=== PATIENT | male | born 1945 | race African-American/Black ===

== ENCOUNTER 2020-03-29 12:45 | Emergency (ER) | payer OTHER ==
[2020-03-29] MEDS ORDERED: NA CHLORIDE 0.9% 500 ML ONE (14:13)
[2020-03-29 14:14] LABS: Absolute Lymphocytes (CBC) 1.1 K/uL (0.7-4.9); Basophils % 1.1 % (0-1.3); Hematocrit 33.2 % (39.6-49.0); Lymphocytes % 28.3 % (15.3-44.8); MPV 10.4 fL (7.6-11.3); RBC Red Blood Cell Count 3.55 M/uL (4.33-5.43)
[2020-03-29 14:20] LABS: Urine Blood NEGATIVE (NEG); Urine Glucose NEGATIVE (NEG); Urine Protein NEGATIVE (NEG); Urine Specific Gravity 1.015 (1.005-1.030)
[2020-03-29 14:25] LABS: Protime INR 0.98
--- NOTE | 2020-03-29 14:25 | RAD REPORT ---
EXAM DESCRIPTION: CT - Head Brain Wo Cont - 03/29/2020 2:16 pm CLINICAL HISTORY: DIZZINESS Headache, drowsiness, fall with head injury COMPARISON: No comparisons TECHNIQUE: All CT scans are performed using dose optimization technique as appropriate and may inclu de automated exposure control or mA/KV adjustment according to patient size. FINDINGS: No intracranial hemorrhage, hydrocephalus or extra-axial fluid collection.Mild frontal lob e atrophy.No areas of brain edema or evidence of midline shift. The paranasal sinuses and mastoids are clear. The calvarium is intact. IMPRESSION: No acute intracranial abnormality.
[2020-03-29 14:34] LABS: ALT/SGPT 22 U/L (12-78); AST/SGOT 19 U/L (15-37); Albumin 3.5 g/dL (3.4-5.0); Alkaline Phosphatase 51 U/L (45-117); BUN Blood Urea Nitrogen 29 mg/dL (7-18); Bicarbonate 28 mmol/L (21-32); Bilirubin Direct 0.1 mg/dL (0-0.2); Bilirubin Total 0.3 mg/dL (0.2-1.0); Glucose Level 115 mg/dL (74-106); Magnesium 2.1 mg/dL (1.8-2.4); NT PRO-BNP 292 pg/mL (<125); Potassium 4.1 mmol/L (3.5-5.1); Protein, Total 7.9 g/dL (6.4-8.2); Sodium Level 140 mmol/L (136-145); Troponin (Emerg Dept Use Only) < 0.02 ng/mL (0.0-0.045)
--- NOTE | 2020-03-29 14:38 | RAD REPORT ---
EXAM DESCRIPTION: RAD - Chest Single View - 03/29/2020 2:30 pm CLINICAL HISTORY: Dizziness Chest pain. COMPARISON: Chest Pa And Lat (2 Views) dated 12/06/2018; Chest Pa And Lat (2 Views) dated 06/15/2018; CHEST PA AND LAT 2 VIEW dated 05/17/2011; CHEST SINGLE VIEW dated 04/26/2010 FINDINGS: Portable technique limits examination quality. Small calcified granuloma is seen right lung base. The lungs are otherwise clear. The heart is mildly prominent size with a tortuous thoracic aorta. No displaced fractures. IMPRESSION: No acute intrathoracic process suspected.
--- NOTE | 2020-03-29 15:10 | RAD REPORT ---
EXAM DESCRIPTION: - CP - 03/29/2020 2:58 pm CLINICAL HISTORY: DIZZINESS Headache, drowsiness COMPARISON: No comparisons TECHNIQUE: Real-time sonographic evaluation of both carotid systems was performed. Doppler interroga tion was performed with waveform tracing bilaterally. FINDINGS: Normal high resistance waveforms are noted in both external carotid arteries. The common c arotid arteries and internal carotid arteries show normal low resistance waveforms. No significant plaque formation is seen. Peak systolic and end diastolic velocity values and the ICA/ CCA ratios are in the non-hemodynamically significant range. Antegrade flow seen in both vertebral arteries. IMPRESSION: No significant atherosclerotic changes noted. No evidence of a hemodynamically significant stenosis.
--- NOTE | 2020-03-29 16:36 | ER ---
Nurse's Notes [facility] Name: Cam Kaplan Age: 75 yrs Sex: Male : 1945 Arrival Date: 03/29/2020 Time: 12:47 Bed 4 Private MD: Jean Penny Diagnosis: Dizziness and giddiness Presentation: 03/29 12:57 Chief complaint: Spouse and/or significant other states: "he was standing in the [facility] kitchen, he all of a sudden, he felt dizzy then fell. he denies pain now.". Coronavirus screen: At this time, the client does not indicate any symptoms associated with coronavirus-19. Ebola Screen: Patient negative for fever greater than or equal to 101.5 degrees Fahrenheit, and additional compatible Ebola Virus Disease symptoms. Initial Sepsis Screen: Does the patient meet any 2 criteria? No. Patient's initial sepsis screen is negative. Does the patient have a suspected source of infection? No. Patient's initial sepsis screen is negative. Risk Assessment: Do you want to hurt yourself or someone else? Patient reports no desire to harm self or others. Onset of symptoms was March 29, 2020. 12:57 Method Of Arrival: Wheelchair jd3 12:57 Acuity: ISA 3 jd3 Historical: - Allergies: 13:00 No Known Allergies; j - Home Meds: 15:56 Benicar HCT 40-12.5 mg Oral tab 1 tab once daily [Active]; Toprol XL 50 mg Oral Tb24 1 jl7 tab once daily [Active]; allopurinol 300 mg Oral tab 1 tab once daily [Active]; Lasix 40 mg Oral tab [Active]; doxazosin 4 mg oral tab 1 tab once daily [Active]; omeprazole 40 mg Oral cpDR 1 cap once daily [Active]; flecainide 50 mg Oral tab 1 tab every 12 hours [Active]; aspirin 325 mg Oral tab 1 tab once daily [Active]; CoQ-10 100 mg Oral cap daily [Active]; Centrum Silver Oral daily [Active]; Vitamin B-12 1,000 mcg Oral tab daily [Active]; Vitamin C 1,000 mg Oral tab daily [Active]; - PMHx: 13:00 GERD; Gout; Atrial Fib; Hypertension; jd3 - PSHx: 13:00 Carpal Tunnel Repair; jd3 - Immunization history:: Adult Immunizations up to date. - Social history:: Smoking status: Patient denies any tobacco usage or history of. Screenin:15 Abuse screen: Denies threats or abuse. Nutritional screening: No deficits noted. rb1 Tuberculosis screening: No symptoms or risk factors identified. Fall Risk Fall in past 12 months (25 points). No secondary diagnosis (0 pts). IV access (20 points). Ambulatory Aid- None/Bed Rest/Nurse Assist (0 pts). Gait- Normal/Bed Rest/Wheelchair (0 pts) Mental Status- Oriented to own ability (0 pts). Total Robles Fall Scale indicates High Risk Score (45 or more points). Fall prevention measures have been instituted. Side Rails Up X 2 Placed Close to Nursing Station 1:1 Attendant Assigned Frequent Obs/Assessments Occuring Family Present and informed to notify staff if the need to leave the bedside As available patient and family educated on Fall Prevention Program and Strategies. Assessment: 13:15 General: Appears in no apparent distress. comfortable, Behavior is calm, cooperative. rb1 Pain: Denies pain. Neuro: Level of Consciousness is awake, alert, obeys commands, Oriented to person, place, time, situation, Denies dizziness, LOC. Cardiovascular: Capillary refill < 3 seconds. Respiratory: Airway is patent Respiratory effort is even, unlabored, Respiratory pattern is regular, symmetrical. GI: No signs and/or symptoms were reported involving the gastrointestinal system. : No signs and/or symptoms were reported regarding the genitourinary system. Derm: Skin is dry, Skin is normal, Skin temperature is warm. 15:45 Reassessment: Patient appears in no apparent distress at this time. No changes from jl7 previously documented assessment. Patient is alert, oriented x 3, equal unlabored respirations, skin warm/dry/pink. ERP notified of BP, will be to bedside momentarily. Patient denies pain at this time. 16:44 Reassessment: Patient appears in no apparent distress at this time. No changes from rb1 previously documented assessment. Vital Signs: 13:00 BP 129 / 98; Pulse 74; Resp 17 S; Temp 98.3(O); Pulse Ox 98% on R/A; Weight 112.49 kg jd3 (R); Height 6 ft. 1 in. (185.42 cm) (R); Pain 0/10; 15:45 BP 184 / 112; Pulse 59; Resp 17; Pulse Ox 100% ; rb1 15:51 BP 169 / 120; Pulse 57; Resp 15; Pulse Ox 99% ; Pain 0/10; jl7 13:00 Body Mass Index 32.72 (112.49 kg, 185.42 cm) jd3 ED Course: 12:47 Patient arrived in ED. ag5 12:47 Jean Pneny MD is Private Physician. ag5 12:59 Triage completed. jd3 13:00 Arm band placed on. jd3 13:15 Patient has correct armband on for positive identification. Bed in low position. Call rb1 light in reach. Side rails up X 1. armature rewinder on. Pulse ox on. NIBP on. Warm blanket given. 13:23 Paulie Li, CHRISTINE is PHCP. pm1 13:24 Ilia Pereyra MD is Attending Physician. pm1 13:35 Meagan Carlin, DAVID is Primary Nurse. rb1 14:04 Initial lab(s) drawn, by wi, sent to lab. Inserted saline lock: 20 gauge in right em1 antecubital area, using aseptic technique. Blood collected. 14:16 CT Head Brain wo Cont In Process Unspecified. EDMS 14:29 EKG done, by ED staff, reviewed by Ilia Pereyra MD. dh4 14:30 XRAY Chest (1 view) In Process Unspecified. EDMS 14:58 Carotid Artery Bilateral US In Process Unspecified. EDMS 14:59 Ultrasound completed. Patient tolerated well. Notified BIOFUELS MANAGER/LAURIE douglas. sg3 16:36 Jean Penny MD is Referral Physician. pm1 17:04 No provider procedures requiring assistance completed. IV discontinued, intact, rb1 bleeding controlled, No redness/swelling at site. Pressure dressing applied. Administered Medications: 14:03 Drug: NS 0.9% 500 ml Route: IV; Rate: bolus; Site: right antecubital; rb1 14:45 Follow up: Response: No adverse reaction; IV Status: Completed infusion; IV Intake: jl7 500ml Intake: 14:45 IV: 500ml; Total: 500ml. jl7 Outcome: 16:36 Discharge ordered by . pm1 17:04 Discharged to home ambulatory, with family. rb1 17:04 Condition: stable 17:04 Discharge instructions given to patient, Instructed on discharge instructions, follow up and referral plans. Demonstrated understanding of instructions, follow-up care, Prescriptions given X none 17:05 Patient left the ED. rb1 Signatures: Dispatcher [employer] Pascual Godoy em1 Meagan Carlin, RN RN rb1 Paulie Li, CHRISTINE BIOFUELS MANAGER pm1 Meka Tate RN RN jl7 David Zhang RN RN josed3 Jacqui Ash 3 Coby Whitaker [facility] Giorgio Galicia 4
--- NOTE | 2020-03-29 16:37 | EDPHYS ---
Physician Documentation [facility] Name: Cam Kaplan Age: 75 yrs Sex: Male : 1945 Arrival Date: 03/29/2020 Time: 12:47 Bed 4 Private MD: Jean Penny ED Physician Ilia Pereyra HPI: 03/29 13:39 This 75 yrs old Black Male presents to ER via Wheelchair with complaints of Dizziness, pm1 Fall Injury. 13:39 The patient presents with sense of spinning, vertigo. Onset: The symptoms/episode pm1 began/occurred 1 hour(s) ago. Context: occurred at home, occurred while the patient was standing, just prior to the episode the patient experienced no apparent symptoms. Modifying factors: The symptoms are alleviated by nothing, the symptoms are aggravated by nothing. Associated signs and symptoms: Pertinent negatives: abdominal pain, chest pain, focal weakness, head injury, headache, nausea, numbness, palpitations, shortness of breath, vomiting. Severity of symptoms: in the emergency department the symptoms have resolved Pain is currently a 0 / 10. Patient's baseline: Neuro: alert and fully oriented, Motor: no deficits, Ambulation: walks without assistance, Speech: normal. The patient has not experienced similar symptoms in the past. Patient was standing in the kitchen with his hands on the counter and then he started feeling the room spinning. He was able to control is fall down to the floor first landing on his knees. His head hit his 's knee on the way down. He had no difficulty getting up and he no longer experiencing any dizziness. No headache, focal weakness, neck pain, LOC. Historical: - Allergies: 13:00 No Known Allergies; jd3 - Home Meds: 15:56 Benicar HCT 40-12.5 mg Oral tab 1 tab once daily [Active]; Toprol XL 50 mg Oral Tb24 1 jl7 tab once daily [Active]; allopurinol 300 mg Oral tab 1 tab once daily [Active]; Lasix 40 mg Oral tab [Active]; doxazosin 4 mg oral tab 1 tab once daily [Active]; omeprazole 40 mg Oral cpDR 1 cap once daily [Active]; flecainide 50 mg Oral tab 1 tab every 12 hours [Active]; aspirin 325 mg Oral tab 1 tab once daily [Active]; CoQ-10 100 mg Oral cap daily [Active]; Centrum Silver Oral daily [Active]; Vitamin B-12 1,000 mcg Oral tab daily [Active]; Vitamin C 1,000 mg Oral tab daily [Active]; - PMHx: 13:00 GERD; Gout; Atrial Fib; Hypertension; jd3 - PSHx: 13:00 Carpal Tunnel Repair; jd3 - Immunization history:: Adult Immunizations up to date. - Social history:: Smoking status: Patient denies any tobacco usage or history of. ROS: 13:39 Constitutional: Negative for fever, chills, and weight loss, Eyes: Negative for injury, pm1 pain, redness, and discharge, ENT: Negative for injury, pain, and discharge, Neck: Negative for injury, pain, and swelling, Cardiovascular: Negative for chest pain, palpitations, and edema, Respiratory: Negative for shortness of breath, cough, wheezing, and pleuritic chest pain, Abdomen/GI: Negative for abdominal pain, nausea, vomiting, diarrhea, and constipation, Back: Negative for injury and pain, MS/Extremity: Negative for injury and deformity, Skin: Negative for injury, rash, and discoloration. 13:39 Neuro: Positive for dizziness, Negative for numbness, tingling, weakness. Exam: 13:39 Constitutional: This is a well developed, well nourished patient who is awake, alert, pm1 and in no acute distress. Head/Face: Normocephalic, atraumatic. Eyes: Pupils equal round and reactive to light, extra-ocular motions intact. Lids and lashes normal. Conjunctiva and sclera are non-icteric and not injected. Cornea within normal limits. Periorbital areas with no swelling, redness, or edema. ENT: Nares patent. No nasal discharge, no septal abnormalities noted. Tympanic membranes are normal and external auditory canals are clear. Oropharynx with no redness, swelling, or masses, exudates, or evidence of obstruction, uvula midline. Mucous membranes moist. Neck: Trachea midline, no thyromegaly or masses palpated, and no cervical lymphadenopathy. Supple, full range of motion without nuchal rigidity, or vertebral point tenderness. No Meningismus. 13:39 Back: No spinal tenderness. No costovertebral tenderness. Full range of motion. Skin: Warm, dry with normal turgor. Normal color with no rashes, no lesions, and no evidence of cellulitis. MS/ Extremity: Pulses equal, no cyanosis. Neurovascular intact. Full, normal range of motion. 13:39 Cardiovascular: Exam negative for acute changes, Rate: normal, Rhythm: regular, Pulses: no pulse deficits are appreciated. 13:39 Respiratory: Exam negative for acute changes, respiratory distress, shortness of breath. 13:39 Abdomen/GI: Exam negative for acute changes, Inspection: abdomen appears normal, Palpation: abdomen is soft and non-tender, in all quadrants, mass, is not appreciated, rebound tenderness, is not appreciated. 13:39 Neuro: Exam negative for acute changes, Orientation: is normal, Mentation: is normal, Cranial nerves: CN II- XII are normal as tested, Cerebellar function: normal finger to nose testing, Motor: is normal. Vital Signs: 13:00 BP 129 / 98; Pulse 74; Resp 17 S; Temp 98.3(O); Pulse Ox 98% on R/A; Weight 112.49 kg jd3 (R); Height 6 ft. 1 in. (185.42 cm) (R); Pain 0/10; 15:45 BP 184 / 112; Pulse 59; Resp 17; Pulse Ox 100% ; rb1 15:51 BP 169 / 120; Pulse 57; Resp 15; Pulse Ox 99% ; Pain 0/10; jl7 13:00 Body Mass Index 32.72 (112.49 kg, 185.42 cm) jd3 MDM: 13:26 Patient medically screened. pm1 16:35 Data reviewed: vital signs. Data interpreted: Pulse oximetry: on room air is 99 %. pm1 Interpretation: normal. Counseling: I had a detailed discussion with the patient and/or guardian regarding: the historical points, exam findings, and any diagnostic results supporting the discharge/admit diagnosis, lab results, radiology results, the need for outpatient follow up, Dr. Penny. Weight loss and blood pressure management, to return to the emergency department if symptoms worsen or persist or if there are any questions or concerns that arise at home. 03/29 13:38 Order name: Basic Metabolic Panel; Complete Time: 14:36 pm1 03/29 13:38 Order name: CBC with Diff; Complete Time: 14:36 pm1 03/29 13:38 Order name: LFT's; Complete Time: 14:36 pm1 03/29 13:38 Order name: Magnesium; Complete Time: 14:36 pm1 03/29 13:38 Order name: NT PRO-BNP; Complete Time: 14:36 pm1 03/29 13:38 Order name: PT-INR; Complete Time: 14:36 pm1 03/29 13:38 Order name: Troponin (emerg Dept Use Only); Complete Time: 14:36 pm1 03/29 13:38 Order name: XRAY Chest (1 view); Complete Time: 14:47 pm1 03/29 13:38 Order name: EKG; Complete Time: 13:39 pm1 03/29 13:38 Order name: Cardiac monitoring; Complete Time: 14:33 pm1 03/29 13:38 Order name: CT Head Brain wo Cont; Complete Time: 14:36 pm1 03/29 13:38 Order name: Carotid Artery Bilateral US; Complete Time: 15:16 pm1 03/29 14:16 Order name: Urine Dipstick--Ancillary (enter results); Complete Time: 14:36 eb 03/29 13:38 Order name: EKG - Nurse/Tech; Complete Time: 14:33 pm1 03/29 13:38 Order name: IV Saline Lock; Complete Time: 14:03 pm1 03/29 13:38 Order name: Labs collected and sent; Complete Time: 14:03 pm1 03/29 13:38 Order name: O2 Per Protocol; Complete Time: 14:06 pm1 03/29 13:38 Order name: O2 Sat Monitoring; Complete Time: 14:06 pm1 03/29 13:38 Order name: Urine Dipstick-Ancillary (obtain specimen); Complete Time: 15:08 pm1 Administered Medications: 14:03 Drug: NS 0.9% 500 ml Route: IV; Rate: bolus; Site: right antecubital; rb1 14:45 Follow up: Response: No adverse reaction; IV Status: Completed infusion; IV Intake: jl7 500ml Disposition: 03/30 07:14 Co-signature as Attending Physician, Ilia Pereyra MD I agree with the assessment and adal plan of care. Disposition: 03/29/20 16:36 Discharged to Home. Impression: Dizziness and giddiness. - Condition is Stable. - Discharge Instructions: Dizziness, Vertigo. - Medication Reconciliation Form, Thank You Letter, Antibiotic Education, Prescription Opioid Use form. - Follow up: Emergency Department; When: As needed; Reason: Worsening of condition. Follow up: Jean Penny MD; When: 2 - 3 days; Reason: Recheck today's complaints, Continuance of care, Re-evaluation by your physician. - Problem is new. - Symptoms are resolved. Signatures: Dispatcher [employer] EDWA Ilia Pereyra MD MD cha Barber, Rebecca, RN RN rb1 Paulie Li NP CASING INSPECTOR pm1 Meka Tate RN RN jl7 David Zhang RN RN jd3 Corrections: (The following items were deleted from the chart) 03/29 17:05 16:36 03/29/2020 16:36 Discharged to Home. Impression: Dizziness and giddiness. rb1 Condition is Stable. Forms are Medication Reconciliation Form, Thank You Letter, Antibiotic Education, Prescription Opioid Use. Follow up: Emergency Department; When: As needed; Reason: Worsening of condition. Follow up: Jean Penny; When: 2 - 3 days; Reason: Recheck today's complaints, Continuance of care, Re-evaluation by your physician. Problem is new. Symptoms are resolved. pm1
[2020-03-29 17:20] VITALS: TEMP 98.3
[2020-03-29 17:22] VITALS: BP 169/120; O2SAT 99
--- OUTSIDE RECORDS SUMMARY | 2020-04-02 00:50 | XMS REPORT | Clinical Summary ---
:1945 Author Organization [facility] Address [address] [place] [address] Care Team Providers Name Role Phone Bubba Moore MD Primary Care Provider Allergies No Known Active Allergies Medications Medication Sig Dispensed Refills Start End Date Status Date nitroglycerin Place 0.4 mg 0 Act sabrina (NITROSTAT) 0.4 MG under the tongue SL tablet every 5 (five) minutes as needed for chest pain. atorvastatin Take 20 mg by 0 Act sabrina (LIPITOR) 20 mg mouth nightly. tablet Default OP ins citalopram Take 20 mg by 0 Activ e (CeleXA) 20 MG mouth daily. tablet thiamine 1 tablet (100 mg 30 tablet 0 04/08/20 Act sabrina mononitrate, vit total) by 0 20 B1, (B-1) 100 mg Nasogastric tablet route daily for 30 days. spironolactone Take 0.5 tablets 15 tablet 0 04/08/20 Active (ALDACTONE) 25 MG (12.5 mg total) 0 20 tablet by mouth daily for 30 days. sodium chloride 3 Take 4 mL by 480 mL 0 04/08/20 Active % nebulizer nebulization 0 20 solutionIndication every 6 (six) s: Acute hours for 30 respiratory days. failure, unspecified whether with hypoxia or hypercapnia (HCC), Acute upper GI bleed, Chronic obstructive pulmonary disease, unspecified COPD type (HCC), Aspiration pneumonia, unspecified aspiration pneumonia type, unspecified laterality, unspecified part of lung (HCC) senna (SENOKOT) Take 1 tablet by 30 tablet 0 0 Active 8.6 mg tablet mouth daily for 0 20 30 days. pantoprazole 4 Infuse 10 mL (40 600 mL 0 04/08/20 Active mg/mL in sodium mg total) into a 0 20 chloride injection venous catheter 2 (two) times a day before meals for 30 days. naloxone (NARCAN) Infuse 0.5 mL 1 mL 0 04/08/20 Active 0.4 mg/mL (0.2 mg total) 0 20 injection into a venous catheter once as needed for opioid reversal or respiratory depression (as needed for respiratory rate 8 per minute or less OR patient sommnolent and difficult to arouse (POSS GREATER than 3).) for up to 30 days. multivitamin Take 1 tablet by 30 tablet 0 04/08/20 Active (THERAGRAN) tablet mouth daily for 0 20 30 days. losartan (COZAAR) Take 1 tablet 30 tablet 0 04/08/20 Active 25 MG tablet (25 mg total) by 0 20 mouth daily for 30 days. ipratropium-albute Take 3 mL by 0 04/08/20 Active roL (DUO-NEB) nebulization 0 20 0.5-2.5 mg/3 mL every 6 (six) nebulizer hours as needed for wheezing for up to 30 days. insulin lispro Inject 0-12 10 mL 12 04/08/20 Act sabrina (ADMELOG) 100 Units under the 0 20 unit/mL injection skin every 4 (four) hours for 30 days. glucagon 1 mg/mL Inject 1 mg into 0 Active recon soln the shoulder, 0 20 thigh, or buttocks every 15 (fifteen) minutes as needed (if patient NPO, unable to swallow safely with no IV access.) for up to 30 days. furosemide (LASIX) 1 tablet (40 mg 30 tablet 0 04/08 Active 40 mg tablet total) by 0 20 Nasogastric route daily for 30 days. folic acid Take 1 tablet (1 30 tablet 0 04/08/20 Ac tive (FOLVITE) 1 MG mg total) by 0 20 tablet mouth daily for 30 days. dextrose 50% Infuse 50 mL (25 0 04/08/20 Active syringe g total) into a 0 20 venous catheter every 20 (twenty) minutes as needed (If blood glucose is 40 mg/dL or LESS) for up to 30 days. dextrose 50% Infuse 25 mL 0 04/08/20 Acti ve syringe (12.5 g total) 0 20 into a venous catheter every 20 (twenty) minutes as needed (If blood glucose is between 41-69 mg/dL) for up to 30 days. dextrose 10 % Infuse 40 mL/hr 500 mL 0 04/08/20 Active infusion into a venous 0 20 catheter continuously as needed (for interruption in TPN or tube feeds) for up to 30 days. dextrose 10 % Infuse 40 mL/hr 500 mL 0 04/08/20 Active infusion into a venous 0 20 catheter continuously as needed (For bedside glucose LESS than 70 mg/dL) for up to 30 days. carvediloL (COREG) Take 1 tablet 60 tablet 0 0 Active 3.125 MG tablet (3.125 mg total) 0 20 by mouth 2 (two) times a day for 30 days. amIODarone Take 1 tablet 60 tablet 0 04/08/20 Activ e (PACERONE) 200 MG (200 mg total) 0 20 tablet by mouth 2 (two) times a day for 30 days. acetaminophen 20.3 mL (650 mg 0 04/08/20 Active (TYLENOL) 160 mg/5 total) by 0 20 mL (5 mL) solution Nasogastric route every 4 (four) hours as needed (Fever, mild pain or headache) for up to 30 days. citalopram Take 10 mg by 0 07/02/19 Disco ntinued (CeleXA) 10 MG mouth daily. 20 tablet fluticasone-vilant Inhale 1 0 08/01/19 D iscontinued robinson (BREO inhalations once 20 ( ed List ELLIPTA) 200-25 daily. Iman nup) mcg/dose blister with device powder for inhalation albuterol (PROAIR Inhale 2 puffs 3 0 08/01 Discontinued HFA,PROVENTIL (three) times a 20 (Med List HFA,VENTOLIN HFA) day. Cl eanup) 90 mcg/actuation inhaler amLODIPine Take 10 mg by 0 07/02/19 Disco ntinued (NORVASC) 10 mg mouth daily. 20 tablet aspirin (ECOTRIN) Take 81 mg by 0 03/09/20 Discontinued 81 MG enteric mouth daily. 20 (St op Taking at coated tablet Discha rge) atorvastatin Take 1 tablet 30 tablet 0 08/01/19 Dis continued (LIPITOR) 20 MG (20 mg total) by 0 20 (Med List tablet mouth nightly Cleanu p) for 30 days. metoprolol Take 1 tablet 60 tablet 0 08/01/19 Disco ntinued tartrate (25 mg total) by 0 20 (Me d List (LOPRESSOR) 25 mg mouth 2 (two) Cleanup) tablet times a day for [address]. [address] 1 tablet 25 tablet 12 08/01/19 D iscontinued (NITROSTAT) 0.4 MG (0.4 mg total) 0 20 (Med List SL tablet under the tongue Reginaldo benigno) every 5 (five) minutes as needed for chest pain for up to 30 days. pantoprazole Take 1 tablet 30 tablet 0 08/01/19 Dis continued (PROTONIX) 40 MG (40 mg total) by 0 20 (Med List EC tablet mouth daily for Iman nup) 30 days. atorvastatin Take 20 mg by 0 08/01/19 Dis continued (LIPITOR) 20 MG mouth nightly. 20 tablet Default OP ins pantoprazole Take 40 mg by 0 03/09/20 Dis continued (PROTONIX) 40 MG mouth daily. 20 (Stop Taking at EC tablet Discharge) albuterol (PROAIR Inhale 2 puffs 0 0 Discontinued HFA) 90 every 6 (six) 20 (Stop Taking at mcg/actuation hours as needed Discharge) inhaler for wheezing. metoprolol Take 25 mg by 0 03/09/20 Disco ntinued tartrate mouth 2 (two) 20 (Stop Taking at (LOPRESSOR) 25 mg times a day. Discharge) tablet fluticasone Inhale 1 30 each 0 09/03/19 furoate-vilanterol inhalations once 0 20 (BREO ELLIPTA) daily for 30 100-25 mcg/dose days. blister with device powder for inhalation montelukast Take 1 tablet 30 tablet 0 09/02/19 Expi red (SINGULAIR) 10 mg (10 mg total) by 0 20 tablet mouth nightly for 30 days. levoFLOXacin Take 1 tablet 8 tablet 0 01/04/20 Exp ired (Levaquin) 500 MG (500 mg total) 0 20 tablet by mouth daily for 8 days. metroNIDAZOLE Take 1 tablet 24 tablet 0 01/04/20 Ex pired (FlagyL) 500 MG (500 mg total) 0 20 tablet by mouth 3 (three) times a day for 8 days. codeine-guaifenesi Take 5 mL by 120 mL 0 12/31/19 n (GUAIFENESIN AC) mouth 4 (four) 0 20 10-100 mg/5 mL times a day as liquidIndications: needed for cough acute pain for up to 4 days .acute pain. traMADoL (ULTRAM) 0.5 tablets (25 0 50 mg mg total) by 0 20 tabletIndications: Nasogastric acute pain route every 6 (six) hours as needed for moderate pain for up to 7 days .acute pain. sodium chloride Irrigate with 500 mL 0 03/09/20 0.9% for 500 mL as 0 20 IRRIGATION (NS) directed once 0.9 % irrigation for 1 dose. Active Problems Problem Noted Date Acute upper GI bleed 02/22/2020 Coffee ground emesis 02/22/2020 Overview: Added automatically from request for roxy yared [id number] Lactic acidosis 12/26/2019 Syncope 08/01/2019 Chest pain 07/01/2019 COPD (chronic obstructive pulmonary disease) 8 Alcohol abuse 03/10/2018 Acute pancreatitis 03/08/2018 Encounters Date Type Specialty Care Team Description 02/22/2020 Surgery Gastroenterology Zenon Shankar EGD WITH ILA Patel MD 02/22/2020 Anesthesia Event Gastroenterology Rose Marie Escalante MD 02/22/2020 [facility] General Internal SvAlexandria barragan, Aspirati on pneumonia, unspecified aspiration pneumonia type, unspecified laterality, unspecified part of lung (HCC) (Primary Dx); - Encounter Medicine DO Coffee ground emesis; 03/09/2020 Olga Dillard-Gunjan Unresponsive ; MD Nati Alcohol abuse; Hasmukh, Acute respirato ry failure, unspecified whether with hypoxia or hypercapnia ([facility]); Balta Brown MD Lactic acid a cidosis; Acute upper GI bleed; Chronic obstruc tive pulmonary disease, unspecified COPD type ([facility]); Cardiac arrest ([facility]); Ventricular fib rillation ([facility]) 12/25/2019 [facility] Surgery Norinsky, Acute coliti s (Primary Dx); - Encounter Srinivas Muñoz, DO Lactic acidosis; 12/27/2019 Santana Dillardynh-Gunjan SVT (suprave ntricular tachycardia) ([facility]); MD Nati Vomiting and diarrhea; Hasmukh, Cough; Balta Brown MD Suspected Cov id-19 Virus Infection; Chronic obstruc tive pulmonary disease, unspecified COPD type ([facility]) 08/02/2019 Surgery Procedural Cardiology Mason Abarca Left heart cath sabino Rios MD lv gram cors [20069 (CPT)] 08/01/2019 Emergency General Internal Gemignani, Chest pain, unspecified type (Primary Dx); - Medicine Desirae Holland MD Syncope, unspecified syncope type 08/03/2019 Balta Noe MD 07/01/2019 Emergency General Internal Marshal, Moiz Boi, Chest p ain, unspecified type (Primary Dx); - Medicine Chronic obstructive pulmonary disease, u nspecified COPD type ([facility]) 07/03/2019 Fidel Chatman MD Berberian, Esteban N., MD after 04/01/2019 Immunizations Name Administration Dates Next Due FLUCELVAX QUAD PF 03/09/2020 (Deferred: - patient has bee n sick), 03/10/2018 Pneumococcal Conjugate 13-Valent 03/10/2018 Surgical History Surgery Date Site/Laterality Comments CORONARY STENT PLACEMENT APPENDECTOMY TONSILLECTOMY KNEE SURGERY AMPUTATION, DIGIT, HAND Left mid dle finger amputated BACK SURGERY 1979; 1996 CARDIAC CATHETERIZATION 08/02/2019 N/A Procedur e: Left heart cath w lv gram cors; Surg rene: Mason Abarca MD; Locatio n: [facility] [place] Catcher Filter Tip Invasive Locatio n; Service: Cardiology; Lat erality: N/A; Medical devices from this surgery are in the Impla nts section. EGD W BIOPSY P 02/22/2020 N/A Procedure: EGD W ITH BIOPSY; Surgeon: Maxx Shankar MD; Location: [facility] [place] E NDOSCOPY; Service: Gastroe nterology; Laterality: N/A; extensive esophagitis Medical History Medical History Date Comments COPD (chronic obstructive pulmonary disease) (HCC) Pancreatitis Ulcer of abdomen wall (HCC) Hypertension Coronary artery disease Hypercholesteremia Pulmonary embolism (HCC) Anemia Social History Tobacco Use Types Packs/Day Years Used Date Current Every Day Smoker Cigarettes 1 Smokeless Tobacco: Never Used Tobacco Cessation: Ready to Quit: No; Co unseling Given: No Alcohol Use Drinks/Week oz/Week Comments Not Currently 3 years ago Sex Assigned at Date Recorded Not on file Last Filed Vital Signs Vital Sign Reading Time Taken Comments Blood Pressure 112/55 03/09/2020 7:25 PM CDT Pulse 66 03/09/2020 9:20 PM CDT Temperature 36.4 C (97.6 F) 03/09/2020 7:25 PM CDT Respiratory Rate 18 03/09/2020 9:20 PM CDT Oxygen Saturation 98% 03/09/2020 8:57 PM CDT Inhaled Oxygen Concentration - - Weight 62 kg (136 lb 11 oz) 03/09/2020 5:34 AM CDT Height 175.3 cm (5' 9") 02/22/2020 1:43 AM CDT Body Mass Index 20.18 02/22/2020 1:43 AM CDT Plan of Treatment Health Maintenance Due Date Last Done Comments COLONOSCOPY SCREENING 1997 SHINGLES VACCINES (#1) 1997 65+ PNEUMOCOCCAL VACCINE (2 of 2 - PPSV23) 03/10/201903/10 INFLUENZA VACCINE 01/25/2020 03/10/2018 Implants Implanted Type Area Impression Printer Device Shelf Model / Identifier Expiration Serial / Date Lot Device Vasclr Clsr Baln Cath 10ml Lkng Syr 5fr [place] My nxgrip - [id number] Cardiovascular N/A: ACCESS CLOSURE 06/25/2021 [id number] / Implanted: 08/02/2019 at [facility] (Quantity not o n file) Implants N/A INC / [id number] Procedures Procedure Name Priority Date/Time Associated Diagnosis Comme nts POC GLUCOSE Routine 03/09/2020 4:02 Results for this PM CDT procedure are i n the results section. POC GLUCOSE Routine 03/09/2020 11:48 Results for this AM CDT procedure are i n the results section. POC GLUCOSE Routine 03/09/2020 9:15 Results for this AM CDT procedure are i n the results section. POC GLUCOSE Routine 03/09/2020 5:09 Results for this AM CDT procedure are i n the results section. POC GLUCOSE Routine 03/09/2020 1:18 Results for this AM CDT procedure are i n the results section. POC GLUCOSE Routine 03/08/2020 9:02 Results for this PM CDT procedure are i n the results section. POC GLUCOSE Routine 03/08/2020 4:03 Results for this PM CDT procedure are i n the results section. POC GLUCOSE Routine 03/08/2020 12:54 Results for this PM CDT procedure are i n the results section. POC GLUCOSE Routine 03/08/2020 8:27 Results for this AM CDT procedure are i n the results section. PARTIAL THROMBOPLASTIN Timed 03/08/2020 5:45 R esults for this TIME (PTT) AM CDT procedure are i n the results section. CBC HEMOGRAM Routine 03/08/2020 5:45 Results for this AM CDT procedure are i n the results section. POC GLUCOSE Routine 03/08/2020 4:39 Results for this AM CDT procedure are i n the results section. POC GLUCOSE Routine 03/08/2020 12:01 Results for this AM CDT procedure are i n the results section. PARTIAL THROMBOPLASTIN Timed 2020 10:15 R esults for this TIME (PTT) PM CDT procedure are i n the results section. POC GLUCOSE Routine 2020 8:19 Results for this PM CDT procedure are i n the results section. POC GLUCOSE Routine 2020 3:27 Results for this PM CDT procedure are i n the results section. PARTIAL THROMBOPLASTIN Timed 2020 2:30 R esults for this TIME (PTT) PM CDT procedure are i n the results section. POC GLUCOSE Routine 2020 12:04 Results for this PM CDT procedure are i n the results section. POC GLUCOSE Routine 2020 8:46 Results for this AM CDT procedure are i n the results section. CBC HEMOGRAM Routine 2020 7:35 Results for this AM CDT procedure are i n the results section. PARTIAL THROMBOPLASTIN Timed 2020 6:54 R esults for this TIME (PTT) AM CDT procedure are i n the results section. POC GLUCOSE Routine 2020 4:15 Results for this AM CDT procedure are i n the results section. POC GLUCOSE Routine 2020 12:26 Results for this AM CDT procedure are i n the results section. PARTIAL THROMBOPLASTIN Timed 03/06/2020 10:50 R esults for this TIME (PTT) PM CDT procedure are i n the results section. POC GLUCOSE Routine 03/06/2020 8:46 Results for this PM CDT procedure are i n the results section. POC GLUCOSE Routine 03/06/2020 3:50 Results for this PM CDT procedure are i n the results section. PARTIAL THROMBOPLASTIN Timed 03/06/2020 3:15 R esults for this TIME (PTT) PM CDT procedure are i n the results section. POC GLUCOSE Routine 03/06/2020 11:35 Results for this AM CDT procedure are i n the results section. PARTIAL THROMBOPLASTIN Timed 03/06/2020 7:45 R esults for this TIME (PTT) AM CDT procedure are i n the results section. POC GLUCOSE Routine 03/06/2020 7:43 Results for this AM CDT procedure are i n the results section. POC GLUCOSE Routine 03/06/2020 4:39 Results for this AM CDT procedure are i n the results section. MANUAL DIFFERENTIAL Timed 03/06/2020 4:30 Resu lts for this AM CDT procedure are i n the results section. ESTIMATED GFR Timed 03/06/2020 4:30 Results fo r this AM CDT procedure are i n the results section. IONIZED CALCIUM Timed 03/06/2020 4:30 Results for this AM CDT procedure are i n the results section. PHOSPHORUS LEVEL Timed 03/06/2020 4:30 Results for this AM CDT procedure are i n the results section. MAGNESIUM LEVEL Timed 03/06/2020 4:30 Results for this AM CDT procedure are i n the results section. CBC WITH PLATELET AND Timed 03/06/2020 4:30 Re sults for this DIFFERENTIAL AM CDT procedure are i n the results section. BASIC METABOLIC PANEL Timed 03/06/2020 4:30 Re sults for this AM CDT procedure are i n the results section. POC GLUCOSE Routine 03/06/2020 3:59 Results for this AM CDT procedure are i n the results section. POC GLUCOSE Routine 03/06/2020 12:25 Results for this AM CDT procedure are i n the results section. PARTIAL THROMBOPLASTIN Timed 03/05/2020 10:22 R esults for this TIME (PTT) PM CDT procedure are i n the results section. POTASSIUM LEVEL Routine 03/05/2020 10:22 Results for this PM CDT procedure are i n the results section. POC GLUCOSE Routine 03/05/2020 8:58 Results for this PM CDT procedure are i n the results section. IONIZED CALCIUM Routine 03/05/2020 5:30 Results for this PM CDT procedure are i n the results section. POC GLUCOSE Routine 03/05/2020 4:10 Results for this PM CDT procedure are i n the results section. PARTIAL THROMBOPLASTIN Timed 03/05/2020 1:00 R esults for this TIME (PTT) PM CDT procedure are i n the results section. POC GLUCOSE Routine 03/05/2020 11:27 Results for this AM CDT procedure are i n the results section. POC GLUCOSE Routine 03/05/2020 8:07 Results for this AM CDT procedure are i n the results section. XR CHEST 1 VW PORTABLE Routine 03/05/2020 6:26 R esults for this AM CDT procedure are i n the results section. MANUAL DIFFERENTIAL Routine 03/05/2020 5:00 Resu lts for this AM CDT procedure are i n the results section. PARTIAL THROMBOPLASTIN Timed 03/05/2020 5:00 R esults for this TIME (PTT) AM CDT procedure are i n the results section. MAGNESIUM LEVEL Routine 03/05/2020 5:00 Results for this AM CDT procedure are i n the results section. ESTIMATED GFR Routine 03/05/2020 5:00 Results fo r this AM CDT procedure are i n the results section. IONIZED CALCIUM Routine 03/05/2020 5:00 Results for this AM CDT procedure are i n the results section. PHOSPHORUS LEVEL Routine 03/05/2020 5:00 Results for this AM CDT procedure are i n the results section. COMPREHENSIVE Routine 03/05/2020 5:00 Results fo r this METABOLIC PANEL AM CDT procedure ar e in the results section. CBC WITH PLATELET AND Routine 03/05/2020 5:00 Re sults for this DIFFERENTIAL AM CDT procedure are i n the results section. ARTERIAL BLOOD GAS Routine 03/05/2020 4:17 Resul ts for this AM CDT procedure are i n the results section. POC GLUCOSE Routine 03/05/2020 12:50 Results for this AM CDT procedure are i n the results section. PARTIAL THROMBOPLASTIN Timed 03/04/2020 10:40 R esults for this TIME (PTT) PM CDT procedure are i n the results section. POC GLUCOSE Routine 03/04/2020 8:19 Results for this PM CDT procedure are i n the results section. IONIZED CALCIUM Timed 03/04/2020 4:40 Results for this PM CDT procedure are i n the results section. POC GLUCOSE Routine 03/04/2020 3:45 Results for this PM CDT procedure are i n the results section. XR CHEST 1 VW PORTABLE STAT 03/04/2020 2:45 R esults for this PM CDT procedure are i n the results section. HC CATH DUAL LUMEN Routine 03/04/2020 2:28 Resul ts for this PICC # [id number] PM CDT procedure are in the results section. HC CVL PICC INSERT 5 Routine 03/04/2020 2:28 Res ults for this YRS OR > W/RS&I AND PM CDT procedur e are in IMG GUID the results section. BRONCHOSCOPY Routine 03/04/2020 12:20 Acute respiratory Result s for this PM CDT failure, unspecified procedu re are in whether with hypoxia the res ults or hypercapnia (HCC) section . XR CHEST 1 VW PORTABLE STAT 03/04/2020 12:08 R esults for this PM CDT procedure are i n the results section. POC GLUCOSE Routine 03/04/2020 11:52 Results for this AM CDT procedure are i n the results section. GRAM STAIN Routine 03/04/2020 11:05 Results for this AM CDT procedure are i n the results section. RESPIRATORY CULTURE Routine 03/04/2020 11:05 Resu lts for this AM CDT procedure are i n the results section. POC GLUCOSE Routine 03/04/2020 9:10 Results for this AM CDT procedure are i n the results section. POC GLUCOSE Routine 03/04/2020 7:42 Results for this AM CDT procedure are i n the results section. PARTIAL THROMBOPLASTIN STAT 03/04/2020 7:42 R esults for this TIME (PTT) AM CDT procedure are i n the results section. PROTHROMBIN TIME WITH STAT 03/04/2020 7:42 Re sults for this INR AM CDT procedure are i n the results section. XR CHEST 1 VW PORTABLE Routine 03/04/2020 6:17 R esults for this AM CDT procedure are i n the results section. ARTERIAL BLOOD GAS Routine 03/04/2020 4:34 Resul ts for this AM CDT procedure are i n the results section. IONIZED CALCIUM Routine 03/04/2020 4:15 Results for this AM CDT procedure are i n the results section. ESTIMATED GFR Routine 03/04/2020 4:15 Results fo r this AM CDT procedure are i n the results section. PHOSPHORUS LEVEL Routine 03/04/2020 4:15 Results for this AM CDT procedure are i n the results section. MAGNESIUM LEVEL Routine 03/04/2020 4:15 Results for this AM CDT procedure are i n the results section. COMPREHENSIVE Routine 03/04/2020 4:15 Results fo r this METABOLIC PANEL AM CDT procedure ar e in the results section. PARTIAL THROMBOPLASTIN Routine 03/04/2020 4:15 R esults for this TIME (PTT) AM CDT procedure are i n the results section. CBC HEMOGRAM Routine 03/04/2020 4:15 Results for this AM CDT procedure are i n the results section. POC GLUCOSE Routine 03/04/2020 1:03 Results for this AM CDT procedure are i n the results section. POC GLUCOSE Routine 03/03/2020 5:05 Results for this PM CDT procedure are i n the results section. MANUAL DIFFERENTIAL Timed 03/03/2020 5:00 Resu lts for this PM CDT procedure are i n the results section. IONIZED CALCIUM Routine 03/03/2020 5:00 Results for this PM CDT procedure are i n the results section. CBC WITH PLATELET AND Timed 03/03/2020 5:00 Re sults for this DIFFERENTIAL PM CDT procedure are i n the results section. POC GLUCOSE Routine 03/03/2020 3:51 Results for this PM CDT procedure are i n the results section. POC GLUCOSE Routine 03/03/2020 12:14 Results for this PM CDT procedure are i n the results section. POC GLUCOSE Routine 03/03/2020 8:29 Results for this AM CDT procedure are i n the results section. PROTHROMBIN TIME WITH Routine 03/03/2020 4:55 Re sults for this INR AM CDT procedure are i n the results section. POC GLUCOSE Routine 03/03/2020 4:15 Results for this AM CDT procedure are i n the results section. MANUAL DIFFERENTIAL Routine 03/03/2020 4:10 Resu lts for this AM CDT procedure are i n the results section. IONIZED CALCIUM Routine 03/03/2020 4:10 Results for this AM CDT procedure are i n the results section. ESTIMATED GFR Routine 03/03/2020 4:10 Results fo r this AM CDT procedure are i n the results section. MAGNESIUM LEVEL Routine 03/03/2020 4:10 Results for this AM CDT procedure are i n the results section. BASIC METABOLIC PANEL Routine 03/03/2020 4:10 Re sults for this AM CDT procedure are i n the results section. CBC WITH PLATELET AND Routine 03/03/2020 4:10 Re sults for this DIFFERENTIAL AM CDT procedure are i n the results section. PARTIAL THROMBOPLASTIN Routine 03/03/2020 4:10 R esults for this TIME (PTT) AM CDT procedure are i n the results section. POC GLUCOSE Routine 03/02/2020 8:08 Results for this PM CDT procedure are i n the results section. POC GLUCOSE Routine 03/02/2020 4:08 Results for this PM CDT procedure are i n the results section. POC GLUCOSE Routine 03/02/2020 12:35 Results for this PM CDT procedure are i n the results section. POC GLUCOSE Routine 03/02/2020 9:57 Results for this AM CDT procedure are i n the results section. POC GLUCOSE Routine 03/02/2020 7:44 Results for this AM CDT procedure are i n the results section. POC GLUCOSE Routine 03/02/2020 5:43 Results for this AM CDT procedure are i n the results section. ARTERIAL BLOOD GAS Routine 03/02/2020 4:01 Resul ts for this AM CDT procedure are i n the results section. POTASSIUM LEVEL Routine 03/02/2020 3:45 Results for this AM CDT procedure are i n the results section. PARTIAL THROMBOPLASTIN Routine 03/02/2020 3:45 R esults for this TIME (PTT) AM CDT procedure are i n the results section. MAGNESIUM LEVEL Routine 03/02/2020 3:45 Results for this AM CDT procedure are i n the results section. PHOSPHORUS LEVEL Routine 03/02/2020 3:45 Results for this AM CDT procedure are i n the results section. CBC HEMOGRAM Routine 03/02/2020 3:45 Results for this AM CDT procedure are i n the results section. IONIZED CALCIUM Routine 03/02/2020 3:42 Results for this AM CDT procedure are i n the results section. POC GLUCOSE Routine 03/02/2020 12:01 Results for this AM CDT procedure are i n the results section. POC GLUCOSE Routine 03/01/2020 8:33 Results for this PM CDT procedure are i n the results section. PARTIAL THROMBOPLASTIN Timed 03/01/2020 6:24 R esults for this TIME (PTT) PM CDT procedure are i n the results section. POC GLUCOSE Routine 03/01/2020 4:32 Results for this PM CDT procedure are i n the results section. ESTIMATED GFR STAT 03/01/2020 3:20 Results fo r this PM CDT procedure are i n the results section. MAGNESIUM LEVEL STAT 03/01/2020 3:20 Results for this PM CDT procedure are i n the results section. BASIC METABOLIC PANEL STAT 03/01/2020 3:20 Re sults for this PM CDT procedure are i n the results section. IONIZED CALCIUM Routine 03/01/2020 3:20 Results for this PM CDT procedure are i n the results section. B NATRIURETIC PEPTIDE Routine 03/01/2020 2:23 Re sults for this PM CDT procedure are i n the results section. SMEAR REVIEW Timed 03/01/2020 2:23 Results for this PM CDT procedure are i n the results section. HC COMPLETE BLD COUNT Timed 03/01/2020 2:23 Re sults for this W/AUTO DIFF PM CDT procedure are i n the results section. POC GLUCOSE Routine 03/01/2020 1:21 Results for this PM CDT procedure are i n the results section. POC GLUCOSE Routine 03/01/2020 12:05 Results for this PM CDT procedure are i n the results section. PARTIAL THROMBOPLASTIN Timed 03/01/2020 10:05 R esults for this TIME (PTT) AM CDT procedure are i n the results section. POC GLUCOSE Routine 03/01/2020 9:06 Results for this AM CDT procedure are i n the results section. TRANSFUSE RED BLOOD Routine 03/01/2020 8:17 CELLS AM CDT SMEAR REVIEW Timed 03/01/2020 6:52 Results for this AM CDT procedure are i n the results section. HC COMPLETE BLD COUNT Timed 03/01/2020 6:52 Re sults for this W/AUTO DIFF AM CDT procedure are i n the results section. XR CHEST 1 VW PORTABLE Routine 03/01/2020 6:30 R esults for this AM CDT procedure are i n the results section. ARTERIAL BLOOD GAS Routine 03/01/2020 4:40 Resul ts for this AM CDT procedure are i n the results section. MANUAL DIFFERENTIAL Routine 03/01/2020 3:15 Resu lts for this AM CDT procedure are i n the results section. ESTIMATED GFR Routine 03/01/2020 3:15 Results fo r this AM CDT procedure are i n the results section. IONIZED CALCIUM Routine 03/01/2020 3:15 Results for this AM CDT procedure are i n the results section. PHOSPHORUS LEVEL Routine 03/01/2020 3:15 Results for this AM CDT procedure are i n the results section. MAGNESIUM LEVEL Routine 03/01/2020 3:15 Results for this AM CDT procedure are i n the results section. COMPREHENSIVE Routine 03/01/2020 3:15 Results fo r this METABOLIC PANEL AM CDT procedure ar e in the results section. ANTI XA, Timed 03/01/2020 3:15 Results for this UNFRACTIONATED AM CDT procedure are in the results section. PARTIAL THROMBOPLASTIN Timed 03/01/2020 3:15 R esults for this TIME (PTT) AM CDT procedure are i n the results section. CBC HEMOGRAM Routine 03/01/2020 3:15 Results for this AM CDT procedure are i n the results section. POC GLUCOSE Routine 03/01/2020 1:03 Results for this AM CDT procedure are i n the results section. SMEAR REVIEW Timed 02/29/2020 10:20 Results for this PM CDT procedure are i n the results section. HC COMPLETE BLD COUNT Timed 02/29/2020 10:20 Re sults for this W/AUTO DIFF PM CDT procedure are i n the results section. POC GLUCOSE Routine 02/29/2020 8:45 Results for this PM CDT procedure are i n the results section. ANTI XA, Timed 02/29/2020 6:25 Results for this UNFRACTIONATED PM CDT procedure are in the results section. IONIZED CALCIUM Routine 02/29/2020 5:32 Results for this PM CDT procedure are i n the results section. POTASSIUM LEVEL Routine 02/29/2020 5:32 Results for this PM CDT procedure are i n the results section. POC GLUCOSE Routine 02/29/2020 4:14 Results for this PM CDT procedure are i n the results section. MRSA SCREEN CULTURE Routine 02/29/2020 3:51 Resu lts for this PM CDT procedure are i n the results section. SMEAR REVIEW Timed 02/29/2020 2:10 Results for this PM CDT procedure are i n the results section. HC COMPLETE BLD COUNT Timed 02/29/2020 2:10 Re sults for this W/AUTO DIFF PM CDT procedure are i n the results section. POC GLUCOSE Routine 02/29/2020 11:09 Results for this AM CDT procedure are i n the results section. OCCULT BLOOD, STOOL Routine 02/29/2020 11:09 Resu lts for this AM CDT procedure are i n the results section. ANTI XA, Timed 02/29/2020 9:45 Results for this UNFRACTIONATED AM CDT procedure are in the results section. LACTIC ACID LEVEL Routine 02/29/2020 9:00 Result s for this AM CDT procedure are i n the results section. AMMONIA LEVEL STAT 02/29/2020 9:00 Results fo r this AM CDT procedure are i n the results section. POC GLUCOSE Routine 02/29/2020 8:56 Results for this AM CDT procedure are i n the results section. POC GLUCOSE Routine 02/29/2020 8:18 Results for this AM CDT procedure are i n the results section. TRANSFUSE RED BLOOD Routine 02/29/2020 8:01 CELLS AM CDT XR CHEST 1 VW PORTABLE Routine 02/29/2020 6:42 R esults for this AM CDT procedure are i n the results section. XR ABDOMEN 1 VW Routine 02/29/2020 6:40 Results for this AM CDT procedure are i n the results section. PREPARE RBC Routine 02/29/2020 4:33 Results for this AM CDT procedure are i n the results section. PREPARE RBC Routine 02/29/2020 4:33 Results for this AM CDT procedure are i n the results section. TYPE AND SCREEN Routine 02/29/2020 4:33 Results for this AM CDT procedure are i n the results section. ARTERIAL BLOOD GAS Routine 02/29/2020 3:56 Resul ts for this AM CDT procedure are i n the results section. MANUAL DIFFERENTIAL Routine 02/29/2020 3:07 Resu lts for this AM CDT procedure are i n the results section. ESTIMATED GFR Routine 02/29/2020 3:07 Results fo r this AM CDT procedure are i n the results section. BILIRUBIN DIRECT Routine 02/29/2020 3:07 Results for this AM CDT procedure are i n the results section. PHOSPHORUS LEVEL Routine 02/29/2020 3:07 Results for this AM CDT procedure are i n the results section. MAGNESIUM LEVEL Routine 02/29/2020 3:07 Results for this AM CDT procedure are i n the results section. IONIZED CALCIUM Routine 02/29/2020 3:07 Results for this AM CDT procedure are i n the results section. COMPREHENSIVE Routine 02/29/2020 3:07 Results fo r this METABOLIC PANEL AM CDT procedure ar e in the results section. CBC WITH PLATELET AND Routine 02/29/2020 3:07 Re sults for this DIFFERENTIAL AM CDT procedure are i n the results section. POC GLUCOSE Routine 02/29/2020 2:13 Results for this AM CDT procedure are i n the results section. ANTI XA, Timed 02/29/2020 2:04 Results for this UNFRACTIONATED AM CDT procedure are in the results section. POC GLUCOSE Routine 02/28/2020 10:44 Results for this PM CDT procedure are i n the results section. ARTERIAL BLOOD GAS STAT 02/28/2020 9:54 Resul ts for this PM CDT procedure are i n the results section. XR CHEST 1 VW PORTABLE STAT 02/28/2020 9:33 R esults for this PM CDT procedure are i n the results section. BRONCHOSCOPY Routine 02/28/2020 9:15 Acute respiratory Result s for this PM CDT failure, unspecified procedu re are in whether with hypoxia the res ults or hypercapnia (HCC) section . INTUBATION Routine 02/28/2020 9:13 Acute respiratory Result s for this PM CDT failure, unspecified procedu re are in whether with hypoxia the res ults or hypercapnia (HCC) section . ANTI XA, Timed 02/28/2020 6:30 Results for this UNFRACTIONATED PM CDT procedure are in the results section. IONIZED CALCIUM Timed 02/28/2020 4:48 Results for this PM CDT procedure are i n the results section. POTASSIUM LEVEL Timed 02/28/2020 4:48 Results for this PM CDT procedure are i n the results section. POC GLUCOSE Routine 02/28/2020 4:04 Results for this PM CDT procedure are i n the results section. POC GLUCOSE Routine 02/28/2020 11:51 Results for this AM CDT procedure are i n the results section. PARTIAL THROMBOPLASTIN STAT 02/28/2020 10:10 R esults for this TIME (PTT) AM CDT procedure are i n the results section. PROTHROMBIN TIME WITH STAT 02/28/2020 10:10 Re sults for this INR AM CDT procedure are i n the results section. ANTI XA, STAT 02/28/2020 10:10 Results for this UNFRACTIONATED AM CDT procedure are in the results section. POC GLUCOSE Routine 02/28/2020 7:48 Results for this AM CDT procedure are i n the results section. POC GLUCOSE Routine 02/28/2020 6:03 Results for this AM CDT procedure are i n the results section. XR CHEST 1 VW PORTABLE Routine 02/28/2020 5:37 R esults for this AM CDT procedure are i n the results section. POC GLUCOSE Routine 02/28/2020 3:52 Results for this AM CDT procedure are i n the results section. SMEAR REVIEW Routine 02/28/2020 3:49 Results for this AM CDT procedure are i n the results section. ESTIMATED GFR Routine 02/28/2020 3:49 Results fo r this AM CDT procedure are i n the results section. BILIRUBIN DIRECT Routine 02/28/2020 3:49 Results for this AM CDT procedure are i n the results section. PHOSPHORUS LEVEL Routine 02/28/2020 3:49 Results for this AM CDT procedure are i n the results section. MAGNESIUM LEVEL Routine 02/28/2020 3:49 Results for this AM CDT procedure are i n the results section. IONIZED CALCIUM Routine 02/28/2020 3:49 Results for this AM CDT procedure are i n the results section. COMPREHENSIVE Routine 02/28/2020 3:49 Results fo r this METABOLIC PANEL AM CDT procedure ar e in the results section. HC COMPLETE BLD COUNT Routine 02/28/2020 3:49 Re sults for this W/AUTO DIFF AM CDT procedure are i n the results section. POC GLUCOSE Routine 02/28/2020 2:22 Results for this AM CDT procedure are i n the results section. POC GLUCOSE Routine 02/27/2020 10:48 Results for this PM CDT procedure are i n the results section. POC GLUCOSE Routine 02/27/2020 8:21 Results for this PM CDT procedure are i n the results section. POC GLUCOSE Routine 02/27/2020 6:36 Results for this PM CDT procedure are i n the results section. IONIZED CALCIUM Routine 02/27/2020 6:35 Results for this PM CDT procedure are i n the results section. MANUAL DIFFERENTIAL STAT 02/27/2020 3:40 Resu lts for this PM CDT procedure are i n the results section. HEPARIN PF4 ANTIBODY Routine 02/27/2020 3:40 Res ults for this (IGG) PM CDT procedure are i n the results section. ESTIMATED GFR STAT 02/27/2020 3:40 Results fo r this PM CDT procedure are i n the results section. CBC WITH PLATELET AND STAT 02/27/2020 3:40 Re sults for this DIFFERENTIAL PM CDT procedure are i n the results section. BASIC METABOLIC PANEL STAT 02/27/2020 3:40 Re sults for this PM CDT procedure are i n the results section. ARTERIAL BLOOD GAS STAT 02/27/2020 3:30 Resul ts for this PM CDT procedure are i n the results section. POC GLUCOSE Routine 02/27/2020 3:19 Results for this PM CDT procedure are i n the results section. BRONCHOSCOPY Routine 02/27/2020 3:18 Acute respiratory Result s for this PM CDT failure, unspecified procedu re are in whether with hypoxia the res ults or hypercapnia (HCC) section . POC GLUCOSE Routine 02/27/2020 11:34 Results for this AM CDT procedure are i n the results section. POC GLUCOSE Routine 02/27/2020 9:30 Results for this AM CDT procedure are i n the results section. GRAM STAIN Routine 02/27/2020 9:11 Results for this AM CDT procedure are i n the results section. RESPIRATORY CULTURE Routine 02/27/2020 9:11 Resu lts for this AM CDT procedure are i n the results section. GRAM STAIN Routine 02/27/2020 9:10 Results for this AM CDT procedure are i n the results section. RESPIRATORY CULTURE Routine 02/27/2020 9:10 Resu lts for this AM CDT procedure are i n the results section. XR CHEST 1 VW PORTABLE Routine 02/27/2020 6:41 R esults for this AM CDT procedure are i n the results section. POC GLUCOSE Routine 02/27/2020 6:27 Results for this AM CDT procedure are i n the results section. POC GLUCOSE Routine 02/27/2020 3:43 Results for this AM CDT procedure are i n the results section. MANUAL DIFFERENTIAL Routine 02/27/2020 3:40 Resu lts for this AM CDT procedure are i n the results section. ARTERIAL BLOOD GAS Routine 02/27/2020 3:40 Resul ts for this AM CDT procedure are i n the results section. ESTIMATED GFR Routine 02/27/2020 3:40 Results fo r this AM CDT procedure are i n the results section. PHOSPHORUS LEVEL Routine 02/27/2020 3:40 Results for this AM CDT procedure are i n the results section. MAGNESIUM LEVEL Routine 02/27/2020 3:40 Results for this AM CDT procedure are i n the results section. IONIZED CALCIUM Routine 02/27/2020 3:40 Results for this AM CDT procedure are i n the results section. COMPREHENSIVE Routine 02/27/2020 3:40 Results fo r this METABOLIC PANEL AM CDT procedure ar e in the results section. CBC WITH PLATELET AND Routine 02/27/2020 3:40 Re sults for this DIFFERENTIAL AM CDT procedure are i n the results section. PROTHROMBIN TIME WITH Routine 02/27/2020 3:40 Re sults for this INR AM CDT procedure are i n the results section. HEPATIC FUNCTION PANEL Routine 02/27/2020 3:40 R esults for this AM CDT procedure are i n the results section. POC GLUCOSE Routine 02/27/2020 2:13 Results for this AM CDT procedure are i n the results section. POC GLUCOSE Routine 02/26/2020 10:22 Results for this PM CDT procedure are i n the results section. POC GLUCOSE Routine 02/26/2020 7:26 Results for this PM CDT procedure are i n the results section. POTASSIUM LEVEL Routine 02/26/2020 6:40 Results for this PM CDT procedure are i n the results section. POC GLUCOSE Routine 02/26/2020 5:07 Results for this PM CDT procedure are i n the results section. POC GLUCOSE Routine 02/26/2020 3:16 Results for this PM CDT procedure are i n the results section. MRI BRAIN WO CONTRAST STAT 02/26/2020 3:05 Re sults for this PM CDT procedure are i n the results section. POC GLUCOSE Routine 02/26/2020 1:17 Results for this PM CDT procedure are i n the results section. POC GLUCOSE Routine 02/26/2020 12:09 Results for this PM CDT procedure are i n the results section. PHOSPHORUS LEVEL STAT 02/26/2020 10:43 Results for this AM CDT procedure are i n the results section. HEPATIC FUNCTION PANEL STAT 02/26/2020 10:43 R esults for this AM CDT procedure are i n the results section. POC GLUCOSE Routine 02/26/2020 10:17 Results for this AM CDT procedure are i n the results section. POC GLUCOSE Routine 02/26/2020 9:26 Results for this AM CDT procedure are i n the results section. VENOUS BLOOD GAS STAT 02/26/2020 9:21 Results for this AM CDT procedure are i n the results section. XR CHEST 1 VW PORTABLE Routine 02/26/2020 8:16 R esults for this AM CDT procedure are i n the results section. POC GLUCOSE Routine 02/26/2020 8:08 Results for this AM CDT procedure are i n the results section. POC GLUCOSE Routine 02/26/2020 4:21 Results for this AM CDT procedure are i n the results section. MANUAL DIFFERENTIAL Routine 02/26/2020 4:20 Resu lts for this AM CDT procedure are i n the results section. ESTIMATED GFR Routine 02/26/2020 4:20 Results fo r this AM CDT procedure are i n the results section. IONIZED CALCIUM Routine 02/26/2020 4:20 Results for this AM CDT procedure are i n the results section. PHOSPHORUS LEVEL Routine 02/26/2020 4:20 Results for this AM CDT procedure are i n the results section. MAGNESIUM LEVEL Routine 02/26/2020 4:20 Results for this AM CDT procedure are i n the results section. CBC WITH PLATELET AND Routine 02/26/2020 4:20 Re sults for this DIFFERENTIAL AM CDT procedure are i n the results section. BASIC METABOLIC PANEL Routine 02/26/2020 4:20 Re sults for this AM CDT procedure are i n the results section. ARTERIAL BLOOD GAS Routine 02/26/2020 4:20 Resul ts for this AM CDT procedure are i n the results section. POC GLUCOSE Routine 02/26/2020 2:03 Results for this AM CDT procedure are i n the results section. POC GLUCOSE Routine 02/25/2020 10:04 Results for this PM CDT procedure are i n the results section. POC GLUCOSE Routine 02/25/2020 6:10 Results for this PM CDT procedure are i n the results section. POC GLUCOSE Routine 02/25/2020 2:59 Results for this PM CDT procedure are i n the results section. ESTIMATED GFR Timed 02/25/2020 2:46 Results fo r this PM CDT procedure are i n the results section. MAGNESIUM LEVEL Timed 02/25/2020 2:46 Results for this PM CDT procedure are i n the results section. BASIC METABOLIC PANEL Timed 02/25/2020 2:46 Re sults for this PM CDT procedure are i n the results section. ECG 12-LEAD Routine 02/25/2020 9:53 Results for this AM CDT procedure are i n the results section. POC GLUCOSE Routine 02/25/2020 9:23 Results for this AM CDT procedure are i n the results section. VENOUS BLOOD GAS STAT 02/25/2020 9:18 Results for this AM CDT procedure are i n the results section. XR CHEST 1 VW PORTABLE Routine 02/25/2020 6:32 R esults for this AM CDT procedure are i n the results section. MANUAL DIFFERENTIAL Routine 02/25/2020 4:34 Resu lts for this AM CDT procedure are i n the results section. ESTIMATED GFR Routine 02/25/2020 4:34 Results fo r this AM CDT procedure are i n the results section. PHOSPHORUS LEVEL Routine 02/25/2020 4:34 Results for this AM CDT procedure are i n the results section. MAGNESIUM LEVEL Routine 02/25/2020 4:34 Results for this AM CDT procedure are i n the results section. PROTHROMBIN TIME WITH Routine 02/25/2020 4:34 Re sults for this INR AM CDT procedure are i n the results section. COMPREHENSIVE Routine 02/25/2020 4:34 Results fo r this METABOLIC PANEL AM CDT procedure ar e in the results section. CBC WITH PLATELET AND Routine 02/25/2020 4:34 Re sults for this DIFFERENTIAL AM CDT procedure are i n the results section. IONIZED CALCIUM Routine 02/25/2020 4:28 Results for this AM CDT procedure are i n the results section. ARTERIAL BLOOD GAS Routine 02/25/2020 4:28 Resul ts for this AM CDT procedure are i n the results section. POC GLUCOSE Routine 02/25/2020 4:26 Results for this AM CDT procedure are i n the results section. POC GLUCOSE Routine 02/25/2020 12:08 Results for this AM CDT procedure are i n the results section. POTASSIUM LEVEL Timed 02/24/2020 10:04 Results for this PM CDT procedure are i n the results section. IONIZED CALCIUM Timed 02/24/2020 10:04 Results for this PM CDT procedure are i n the results section. POC GLUCOSE Routine 02/24/2020 9:09 Results for this PM CDT procedure are i n the results section. ECG 12-LEAD STAT 02/24/2020 5:39 Results for this PM CDT procedure are i n the results section. POC GLUCOSE Routine 02/24/2020 4:44 Results for this PM CDT procedure are i n the results section. ESTIMATED GFR Timed 02/24/2020 3:29 Results fo r this PM CDT procedure are i n the results section. PHOSPHORUS LEVEL Timed 02/24/2020 3:29 Results for this PM CDT procedure are i n the results section. MAGNESIUM LEVEL Timed 02/24/2020 3:29 Results for this PM CDT procedure are i n the results section. BASIC METABOLIC PANEL Timed 02/24/2020 3:29 Re sults for this PM CDT procedure are i n the results section. US ABDOMEN COMPLETE STAT 02/24/2020 9:56 Resu lts for this AM CDT procedure are i n the results section. IONIZED CALCIUM Timed 02/24/2020 8:54 Results for this AM CDT procedure are i n the results section. POTASSIUM LEVEL Timed 02/24/2020 8:54 Results for this AM CDT procedure are i n the results section. TTE COMPLETE, WO Today 02/24/2020 8:30 Results for this CONTRAST, W DOPPLER AM CDT procedur e are in ([id number]) the results section. POC GLUCOSE Routine 02/24/2020 8:18 Results for this AM CDT procedure are i n the results section. XR CHEST 1 VW PORTABLE Routine 02/24/2020 6:13 R esults for this AM CDT procedure are i n the results section. MANUAL DIFFERENTIAL Routine 02/24/2020 4:41 Resu lts for this AM CDT procedure are i n the results section. TROPONIN Timed 02/24/2020 4:41 Results for this AM CDT procedure are i n the results section. ESTIMATED GFR Routine 02/24/2020 4:41 Results fo r this AM CDT procedure are i n the results section. ARTERIAL BLOOD GAS Routine 02/24/2020 4:41 Resul ts for this AM CDT procedure are i n the results section. PHOSPHORUS LEVEL Routine 02/24/2020 4:41 Results for this AM CDT procedure are i n the results section. MAGNESIUM LEVEL Routine 02/24/2020 4:41 Results for this AM CDT procedure are i n the results section. PROTHROMBIN TIME WITH Routine 02/24/2020 4:41 Re sults for this INR AM CDT procedure are i n the results section. COMPREHENSIVE Routine 02/24/2020 4:41 Results fo r this METABOLIC PANEL AM CDT procedure ar e in the results section. CBC WITH PLATELET AND Routine 02/24/2020 4:41 Re sults for this DIFFERENTIAL AM CDT procedure are i n the results section. POC GLUCOSE Routine 02/24/2020 4:37 Results for this AM CDT procedure are i n the results section. POC GLUCOSE Routine 02/24/2020 12:40 Results for this AM CDT procedure are i n the results section. MANUAL DIFFERENTIAL Routine 02/24/2020 12:22 Resu lts for this AM CDT procedure are i n the results section. ESTIMATED GFR Routine 02/24/2020 12:22 Results fo r this AM CDT procedure are i n the results section. PHOSPHORUS LEVEL Routine 02/24/2020 12:22 Results for this AM CDT procedure are i n the results section. MAGNESIUM LEVEL Routine 02/24/2020 12:22 Results for this AM CDT procedure are i n the results section. COMPREHENSIVE Routine 02/24/2020 12:22 Results fo r this METABOLIC PANEL AM CDT procedure ar e in the results section. CBC WITH PLATELET AND Routine 02/24/2020 12:22 Re sults for this DIFFERENTIAL AM CDT procedure are i n the results section. TROPONIN Timed 02/24/2020 12:22 Results for this AM CDT procedure are i n the results section. POC GLUCOSE Routine 02/23/2020 10:07 Results for this PM CDT procedure are i n the results section. TROPONIN Timed 02/23/2020 9:07 Results for this PM CDT procedure are i n the results section. POC GLUCOSE Routine 02/23/2020 9:05 Results for this PM CDT procedure are i n the results section. POC GLUCOSE Routine 02/23/2020 4:41 Results for this PM CDT procedure are i n the results section. XR CHEST 1 VW PORTABLE STAT 02/23/2020 3:54 R esults for this PM CDT procedure are i n the results section. HEART/LUNG Routine 02/23/2020 3:52 Cardiac arrest (HCC) Results for this RESUSCITATION (CPR) PM CDT Ventricular procedur e are in fibrillation (HCC) the resul ts section. ECG 12-LEAD STAT 02/23/2020 3:48 Results for this PM CDT procedure are i n the results section. PHOSPHORUS LEVEL Routine 02/23/2020 3:38 Results for this PM CDT procedure are i n the results section. MAGNESIUM LEVEL STAT 02/23/2020 3:38 Results for this PM CDT procedure are i n the results section. BILIRUBIN DIRECT STAT 02/23/2020 3:38 Results for this PM CDT procedure are i n the results section. THYROID STIMULATING STAT 02/23/2020 3:38 Resu lts for this HORMONE PM CDT procedure are i n the results section. ESTIMATED GFR STAT 02/23/2020 3:38 Results fo r this PM CDT procedure are i n the results section. COMPREHENSIVE STAT 02/23/2020 3:38 Results fo r this METABOLIC PANEL PM CDT procedure ar e in the results section. ARTERIAL BLOOD GAS Routine 02/23/2020 3:37 Resul ts for this PM CDT procedure are i n the results section. MANUAL DIFFERENTIAL STAT 02/23/2020 3:35 Resu lts for this PM CDT procedure are i n the results section. CBC WITH PLATELET AND STAT 02/23/2020 3:35 Re sults for this DIFFERENTIAL PM CDT procedure are i n the results section. POC GLUCOSE Routine 02/23/2020 11:31 Results for this AM CDT procedure are i n the results section. ARTERIAL BLOOD GAS STAT 02/23/2020 10:39 Resul ts for this AM CDT procedure are i n the results section. POC GLUCOSE Routine 02/23/2020 8:17 Results for this AM CDT procedure are i n the results section. XR CHEST 1 VW PORTABLE Routine 02/23/2020 6:59 R esults for this AM CDT procedure are i n the results section. MANUAL DIFFERENTIAL Routine 02/23/2020 4:09 Resu lts for this AM CDT procedure are i n the results section. LACTIC ACID LEVEL Routine 02/23/2020 4:09 Result s for this AM CDT procedure are i n the results section. IONIZED CALCIUM Routine 02/23/2020 4:09 Results for this AM CDT procedure are i n the results section. ESTIMATED GFR Routine 02/23/2020 4:09 Results fo r this AM CDT procedure are i n the results section. LIPASE LEVEL Routine 02/23/2020 4:09 Results for this AM CDT procedure are i n the results section. PROTHROMBIN TIME WITH Routine 02/23/2020 4:09 Re sults for this INR AM CDT procedure are i n the results section. MAGNESIUM LEVEL Routine 02/23/2020 4:09 Results for this AM CDT procedure are i n the results section. COMPREHENSIVE Routine 02/23/2020 4:09 Results fo r this METABOLIC PANEL AM CDT procedure ar e in the results section. CBC WITH PLATELET AND Routine 02/23/2020 4:09 Re sults for this DIFFERENTIAL AM CDT procedure are i n the results section. PHOSPHORUS LEVEL Routine 02/23/2020 4:09 Results for this AM CDT procedure are i n the results section. POC GLUCOSE Routine 02/23/2020 4:08 Results for this AM CDT procedure are i n the results section. ARTERIAL BLOOD GAS Routine 02/23/2020 4:08 Resul ts for this AM CDT procedure are i n the results section. POC GLUCOSE Routine 02/23/2020 12:16 Results for this AM CDT procedure are i n the results section. LACTIC ACID LEVEL Timed 02/22/2020 10:05 Result s for this PM CDT procedure are i n the results section. POC GLUCOSE Routine 02/22/2020 8:53 Results for this PM CDT procedure are i n the results section. ESTIMATED GFR Timed 02/22/2020 6:56 Results fo r this PM CDT procedure are i n the results section. HEMOGLOBIN & Timed 02/22/2020 6:56 Results for this HEMATOCRIT PM CDT procedure are i n the results section. BASIC METABOLIC PANEL Timed 02/22/2020 6:56 Re sults for this PM CDT procedure are i n the results section. LACTIC ACID LEVEL Timed 02/22/2020 6:56 Result s for this PM CDT procedure are i n the results section. VENOUS BLOOD GAS Timed 02/22/2020 6:45 Results for this PM CDT procedure are i n the results section. POC GLUCOSE Routine 02/22/2020 6:41 Results for this PM CDT procedure are i n the results section. XR ABDOMEN 1 VW STAT 02/22/2020 3:14 Results for this PORTABLE PM CDT procedure are i n the results section. ESTIMATED GFR Timed 02/22/2020 12:38 Results fo r this PM CDT procedure are i n the results section. HEMOGLOBIN & Timed 02/22/2020 12:38 Results for this HEMATOCRIT PM CDT procedure are i n the results section. BASIC METABOLIC PANEL Timed 02/22/2020 12:38 Re sults for this PM CDT procedure are i n the results section. LACTIC ACID LEVEL Timed 02/22/2020 12:38 Result s for this PM CDT procedure are i n the results section. VENOUS BLOOD GAS STAT 02/22/2020 12:35 Results for this PM CDT procedure are i n the results section. ARTERIAL BLOOD GAS Timed 02/22/2020 12:35 Resul ts for this PM CDT procedure are i n the results section. SURGICAL PATHOLOGY Routine 02/22/2020 12:14 Resul ts for this REQUEST PM CDT procedure are i n the results section. EGD WITH BIOPSY 02/22/2020 11:35 Coffee ground emesis AM CDT VENOUS BLOOD GAS Timed 02/22/2020 10:00 Results for this AM CDT procedure are i n the results section. AMMONIA LEVEL STAT 02/22/2020 8:25 Results fo r this AM CDT procedure are i n the results section. LACTIC ACID LEVEL, Timed 02/22/2020 8:25 Resul ts for this SEPSIS - NOW AND AM CDT procedure a re in REPEAT 2X EVERY 3 the result s HOURS section. POC GLUCOSE Routine 02/22/2020 8:06 Results for this AM CDT procedure are i n the results section. WY INSERT Routine 02/22/2020 7:57 Chronic obstructive Resu lts for this CATH,ART,PERCUT,JESSE AM CDT pulmonary disease, procedure are in ERM unspecified COPD the results type (HCC) section. MANUAL DIFFERENTIAL STAT 02/22/2020 6:27 Resu lts for this AM CDT procedure are i n the results section. HEPATIC FUNCTION PANEL Routine 02/22/2020 6:27 R esults for this AM CDT procedure are i n the results section. ESTIMATED GFR STAT 02/22/2020 6:27 Results fo r this AM CDT procedure are i n the results section. IONIZED CALCIUM STAT 02/22/2020 6:27 Results for this AM CDT procedure are i n the results section. PHOSPHORUS LEVEL STAT 02/22/2020 6:27 Results for this AM CDT procedure are i n the results section. MAGNESIUM LEVEL STAT 02/22/2020 6:27 Results for this AM CDT procedure are i n the results section. CBC WITH PLATELET AND STAT 02/22/2020 6:27 Re sults for this DIFFERENTIAL AM CDT procedure are i n the results section. BASIC METABOLIC PANEL STAT 02/22/2020 6:27 Re sults for this AM CDT procedure are i n the results section. GRAM STAIN Routine 02/22/2020 5:34 Results for this AM CDT procedure are i n the results section. SPUTUM CULTURE Routine 02/22/2020 5:34 Results f or this AM CDT procedure are i n the results section. ARTERIAL BLOOD GAS Routine 02/22/2020 4:35 Resul ts for this AM CDT procedure are i n the results section. URINE CULTURE Routine 02/22/2020 3:24 Results fo r this AM CDT procedure are i n the results section. URINALYSIS SCREEN AND Routine 02/22/2020 3:05 Re sults for this MICROSCOPY, WITH AM CDT procedure a re in REFLEX TO CULTURE the result s section. COVID-19 QUALITATIVE STAT 02/22/2020 3:05 Res ults for this PCR AM CDT procedure are i n the results section. CONSULT TO SEPSIS Routine 02/22/2020 2:55 Lactic acid acidosi s Results for this RESPONSE TEAM AM CDT procedure are in the results section. LACTIC ACID LEVEL, Timed 02/22/2020 1:59 Resul ts for this SEPSIS - NOW AND AM CDT procedure a re in REPEAT 2X EVERY 3 the result s HOURS section. PREPARE RBC Routine 02/22/2020 1:54 Results for this AM CDT procedure are i n the results section. MANUAL DIFFERENTIAL STAT 02/22/2020 1:54 Resu lts for this AM CDT procedure are i n the results section. ALCOHOL LEVEL, BLOOD STAT 02/22/2020 1:54 Res ults for this AM CDT procedure are i n the results section. ESTIMATED GFR STAT 02/22/2020 1:54 Results fo r this AM CDT procedure are i n the results section. LIPASE LEVEL STAT 02/22/2020 1:54 Results for this AM CDT procedure are i n the results section. COMPREHENSIVE STAT 02/22/2020 1:54 Results fo r this METABOLIC PANEL AM CDT procedure ar e in the results section. LACTIC ACID LEVEL, STAT 02/22/2020 1:54 Resul ts for this SEPSIS - NOW AND AM CDT procedure a re in REPEAT 2X EVERY 3 the result s HOURS section. PARTIAL THROMBOPLASTIN STAT 02/22/2020 1:54 R esults for this TIME (PTT) AM CDT procedure are i n the results section. PROTHROMBIN TIME WITH STAT 02/22/2020 1:54 Re sults for this INR AM CDT procedure are i n the results section. CBC WITH PLATELET AND STAT 02/22/2020 1:54 Re sults for this DIFFERENTIAL AM CDT procedure are i n the results section. TYPE AND SCREEN Routine 02/22/2020 1:54 Results for this AM CDT procedure are i n the results section. BLOOD CULTURE, AEROBIC Routine 02/22/2020 1:54 R esults for this & ANAEROBIC AM CDT procedure are i n the results section. XR CHEST 1 VW STAT 02/22/2020 1:45 Results fo r this AM CDT procedure are i n the results section. ECG ED PRELIMINARY Routine 02/22/2020 1:37 Resul ts for this INTERPRETATION AM CDT procedure are in the results section. HC CVL NON-TUNNELED Routine 02/22/2020 1:37 Resu lts for this INSERT 5YRS OR > AM CDT procedure a re in the results section. WY INSERT NON-TUNNEL Routine 02/22/2020 1:37 Res ults for this CV CATH AM CDT procedure are i n the results section. INTUBATION Routine 02/22/2020 1:37 Results for this AM CDT procedure are i n the results section. WY CRITICAL CARE, E/M Routine 02/22/2020 1:37 Re sults for this 30-74 MINUTES AM CDT procedure are in the results section. ARTERIAL BLOOD GAS Routine 02/22/2020 1:15 Resul ts for this AM CDT procedure are i n the results section. BLOOD CULTURE, AEROBIC Routine 02/22/2020 1:10 R esults for this & ANAEROBIC AM CDT procedure are i n the results section. ECG 12-LEAD STAT 02/22/2020 12:54 Results for this AM CDT procedure are i n the results section. LACTIC ACID LEVEL Routine 12/27/2019 8:51 Result s for this AM CDT procedure are i n the results section. LACTIC ACID LEVEL Routine 12/26/2019 5:05 Result s for this PM CDT procedure are i n the results section. LACTIC ACID LEVEL Timed 12/26/2019 1:43 Result s for this PM CDT procedure are i n the results section. CT ANGIOGRAM ABDOMEN Routine 12/26/2019 12:56 Res ults for this PELVIS W AND OR WO PM CDT procedure are in CONTRAST the results section. ENTERIC VIRAL PANEL Routine 12/26/2019 11:43 Resu lts for this AM CDT procedure are i n the results section. ESTIMATED GFR Routine 12/26/2019 9:44 Results fo r this AM CDT procedure are i n the results section. COMPREHENSIVE Routine 12/26/2019 9:44 Results fo r this METABOLIC PANEL AM CDT procedure ar e in the results section. LACTIC ACID LEVEL Routine 12/26/2019 8:50 Result s for this AM CDT procedure are i n the results section. TTE COMPLETE, WO STAT 12/26/2019 7:20 Results for this CONTRAST, W DOPPLER AM CDT procedur e are in ([id number]) the results section. LACTIC ACID LEVEL, Timed 12/26/2019 1:29 Resul ts for this SEPSIS - NOW AND AM CDT procedure a re in REPEAT 2X EVERY 3 the result s HOURS section. XR CHEST 1 VW PORTABLE STAT 12/26/2019 12:59 R esults for this AM CDT procedure are i n the results section. ECG 12-LEAD STAT 12/26/2019 12:38 Results for this AM CDT procedure are i n the results section. ECG 12-LEAD STAT 12/26/2019 12:[address] ABDOMEN PELVIS W STAT 12/25/2019 9:56 Resu lts for this CONTRAST PM CDT procedure are i n the results section. ECG ED PRELIMINARY Routine 12/25/2019 9:30 Resul ts for this INTERPRETATION PM CDT procedure are in the results section. ECG ED PRELIMINARY Routine 12/25/2019 9:30 Resul ts for this INTERPRETATION PM CDT procedure are in the results section. ECG ED PRELIMINARY Routine 12/25/2019 9:30 Resul ts for this INTERPRETATION PM CDT procedure are in the results section. WY CRITICAL CARE, E/M Routine 12/25/2019 9:30 Re sults for this 30-74 MINUTES PM CDT procedure are in the results section. XR CHEST 1 VW PORTABLE STAT 12/25/2019 8:49 R esults for this PM CDT procedure are i n the results section. ECG 12-LEAD STAT 12/25/2019 8:45 Results for this PM CDT procedure are i n the results section. SMEAR REVIEW STAT 12/25/2019 8:12 Results for this PM CDT procedure are i n the results section. ESTIMATED GFR STAT 12/25/2019 8:12 Results fo r this PM CDT procedure are i n the results section. LIPASE LEVEL STAT 12/25/2019 8:12 Results for this PM CDT procedure are i n the results section. LACTIC ACID LEVEL, STAT 12/25/2019 8:12 Resul ts for this SEPSIS - NOW AND PM CDT procedure a re in REPEAT 2X EVERY 3 the result s HOURS section. COMPREHENSIVE STAT 12/25/2019 8:12 Results fo r this METABOLIC PANEL PM CDT procedure ar e in the results section. HC COMPLETE BLD COUNT STAT 12/25/2019 8:12 Re sults for this W/AUTO DIFF PM CDT procedure are i n the results section. COVID-19 QUALITATIVE STAT 12/25/2019 8:09 Res ults for this PCR PM CDT procedure are i n the results section. CV LEFT HEART CATH LV Routine 08/02/2019 3:25 GRAM WITH CORS PM [employer] MAGNESIUM LEVEL Routine 08/02/2019 8:50 Results for this AM [employer] procedure are i n the results section. TROPONIN Timed 08/01/2019 9:40 Results for this PM [employer] procedure are i n the results section. TROPONIN Timed 08/01/2019 6:41 Results for this PM [employer] procedure are i n the results section. XR RIBS W PA CHEST STAT 08/01/2019 4:45 Resul ts for this LEFT PM [employer] procedure are i n the results section. ESTIMATED GFR STAT 08/01/2019 3:43 Results fo r this PM [employer] procedure are i n the results section. B NATRIURETIC PEPTIDE STAT 08/01/2019 3:43 Re sults for this PM [employer] procedure are i n the results section. TROPONIN STAT 08/01/2019 3:43 Results for this PM [employer] procedure are i n the results section. COMPREHENSIVE STAT 08/01/2019 3:43 Results fo r this METABOLIC PANEL PM [employer] procedure ar e in the results section. HC COMPLETE BLD COUNT STAT 08/01/2019 3:43 Re sults for this W/AUTO DIFF PM [employer] procedure are i n the results section. ECG ED PRELIMINARY Routine 08/01/2019 3:33 Resul ts for this INTERPRETATION PM [employer] procedure are in the results section. ECG 12-LEAD STAT 08/01/2019 3:30 Results for this PM [employer] procedure are i n the results section. CT ANGIOGRAM PE CHEST STAT 07/03/2019 1:22 Re sults for this PM [employer] procedure are i n the results section. TROPONIN Timed 07/02/2019 11:27 Results for this AM [employer] procedure are i n the results section. TTE COMPLETE, WO Routine 07/02/2019 10:11 Results for this CONTRAST, W DOPPLER AM [employer] procedur e are in [id number]) the results section. LIPID PANEL Routine 07/02/2019 5:48 Results for this AM [employer] procedure are i n the results section. TROPONIN Timed 07/02/2019 5:48 Results for this AM [employer] procedure are i n the results section. ESTIMATED GFR STAT 07/02/2019 3:35 Results fo r this AM [employer] procedure are i n the results section. PHOSPHORUS LEVEL STAT 07/02/2019 3:35 Results for this AM [employer] procedure are i n the results section. MAGNESIUM LEVEL STAT 07/02/2019 3:35 Results for this AM [employer] procedure are i n the results section. IONIZED CALCIUM STAT 07/02/2019 3:35 Results for this AM [employer] procedure are i n the results section. BASIC METABOLIC PANEL STAT 07/02/2019 3:35 Re sults for this AM [employer] procedure are i n the results section. TROPONIN STAT 07/02/2019 3:35 Results for this AM [employer] procedure are i n the results section. ECG 12-LEAD STAT 07/02/2019 3:29 Results for this AM [employer] procedure are i n the results section. TROPONIN Timed 07/01/2019 10:19 Results for this PM [employer] procedure are i n the results section. TROPONIN Timed 07/01/2019 7:41 Results for this PM [employer] procedure are i n the results section. XR CHEST 2 VW STAT 07/01/2019 6:37 Results fo r this PM [employer] procedure are i n the results section. ECG ED PRELIMINARY Routine 07/01/2019 6:13 Resul ts for this INTERPRETATION PM [employer] procedure are in the results section. LIPASE LEVEL STAT 07/01/2019 6:08 Results for this PM [employer] procedure are i n the results section. ESTIMATED GFR STAT 07/01/2019 6:08 Results fo r this PM [employer] procedure are i n the results section. B NATRIURETIC PEPTIDE STAT 07/01/2019 6:08 Re sults for this PM [employer] procedure are i n the results section. TROPONIN STAT 07/01/2019 6:08 Results for this PM [employer] procedure are i n the results section. COMPREHENSIVE STAT 07/01/2019 6:08 Results fo r this METABOLIC PANEL PM [employer] procedure ar e in the results section. HC COMPLETE BLD COUNT STAT 07/01/2019 6:08 Re sults for this W/AUTO DIFF PM [employer] procedure are i n the results section. ECG 12-LEAD STAT 07/01/2019 5:05 Results for this PM [employer] procedure are i n the results section. after 04/01/2019 Results POC glucose (03/09/2020 4:02 PM CDT)Only the most recent of107 resultswithin the time period is included. Pathologist Sig nature POC glucose 112 (H) 65 - 100 mg/dL [facility] Comment: [facility] Flat Cutter Name: Nick Wilcox Device ID: [id number] Specimen Blood Performing Organization Address City/State/ZIP Code Phon e Number [facility] DEPARTMENT OF PATHOLOGY AND [address] [place], [place] [address] GENOMIC MEDICINE [facility] [address] [place], [place] [address] Partial thromboplastin time, activated (03/08/2020 5:45 AM CDT)Only the most recent of20 resultswithin the time period is included. PTT 53.3 (H) 23.0 - 36.0 [facility] Comment: sec [facility] PTT therapeutic range for unfractionated heparin is 61.0-112.0 seconds which corresponds to Anti-Xa 0.3-0.7 U/ml. Specimen Blood Performing Organization Address City/[facility] Phon e Number [facility] DEPARTMENT OF PATHOLOGY AND [address] [place] [phone] [facility] [address] [place], [place] [address] CBC hemogram (03/08/2020 5:45 AM CDT)Only the most recent of5 resultswithin the time period is included. Pathologist Sig nature WBC 14.2 (H) 4.2 - 11.0 k/uL [facility] RBC 2.43 (L) 4.04 - 5.86 m/uL [facility] HGB 7.3 (L) 13.0 - 17.3 g/dL [facility] HCT 23.2 (L) 34.0 - 45.0 % [facility] MCV 95.5 80.0 - 98.0 fL [facility] MCH 30.0 27.0 - 34.0 pg [facility] MCHC 31.5 31.5 - 36.5 g/dL [facility] RDW - SD 82.4 (H) 37.0 - 51.0 fL [facility] MPV 12.3 (H) 7.4 - 10.4 fL [facility] Platelet count 419 (H) 150 - 400 k/uL [facility] Nucleated RBC 0.00 /100 WBC [facility] Specimen Blood Performing Organization Address City/[facility] Phon e Number [facility] DEPARTMENT OF PATHOLOGY AND [address] [place] [phone] [facility] [address] [place], [place] [address] Estimated GFR (03/06/2020 4:30 AM CDT)Only the most recent of27 resultswithin the time period is included. Estimated GFR >=90 mL/min/1.73 [facility] Comment: m2 [facility] Catergory Units Interpretation G1 >=90 Normal or high G2 60-89 Mildly decreased G3a 45-59 Mildly to moderately decreas ed G3b 30-44 Moderately to severely decre ased G4 15-29 Severely decreased G5 <15 Kidney failure The eGFR was calculated using the Chronic Kidney Disea se Epidemiology Collaboration (CKD-EPI) equation. Interpretation is based on recommendations of the National Kidney Foundation-Kidney Disease Outcomes Chris lity Initiative (NKF-KDOQI) published in 2014. Specimen Performing Organization Address City/State/ZIP Code Phon e Number [facility] DEPARTMENT OF PATHOLOGY AND [address] [place], [place] [address] GENOMIC MEDICINE [facility] [address] [place], [place] [address] Manual differential (03/06/2020 4:30 AM CDT)Only the most recent of16 results within the time period is included. Manual differential PERFORMED [facility] Neutrophils 86.0 (H) 36.0 - 66.0 % [facility] Lymphocytes 6.0 (L) 24.0 - 44.0 % [facility] Monocytes 4.0 0.0 - 6.0 % [facility] Eosinophils 0.0 0.0 - 6.0 % [facility] Basophils 1.0 0.0 - 1.2 % [facility] Metamyelocytes 0 0 - 1 % [facility] Myelocytes 1 0 - 1 % [facility] Promyelocytes 0 0 - 1 % [facility] Reactive lymphocytes 2.0 [facility] Platelet slide review Satya adequate [facility] Toxic granulation Slight [facility] Neutrophils, vacuolated Slight [facility] Anisocytosis Moderate [facility] Polychromasia slight [facility] Tear drop cells Occasional [facility] Schistocytes Occasional [facility] Target cells few [facility] Spherocytes Occasional [facility] Ovalocytes few [facility] Cambridge cells Occasional [facility] Enlarged platelets Occasional [facility] Giant platelets Occasional [facility] Stomatocytes Occasional [facility] Specimen Performing Organization Address City/[facility]/ZIP [facility] Phon e Number [facility] DEPARTMENT OF PATHOLOGY AND [address] [place], [place] [address] GENOMIC MEDICINE [facility] [address] [place] [place] [address] CBC with platelet and differential (03/06/2020 4:30 AM CDT)Only the most recent of23 resultswithin the time period is included. Pathologist Sig nature WBC 13.4 (H) 4.2 - 11.0 k/uL [facility] RBC 2.45 (L) 4.04 - 5.86 m/uL [facility] HGB 7.2 (L) 13.0 - 17.3 g/dL [facility] HCT 23.5 (L) 34.0 - 45.0 % [facility] MCV 95.9 80.0 - 98.0 fL [facility] MCH 29.4 27.0 - 34.0 pg [facility] MCHC 30.6 (L) 31.5 - 36.5 g/dL [facility] RDW - SD 84.7 (H) 37.0 - 51.0 fL [facility] MPV 12.1 (H) 7.4 - 10.4 fL [facility] Platelet count 345 150 - 400 k/uL [facility] Nucleated RBC 0.00 /100 WBC [facility] Neutrophils 86.0 (H) 36.0 - 66.0 % [facility] Lymphocytes 6.0 (L) 24.0 - 44.0 % [facility] Monocytes 4.0 0.0 - 6.0 % [facility] Eosinophils 0.0 0.0 - 6.0 % [facility] Basophils 1.0 0.0 - 1.2 % [facility] Specimen Blood Performing Organization Address City/State/ZIP Code Phon e Number [facility] DEPARTMENT OF PATHOLOGY AND [address] [place] [phone] [facility] [address] [place], [place] [address] Phosphorus level (03/06/2020 4:30 AM CDT)Only the most recent of18 results within the time period is included. Pathologist Sig nature Phosphorus 2.6 2.4 - 4.5 mg/dL [facility] Specimen Blood Performing Organization Address [facility] Phon e Number [facility] DEPARTMENT OF PATHOLOGY AND [address] [place] [address] [facility] MEDICINE [facility] [address] [place], [place] [address] Magnesium level (03/06/2020 4:30 AM CDT)Only the most recent of21 resultswithin the time period is included. Pathologist Sig [facility] Magnesium 2.20 1.60 - 2.40 mg/dL [facility] Specimen Blood Performing Organization Address [facility] Phon e Number [facility] DEPARTMENT OF PATHOLOGY AND [address] [place] [address] 21 [facility] [address] [place], [place] [address] Ionized calcium (03/06/2020 4:30 AM CDT)Only the most recent of23 resultswithin the time period is included. Pathologist Sig nature pH 7.45 [facility] Ionized calcium 1.23 1.11 - 1.32 mmol/L [facility] Specimen Blood Performing Organization Address City/[facility] Phon e Number [facility] DEPARTMENT OF PATHOLOGY AND [address] [place] [address] 21 [facility] [address] [place] [phone] Basic metabolic panel (03/06/2020 4:30 AM CDT)Only the most recent of11 results within the time period is included. Pathologist Sig nature Sodium 137 135 - 150 mEq/L [facility] Potassium 3.9 3.5 - 5.0 mEq/L [facility] Chloride 100 98 - 112 mEq/L [facility] CO2 29 24 - 31 mmol/L [facility] Anion gap 8@ANIO 7 - 15 mEq/L [facility] BUN 17 7 - 18 mg/dL [facility] Creatinine 0.60 (L) 0.70 - 1.20 mg/dL [facility] Glucose 148 (H) 65 - 100 mg/dL [facility] Calcium 8.8 8.8 - 10.2 mg/dL [facility] Specimen Blood Performing Organization Address City/[facility] Phon e Number [facility] DEPARTMENT OF PATHOLOGY AND [address], [place] [address] GENOMIC MEDICINE [facility] [address], [place] [address] Potassium level (03/05/2020 10:22 PM CDT)Only the most recent of7 resultswithin the time period is included. Pathologist Sig nature Potassium 3.7 3.5 - 5.0 mEq/L [facility] Specimen Blood Performing Organization Address City/[facility] Phon e Number [facility] DEPARTMENT OF PATHOLOGY AND [address], [place] [address] GENOMIC MEDICINE [facility] [address], [place] [address] XR Chest 1 Vw Portable (03/05/2020 6:26 AM CDT)Only the most recent of16 resultswithin the time period is included. Specimen Narrative Performed At SINGLE VIEW CHEST, 03/05/2020 [facility] Clinical History: Stable ICU patient. Technique: Single, portable AP view ches t. Comparison: 03/04/2020 Impression: 1.Tracheostomy, Dobbhoff and right PICC are unchanged. 2.Decreasing left basilar predominant atelectasis. No new focal airspace disease. No cavitation. Lungs are otherw ise clear. 3.Normal heart size and mediastinal cont our for technique. 4.Normal pulmonary vasculature. 5.Slightly decreased trace left pleural effusion. No r ight effusion. No pneumothorax. 6.Intact skeleton. Procedure Note Hm Interface, Radiology Results Incoming - 03/05/2020 7:42 AM CDT SINGLE VIEW CHEST, 03/05/2020 Clinical History: Stable ICU patient. Technique: Single, portable AP view ches t. Comparison: 03/04/2020 Impression: 1.Tracheostomy, Dobbhoff and right PICC are unchanged. 2.Decreasing left basilar predominant at electasis. No new focal airspace disease. No cavitation. Lungs are otherwise clear. 3.Normal heart size and mediastinal cont our for technique. 4.Normal pulmonary vasculature. 5.Slightly decreased trace left pleural effusion. No right effusion. No pneumothorax. 6.Intact skeleton. Performing Organization Address City/[facility]on [facility] [address] [place] [address] Comprehensive metabolic panel (03/05/2020 5:00 AM CDT)Only the most recent of16 resultswithin the time period is included. Pathologist Sig nature Sodium 142 135 - 150 mEq/L [facility] Potassium 3.4 (L) 3.5 - 5.0 mEq/L [facility] Chloride 103 98 - 112 mEq/L [facility] CO2 31 24 - 31 mmol/L [facility] Anion gap 8@ANIO 7 - 15 mEq/L [facility] BUN 18 7 - 18 mg/dL [facility] Creatinine 0.70 0.70 - 1.20 [facility] mg/dL [facility] Glucose 128 (H) 65 - 100 mg/dL [facility] Calcium 8.2 (L) 8.8 - 10.2 mg/dL [facility] Protein 5.6 (L) 6.3 - 8.3 g/dL [facility] Albumin 1.8 (L) 3.5 - 5.0 g/dL [facility] A/G ratio 0.5 (L) 0.7 - 3.8 [facility] Alkaline phosphatase 89 0 - 129 U/L [facility] AST 28 10 - 50 U/L [facility] ALT 20 5 - 50 U/L [facility] Total bilirubin 0.5 0.2 - 1.2 mg/dL [facility] Specimen Blood Performing Organization Address City/[facility]/ZIP Code Phon e Number [facility] DEPARTMENT OF PATHOLOGY AND [address] [place], [place] [address] [facility] [address] [place], [place] [address] Arterial blood gas (03/05/2020 4:17 AM CDT)Only the most recent of17 results within the time period is included. pH, arterial 7.545 (H) 7.350 - [place] 7.450 [facility] pCO2, arterial 36.2 35.0 - [place] 45.0 mmHg [facility] pO2, arterial 162.0 (H) 80.0 - [place] 90.0 mmHg [facility] O2 saturation, arterial >100.0 95.0 - [place] 100.0 % [facility] Base excess, arterial 8.9 mEq/L [facility] Bicarbonate 31.3 (H) 21.0 - [place] 28.0 mEq/L [facility] O2 content 11.1 VOL% [facility] FiO2, inspired O2% 40.0 % [facility] Carboxyhemoglobin 1.4 0.0 - 1.4 [place] Comment: % CHEONDOISM Reference Ranges: Carboxyhemoglobin [facility] Non smoker: 0.0 - 2.0% HOSPITAL Smoker: 2.1 - 5.0% Heavy smoker: 5.1 - 9% Methemoglobin 0.4 0.[address] - [address] [facility] Hemoglobin, blood gas 7.8 (LL) 14.0 - [place] 18.0 g/dL [facility] pO2, A-a 84.2 mmHg [facility] Specimen Blood Performing Organization Address City/State/ZIP Code Phon e Number [facility] DEPARTMENT OF PATHOLOGY AND [address] [place], [place] [address] [facility] [address] [place], [place] [address] PICC insertion (03/04/2020 2:28 PM CDT) Narrative Performed At Asia Sutherland RN 03/04/2020 2:38 PM PICC insertion Date/Time: 03/04/2020 2:29 PM Performed by: Asia Sutherland RN Authorized by: Balta Noe MD Consent: Consent obtained: Verbal Consent given by: Healthcare agent Risks discussed: Arterial puncture, incorrect placement, bleeding, infection, superficial thrombus and deep vein thrombus Alternatives discussed: Delayed shi atment and alternative treatment [facility] protocol: Procedure explained and questions ans wered to patient or proxy's satisfaction: yes Relevant documents present and verifi ed: yes Test results available and properly l abeled: yes Imaging studies available: yes Required blood products, implants, de vices, and special equipment available: yes Site/side marked: yes Immediately prior to procedure, a juani e out was called: yes Patient identity confirmed: Verball y with patient, arm band and hospital-assigned identification number Pre-procedure details: Hand hygiene: Hand hygiene performed prior to insertion Sterile barrier technique: All elemen ts of maximal sterile technique followed Skin preparation: ChloraPrep Skin preparation agent: Completely dr iepaddy prior to procedure Anesthesia (see MAR for exact dosages): Anesthesia method: Local infiltrati on Local anesthetic: Lidocaine 1% w/o epi Route administered: Subcutaneous PICC Line Placement Details: Extremity Circumference Upper (cm): 29 Extremity Circumference Forearm (cm): 25 Extremity Circumference Site: 27 Patient position: Flat Vessel Size (mm): 5 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 Location: Right basilic Site selection rationale: Largest v ein in dominant arm Device Type: Valved Catheter Lumens: Triple lumen Catheter size: 5 Fr Catheter to vein ratio: 11% PICC Characteristics: Catheter Brand: BARD POWER PICC SOLO HF CATHETER WITH SHERLOCK 3 CG TIP POSITIONING SYSTEM External Catheter Length (cm): 0 Internal Catheter Length (cm): 42 Total Catheter Length (cm): 42 Catheter Lot Number: [id number] Catheter Expiration Date: 02/23/2021 Micro-Introducer Lot Number: [id number] Micro-Introducer Expiration Date: Procedure details: Landmarks identified: yes Ultrasound guidance: yes Sterile ultrasound techniques: Sterile gel and ster ile probe covers were used Number of attempts: 1 Number of PICC kits used during proce dure: 1 Extra guide wire required?: No Purpose of procedure: PICC Placemen t Successful PICC Placement: yes Patency/Placement: Flushes without difficulty, flushed with 10 mL normal saline, positive blood return, x- ray placement verified and ultrasound placement verified Dressing/Securement: Catheter secur ement device and antimicrobial dressing applied Blood Loss Amount: Less than 20 mL Post-procedure details: Post-procedure: Dressing applied Tip placement confirmed by: X-Ray Name of provider who confirmed tip placement:: DIOLOGIST. SEE CXR. Patient tolerance of procedure: Norberto erated well, no immediate complications Comments: Report to Brittany Pereyra RN, primary ICU nurse. Bronchoscopy (03/04/2020 12:20 PM CDT) Narrative Performed At Hieu Pelletier MD 03/04/2020 12 :23 PM Bronchoscopy Date/Time: 03/04/2020 12:21 PM Performed by: Hieu Pelletier MD Authorized by: Hieu Pelletier MD Consent: Consent obtained: Verbal Consent given by: Healthcare agent Alternatives discussed: Referral, observation, al ternative treatment, delayed treatment and no treatment [facility] [facility] protocol: Procedure explained and questions ans wered to patient or proxy's satisfaction: yes Relevant documents present and verifi ed: yes Test results available and properly l abeled: yes Imaging studies available: yes Required blood products, implants, de vices, and special equipment available: yes Site/side marked: yes Immediately prior to procedure, a juani e out was called: yes Patient identity confirmed: Winston thomason and hospital-assigned identification number Pre-procedure details: Indication: Percutaneous traacheot isabella , fever/ sepsis Scope type: Flexible bronchoscope Airway: Intubated Monitoring devices: ECG, NIPB, arturo rial line and pulse oximetry Sedation: Sedation Type: Anxiolysis and Narco tic Anxiolysis used:: Versed Narcotic(s) used:: Fentanyl Washings: Washings: Right and left Sample sent for: Gram stain Post-procedure details: Patient tolerance of procedure: Patie nt tolerated the procedure well with no immediate complications Comments: Patient was sedated with Versed, fentanyl, rocuron ium. Bronchoscopy was inserted and bilateral secretions cl eared, patient had significant secretions on the left lower lobe, sucti oned and sent for cultures, subsequently endotracheal tube was slowly withdrawn up to around 1718 cm, and assisted with percutaneous tracheost isabella, after trach inserted bronchoscopy was inserted into the trach ea through the tracheostomy and confirmed position Respiratory culture (03/04/2020 11:05 AM CDT)Only the most recent of3 results within the time period is included. Respiratory culture Normal oral claude and (A) JOSEPH isolate Comment: CHEONDOISM Specimen Information HOSPITAL Specimen Source: Bronchial Washing Specimen Site: Right and left lobes Respiratory culture Acinetobacter species JOSEPH isolate Many CHEONDOISM The performance characteristics of this assay on this [facility] HOSPITAL were validated by the Microbiology Laboratory at [facility]. This source has not been approve d by the U.S. Food and Drug Administration. The results are n ot intended to be used as the sole means for clinical suzan gnosis or patient management. The Microbiology Laboratory i s authorized under the clinical Laboratory Improvement Amendments of 1988 (CLIA-88) to perform high complexit y testing. (A) Specimen Bronchial washing - Right and left lobes Organism Antibiotic Method Susceptibility Acinetobacter species Amikacin LUCAS <=8 mcg/mL : Susceptible Acinetobacter species Aztreonam LUCAS >16 mcg/mL : Resistant Acinetobacter species Ceftazidime LUCAS 8 mcg/mL: Susceptible Acinetobacter species Ciprofloxacin LUCAS 1 mcg/mL: Susceptible Acinetobacter species Ceftriaxone LUCAS 32 mcg/mL: Resistant Acinetobacter species Cefepime LUCAS 8 mcg/mL: Susceptible Acinetobacter species Gentamicin LUCAS <=2 mcg/mL : Susceptible Acinetobacter species Levofloxacin LUCAS <=0.5 mcg/ mL: Susceptible Acinetobacter species Meropenem LUCAS 1 mcg/mL: Susceptible Acinetobacter species Minocycline LUCAS <=1 mcg/mL : Susceptible Acinetobacter species Tobramycin LUCAS <=2 mcg/mL : Susceptible Acinetobacter species Ampicillin/Sulbactam LUCAS 8/4 m cg/mL: Susceptible Acinetobacter species Trimethoprim/Sulfamethoxazole LUCAS 1/19 mcg/mL: Susceptible Acinetobacter species Ertapenem LUCAS mcg/mL: R esistant Acinetobacter species Piperacillin/Tazobactam LUCAS 16 /4 mcg/mL: Susceptible Performing Organization Address [facility] Phon e Number [facility] DEPARTMENT OF PATHOLOGY AND [address] [place], [place] [address] GENOMIC MEDICINE [facility] [address] [place] [phone] Gram stain (03/04/2020 11:05 AM CDT)Only the most recent of4 resultswithin the time period is included. Gram stain isolate Occasional WBC's [facility] No organisms seen HOSPITAL Comment: Specimen Information Specimen Source: Bronchial Washing Specimen Site: Right and left lobes Specimen Bronchial washing - Right and left lobes Performing Organization Address City/[facility] Phon e Number [facility] DEPARTMENT OF PATHOLOGY AND [address] [facility] [place], [place] [address] [facility] [address] [place] [address] Prothrombin time with INR (03/04/2020 7:42 AM CDT)Only the most recent of8 resultswithin the time period is included. Prothrombin time 14.7 (H) 11.5 - 14.5 [facility] INR 1.15 [place] Comment: CHEONDOISM For patients on anticoagulant therapy, reference ranges below: [facility] Indication: INR Value Treatment of Venous Thrombosis, 2.0-3.0 pulmonary emboli, or prophylaxis of a venous thrombosis, or systemic emboli. High dose, high risk patients 3.0-4. 5 with mechanical valves. NOTE: INR values over 3.0 are sometimes associated w ith gastrointestinal hemorrhage, especially values over 4. 0. Specimen Blood Performing Organization Address [facility] Phon e Number [facility] DEPARTMENT OF PATHOLOGY AND [address] [place] [address] 21 [facility] [address] [place] [phone] Smear review (03/01/2020 2:23 PM CDT)Only the most recent of6 resultswithin the time period is included. Pathologist Sig nature Platelet slide review Satya adequate [facility] Anisocytosis Moderate [facility] Polychromasia SLIGHT [facility] Tear drop cells OCCASIONAL [facility] Schistocytes OCCASIONAL [facility] Target cells FEW [facility] Spherocytes OCCASIONAL [facility] Ovalocytes FEW [facility] Enlarged platelets FEW [facility] Toxic granulation SLIGHT [facility] Specimen Performing Organization Address City/[facility] Phon e Number [facility] DEPARTMENT OF PATHOLOGY AND [address] [phone] 21 [facility] [address] [place] [phone] B natriuretic peptide (03/01/2020 2:23 PM CDT)Only the most recent of3 results within the time period is included. Pathologist Sig nature BNP 463 (H) 0 - 100 pg/mL [facility] Specimen Blood Performing Organization Address City/[facility] Phon e Number [facility] DEPARTMENT OF PATHOLOGY AND [address], [place] [address] [facility] [address], [place] [address] Transfuse RBC (03/01/2020 8:17 AM CDT)Only the most recent of2 resultswithin the time period is included.Anti Xa, unfractionated (03/01/2020 3:15 AM CDT) Only the most recent of6 resultswithin the time period is included. Anti Xa, 0.12 (L)Comment: 0.30 - 0.70 [place] unfractionated Therapeutic Range: U/mL CHEONDOISM 0.30 - 0.70 U/mL [facility] Specimen Blood Performing Organization Address City/[facility] Phon e Number [facility] DEPARTMENT OF PATHOLOGY AND [address] [address] 21 [facility] [address], [place] [address] MRSA screen culture (02/29/2020 3:51 PM CDT) Pathologist [facility] MRSA screen No Methicillin Resistant Staphylococcus aureus i solated. [facility] culture isolate Comment: HOSPITAL Specimen Information Specimen Source: Nares Specimen Site: Left Specimen Nares - Left Performing Organization Address City/[facility]/ZIP [facility] Phon e Number [facility] DEPARTMENT OF PATHOLOGY AND [address] [place] [address] [address] [address] Occult blood, stool (02/29/2020 11:09 AM CDT) Pathologist [facility] Occult blood, Positive for Occult blood (A) [facility] stool Comment: [facility] Specimen Information Specimen Source: Stool Specimen Site: Nonpreserved Specimen Stool - Nonpreserved Performing Organization Address City/State/ZIP [facility] Phon e Number [facility] DEPARTMENT OF PATHOLOGY AND [address], [place] [address] [facility] [address], [place] [address] Lactic acid level (02/29/2020 9:00 AM CDT)Only the most recent of9 results within the time period is included. Pathologist Sig nature Lactic acid 0.8 0.5 - 2.2 mmol/L [facility] Specimen Blood Performing Organization Address City/[facility] Phon e Number [facility] DEPARTMENT OF PATHOLOGY AND [address] [address] [facility] MEDICINE [facility] [address], [place] [address] Ammonia level (02/29/2020 9:00 AM CDT)Only the most recent of2 resultswithin the time period is included. Pathologist Sig nature Ammonia 25 16 - 60 umol/L [facility] Specimen Blood Performing Organization Address [facility] Phon e [facility] DEPARTMENT OF PATHOLOGY AND [address], [place] [address] [facility] [address] [place] [address] XR Abdomen 1 Vw (02/29/2020 6:40 AM CDT) Specimen Narrative Performed At EXAMINATION: XR ABDOMEN 1 VW [facility] CLINICAL HISTORY: Dobbhoff COMPARISON: 02/03/2020 IMPRESSION: Dobbhoff tube has its tip in the distal third of the s tomach. Bowel gas pattern is nonobstructive. There is no gross intra -abdominal free air. There is bilateral perihilar infiltrate or edema as well as left basilar opacities and volume loss and possible effusion. [facility] Procedure Note Hm Interface, Radiology Results Incoming - 02/29/2020 6:49 AM CDT EXAMINATION: XR ABDOMEN 1 VW CLINICAL HISTORY: Dobbhoff COMPARISON: 02/03/2020 IMPRESSION: Dobbhoff tube has its tip in the distal third of the stomach. Bowel gas pattern is nonobstructive. There is no gross intra-abdominal free air. There is bilateral perihilar infiltrate or edema as well as left basilar opacities and volume loss and possible effusion. [facility] Performing Organization Address City/[facility]/ZIP Code Phon e Number [facility] [address] [place] [address] Prepare RBC, 1 Units (02/29/2020 4:33 AM CDT)Only the most recent of3 results within the time period is included. Product name Red Blood Cells [place] -1, Leukored [facility] Unit number [id number] [facility] Product code [id number] [facility] Dispense status Transfused [facility] Blood expiration date [id number] [facility] Blood type code 5100 [facility] Blood type O POSITIVE [facility] Compatibility Compatible [facility] Specimen Blood Performing Organization Address [facility] Phon e Number [facility] DEPARTMENT OF PATHOLOGY AND [address] [place] [address] [address] [address] Type and screen (02/29/2020 4:33 AM CDT)Only the most recent of2 resultswithin the time period is included. Pathologist Sig nature ABO grouping O [facility] Rh type POS [facility] Antibody screen (gel) NEG [facility] Specimen Blood Performing Organization Address City/[facility] Phon e Number [facility] DEPARTMENT OF PATHOLOGY AND [address] [place] [address] [facility] [address] [place] [address] Bilirubin direct (02/29/2020 3:07 AM CDT)Only the most recent of3 resultswithin the time period is included. Pathologist Sig nature Bilirubin direct 0.6 (H) 0.0 - 0.4 mg/dL [facility] Specimen Performing Organization Address City/[facility] Phon e [facility] DEPARTMENT OF PATHOLOGY AND [address] [place] [address] [facility] [address] [place] [phone] Bronchoscopy (02/28/2020 9:15 PM CDT) Narrative Performed At Naldo Rene MD 02/28/2020 9:18 PM Bronchoscopy Date/Time: 02/28/2020 9:15 PM Performed by: Naldo Rene MD Authorized by: Naldo Rene MD Consent: Consent obtained: Written and verba l Consent given by: Guardian (Consent been obtained from the patient daughter on the phone as the patient has altered menta l status unable to give consent at this time) [place] protocol: Procedure explained and questions ans wered to patient or proxy's satisfaction: yes Relevant documents present and verifi ed: yes Test results available and properly l abeled: yes Imaging studies available: yes Required blood products, implants, de vices, and special equipment available: yes Site/side marked: yes Immediately prior to procedure, a juani e out was called: yes Patient identity confirmed: Verbally with patient , provided demographic data and arm band Pre-procedure details: Indication: Acute hypoxemic respiratory failure, copious secretion, possible mucous plugging Scope type: Flexible bronchoscope Airway: Intubated Monitoring devices: ECG, pulse oxim etry and CVP Sedation: Sedation Type: Systemic Systemic used:: Precidex Findings: Findings: Erythema (Extensive amount of copious s ecretions mainly in the left bronchus with mucous plugging of the left low er lobe and lingula) Secretion consistency: Thick Secretion amount: Large Post-procedure details: Patient tolerance of procedure: Patie nt tolerated the procedure well with no immediate complications Comments: Immediately after intubating the patient and conne cted to mechanical ventilator I went through the ET tube using flexible b ronchoscopy and once to trachea which has some erythematous changes and the n went to left main stem and left upper lobe had mucous secr etions with some subsegmental plugging which I did suction out and the n went to right mainstem went down to bronchus intermedius and left right middle lob e right lower lobe has thick secretions which I suctioned out no mucous p lugging. I went to the trachea again and then went to the left mainstem w hich has thick mucus secretions that I suctioned out also it looks purulent secretions and went down to left lower lobe which had mucous plugging that I suctioned out also went down to left upper lobe and li ngula also had thick secretions but no plugging. Intubation (02/28/2020 9:13 PM CDT) Narrative Performed At Naldo Rene MD 02/28/2020 9:15 PM Intubation Date/Time: 02/28/2020 9:13 PM Performed by: Naldo Rene MD Authorized by: Naldo Rene MD Consent: Consent obtained: Verbal Consent given by: Guardian (Sent was taken from t he patient daughter on the phone as the patient is confused and not able to g sabrina consent at this time.) Risks discussed: Aspiration, bleedi ng, , brain injury, dental trauma, hypoxia, laryngeal injury and pn eumothorax [place] protocol: Procedure explained and questions ans wered to patient or proxy's satisfaction: yes Relevant documents present and verifi ed: yes Test results available and properly l abeled: yes Imaging studies available: yes Required blood products, implants, de vices, and special equipment available: yes Site/side marked: yes Immediately prior to procedure, a juani e out was called: yes Patient identity confirmed: Verball y with patient, arm band and provided demographic data Pre-procedure details: Patient status: Altered mental stat us Mallampati score: 1 Induction: Etomidate Paralytics: Rocuronium Procedure details: Preoxygenation: BiPAP Intubation method: Oral Technique: Video laryngoscopy Laryngoscope blade: Mac 4 Grade view: 2 Difficult airway?: No Tube size (mm): 8.0 Tube type: Cuffed Number of attempts: 1 Tube visualized through cords: yes Placement assessment: ETT to lip: 23 ETT to teeth: 22 Tube secured with: Adhesive tape Breath sounds: Equal Placement verification: chest rise, direct visualiz ation, equal breath sounds, ETCO2 detector and fiberoptic sc ope CXR findings: ETT in proper place Post-procedure details: Patient tolerance of procedure: Norberto erated well, no immediate complications Comments: Indication of procedure acute hypoxemic respirator y failure, copious secretions, mucous plugging Heparin PF4 antibody (IgG) (02/27/2020 3:40 PM CDT) Pathologist Sig nature Heparin PF4 Ab OD 0.084 0.000 - 0.399 [facility] Heparin PF4 Ab, IgG Negative Negative [facility] Specimen Blood Performing Organization Address City/State/ZIP Code Phon e Number [facility] DEPARTMENT OF PATHOLOGY AND [address] [place] [phone] GENOMIC MEDICINE [facility] [address] [place] [address] Bronchoscopy (02/27/2020 3:18 PM CDT) Narrative Performed At Hieu Pelletier MD 02/27/2020 3:20 PM Bronchoscopy Date/Time: 02/27/2020 3:18 PM Performed by: Hieu Pelletier MD Authorized by: Hieu Pelletier MD Consent: Consent obtained: Verbal Consent given by: Healthcare agent Alternatives discussed: Referral, observation, al ternative treatment, delayed treatment and no treatment [place] protocol: Procedure explained and questions ans wered to patient or proxy's satisfaction: yes Relevant documents present and verifi ed: yes Test results available and properly l abeled: yes Imaging studies available: yes Required blood products, implants, de vices, and special equipment available: yes Site/side marked: yes Immediately prior to procedure, a juani e out was called: yes Patient identity confirmed: Winston thomason and hospital-assigned identification number Pre-procedure details: Indication: Acute Hypoxemic Respiratory Failure, Atelectasis, Sepsis Scope type: Flexible bronchoscope Airway: Intubated Monitoring devices: ECG, NIPB, arturo rial line and pulse oximetry Sedation: Sedation Type: Anxiolysis and Narco tic Anxiolysis used:: Versed Narcotic(s) used:: Fentanyl Findings: Location of endotracheal tube: Push ed et tube by 2 cm Secretion consistency: Thick Secretion amount: Moderate Washings: Washings: Right and left Sample sent for: Gram stain Lavage: Bronchoscopy Lavage: Laterality: rml. Sample sent for: Gram stain and rou frances culture Post-procedure details: Patient tolerance of procedure: Patie nt tolerated the procedure well with no immediate complications Comments: Thick copious mucous secretions , mucous plus bi laterally , mucosal edema and inflammation with friability right side- Bro nch, bal - rml done and cultures sent Hepatic function panel (02/27/2020 3:40 AM CDT)Only the most recent of3 results within the time period is included. Pathologist Sig nature Albumin 1.8 (L) 3.5 - 5.0 g/dL [facility] Total bilirubin 2.8 (H) 0.2 - 1.2 mg/dL [facility] Bilirubin direct 2.0 (H) 0.0 - 0.4 mg/dL [facility] Alkaline phosphatase 150 (H) 0 - 129 U/L [facility] Protein 4.6 (L) 6.3 - 8.3 g/dL [facility] ALT 96 (H) 5 - 50 U/L [facility] AST 127 (H) 10 - 50 U/L [facility] Specimen Blood Performing Organization Address City/State/ZIP Code Phon e Number [facility] DEPARTMENT OF PATHOLOGY AND [address] [place], [place] [address] GENOMIC MEDICINE [facility] [address] [place], [place] [address] MRI Brain Wo Contrast (02/26/2020 3:05 PM CDT) Specimen Narrative Performed At This result has an attachment that is no t available. EXAMINATION: MRI BRAIN WO CONTRAST [facility] CLINICAL HISTORY: Altered level of consciousness (LO C) unexplained COMPARISON: None. Findings: Mild diffusion restriction in the right posterior cerebellum measures 1.9 x 1 cm compatible with recent ischemia. No hemorrhage or mass effect. Questionable punctate focus of diffusion restriction in the left posterior temporal lobe. No intracranial hemorrhage, extra-axial fluid collections or parenchymal mass lesions. No hydrocephalus. No suspicious focal bone marrow lesions. Mild chronic ischemic small vessel white matter changes. Major flow voids are maintained. Mild chronic ischemic small vessel white matter changes. Small chronic insult in the right occipital lobe. 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 Questionable punctate focus of recent ischemia in the left posterior temporal lobe. Findings were discussed with and acknowledged by DAVID figueroa at 02/26/2020 3:10 PM. [facility]-[id number] Procedure Note Interface, Radiology Results Incoming - 02/26/2020 3:16 PM CDT EXAMINATION: MRI BRAIN WO CONTRAST CLINICAL HISTORY: Altered level of cons ciousness (LOC) unexplained COMPARISON: None. Findings: Mild diffusion restriction in the right posterior cerebellum measures 1.9 x 1 cm compatible with recent ischemia. No hemorrhage or mass effect. Questionable punctate focus of diffusion restriction in the left posterior temporal lobe. No intracranial hemorrhage, extra-axial fluid collections or parenchymal mass lesions. No hydrocephalus. No suspicious focal bone marrow lesions. Mild chronic ischemic small vessel white matter changes. Major flow voids are maintained. Mild chronic ischemic small vessel white matter changes. Small chronic insult in the right occipital lobe. 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 Questionable punctate focus of recent ischemia in the left posterior temporal lobe. Findings were discussed with and acknowl edged by DAVID Parker at 02/26/2020 3:10 PM. [facility]-[id number] Performing Organization Address City/[facility] Phon [facility] Number [facility] [address] [place] [address] Venous blood gas (02/26/2020 9:21 AM CDT)Only the most recent of5 resultswithin the time period is included. pH, venous 7.428 (H) 7.320 - [place] 7.420 [facility] pCO2, venous 39.4 (L) 45.0 - [place] 51.0 mmHg [facility] pO2, venous 42.4 (H) 25.0 - [place] 40.0 mmHg [facility] O2 saturation, venous 77.5 (H) 40.0 - [place] 70.0 % [facility] Base excess, venous 1.7 -2.0 - 2.0 [place] mEq/L [facility] Bicarbonate 26.0 21.0 - [place] 28.0 mEq/L [facility] O2 content 7.5 VOL% [facility] FiO2, inspired O2% 30.0 % [facility] Carboxyhemoglobin 1.7 (H) 0.0 - 1.4 [place] Comment: % CHEONDOISM Reference Ranges: Carboxyhemoglobin [facility] Non smoker: 0.0 - 2.0% HOSPITAL Smoker: 2.1 - 5.0% Heavy smoker: 5.1 - 9% Methemoglobin 1.3 (H) 0.0 - 1.0 [place] % [facility] Hemoglobin, blood gas 7.0 (LL)Comment: NOT 14.0 - [place] CRITICAL 18.0 g/dL [facility] Specimen Blood Performing Organization Address City/[facility] Phon e Number [facility] DEPARTMENT OF PATHOLOGY AND [address] [place], [place] [address] GENOMIC MEDICINE [facility] [address] [place], [place] [address] ECG 12 lead (02/25/2020 9:53 AM CDT)Only the most recent of9 resultswithin the time period is included. Pathologist Sig nature Ventricular rate 91 [facility]USE Atrial rate 91 [facility] WY interval 150 [facility] QRSD interval 68 [facility] QT interval 404 [facility] QTC interval 496 [facility] P axis 1 62 [facility] QRS axis 1 73 [facility] T wave axis 72 [facility] EKG impression Normal sinus rhythm-Normal E CG-In automated comparison with ECG of 24-FEB-2020 17:39,-Sinus rhythm has replaced Atrial fibrillation-Criteria for Septal infarct are no longer present-Nonspecific T wave abnormality, improved in Anterolateral [facility]USE leads- Specimen Narrative Performed At This result has an attachment that is no t available. Performing Organization Address City/State/ZIP Code Phon e Number [facility] MUSE [address] [place] [address] US Abdomen Complete (02/24/2020 9:56 AM CDT) Specimen Narrative Performed At EXAM: US ABDOMEN COMPLETE HM [facility] CLINICAL DATA: Assess for signs of cirrhosis liver nodularity splenomegaly signs of portal hyperte nsion COMPARISON: NONE. FINDINGS: PANCREAS: The head and body of the pancreas are unre markable. The tail of the is not well seen on the current study. LIVER: The liver demonstrates normal echogenicity wi thout focal mass or intrahepatic biliary ductal dilatatio n. MPV: Doppler evaluation of the portal vein demonstra juan miguel normal hepatopedal flow. CBD: 0.72 cm within normal limits. GALLBLADDER: The gallbladder is without evidence of calculi. The gallbladder wall is not thickened thickened. There is some minimal pericholecystic fluid. Mild sludge is pr esent within the gallbladder. RIGHT KIDNEY: The right kidney is normal in size and echogenicity. There is no evidence of mass, calculi, or hydronephros is. The right kidney measures 12.30 cm LEFT KIDNEY: The left kidney is normal in size and e chogenicity. There is no evidence of mass, calculi, or hydronephrosis. Th e left kidney measures 11.27 cm . SPLEEN: The spleen is homogeneous and not enlarged m easuring 8.54 cm AORTA: The visualized upper abdominal aorta demonstr ates no evidence of ectasia or aneurysm. IVC: The visualized portions of the inferior vena ca va are unremarkable. IMPRESSION: 1. The gallbladder demonstrates sludge to be present . There is some minimal pericholecystic fluid. There are no stones identified. 2. Common bile duct is not dilated. 3. Hepatopedal flow is seen within the portal vein. Th e spleen is not enlarged. 4.There are no signs of portal hypertens ion. [id number] Procedure Note Interface, Radiology Results Incoming - 02/24/2020 10:45 AM CDT EXAM: US ABDOMEN COMPLETE CLINICAL DATA: Assess for signs of cirr hosis liver nodularity splenomegaly signs of portal hypertension COMPARISON: NONE. FINDINGS: PANCREAS: The head and body of the panc reas are unremarkable. The tail of the is not well seen on the current study. LIVER: The liver demonstrates normal ec hogenicity without focal mass or intrahepatic biliary ductal dilatation. MPV: Doppler evaluation of the portal v ein demonstrates normal hepatopedal flow. CBD: 0.72 cm within normal limits. GALLBLADDER: The gallbladder is without evidence of calculi. The gallbladder wall is not thickened thickened. There is some minimal pericholecystic fluid. Mild sludge is present within the gallbladder. RIGHT KIDNEY: The right kidney is brad l in size and echogenicity. There is no evidence of mass, calculi, or hydronephrosis. The right kidney measures 12.30 cm LEFT KIDNEY: The left kidney is normal in size and echogenicity. There is no evidence of mass, calculi, or hydronephrosis. The left kidney measures 11.27 cm . SPLEEN: The spleen is homogeneous and n ot enlarged measuring 8.54 cm AORTA: The visualized upper abdominal a poppy demonstrates no evidence of ectasia or aneurysm. IVC: The visualized portions of the inf erior vena cava are unremarkable. IMPRESSION: 1. The gallbladder demonstrates sludge to be present. There is some minimal pericholecystic fluid. There are no stones identified. 2. Common bile duct is not dilated. 3. Hepatopedal flow is seen within the p ortal vein. The spleen is not enlarged. 4.There are no signs of portal hypertens ion. [id number] Performing Organization Address City/State/ZIP Code Phon e Number [facility] [address] [place] [address] Transthoracic Echocardiogram Complete, (w Contrast, Strain and 3D if needed) (02/24/2020 8:30 AM CDT) [facility] Ao Root Diameter 3.32 cm [facility] AoV Area, Vmax 3.14 cm2 [facility] AoV Area, VTI 3.97 cm2 [facility] AoV Mean PG 0.91 mmHg [facility] AoV Peak PG 1.44 mmHg [facility] AoV Vmax 0.60 m/s [facility] AoV VTI 0.10 m [facility] BSA Lucio 1.72 m2 [facility] BSA 1.75 m2 [facility] IVS,d 0.72 cm [facility] IVS/LVPW,2D 0.90 [facility] Left Atrium Dimension Anterior 2.75 cm [facility] LV,d 4.23 cm [facility] LV EF,2D 29.91 % [facility] LV EF,A4C 19.80 % [facility] [place]em [place],d A4C 6.98 cm [facility] [place]em [place],s A4C 6.72 cm [facility] LV,s 3.76 cm [facility] LV SV,A4C 15.49 % [facility] LV Vol,d A4C 78.26 ml [facility] LV Vol,s A4C 62.76 ml [facility] LVOT area 3.56 cm2 [facility] LVOT Diam,S 2.13 cm [facility] LVOT Vmax 0.53 m/s [facility] LVOT VTI 0.11 m [facility] LVPWD,d 0.80 cm [facility] PV Pk Grad 0.71 mmHg [facility] PV VMAX 0.42 m/s [facility] MV E A ratio 3.03 [facility] AoV area i VTI BSA Nay 2.27 cm2/m2 [facility] BMI 19.94 kg/m2 [facility] E wave decelartion time 166.88 msec [facility] MV Peak A Bakari 0.24 m/s [facility] MV valve area p 1/2 method 4.55 cm2 [facility] MV Peak E Bakari 0.74 m/s [facility] MV stenosis pressure 1/2 time 48.40 ms [facility] AV LVOT peak gradient 1.13 mmHg [facility] Ascending aorta 3.23 cm [facility] Ao Root Diameter 3.32 cm [facility] LV SYS VOL 60.31 ml [facility] LV ANGELES VOL 79.91 ml [facility] LA area s A4C 15.46 cm2 [facility] LV SI Teich 2D 11.22 ml/m2 [facility] LV SV Teich 2D 19.60 ml [facility] LV Vol s Teich PSAX 60.31 ml [facility] LVOT CI 1.65 l/min/m2 [facility] LVOT CO 2.88 l/min [facility] LVOT HR for LVOT CO 75.88 bpm [facility] LVOT SI 21.72 ml/m2 [facility] BSA Haycock 1.72 m2 [facility] AoV Vmn 0.46 [facility] IVS s 2D 0.92 [facility] LV FS Teich 2D 11.17 [facility] MV AE ratio 0.33 [facility] LV FS Cube 2D 11.17 [facility] LVOT Vmn 0.34 [facility] Pt Size 175.26 [facility] Pt Wt 61.23 [facility] Aov area Vmn 2.61 cm2 [facility] LA A_P score P 0.17 [facility] LVOT mean grad 0.53 mmHg [facility] MAX Pred HR 147.03 [facility] 85 of MPHR 124.98 [facility] AoV area I VMN bsa 1.49 cm2/m2 [facility] Calc MPHR 147.03 bpm [facility] IVS pct thck PLAX 27.59 % [facility] LV SI Cube 2D 12.95 ml/m2 [facility] LV SV Cube 2D 22.64 ml [facility] LV vol d cube 2D 75.69 ml [facility] LV vol s cube 2D 53.05 ml [facility] LVPW pct thck PLAX 32.78 % [facility] LVPW s PLAX 1.06 cm [facility] MV Decel slope 4.41 m/s2 [facility] Pred Exer Dur R1 6.72 [facility] Pred METS R1 7.05 [facility] LA Vol MOD A4C 35.48 ml [facility] Velocity Ratio (V1/V2) 0.88 m/s [facility] EF 24.53 % [facility] E/A ratio 3.08 [facility] Specimen Narrative Performed At This result has an attachment that is no t available. The left ventricular chamber size is mildly enlarged. Left ventricular [facility] systolic function is severely impaired. Left Ventricul ar ejection fraction is 25 - 30%. There is mild to moderate Severely Hypoki netic in the anterior septal segment of the wall. Right Ventricle: Performing Organization Address City/State/ZIP Code Phon e Number [facility] [address] [place] [address], Troponin (02/24/2020 4:41 AM CDT)Only the most recent of12 resultswithin the time period is included. Troponin 0.453 (H) 0.000 - 0.040 [facility] Comment: ng/mL [facility] In patients suspected of having a myocardial infarctio n, along with all other appropriate clinical measures and actions includ ing ECG and other diagnostics as appropriate, measure Ultra TnI at 0 hrs and at 3 hrs. Myocardial infarction VERY LIKELY The 0 hr TnI level is > 0.10 ng/mL Myocardial infarction LIKELY The 0 hr TnI level is > 0.04 ng/mL and 3 hr level is i ncreased or decreased by at least 0.020 ng/mL Myocardial infarction VERY UNLIKELY Both the 0 hr and 3 hr TnI levels <= 0.04 ng/mL(within normal limits) OR 0 hr is > 0.04 ng/mL and 3 hr is increased OR decreased by less than 0.020 ng/mL Specimen Blood Performing Organization Address City/State/ZIP Code Phon e Number [facility] DEPARTMENT OF PATHOLOGY AND [address] [place], [place] [address] GENOMIC MEDICINE [facility] [address] [place], [place] [address] HEART/LUNG RESUSCITATION (CPR) (02/23/2020 3:52 PM CDT) Narrative Performed At Naldo Rene MD 02/23/2020 3:58 PM Date of Service: 02/23/2020 Code Leader (Attending Provider): Naldo Peña MD Diagnosis: Cardiopulmonary arrest Procedure: Cardiopulmonary resuscitation - CPT code: 47440 Initial events: Cam Kaplan a 74 y.o . male was found pulseless at 15:29. Comments: Description of events: Compressions: Initiated (02/23/20 1529). 15:29 Upon my arrival at the bedside, patient' s rhythm was ventricular tachycardia. The initial rhythm reported to me by e code narrator nurse was ventricular fibrillation. CPR Stop Time: Compressions: Stopped for Pulse Check (02/23/20 1535). 15:34 CPR Outcome: Code Termination Due to: Re turn of spontaneous circulation (02/23/20 1535). ROSC Airway: Already intubated Defibrillation/Cardioversion during CPR: Yes Defibrilated @200Jx Disposition: remained in ICU following R OSC. Comments: The patient had went into vent ricular tachycardia at the ventricular fibrillation he was shocked twice given 1 amp of epinephrine CPR was started at 1529 we got a pulse b ack after giving him 1 amp of calcium chloride and 1 amp of bicarb and re-defibrillated the patient second time. I did order electrolytes and give the pa tient 2 g of magnesium and also did consult cardiology started on amiodarone we are go ing to do EKG which shows supraventricular tachycardia rate of 160s to 170 . Repeat EKG and will again order echocardiogram also we will get a trend troponin and start on amiodarone drip. We will get a try to replace electrolytes. Did update the patient sister on the phone Vikki dos santos and I did try to update the daughter Luz thomason on the phone but she was not available. Electronically Signed By: MD Naldo Sandoval MD 02/23/20 3:52 PM Thyroid stimulating hormone (02/23/2020 3:38 PM CDT) Pathologist Sig nature TSH 0.63 0.27 - 4.20 uIU/mL [facility] Specimen Performing Organization Address City/State/ZIP Code Phon e Number [facility] DEPARTMENT OF PATHOLOGY AND [facility] [place] [address] [facility] [address] [place], [place] [address] Lipase level (02/23/2020 4:09 AM CDT)Only the most recent of4 resultswithin the time period is included. Pathologist [facility] [place] [place] nature Lipase 8 (L) 13 - 60 U/L [facility] Specimen Blood Performing Organization Address [facility] Phon e Number [facility] DEPARTMENT OF PATHOLOGY AND [address] [place], [place] [phone] 21 [facility] [address] [place], [place] [address] Hemoglobin & hematocrit (02/22/2020 6:56 PM CDT)Only the most recent of2 resultswithin the time period is included. Pathologist [facility] HGB 8.4 (L) 13.0 - 17.3 g/dL [facility] HCT 25.0 (L) 34.0 - 45.0 % [facility] Specimen Blood Performing Organization Address [facility] Phon e Number [facility] DEPARTMENT OF PATHOLOGY AND [address] [place] [address] 21 [facility] [address] [place], [place] [address] XR Abdomen 1 Vw Portable (02/22/2020 3:14 PM CDT) Specimen Narrative Performed At EXAMINATION: XR ABDOMEN 1 VW PORTABLE [facility] CLINICAL HISTORY: feeding tube inserti on COMPARISON: None available. FINDINGS: A Dobbhoff tube terminates within the ga stric body. Nonobstructive bowel gas pattern No acute osseous abnormality. IMPRESSION: Consider advancement of Dobbhoff tube in to the proximal small bowel. [id number] Procedure Note Hm Interface, Radiology Results Incoming - 02/22/2020 3:44 PM CDT EXAMINATION: XR ABDOMEN 1 VW PORTABLE CLINICAL HISTORY: feeding tube insertio n COMPARISON: None available. FINDINGS: A Dobbhoff tube terminates within the ga stric body. Nonobstructive bowel gas pattern No acute osseous abnormality. IMPRESSION: Consider advancement of Dobbhoff tube in to the proximal small bowel. [id number] Performing Organization Address City/[facility] Phon e Number [place] [address] [place] [address] Surgical pathology request (02/22/2020 12:14 PM CDT) [facility] DEPARTMENT OF PATHOLOGY AND GENOMIC MEDICINE Surgical pathology See link below [facility] DEPARTMENT OF report for PDF Lab PATHOLOGY AND Report GENOMIC MEDICINE Result status This is Final [facility] DEPARTMENT OF Report for PATHOLOGY AND [id number] GENOMIC MEDICINE Specimen Performing Organization Address City/State/ZIP Code Phon e Number [facility] DEPARTMENT OF PATHOLOGY AND [address] [place], [place] [address] GENOMIC MEDICINE Lactic acid level, SEPSIS - Now and repeat 2x every 3 hours (02/22/2020 8:25 AM CDT)Only the most recent of5 resultswithin the time period is included. Lactic acid 4.7 (HH) 0.5 - 2.2 [facility] Comment: mmol/L [facility] Results called to and read back by _BJ ROTHMAN NP AND ROSALVA ARRIETA (name/location) at _ICU (date/time) by __LSL. 02/22/2020 08:48 Specimen Blood Performing Organization Address City/State/ZIP Code Phon e Number [facility] DEPARTMENT OF PATHOLOGY AND [address] [place], [place] [address] GENOMIC MEDICINE [facility] [address] [place], [place] [address] Arterial Line Insertion (02/22/2020 7:57 AM CDT) Narrative Performed At Brain Ramirez NP 02/22/2020 7:57 AM Arterial Line Insertion Date/Time: 02/22/2020 7:57 AM Performed by: Brain Ramirez NP Authorized by: Brain Ramirez NP Consent: Consent obtained: Emergent situatio n Indications: Indications: hemodynamic monitoring a nd multiple ABGs Pre-procedure details: Skin preparation: 2% Chlorhexidine Preparation: Patient was prepped and draped in sterile fashion Anesthesia (see MAR for exact dosages): Anesthesia method: None Procedure details: Location: R radial Needle gauge: 20 G Ultrasound guidance: yes Number of attempts: 1 Transducer: waveform confirmed Post-procedure details: Post-procedure: Secured with tape, sterile dressi ng applied, sutured and wrist guard applied CMS: Normal Patient tolerance of procedure: Norberto erated well, no immediate complications Sputum culture (02/22/2020 5:34 AM CDT) Sputum culture Normal oral claude and (A) [facility] isolate Comment: HOSPITAL Specimen Information Specimen Source: Sputum Specimen Site: Induced Sputum culture Acinetobacter calcoaceticus-Acinetobacter ronal mercedes complex [facility] The performance characteristics of this assay on this isolate were validated by the Microbiology Laboratory at [facility]. This source has not been approve d by the U.S. Food and Drug Administration. The results are n ot intended to be used as the sole means for clinical suzan gnosis or patient management. The Microbiology Laboratory i s authorized under the clinical Laboratory Improvement Amendments of 1988 (CLIA-88) to perform high complexit y testing. The performance characteristics of this assay on this isolate were validated by the Microbiology Laboratory at [facility]. This source has not been approve d by the U.S. Food and Drug Administration. The results are n ot intended to be used as the sole means for clinical suzan gnosis or patient management. The Microbiology Laboratory i s authorized under the clinical Laboratory Improvement Amendments of 1988 (CLIA-88) to perform high complexit y testing. (A) Specimen Sputum - Induced Organism Antibiotic Method Susceptibility Acinetobacter Amikacin LUCAS <=8 mcg/mL: Susc eptible calcoaceticus-Acinetobacte r baumannii complex Acinetobacter Aztreonam LUCAS >16 mcg/mL: Resi stant calcoaceticus-Acinetobacte r baumannii complex Acinetobacter Ceftazidime LUCAS 4 mcg/mL: Suscep tible calcoaceticus-Acinetobacte r baumannii complex Acinetobacter Ciprofloxacin LUCAS <=0.25 mcg/mL: S usceptible calcoaceticus-Acinetobacte r baumannii complex Acinetobacter Ceftriaxone LUCAS 8 mcg/mL: Suscep tible calcoaceticus-Acinetobacte r baumannii complex Acinetobacter Cefepime LUCAS 2 mcg/mL: Suscep tible calcoaceticus-Acinetobacte r baumannii complex Acinetobacter Gentamicin LUCAS <=2 mcg/mL: Susc eptible calcoaceticus-Acinetobacte r baumannii complex Acinetobacter Levofloxacin LUCAS <=0.5 mcg/mL: Tyler sceptible calcoaceticus-Acinetobacte r baumannii complex Acinetobacter Meropenem LUCAS <=0.5 mcg/mL: Tyler sceptible calcoaceticus-Acinetobacte r baumannii complex Acinetobacter Minocycline LUCAS <=1 mcg/mL: Susc eptible calcoaceticus-Acinetobacte r baumannii complex Acinetobacter Tobramycin LUCAS <=2 mcg/mL: Susc eptible calcoaceticus-Acinetobacte r baumannii complex Acinetobacter Ampicillin/Sulbactam LUCAS 4/2 mcg/mL: Susceptible calcoaceticus-Acinetobacte r baumannii complex Acinetobacter Trimethoprim/Sulfamethoxaz LUCAS <=0.5 /9.5 mcg/mL: calcoaceticus-Acinetobacte ole Susce ptible r baumannii complex Acinetobacter Ertapenem LUCAS mcg/mL: Resista nt calcoaceticus-Acinetobacte r baumannii complex Acinetobacter Cefazolin LUCAS mcg/mL: Resista nt calcoaceticus-Acinetobacte r baumannii complex Acinetobacter Cefoxitin LUCAS mcg/mL: Resista nt calcoaceticus-Acinetobacte r baumannii complex Acinetobacter Piperacillin/Tazobactam LUCAS <=2/4 mc g/mL: Susceptible calcoaceticus-Acinetobacte r baumannii complex Performing Organization Address City/[facility] Phon e Number [facility] DEPARTMENT OF PATHOLOGY AND [address] [place] [address] [address] Urine culture (02/22/2020 3:24 AM CDT) Urine culture No growth after 24 hours [facility] Comment: HOSPITAL Specimen Information Specimen Source: Urine Specimen Site: Clean catch Specimen Urine Performing Organization Address City/[facility] Phon e Number [facility] DEPARTMENT OF PATHOLOGY AND [address] [place] [phone] Urinalysis screen and microscopy, with reflex to culture (02/22/2020 3:05 AM CDT) Specimen site Clean catch [facility] Color, UA Yellow [facility] Appearance, UA Slightly-Cloudy [facility] Specific gravity, 1.015 1.001 - [address].035 [facility] pH, UA 6.0 5.0 - 8.5 [facility] Protein, UA 2+ (A) Negative [facility] Glucose, UA 1+ (A) Negative [facility] Ketones, UA 1+ (A) Negative [facility] Bilirubin, UA Negative Negative [facility] Blood, UA Large (A) Negative [facility] Nitrite, UA Negative Negative [facility] Urobilinogen, UA Negative <2.0 [facility] Leukocyte esterase, Negative Negative [facility] Epithelial cells, Many /HPF [facility] WBC, UA 19 (H) 0 - 1 /HPF [facility] RBC, UA 10 (A) 0 - 5 /HPF [facility] Bacteria, UA Few None seen [facility] Yeast, UA None seen [facility] Yeast with None seen [facility] pseudohyphae, UA [facility] Hyaline casts, UA 81 /LPF [facility] Specimen Urine Performing Organization Address City/[facility] Phon e Number [facility] DEPARTMENT OF PATHOLOGY AND [address], [place] [address] [facility] MEDICINE [address] [address] COVID-19 qualitative PCR (02/22/2020 3:05 AM CDT)Only the most recent of2 resultswithin the time period is included. Interpretation Negative results do not prec lude 2019-nCoV infection and should not be used as the sole basis for treatment or other patient management decisions. Negative results must be combined with clinical observations, patient history, and epidemiological [place] information. [facility] COVID-19 qualitative Not-Detected Not-Detecte [place] PCR result d [facility] COVID-19 qualitative See link below for [place] PCR PDF Lab [facility] ReportComment: Case HOSPITAL Number: [id number] Specimen Nasopharyngeal swab Performing Organization Address City/[facility] Phon e Number [facility] DEPARTMENT OF PATHOLOGY AND [address] [place], [place] [address] [facility] MEDICINE [place] [id number] [place] [address] [facility] Sepsis Clinical Assessment (02/22/2020 2:55 AM CDT) Narrative Performed At Cheryl Piper NP 02/21 3:27 AM 74 y.o. male with PMH of COPD, CAD, HTN, PE, pancreati tis, ETOH abuse who presented to the ED following consuming an entire lucien le of whiskey. Per records, pt became minimally responsive so family called EMS. Pt became unresponsive in route and subsequently i ntubated in ED. Lab called to report lactic acid 13.2. S epsis score 4, SIRS criteria 2. CXR negative. Blood cx pending. Received Rocephin in ED. Discussed with ED physician - - reported that pt received 1L fluid bolus per EMS and an a dditional 1L fluid bolus in ED (adequate for 30mL/kg fluid resuscitation). MD states she will broaden abx coverage with Zosyn. Elevated lactic acid likely due i n part to ETOH abuse and GI bleed. Transfused 2 units PRBCs i n ED. MD reports concern for active bleed/possible esophageal varices . UA/cx added. Trend lactic acid. Pt being admitted to ICU. Further manage ment per ICU team. Sepsis Clinical Assessment Performed by: Cheryl Piper NP Authorized by: Cheryl Piper NP Sepsis Clinical Assessment General Assessment Information Current sepsis score: 4 On comfort care?: No If score does not worsen, snooze alerts until: 02/22/2020 14:56 CDT SIRS Criteria Heart rate > 90 bpm due to acute conditi on WBC > 12 K/mcL due to acute condition Organ Dysfunction Lactate > 2.0 mmol/L due to acute condit ion Sepsis Assessment Clinical suspicion of infection? Yes Time of suspicion of infection: 020 2:56 AM Clinical suspicion of sepsis?: Yes Sepsis staging: Severe sepsis Severe Sepsis T0: 02/22/2020 2:56 AM Sepsis protocol started? Yes Where did the protocol start?: ED [facility] Suspected Type/Source of Infection Suspected Type of Infection: Bacterial Suspected Source of Infection: Source un known Sepsis Related Vitals Heart rate: 130 Temperature: Respiratory rate: 20 Blood pressure: 130/75 Altered mental status: WBC (k/uL) Date Va lue 02/22/2020 27.6 (HH) 12/25/2019 9.2 Weight-Based Fluid Bolus Calculation The recommended weight-based bolus volum e: 1,842 mL (dosing weight) Please refer to the MAR for actual med/fluid administr ations. Blood culture, aerobic & anaerobic (02/22/2020 1:54 AM CDT)Only the most recent of2 resultswithin the time period is included. Blood culture No growth after 5 days of incubation. [facility] isolate Comment: HOSPITAL Specimen Information Specimen Source: Blood Specimen Site: [facility] Specimen Blood Performing Organization Address City/[facility] Phon e Number [facility] DEPARTMENT OF PATHOLOGY AND [address] [place], [place] [address] [facility] [address] [place] [address] Alcohol level, blood (02/22/2020 1:54 AM CDT) Alcohol 60.3 mg/dL [facility] Comment: [facility] Normal None Detecte d Legal Intoxication in [place] 80 mg/dL (0.08%) Toxic Concentration 200 mg/dL (0.2%) Potentially Fatal 350-500 mg/dL (0.3 5%-0.5%) Alcohol percent 0.060 % [facility] Specimen Blood Performing Organization Address City/[facility] Phon e Number [facility] DEPARTMENT OF PATHOLOGY AND [address] [place], [place] [address] [facility] [address] [facility] [place], [place] [address] XR Chest 1 Vw (02/22/2020 1:45 AM CDT) Specimen Narrative Performed At Examination: XR CHEST 1 VW RADIANT Clinical History: ETT Comparison: 12/26/2019 Technique: Single frontal view of the est is obtained. Findings: The lungs are free of infiltrate. The heart size is normal. No pleural effusion is seen. Tip of the left IJ line is at the mid to distal SVC. T ip of the ET tube is 4.8 cm above the wilman. Mild bibasilar atelectasis is seen. No pneumothorax is seen. Impression: Mild bibasilar atelectasis but otherwise no acute infiltrate. [id number] Procedure Note Hm Interface, Radiology Results Incoming - 02/22/2020 2:05 AM CDT Examination: XR CHEST 1 VW Clinical History: ETT Comparison: 12/26/2019 Technique: Single frontal view of the ch est is obtained. Findings: The lungs are free of infiltrate. The heart size is normal. No pleural effusion is seen. Tip of the left IJ line is at the mid to distal SVC. Tip of the ET tube is 4.8 cm above the wilman. Mild bibasilar atelectasis is seen. No pneumothorax is seen. Impression: Mild bibasilar atelectasis but otherwise no acute infiltrate. [id number] Performing Organization Address City/State/ZIP Code Phon e Number [facility] [address] [place] [address] ECG ED Preliminary Interpretation - Not an Order (02/22/2020 1:37 AM CDT)Only the most recent of6 resultswithin the time period is included. Narrative Performed At Alexandria Del Real DO 02/22/2020 11:31 AM ECG ED Preliminary Interpretation - Not an Order Performed by: Alexandria Del Real DO Authorized by: Alexandria Del Real DO ECG reviewed by ED Physician in the abse nce of a intern architect: yes Interpretation: Interpretation: abnormal Rate: ECG rate: 131 ECG rate assessment: tachycardic Rhythm: Rhythm: sinus tachycardia Ectopy: Ectopy: none QRS: QRS axis: Normal QRS intervals: Normal Conduction: Conduction: normal ST segments: ST segments: Non-specific (changes in lateral leads) T waves: T waves: normal CRITICAL CARE (02/22/2020 1:37 AM CDT) Narrative Performed At Alexandria Del Real DO 02/22/2020 11:31 AM Critical Care Performed by: Alexandria Del Real DO Authorized by: Alexandria Del Real DO Critical care provider statement: Critical care time (minutes): 60 Critical care time was exclusive of: Separately b illable procedures and treating other patients Critical care was necessary to treat or prevent imminent or life-threatening deterioration of the following condit ions: Respiratory failure, shock and hepatic failure Critical care was time spent personal ly by me on the following activities: Re-evaluation of patient's condition, re view of old charts, discussions with consultants, evaluation of patient's response to treatment, examination of patient, gastr ic intubation, ordering and performing treatments and interventions, ordering and review of laboratory studies, ordering and review of radiogra phic studies, ventilator management and vascular access procedure s Lanre 'yes' if you are taking over critical care for this patient from another provider.: no Intubation (02/22/2020 1:37 AM CDT) Narrative Performed At Alexandria Del Real DO 02/22/2020 11:31 AM Intubation Performed by: Alexandria Del Real DO Authorized by: Alexandria Del Real DO Consent: Consent obtained: Emergent situatio n Alternatives discussed: No treatmen t [facility] protocol: Patient identity confirmed: Anonymo us protocol, patient vented/unresponsive Pre-procedure details: Patient status: Unresponsive Induction: Etomidate Paralytics: Rocuronium Procedure details: Preoxygenation: Bag valve mask CPR in progress: no Intubation method: Oral Technique: Video laryngoscopy Laryngoscope blade: Mac 3 Grade view: 1 Difficult airway?: No Tube size (mm): 7.5 Tube type: Cuffed Number of attempts: 1 Cricoid pressure: yes Tube visualized through cords: yes Placement assessment: ETT to teeth: 21 Tube secured with: ETT can Breath sounds: Equal and absent ove r the epigastrium Placement verification: chest rise, condensation, C XR verification and ETCO2 detector CXR findings: ETT in proper place Post-procedure details: Patient tolerance of procedure: Norberto erated well, no immediate complications Central Line (02/22/2020 1:37 AM CDT) Narrative Performed At Alexandria Del Real DO 02/22/2020 11:31 AM Central Line Performed by: Alexandria Del Real DO Authorized by: Alexandria Del Real DO Consent: Consent obtained: Emergent situatio n Alternatives discussed: No treatmen t [facility] protocol: Patient identity confirmed: Hospital-assigned coby ntification number and arm band Pre-procedure details: Hand hygiene: Hand hygiene performed prior to insertion Sterile barrier technique: All elemen ts of maximal sterile technique followed Skin preparation: 2% chlorhexidine Skin preparation agent: Skin preparation agent comp letely dried prior to procedure Sedation: Sedation Type: Systemic Systemic used:: Propofol Procedure details: Catheter type: Triple lumen Catheter size: 7 Fr Catheter length (cm): 20 Catheter site: internal jugular vein Catheter Site Laterality: Left Patient position: Flat Landmarks identified: yes Ultrasound guidance: yes Sterile ultrasound techniques: Sterile gel and ster ile probe covers were used Number of attempts: 1 Successful placement: yes Post-procedure details: Post-procedure: Dressing applied an d line sutured Assessment: Blood return through all ports, no pn eumothorax on x-ray, free fluid flow and placement verified b y x-ray Patient tolerance of procedure: Norberto erated well, no immediate complications CTA Abdomen Pelvis W And Or Wo Contrast (12/26/2019 12:56 PM CDT) Specimen Narrative Performed At EXAMINATION: CT ANGIOGRAM ABDOMEN PELV IS W AND OR WO CONTRAST HM [facility]IANT CLINICAL HISTORY: lactic acidosis tyler spect ischemic TECHNIQUE: Multiple CT angiographic images of the abdo men and pelvis were obtained during intravenous administration of con trast. Multiple computerized reformatted images as well as 3-D volume rendered images were also obtained. CT imaging was performed with iterative reconstruction techniques and/or automated exposure control to reduce rad iation dose. Precontrast images of the abdomen wer e also obtained. COMPARISON: None. FINDINGS: FINDINGS: Vasculature: Abdominal aorta demonstrates a normal course and calib er. There are moderate atherosclerotic changes of the abdominal aort a. No evidence of aortic aneurysm, dissection or other acute aortic synd yobany. Moderate approximately 50% stenosis in the proxim al celiac at the ostium. SMA is patent with minimal disea se which is nonobstructive. Mild stenosis at the ostium of the rig ht renal artery with mixed calcified and noncalcified plaque, approxim ately 25% stenosis. The left renal artery is paten t. Patent BHAVNA. Aortic Measurements are as follows: Abdominal aorta at the diaphragmatic cru s: 25 mm Abdominal aorta at the renal arteries: 1 6 mm Infrarenal abdominal aorta: 20 mm Abdominal aorta just proximal to the bif urcation: 12.7 mm Right pelvic and runoff vessels: Mild disease throughout the right common iliac, x ray developing machine operator al iliac and CDL PROGRAM COORDINATOR, without significant stenosis. Left pelvic and runoff vessels: Mild disease throughout the left common iliac, externa l iliac and CDL PROGRAM COORDINATOR, without significant stenosis. Chest: Lung bases are unremarkable. Abdomen: Liver parenchyma is diffusely and markedly low densit y, compatible with severe steatosis. The spleen, pancreas, gallbladder, a nd adrenal glands are unremarkable. Small hiatal hernia stable from prio r. The kidneys are unremarkable. Colonic diverticuli noted. Unchanged pancolonic wall thickening compared w ith prior study and mild surrounding inflammatory change s in the mesentery. Pelvis: Bladder is unremarkable. The orthopedic hardware in t he sacrum is in place. IMPRESSION: 1.Patent mesenteric vasculature. 2.Unchanged pancolonic mild wall thickening, favored i nfectious or inflammatory. 3.Severe hepatic steatosis. [facility]-[id number] Dictated and approved by president ergonomic consulting/fellow: Hung Carr M.D. I, Micha Whatley MD, personally reviewed the images and resident's/fellow's findings and agree with the final report. Procedure Note Hm Interface, Radiology Results Incoming - 12/26/2019 4:32 PM CDT EXAMINATION: CT ANGIOGRAM ABDOMEN PELVIS W AND OR WO CONTRAST CLINICAL HISTORY: lactic acidosis susp ect ischemic TECHNIQUE: Multiple CT angiographic imag es of the abdomen and pelvis were obtained during intravenous administration of contrast. Multiple computerized reformatted images as well as 3-D volume rendered images were also obtained. CT imaging was performed with iterative reconstruction techniques and/or automated exposure control to reduce radiation dose. Precontrast images of the abdomen were also obtained. COMPARISON: None. FINDINGS: FINDINGS: Vasculature: Abdominal aorta demonstrates a normal co urse and caliber. There are moderate atherosclerotic changes of the abdominal aorta. No evidence of aortic aneurysm, dissection or other acute aortic syndrome. Moderate approximately 50% stenosis in the proxim al celiac at the ostium. SMA is patent with minimal disease which is nonobstructive. Mild stenosis at the ostium of the right renal artery with mixed calcified and noncalcified plaque, approximately 25% stenosis. The left renal artery is patent. Patent BHAVNA. Aortic Measurements are as follows: Abdominal aorta at the diaphragmatic cru s: 25 mm Abdominal aorta at the renal arteries: 1 6 mm Infrarenal abdominal aorta: 20 mm Abdominal aorta just proximal to the bif urcation: 12.7 mm Right pelvic and runoff vessels: Mild disease throughout the right common iliac, external iliac and CDL PROGRAM COORDINATOR, without significant stenosis. Left pelvic and runoff vessels: Mild disease throughout the left common iliac, external iliac and CDL PROGRAM COORDINATOR, without significant stenosis. Chest: Lung bases are unremarkable. Abdomen: Liver parenchyma is diffusely and marke dly low density, compatible with severe steatosis. The spleen, pancreas, gallbladder, and adrenal glands are unremarkable. Small hiatal hernia stable from prior. The kidneys are unremarkable. Colonic diverticuli noted. Unchanged pancolonic wall thicken ing compared with prior study and mild surrounding inflammatory changes in the mesentery. Pelvis: Bladder is unremarkable. The orthopedic hardware in the sacrum is in place. IMPRESSION: 1.Patent mesenteric vasculature. 2.Unchanged pancolonic mild wall thicken ing, favored infectious or inflammatory. 3.Severe hepatic steatosis. [facility]-[id number] Dictated and approved by radiology resid ent/fellow: Paulie Carr M.D. I, Micha Whatley MD, personally reviewed the images and resident's/fellow's findings and agree with the final report. Performing Organization Address City/State/ZIP Code Phon e Number [facility] [address] [place] [phone] Enteric viral panel (12/26/2019 11:43 AM CDT) Enteric viral Negative for all pathogens tested: [place] panel Negative for Adenovirus F 40/41 [facility] Negative for [facility] Negative for Norovirus GI/GII Negative for Rotavirus A Negative for Sapovirus This real-time PCR assay detects the presence of nucle ic acids (RNA or DNA) for the gastrointestinal pathogens listed. A result of "Not-detected" does not exclude the possib ility of the presence of one or more pathogens at concentrat ions less than the detectable limits of the assay. Comment: Specimen Information Specimen Source: Stool Specimen Site: Nonpreserved Specimen Stool - Nonpreserved Performing Organization Address City/State/ZIP Code Phon e Number [facility] DEPARTMENT OF PATHOLOGY AND [address] [place] [phone] GENOMIC MEDICINE [address] [address] Transthoracic Echocardiogram Complete, (w Contrast, Strain and 3D if needed) (12/26/2019 7:20 AM CDT) Pathologist Sig nature Ao Root Diameter 3.54 cm SYNGO AoV Area, Vmax 4.53 cm2 HM [facility] AoV Area, VTI 5.02 cm2 [facility] AoV Mean PG 2.03 mmHg [facility] AoV Peak PG 3.13 mmHg [facility] AoV Vmax 0.89 m/s HM [facility] AoV VTI 0.13 m [facility] BSA Lucio 1.69 m2 [facility] BSA 1.74 m2 [facility] IVS,d 1.09 cm [facility] IVS/LVPW,2D 0.90 HM [facility] Left Atrium Dimension Anterior 3.78 cm HM [facility] LV,d 3.63 cm HM [facility] LV EF,2D 62.15 % [facility] LV,s 2.63 cm HM [facility] LVOT area 4.79 cm2 HM [facility] LVOT Diam,S 2.47 cm HM [facility]GO LVOT Vmax 0.87 m/s HM [facility]GO LVOT VTI 0.15 m HM [facility]GO LVPWD,d 1.22 cm HM [facility] PV Pk Grad 1.91 mmHg HM [facility] PV VMAX 0.69 m/s HM [facility] MV E A ratio 0.69 HM [facility] AoV area i VTI BSA Ballinger 2.89 cm2/m2 HM [facility] BMI 18.65 kg/m2 HM [facility] E wave decelartion time 219.04 msec HM [facility] MV Peak A Bakari 0.83 m/s HM [facility] MV valve area p 1/2 method 3.46 cm2 HM [facility] MV Peak E Bakari 0.57 m/s HM [facility] MV stenosis pressure 1/2 time 63.52 ms HM [facility] AV LVOT peak gradient 2.78 mmHg HM [facility]GO Ascending aorta 3.32 cm HM [facility] Ao Root Diameter 3.54 cm HM [facility] LV SYS VOL 25.20 ml HM [facility] LV ANGELES VOL 55.49 ml HM [facility]NGO LA area s A4C 14.07 cm2 HM [facility] LV SI Teich 2D 17.43 ml/m2 HM [facility] LV SV Teich 2D 30.29 ml HM [facility] LV Vol s Teich PSAX 25.20 ml HM [facility]GO LVOT CI 4.37 l/min/m2 HM [facility] LVOT CO 7.60 l/min HM [facility]NGO LVOT HR for LVOT CO 115.49 bpm HM [facility]GO LVOT SI 37.88 ml/m2 HM [facility] BSA Haycock 1.69 m2 HM [facility] AoV Vmn 0.68 HM SYNGO IVS s 2D 1.24 HM SYNGO LV FS Teich 2D 27.66 HM SYNGO MV AE ratio 1.46 HM [facility] LV FS Cube 2D 27.66 HM SYNGO LVOT Vmn 0.62 HM [facility]GO Pt Size 177.80 HM [facility]NGO Pt Wt 58.97 HM [facility] Aov area Vmn 4.14 cm2 HM [facility] LA A_P score P 2.47 HM [facility]GO LVOT mean grad 1.67 mmHg HM [facility]NGO MAX Pred HR 147.20 HM [facility]GO 85 of MPHR 125.12 HM [facility]NGO AoV area I VMN bsa 2.38 cm2/m2 HM [facility]GO Calc MPHR 147.20 bpm HM [facility]GO IVS pct thck PLAX 13.18 % HM [facility]NGO LV SI Cube 2D 17.09 ml/m2 HM [facility] LV SV Cube 2D 29.71 ml HM SYNGO LV vol d cube 2D 47.80 ml HM SYNGO LV vol s cube 2D 18.09 ml HM SYNGO LVPW pct thck PLAX -8.83 % HM SYNGO LVPW s PLAX 1.11 cm HM SYNGO MV Decel slope 2.61 m/s2 HM [facility]NGO Pred Exer Dur R1 6.74 HM SYNGO Pred METS R1 7.08 HM [facility]NGO LA Vol MOD A4C 34.15 ml HM [facility] Velocity Ratio (V1/V2) 0.98 m/s HM [facility]GO EF 54.59 % HM [facility] E/A ratio 0.69 HM [facility] Specimen Narrative Performed At This result has an attachment that is no t available. There is borderline left ventricular concentric hypertrophy. [facility] Left Ventricular ejection fraction is 50 - 55%. Spectral Doppler shows impaired relaxation pattern of left ventricular diastolic filling. Left atrium size is mildly dilated. Performing Organization Address City/State/ZIP Code Phon e Number [facility] [address] [place] [address], CT Abdomen Pelvis W Contrast (12/25/2019 9:56 PM CDT) Specimen Narrative Performed At Examination: CT ABDOMEN PELVIS W CONTR AST [facility] Clinical History: Abd pain gastroenter itis or colitis suspected Comparison: None. Findings: CT scans are performed using radiation dose reduction techniques. Technical factors are evaluated and adjusted to ensu re appropriate moderation of exposure. Automated dose management te chnology is applied to adjust radiation exposure whi le achieving a diagnostic quality image. CT imaging was performed wit h iterative reconstruction techniques and/or automated exposure co ntrol to reduce radiation dose. CT scan of the abdomen and pelvis was performed after intravenous contrast. The liver is diffusely low in density. The spleen, duffy creas, gallbladder, and adrenal glands are unre markable. The kidneys are within normal limits without hydroneph rosis or urinary calculus. The appendix is nonvisualized. There is mild bowel wal l prominence or thickening noted of the sigmoid colon but is not well- distended. No fat stranding is seen. Scattered colonic diverticuli are n oted. No bowel dilatation is seen. No free air or fluid is seen. Urinary bl adder is unremarkable. The visualized lung bases show small hia suze hernia. IMPRESSION: 1. Fatty liver. 2 small hiatal hernia. 3. No bowel wall prominence with thickening noted of t he sigmoid colon may represent incomplete distention vers us mild inflammation. [facility]-[id number] Procedure Note Hm Interface, Radiology Results Incoming - 12/25/2019 10:30 PM CDT Examination: CT ABDOMEN PELVIS W CONTRAST Clinical History: Abd pain gastroenteri tis or colitis suspected Comparison: None. Findings: CT scans are performed using radiation d ose reduction techniques. Technical factors are evaluated and adjusted to ensure appropriate moderation of exposure. Automated dose management technology is applied to adjust radiation exposure while achie ving a diagnostic quality image. CT imaging was performed with iterative reconstruction techniques and/or automated exposure control to reduce radiation dose. CT scan of the abdomen and pelvis was pe rformed after intravenous contrast. The liver is diffusely low in density. T he spleen, pancreas, gallbladder, and adrenal glands are unremarkable. The kidneys are within normal limits wit hout hydronephrosis or urinary calculus. The appendix is nonvisualized. There is mild bowel wall prominence or thickening noted of the sigmoid colon but is not well-distended. No fat stranding is seen. Scattered colonic diverticuli are noted. No bowel dilatation is seen. No free air or fluid is seen. Urinary bl adder is unremarkable. The visualized lung bases show small hia suze hernia. IMPRESSION: 1. Fatty liver. 2 small hiatal hernia. 3. No bowel wall prominence with thicken ing noted of the sigmoid colon may represent incomplete distention versus mild inflammation. [facility]-[id number] Performing Organization Address City/State/ZIP Code Phon e Number [facility] [address] [place] [address] CRITICAL CARE (12/25/2019 9:30 PM CDT) Narrative Performed At Srinivas Gay DO 0 1:35 AM Critical Care Performed by: Srinivas Gay DO Authorized by: Srinivas Gay D O Critical care provider statement: Critical care time (minutes): 65 Critical care time was exclusive of: Separately b illable procedures and treating other patients and teaching juani e Critical care was necessary to treat or prevent imminent or life-threatening deterioration of the fo llowing conditions: Cardiac failure and circulatory failure Critical care was time spent personal ly by me on the following activities: Blood draw for specimens, development of treatment plan with patient or surrogate, discussions with c onsultants, discussions with primary provider, evaluation of patient' s response to treatment, examination of patient, interpretation o f cardiac output measurements, obtaining history from patient or surrogate, vascular access procedures, re-evaluation of patient's condition, pulse oximetry, ordering and review of radiographic studies, ordering and re view of laboratory studies, ordering and performing treatments and i nterventions and review of old charts Lanre 'yes' if you are taking over critical care for this patient from another provider.: no ear mold laboratory technician procedure (08/02/2019 3:25 PM KINDERGARTEN INSTRUCTIONAL ASSISTANT) Specimen Narrative Performed At This result has an attachment that is no t available. XR Ribs W Pa Chest Left (08/01/2019 4:45 PM KINDERGARTEN INSTRUCTIONAL ASSISTANT) Specimen Narrative Performed At Procedure: XR RIBS W PA CHEST LEFT [facility] REFERRING PHYSICIAN: DESIRAE EWING HISTORY: fall COMPARISON: None FINDINGS: No radiographic evidence of acute left rib fracture. O ld union fracture deformity is seen along the posterior aspect of the le ft 8th and 10th ribs. There is old nonsolid union fracture deformity o f along the posterior aspect of the left ninth rib T he lungs are clear. Right upper lobe calcified granuloma is noted. The heart is normal in size. Pulmonary vascu lature is within normal limits. XR RIBS W PA CHEST LEFT acquired IMPRESSION: No radiographic evidence of acute left r ib fracture. [id number] Procedure Note Interface, Radiology Results Incoming - 08/01/2019 5:02 PM KINDERGARTEN INSTRUCTIONAL ASSISTANT Procedure: XR RIBS W PA CHEST LEFT REFERRING PHYSICIAN: DESIRAE EWING HISTORY: fall COMPARISON: None FINDINGS: No radiographic evidence of acute left r ib fracture. Old union fracture deformity is seen along the posterior aspect of the left 8th and 10th ribs. There is old nonsolid union fracture deformity of along the posterior aspect of the left ninth rib T he lungs are clear. Right upper lobe calcif ied granuloma is noted. The heart is normal in size. Pulmonary vasculature is within normal limits. XR RIBS W PA CHEST LEFT acquired IMPRESSION: No radiographic evidence of acute left r ib fracture. [facility] [place]-[id number] Performing Organization Address City/State/ZIP Code Phon e Number [facility] [address] [place] [address] CT Angiogram Pe Chest (07/03/2019 1:22 PM KINDERGARTEN INSTRUCTIONAL ASSISTANT) Specimen Narrative Performed At EXAMINATION: GEORGE NULL CT ANGIOGRAM PE CHEST CLINICAL HISTORY: sinus tach sob TECHNIQUE: CT angiographic images of the chest were obtained duri ng intravenous administration of iodinated contrast. Computerized ref ormatted images and 3-D MIP images were also obtained and archived (CT pulmonary embolus protocol). DOSE REDUCTION: CT imaging was performed with iterativ e reconstruction technique and/or automated exposure cont rol to reduce radiation dose. COMPARISON: 2 view chest from 07/01/[address] abdomen and pelvis w ith contrast from 03/08/2018 FINDINGS: 1.Pulmonary artery opacification is good. There is no evidence of pulmonary embolism. The pulmonary arteries are normal in caliber. No radiographic evidence of right heart str ain. 2.The thoracic aorta is normal in course and caliber w ith a minimal amount of calcified atherosclerotic disease. The cardi ac size is normal. No pericardial effusion. 3.Centrilobular emphysematous change is noted bilatera lly the biapical pleural-parenchymal scarring. A calcified granuloma se en within the right upper lobe. 4.No noncalcified pulmonary nodules. Bibasilar atelect asis. No focal consolidation or pleural effusion. No pl eural thickening. 5.The trachea main bronchi are clear. No bronchiectasi s. Mild central peribronchial thickening is noted. 6.No mediastinal, hilar, or axillary lymphadenopathy. Calcified lymph nodes are seen within the mediastinum. 7.The thyroid is unremarkable. 8.The bones of the chest are within norm al limits. 9.Questionable filling defect seen within the right in ternal jugular vein which may represent a thrombus versus a filling d efect. Recommend further evaluation with ultrasound. 10.Limited evaluation of the upper abdomen is unremark able. Nonspecific bilateral perinephric stranding is noted . Small hiatal hernia. IMPRESSION: 1.There is no evidence of pulmonary embo lism. 2.Mild reactive airway disease without evidence of pne umonia or bronchiolitis. However, the patient has a small hiatal hernia, correlate for history of gastroesophageal reflux. 3.Questionable filling defect within the right interna l jugular vein. Findings may represent an internal thrombus versus mix ing artifact. This can be better evaluated with ultrasound as clinically indicated. [facility]-[id number] Procedure Note Interface, Radiology Results Incoming - 07/03/2019 1:51 PM KINDERGARTEN INSTRUCTIONAL ASSISTANT EXAMINATION: CT ANGIOGRAM PE CHEST CLINICAL HISTORY: sinus tach sob TECHNIQUE: CT angiographic images of the chest were obtained during intravenous administration of iodinated contrast. Computerized reformatted images and 3-D MIP images were also obtained and archived (CT pulmonary embolus protocol). DOSE REDUCTION: CT imaging was performed with iterative reconstruction technique and/or automated exposure control to reduce radiation dose. COMPARISON: 2 view chest from 07/01/[address] abdome n and pelvis with contrast from 03/08/2018 FINDINGS: 1.Pulmonary artery opacification is good . There is no evidence of pulmonary embolism. The pulmonary arteries are normal in caliber. No radiographic evidence of right heart strain. 2.The thoracic aorta is normal in course and caliber with a minimal amount of calcified atherosclerotic disease. The cardiac size is normal. No pericardial effusion. 3.Centrilobular emphysematous change is noted bilaterally the biapical pleural- parenchymal scarring. A calcified granuloma seen within the right upper lobe. 4.No noncalcified pulmonary nodules. Bib asilar atelectasis. No focal consolidation or pleural effusion. No pleural thickening. 5.The trachea main bronchi are clear. No bronchiectasis. Mild central peribronchial thickening is noted. 6.No mediastinal, hilar, or axillary lym phadenopathy. Calcified lymph nodes are seen within the mediastinum. 7.The thyroid is unremarkable. 8.The bones of the chest are within norm al limits. 9.Questionable filling defect seen withi n the right internal jugular vein which may represent a thrombus versus a filling defect. Recommend further evaluation with ultrasound. 10.Limited evaluation of the upper abdom en is unremarkable. Nonspecific bilateral perinephric stranding is noted. Small hiatal hernia. IMPRESSION: 1.There is no evidence of pulmonary embo lism. 2.Mild reactive airway disease without e vidence of pneumonia or bronchiolitis. However, the patient has a small hiatal hernia, correlate for history of gastroesophageal reflux. 3.Questionable filling defect within the right internal jugular vein. Findings may represent an internal thrombus versus mixing artifact. This can be better evaluated with ultrasound as clinically indicated. [facility]-[id number] Performing Organization Address City/State/ZIP Code Phon e Number [facility] [address] [place] [address] Echocardiogram complete w contrast and 3D if needed (07/02/2019 10:11 AM KINDERGARTEN INSTRUCTIONAL ASSISTANT) [facility] Ao Root Diameter 3.41 cm HM [facility] AoV Area, Vmax 2.32 cm2 HM [facility] AoV Area, VTI 2.20 cm2 HM [facility] AoV Mean PG 3.23 mmHg HM [facility] AoV Peak PG 4.58 mmHg HM [facility] AoV Vmax 1.12 m/s HM [facility] AoV VTI 0.25 m HM [facility] BSA Lucio 1.74 m2 HM [facility] BSA 1.74 m2 [facility] IVS,d 0.94 cm HM [facility] IVS/LVPW,2D 0.89 HM [facility] Left Atrium Dimension Anterior 3.25 cm HM [facility] LV,d 4.52 cm HM [facility] LV EF,2D 59.95 % HM [facility] LV,s 3.34 cm HM [facility] LVOT area 2.89 cm2 HM [facility] LVOT Diam,S 1.92 cm HM [facility] LVOT Vmax 0.89 m/s HM [facility]GO LVOT VTI 0.18 m HM [facility]GO LVPWD,d 1.06 cm HM [facility] PV Pk Grad 3.41 mmHg HM [facility] PV VMAX 0.92 m/s HM [facility] MV E A ratio 0.82 [facility] AoV area i VTI BSA Nay 1.27 cm2/m2 [facility] BMI 21.93 kg/m2 HM [facility] E wave decelartion time 127.59 msec HM [facility] MV Peak A Bakari 0.96 m/s HM [facility] MV valve area p 1/2 method 5.95 cm2 HM [facility] MV Peak E Bakari 0.78 m/s HM [facility] MV stenosis pressure 1/2 time 37.00 ms HM [facility] AV LVOT peak gradient 2.92 mmHg HM [facility] Ascending aorta 3.11 cm HM [facility] Ao Root Diameter 3.41 cm HM [facility] LV SYS VOL 45.29 ml HM [facility] LV ANGELES VOL 93.65 ml HM [facility] LA area s A4C 14.82 cm2 HM [facility] LV SI Teich 2D 27.83 ml/m2 HM [facility] LV SV Teich 2D 48.36 ml HM [facility] LV Vol s Teich PSAX 45.29 ml HM [facility] LVOT CI 2.26 l/min/m2 [facility] LVOT CO 3.92 l/min [facility] LVOT HR for LVOT CO 77.28 bpm HM [facility] LVOT SI 29.22 ml/m2 [facility] BSA Haycock 1.73 m2 [facility] AoV Vmn 0.87 HM [facility] IVS s 2D 1.00 HM [facility] LV FS Teich 2D 26.29 HM [facility] MV AE ratio 1.22 HM [facility] LV FS Cube 2D 26.29 HM [facility] LVOT Vmn 0.56 [facility] Pt Size 170.18 [facility] Pt Wt 63.50 [facility] Aov area Vmn 2.05 cm2 [facility] LA A_P score P 1.39 [facility] LVOT mean grad 1.45 mmHg HM [facility] MAX Pred HR 147.68 [facility] 85 of MPHR 125.53 [facility] AoV area I VMN bsa 1.18 cm2/m2 [facility] Calc MPHR 147.68 bpm [facility] IVS pct thck PLAX 5.97 % [facility] LV SI Cube 2D 31.96 ml/m2 [facility] LV SV Cube 2D 55.54 ml [facility] LV vol d cube 2D 92.65 ml [facility] LV vol s cube 2D 37.11 ml [facility] LVPW pct thck PLAX -5.00 % [facility] LVPW s PLAX 1.01 cm [facility] MV Decel slope 6.13 m/s2 [facility] Pred Exer Dur R1 6.82 [facility] Pred METS R1 7.15 [facility] LA Vol MOD A4C 36.15 ml [facility] Velocity Ratio (V1/V2) 0.79 m/s [facility] EF 51.64 % [facility] E/A ratio 0.81 [facility] Specimen Narrative Performed At This result has an attachment that is no t available. There is mild left ventricular concentric hypertrophy. [facility] Left Ventricular ejection fraction is 50 - 55%. Left atrium size is moderately dilated. There is mild sclerosis of the aortic valve leaflet s. Spectral Doppler shows impaired relaxation pattern of left ventricular diastolic filling. Performing Organization Address City/State/ZIP Code Phon e Number [facility] [address] [place] [address], Lipid panel (07/02/2019 5:48 AM KINDERGARTEN INSTRUCTIONAL ASSISTANT) Cholesterol 153 0 - 199 [place] mg/dL [facility] Triglycerides 65 0 - 149 [place] mg/dL [facility] HDL cholesterol 57 40 - 9,999 [place] mg/dL [facility] LDL cholesterol 103 (H)Comment: 0 - 99 mg/dL [place] Result obtained by [facility] direct LDL [facility] Lipid panel See below [place] interpretation Comment: [facility] Total Cholesterol (mg/dL) LDL Choles terol (mg/dL) [facility] <200 Desirable <100 [facility] 200-239 Borderline- high 100-129 Near or above optimal >=240 High 130-159 Borderline-high 160-189 High >=190 Very high HDL Cholesterol (mg/dL) Triglycer ides (mg/dL) <40 Low <150 Normal >=60 High 150-199 Borderline-high 200-499 High >=500 Very high Risk Catergories that modify LDL goals. Risk Catergories LDL g oal (mg/dL) CHD and CHD risk equivalent <100 (10-year risk >20%) Multiple (2+) risk factors <130 (10-year risk =<20%) 0-1 risk factors <160 (<10-year risk) Defining levels of lipids in metabolic syndrome Triglycerides >= 150 mg/dL HDL Cholesterol Men <40 mg/dL Women <50 mg/dL Non-HDL cholesterol is a second target for therapy in persons with high triglycerides (>=200 mg/dL) Specimen Plasma specimen Performing Organization Address City/State/ZIP Code Phon e Number [facility] DEPARTMENT OF PATHOLOGY AND [address] [place], [place] [address] GENOMIC MEDICINE [facility] [place] [address] [place], [place] [address] XR Chest 2 Vw (07/01/2019 6:37 PM KINDERGARTEN INSTRUCTIONAL ASSISTANT) Specimen Narrative Performed At EXAMINATION: XR CHEST 2 VW [facility] CLINICAL HISTORY: Chest pain normal ek g COMPARISON: February 26, 2018. FINDINGS: 1. The lungs are clear without a focal consolidation. There is no pleural effusion or pneumothorax. 2. The cardiomediastinal silhouette is within normal l imits. Aorta is mildly tortuous and partially calcified. 3. There is no acute or suspicious osseous abnormality . Severe right chronic clavicular joint osteoarthritis. Multiple heal ed left rib fractures IMPRESSION: No acute cardiopulmonary abnormality. [facility]-[id number] Procedure Note Hm Interface, Radiology Results Incoming - 07/01/2019 6:44 PM KINDERGARTEN INSTRUCTIONAL ASSISTANT EXAMINATION: XR CHEST 2 VW CLINICAL HISTORY: Chest pain normal ekg COMPARISON: February 26, 2018. FINDINGS: 1. The lungs are clear without a focal c onsolidation. There is no pleural effusion or pneumothorax. 2. The cardiomediastinal silhouette is w ithin normal limits. Aorta is mildly tortuous and partially calcified. 3. There is no acute or suspicious osseo us abnormality. Severe right chronic clavicular joint osteoarthritis. Multiple healed left rib fractures IMPRESSION: No acute cardiopulmonary abnormality. 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 Technical Operator Explanati on Advance Directives, Living 07/01/2019 7:08 PM Will and Medical Power of High Pressure Kettle Operator Advance Directives, Living 08/01/2019 4:38 PM Will and Medical Power of High Pressure Kettle Operator Advance Directives, Living 12/25/2019 8:00 PM Will and Medical Power of High Pressure Kettle Operator Advance Directives, Living 02/22/2020 8:10 AM Will and Medical Power of High Pressure Kettle Operator Advance Directives, Living 03/11/2020 9:03 AM PO A-07/12/2016 Will and Medical Power of High Pressure Kettle Operator Advance Directives, Living 03/11/2020 9:03 AM AD V-07/12/2016 Will and Medical Power of High Pressure Kettle Operator Code Status Date Activated Date Inactivated Comments Full Code 03/08/2018 9:33 PM 03/11/2018 5:26 PM Code Status decision reached by: Patient
--- OUTSIDE RECORDS SUMMARY | 2020-04-02 00:50 | XMS REPORT | Continuity of Care Document ---
:1945 Author Organization [facility] Care Team Providers Name Role Phone [facility] Unavailable Un available Problems Problem Status Onset Classification Date Comments Sourc e Date Reported Disturbance of Active Diagnosis 10/29/2019 2.16 .840. skin sensation 1.113 883. 4.391.11. 7464 Gait disorder Active Diagnosis 10/29/2019 2.16. 840. 1.296923. 4.391.11. 7464 Essential Active Problem 10/29/2019 2.16.840. hypertension 1.07519 3. 4.391.11. 7464 Lumbosacral Active Problem 10/29/2019 2.16.84 0. radiculopathy 1.1138 83. 4.391.11. 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 1.988721. 4.391.11. 7464 Essential tremor Active Problem 10/29/2019 2. 16.840. 1.430420. 4.391.11. 7464 Medications Medication Details Route Status Patient Ordering Order Source Instructions Provider Date Flecainide 1 tablet Orally Active 50 MG Orally Vanderlick 2.16 .840 Acetate every 12 hrs .1.46466 3.4.391. 11.7464 Zantac 1 tablet Orally Active 150 MG Orally Vanderlick 2.16.8 40 at bedtime Once a day .1.69508 3.4.391. 11.7464 José Antonio Aspirin 1 tablet Orally Active 325 MG Orally Vanderlick 2.16.840 Once a day .1.80209 3.4.391. 11.7464 Metoprolol 1 capsule Orally Active 25 MG Orally Vanderlick 2.1 6.840 Succinate Once a day .1.35990 3.4.391. 11.7464 Allergies, Adverse Reactions, Alerts Substance Category Reaction Severity Reaction Status Date Comments S ource type Reported N.K.D.A. Adverse Info Not Adverse 2.16 .84 Reaction Available Reaction 9 0.1. 113 883.4.3 91.11.7 464 Immunizations No Data Provided for This Section Results No Data Provided for This Section Pathology Reports No Data Provided for This Section Diagnostic Reports No Data Provided for This Section Consultation Notes No Data Provided for This Section Discharge Summaries No Data Provided for This Section History and Physicals No Data Provided for This Section Vital Signs Vital Sign Value Date Comments Source Weight 246 12/07/2018 2.16.840.1.1138 83 .4.391.11.7464 Height 71 12/07/2018 2.16.840.1.1138 83 .4.391.11.7464 Encounters No Data Provided for This Section Procedures No Data Provided for This Section Assessment and Plan No Data Provided for This Section Plan of Care No Data Provided for This Section Social History No Data Provided for This Section Family History No Data Provided for This Section Advance Directives No Data Provided for This Section Functional Status No Data Provided for This Section
--- OUTSIDE RECORDS SUMMARY | 2020-04-02 00:50 | XMS REPORT | Clinical Summary ---
:1945 Author Organization [facility] Address [address] [place] [address] Care Team Providers Name Role Phone MD Zohaib Primary Care Provider Allergies No Known Allergies Medications Medication Sig Dispensed Refills Start Date End Date Status olmesartan-hydrochlo Take 1 tablet 0 Active rothiazide (BENICAR by mouth HCT) 40-12.5 mg per daily. tablet flecainide Take 50 mg by 0 Activ e (TAMBOCOR) 50 MG mouth 2 (two) tablet times daily. cyanocobalamin Take 1,000 0 Acti ve (VITAMIN B-12) 1000 mcg by mouth MCG tablet daily. FOLIC Take by 0 Active ACID/MULTIVIT-MIN/PATRICK mouth. TEIN (CENTRUM SILVER ORAL) allopurinol Take 300 mg 0 Active (ZYLOPRIM) 300 MG by mouth. tablet aspirin (CHRISSY Take 325 mg 0 Act sabrina ASPIRIN) 325 MG by mouth. tablet red yeast rice 600 Take 2 0 A ctive mg Cap tablets by mouth. IRON, FERROUS Take 65 mg by 0 Ac tive SULFATE, ORAL mouth daily . OMEGA-3 FATTY Take by 0 Active ACIDS-FISH OIL ORAL mouth. calcitriol Take 0.25 mcg 0 Activ e (ROCALTROL) 0.25 MCG by mouth capsule daily. doxazosin (CARDURA) Take 4 mg by 3 04/01/2019 Active 4 MG tablet mouth daily. metoprolol Take 50 mg by 3 03/30/2019 Acti ve (TOPROL-XL) 50 MG 24 mouth daily. hr tablet omeprazole Take 40 mg by 1 04/09/2019 Acti ve (PRILOSEC) 40 MG mouth daily. capsule furosemide (LASIX) Take 40 mg by 0 04/01/2019 Active 40 MG tablet mouth daily as needed. olmesartan (BENICAR) Take 40 mg by 3 04/20/2019 Active 40 MG tablet mouth daily. ARNUITY ELLIPTA 200 Inhale 1 puff 1 04/27/2019 Active mcg/actuation DsDv by mouth via inhaler daily. ranitidine (ZANTAC) Take 150 mg 0 05/31/20 19 Discontinued 150 MG tablet by mouth nightly. Active Problems Problem Noted Date Liver lesion 05/31/2018 Last Assessment & Plan: Recent non-contrast MRI liver showed 7x7 cm lesion on right lobe. We will review the imaging. He may need resection or US marcus ded biopsy to confirm the diagnosis. Serum AFP 1.25. Chronic viral hepatitis B without delta agent and with out coma 05/31/2018 Last Assessment & Plan: Diagnosed >30 yr ago, HBsAg positive, HBeAg negative with low level viremia. Unclear mode of transmission. He was never treated. No previous imaging for HCC surveillance. No evidence of advance fibrosis/decompensation. We will re-check HBV DNA, and will hold off anti-HBV therapy. Discussed the risk of re-activation on immunosuppression, screening of family members for HBV, and if negative, needs vaccination. Screening for endocrine, metabolic and immunity disord er 05/31/2018 Obesity 05/31/2018 Last Assessment & Plan: Discussed the need for weight loss with a target of 10% weight loss in next 6 months through life-style modification. Stage 3 chronic kidney disease 05/31/2018 Screening for endocrine, metabolic and immunity disord er 05/31/2018 Encounters Date Type Specialty Care Team Description 12/19/2019 Abstract Hepatology Melisa Ward MA 12/16/2019 Documentation Hepatology Juan Martinez FNP 12/12/2019 Orders Only Transplant Boo Newman Chronic viral Hepatology MD Mauricio hepatitis B wit hout delta agent and without coma (H CC) 12/12/2019 Hospital Encounter Radiology Boo Newman Chronic viral MD Mauricio hepatitis B wit hout delta agent and without coma (H CC) 12/02/2019 Audio - Telemedicine Hepatology Boo Newman Chroni c viral MD Mauricio hepatitis B without Juan, delta agent and Tanmayi A., 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 without 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 (HCC) (Primary Dx) 11/29/2019 Telephone Hepatology He Yeni, Princess MA 08/19/2019 Abstract Hepatology Fabian Corrine, TOSHIA 08/12/2019 Documentation Hepatology Shelton Neves, CHRISTINE 07/19/2019 Abstract Hepatology Corrine Peralta, TOSHIA 07/10/2019 Documentation Hepatology Shelton Neves, CHRISTINE 07/03/2019 Hospital Encounter Radiology Trent Boo Chronic viral hepatitis B without delta agent and without coma (HCC); MD Mauricio Liver lesion; Screening for c ancer 07/03/2019 Outside Orders Jean Penny MD 06/03/2019 Telephone Hepatology Shelton Neves NP 05/31/2019 Office Visit Hepatology Jeremiahnicholegresyon Boo Chronic viral hepatitis B without delta agent and without coma (HCC) (Primary Dx); MD Mauricio Liver lesion; Shelton Neves Screening for c ancer; CHRISTINE Bob Stage 3 chronic kidney disease (HCC); Screening for e ndocrine, metabolic and immunity disorder; Class 2 obesity without serious comorbidity with body mass index (BMI) of 36.0 to 36.9 in adult, unspecified obesity type 05/14/2019 Telephone Hepatology Crystal Aparicio Follow-up PIPPA Hernandez after 04/01/2019 Family History Medical History Relation Name Comments Hypertension Mother Kidney disease Mother Relation Name Status Comments Mother Social History Tobacco Use Types Packs/Day Years Used Date Never Smoker Smokeless Tobacco: Never Used Alcohol Use Drinks/Week oz/Week Comments No Sex Assigned at Date Recorded Not on file Job Start Date Occupation Industry Not on file Not on file Not on file Travel History Travel Start Travel End No recent travel history available. Last Filed Vital Signs Vital Sign Reading Time Taken Blood Pressure 149/102 05/31/2019 9:11 AM SLOT OPERATIONS DIRECTOR Pulse 62 05/31/2019 9:10 AM SLOT OPERATIONS DIRECTOR Temperature 36.6 C (97.8 F) 05/31/2019 9:10 AM SLOT OPERATIONS DIRECTOR Respiratory Rate 16 05/31/2019 9:10 AM SLOT OPERATIONS DIRECTOR Oxygen Saturation 97% 05/31/2019 9:10 AM SLOT OPERATIONS DIRECTOR Inhaled Oxygen Concentration - - Weight 112.6 kg (248 lb 4.8 oz) 05/31/2019 9:1 0 AM SLOT OPERATIONS DIRECTOR Height 176.5 cm (5' 9.5") 05/31/2019 9:10 AM SLOT OPERATIONS DIRECTOR Body Mass Index 36.14 05/31/2019 9:10 AM SLOT OPERATIONS DIRECTOR Plan of Treatment Health Maintenance Due Date Last Done Comments COLON CANCER SCREENING COLONOSCOPY 1945 PNEUMOCOCCAL 65+ LOW/MEDIUM RISK (1 of 2 - PCV13) 2012 MEDICARE ANNUAL WELLNESS (YEAR 2 or FIRST YEAR if no 06/27/2017 IPPE) INFLUENZA VACCINE (#1) 2020 Implants Implanted Type Area Video Presentation Operator Device Shelf Model / Identifier Expiration Serial / Lot Date Iol Tecnis [id number] 21.0 Yoselin [id number] - [id number] Ophthalmolog y Right: [employer] 12/11/2019 [id number] / Implanted: Qty: 1 on 08/18/2016 by Grant Pate MD Eye [id number] / Iol Tecnis Zcb00 20.5 Yoselin [id number] - [id number] Ophthalmolog y Left: [employer] 10/10/2021 [id number] / Implanted: Qty: 1 on 04/12/2018 by Grant Pate MD Eye [id number] / Procedures Procedure Name Priority Date/Time Associated Comments Diagnosis CBC W/PLT COUNT & Routine 12/12/2019 9:51 Chronic viral Resul ts for this AUTO DIFFERENTIAL AM CDT hepatitis B without pro cedure are in delta agent and the results without coma (HCC) section. HEPATITIS B PCR, Routine 12/12/2019 9:51 Chronic viral Result s for this QUANTITATIVE AM CDT hepatitis B without procedur e are in delta agent and the results without coma (HCC) section. ALPHA FETOPROTEIN Routine 12/12/2019 9:51 Chronic viral Resul ts for this (AFP), TUMOR MARKER AM CDT hepatitis B without p rocedure are in delta agent and the results without coma (HCC) section. CBC W/PLT COUNT & Routine 12/12/2019 9:51 Chronic viral Resul ts for this AUTO DIFFERENTIAL AM CDT hepatitis B without pro cedure are in delta agent and the results without coma (HCC) section. HEPATIC FUNCTION Routine 12/12/2019 9:51 Chronic viral Result s for this PANEL AM CDT hepatitis B without procedur e are in delta agent and the results without coma (HCC) section. BASIC METABOLIC PANEL Routine 12/12/2019 9:51 Chronic viral R esults for this (7) AM CDT hepatitis B without procedur e are in delta agent and the results without coma (HCC) section. MR ABDOMEN WITH & Routine 12/12/2019 9:12 Chronic viral Resul ts for this WITHOUT IV CONTRAST AM CDT hepatitis B without p rocedure are in delta agent and the results without coma (HCC) section. POCT-CREATININE Routine 12/12/2019 8:29 Results for this AM CDT procedure are i n the results section. US ABDOMEN COMPLETE Routine 07/03/2019 9:30 Chronic viral Res ults for this AM SLOT OPERATIONS DIRECTOR hepatitis B without procedur e are in delta agent and the results without coma (HC C) section. Liver lesion Screening for cancer CBC W/PLT COUNT & Routine 05/31/2019 10:06 Chronic viral Resul ts for this AUTO DIFFERENTIAL AM SLOT OPERATIONS DIRECTOR hepatitis B without pro cedure are in delta agent and the results without coma (HCC) section. HBSAG CONFIRMATION Routine 05/31/2019 10:06 Chronic viral Resu lts for this AM SLOT OPERATIONS DIRECTOR hepatitis B without procedur e are in delta agent and the results without coma (HCC) section. HEPATITIS B PCR, Routine 05/31/2019 10:06 Chronic viral Result s for this QUANTITATIVE AM SLOT OPERATIONS DIRECTOR hepatitis B without procedur e are in delta agent and the results without coma (HCC) section. HEPATITIS B E Routine 05/31/2019 10:06 Chronic viral Results f or this ANTIBODY AM SLOT OPERATIONS DIRECTOR hepatitis B without procedur e are in delta agent and the results without coma (HCC) section. HEPATITIS B E ANTIGEN Routine 05/31/2019 10:06 Chronic viral R esults for this AM SLOT OPERATIONS DIRECTOR hepatitis B without procedur e are in delta agent and the results without coma (HCC) section. HEPATITIS B SURFACE Routine 05/31/2019 10:06 Chronic viral Res ults for this ANTIGEN AM SLOT OPERATIONS DIRECTOR hepatitis B without procedur e are in delta agent and the results without coma (HCC) section. ALPHA FETOPROTEIN Routine 05/31/2019 10:06 Chronic viral Resul ts for this (AFP), TUMOR MARKER AM SLOT OPERATIONS DIRECTOR hepatitis B without p rocedure are in delta agent and the results without coma (HCC) section. PROTHROMBIN TIME/INR Routine 05/31/2019 10:06 Chronic viral Re sults for this AM SLOT OPERATIONS DIRECTOR hepatitis B without procedur e are in delta agent and the results without coma (HCC) section. CBC W/PLT COUNT & Routine 05/31/2019 10:06 Chronic viral Resul ts for this AUTO DIFFERENTIAL AM SLOT OPERATIONS DIRECTOR hepatitis B without pro cedure are in delta agent and the results without coma (HCC) section. HEPATIC FUNCTION Routine 05/31/2019 10:06 Chronic viral Result s for this PANEL AM SLOT OPERATIONS DIRECTOR hepatitis B without procedur e are in delta agent and the results without coma (HCC) section. BASIC METABOLIC PANEL Routine 05/31/2019 10:06 Chronic viral R esults for this (7) AM SLOT OPERATIONS DIRECTOR hepatitis B without procedur e are in delta agent and the results without coma (HCC) section. after 04/01/2019 Results Hepatitis B Viral DNA, quant PCR (12/12/2019 9:51 AM CDT)Only the most recent of2 resultswithin the time period is included. HBV PCR, Quantitative 22 (H) <20 IU/mL [facility] Specimen Blood Narrative Performed At This test uses a Real-Time Polymerase Chain [facility] Reaction (RT-PCR) methodology and was performed using [employer] AmpliPrep/PARTH TaqMan HBV Test, v2.0 ([employer] Reportable range for this assay is 20 - 170,000,000 IU per mL (1.30 - 8.23 Log IU/mL). Performing Organization Address City/State/Zipcode Phone Number [place] [phone] [place] [address] CENTER CBC with platelet count + automated diff (12/12/2019 9:51 AM CDT)Only the most recent of2 resultswithin the time period is included. WBC 4.7 3.5 - 10.5 K/L [facility] RBC 3.60 (L) 4.63 - 6.08 M/L [facility] Hemoglobin 11.0 (L) 13.7 - 17.5 GM/DL [facility] Hematocrit 34.3 (L) 40.1 - 51.0 % [facility] MCV 95.3 (H) 79.0 - 92.[address] [facility] MCH 30.6 25.7 - 32.[address] [facility] MCHC 32.1 (L) 32.3 - 36.5 GM/DL [facility] RDW 14.9 (H) 11.6 - 14.4 % [facility] Platelets 150 150 - 450 K/CU MM [facility] MPV 11.0 9.4 - 12.[address] [facility] nRBC 0 0 - 0 /[address] [facility] % Neutros 52 % [facility] % Lymphs 32 % [facility] % Monos 10 % [facility] % Eos 5 % [facility] % Baso 1 % [facility] # Neutros 2.44 1.78 - 5.38 K/L [facility] # Lymphs 1.52 1.32 - 3.57 K/L [facility] # Monos 0.47 0.30 - 0.82 K/L [facility] # Eos 0.21 0.04 - 0.54 K/L [facility] # Baso 0.05 0.01 - 0.08 K/L [facility] Immature Granulocytes-Relative 0 0 - 1 % C HI [facility] Specimen Blood Performing Organization Address City/State/Zipcode Phone Number [facility] [address] [place] [address] CENTER Alpha fetoprotein (AFP), tumor marker (12/12/2019 9:51 AM CDT)Only the most recent of2 resultswithin the time period is included. [facility] <2.0 <10.0 ng/mL [facility] Specimen Blood Narrative Performed At Cath Lab Tech ID - [id number] Bello [facility] Performing Organization Address City/[facility]/Zipcode Phone Number [facility] [address] [place] [address] CENTER Hepatic function panel (12/12/2019 9:51 AM CDT)Only the most recent of2 results within the time period is included. Protein, Total 7.4 6.0 - 8.3 gm/dL [facility] Albumin 3.8 3.5 - 5.0 g/dL [facility] Total Bilirubin 0.4 0.2 - 1.2 mg/dL [facility] Bilirubin, Direct 0.1 0.1 - 0.5 mg/dL [facility] Alkaline Phosphatase 48 40 - 150 U/L [facility] AST 16 5 - 34 U/L [facility] ALT 14 6 - 55 U/L [facility] Specimen Blood Narrative Performed At Cath Lab Tech ID - CESAR Sosa [facility] Performing Organization Address [facility]/Zipcode Phone Number [facility] [address] [place] [address] CENTER Basic Metabolic Panel (12/12/2019 9:51 AM CDT)Only the most recent of2 results within the time period is included. Sodium 139 136 - 145 meq/L [facility] Potassium 4.9 3.5 - 5.1 meq/L [facility] Chloride 105 98 - 107 meq/L [facility] CO2 28 22 - 29 meq/L [facility] BUN 30 (H) 7 - 21 mg/dL [facility] Creatinine 2.36 (H) 0.57 - 1.25 mg/dL [facility] Glucose 90 70 - 105 mg/dL [facility] Calcium 9.6 8.4 - 10.2 mg/dL [facility] EGFR 33Comment: ESTIMATED GFR IS mL/min/1.73 sq m [facility] NOT ACCURATE CREATININE SC [facility] CLEARANCE IN PREDICTING GLOMERULAR FILTRATION RATE. ESTIMATED GFR IS NOT APPLICABLE FOR DIALYSIS PATIENTS. Specimen Blood Narrative Performed At Cath Lab Tech ID - CESAR Sosa [facility] Performing Organization Address City/State/Zipcode Phone Number [facility] [address] [place] [address] CENTER MR abdomen with/without IV contrast (12/12/2019 9:12 AM CDT) Specimen Narrative Performed At FINAL REPORT [place] TECHNIQUE: MRI of the abdomen WITHOUT an d WITH intravenous contrast. INDICATION: Hepatitis B screening for HC C. COMPARISON: 11/21/2018. FINDINGS: LOWER THORAX: The heart is enlarged.. LIVER: No hepatic signal abnormality. Mi xed T2 signal intensity lesion in the dome of the right hepatic lobe measuring 7.6 x 7 cm, not significant change since May. The lesion demonstrates intrinsic T1 hyperintense s ignal enhance on the postcontrast images. There are multiple additional T2 hyperintense foci in the bilateral hepatic lobes whic h do not postcontrast images consistent with multiple simple cysts.. BILIARY: Gallbladder is unremarkable. No biliary ductal dilatation or filling defect. SPLEEN: No splenomegaly. PANCREAS: No focal masses or ductal dila tation. ADRENALS: No adrenal nodules. KIDNEYS/URETERS: No hydronephrosis or so lid mass lesions. Multiple bilateral renal cysts. The largest measu res 4.3 cm in the lower pole of the right kidney. PERITONEUM/RETROPERITONEUM: No free flui d. LYMPH NODES: No lymphadenopathy. VESSELS: Unremarkable. GI TRACT: No distention or wall thickeni ng. There is colonic diverticulosis. BONES AND SOFT TISSUES: Multilevel degen erative changes in the spine.. IMPRESSION: Stable hemorrhagic cyst in the dome of t he right hepatic lobe. No suspicious hepatic lesions. Signed: Ct Nieto MD Report Verified Date/Time:12/12/2019 13:54:01 Reading Location: [address] Rad[address] Reading Room Procedure Note Interface, External Ris In - 12/12/2019 1:56 PM CDT FINAL REPORT TECHNIQUE: MRI of the abdomen WITHOUT an d WITH intravenous contrast. INDICATION: Hepatitis B screening for HC C. COMPARISON: 11/21/2018. FINDINGS: LOWER THORAX: The heart is enlarged.. LIVER: No hepatic signal abnormality. Mi xed T2 signal intensity lesion in the dome of the right hepatic lobe measuring 7.6 x 7 cm, not significant change since May. The lesion demonstrates intrinsic T1 hyperintense s ignal enhance on the postcontrast images. There are multiple additional T2 hyperintense foci in the bilateral hepatic lobes whic h do not postcontrast images consistent with multiple simple cysts.. BILIARY: Gallbladder is unremarkable. No biliary ductal dilatation or filling defect. SPLEEN: No splenomegaly. PANCREAS: No focal masses or ductal dila tation. ADRENALS: No adrenal nodules. KIDNEYS/URETERS: No hydronephrosis or so lid mass lesions. Multiple bilateral renal cysts. The largest measu res 4.3 cm in the lower pole of the right kidney. PERITONEUM/RETROPERITONEUM: No free flui d. LYMPH NODES: No lymphadenopathy. VESSELS: Unremarkable. GI TRACT: No distention or wall thickeni ng. There is colonic diverticulosis. BONES AND SOFT TISSUES: Multilevel degen erative changes in the spine.. IMPRESSION: Stable hemorrhagic cyst in the dome of t he right hepatic lobe. No suspicious hepatic lesions. Signed: Ct Nieto MD Report Verified Date/Time: 12/12/2019 1 3:54:01 Reading Location: [address] Rad[address] Reading Room Performing Organization Address City/State/Zipcode Phone Number [facility] POC-Creatinine (12/12/2019 8:29 AM CDT) POC-Creatinine 2.4 (H)Comment: : TESTED 0.6 - 1.3 mg/dL [facility] [address] [facility] [address] [id number]: Cath Lab Tech/Application Defense Manager ID = [id number] for Ele Gil POC-EGFR 32 mL/min/1.73M2 [facility] Specimen Blood Performing Organization Address City/State/Zipcode Phone Number [facility] [address] [place], [place] [id number] CENTER US abdomen complete (07/03/2019 9:30 AM SLOT OPERATIONS DIRECTOR) Specimen Narrative Performed At FINAL REPORT [place] Abdominal ultrasound dated 07/03/2019 Clinical information:hepatitis B, liver lesion, screening for HCC Comment:Real-time transabdominal ult rasound was performed. Liver is normal in size and measures 16. 2 cm in length. The echogenicity of the liver is increased. A 0.29 x 1.0 cm cyst is seen in the liver. A 4.6 x 5.1 x 5.1 cm echog enic mass is seen in the liver. Spleen is normal in size without focal abnormality. Gallbladder is contracted. No gallstone is present. No biliary dilatation is seen. Common bile duct sheri sures 5 mm in diameter.Main portal vein measures 8 mm in diameter. Pancreas is visualized and unremarkable. Right kidney measures 12 x 4.7 x 5.2 cm. Left kidney measures 10.3 x 4.4 x 4.5 cm.Echogenicity of both ki dney is increased.No hydronephrosis or solid mass seen in eit her kidney.A 3.3 x 3.4 x 2.4 cm and 1.1 x 1.0 x 0.9 cm cysts are seen in the right kidney. A 1.1 x 0.9 x 1.2 cm cystis seen in th e left kidney. No ascites is present in the abdomen. Abdominal aorta is normal in caliber. IV C and Hepatic veins are patent. Impression: 1. 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 2. Hyperechoic mass in the liver. Please correlate with prior MR examination. Signed: Carolyn Donohue MD Report Verified Date/Time:07/03/2019 10:11:17 Reading Location: [address] Radiolog y Reading Room Procedure Note Interface, External Ris In - 07/03/2019 10:13 AM SLOT OPERATIONS DIRECTOR FINAL REPORT Abdominal ultrasound dated 07/03/2019 Clinical information:hepatitis B, liver lesion, screening for HCC Comment: Real-time transabdominal ultra sound was performed. Liver is normal in size and measures 16. 2 cm in length. The echogenicity of the liver is increased. A 0.29 x 1.0 cm cyst is seen in the liver. A 4.6 x 5.1 x 5.1 cm echog enic mass is seen in the liver. Spleen is normal in size without focal abnormality. Gallbladder is contracted. No gallstone is present. No biliary dilatation is seen. Common bile duct sheri sures 5 mm in diameter. Main portal vein measures 8 mm in diameter. Pancreas is visualized and unremarkable. Right kidney measures 12 x 4.7 x 5.2 cm. Left kidney measures 10.3 x 4.4 x 4.5 cm. Echogenicity of both kidn ey is increased. No hydronephrosis or solid mass seen in eit her kidney. A 3.3 x 3.4 x 2.4 cm and 1.1 x 1.0 x 0.9 cm cysts are seen in the right kidney. A 1.1 x 0.9 x 1.2 cm cyst is seen in the left kidney. No ascites is present in the abdomen. Abdominal aorta is normal in caliber. IV C and Hepatic veins are patent. Impression: 1. 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 2. Hyperechoic mass in the liver. Please correlate with prior MR examination. Signed: Carolyn Donohue MD Report Verified Date/Time: 07/03/2019 1 0:11:17 Reading Location: [address] Radiolog [address] Reading Room Performing Organization Address City/State/Zipcode Phone Number [facility] HBSAG Confirmation (05/31/2019 10:06 AM SLOT OPERATIONS DIRECTOR) HBsAg Confirm Confirmed Positive (A) Unconfirmed, HBSAG [facility] Specimen Blood Performing Organization Address City/State/Zipcode Phone Number [facility] [address] [place] [address] CENTER Hepatitis B e antibody (05/31/2019 10:06 AM SLOT OPERATIONS DIRECTOR) Hep Be Ab(Anti-Hbe) REACTIVE (A) [facility] Comment: INCORPORATED REFERENCE RANGE:NONREACTIVE For additional information, please refer to [email or web address] (This link is being provided for informational/ educational purposes only.) Specimen Blood Narrative Performed At Performing [facility] *[employer] [address] [place] [address] Monroe Cat MD Performing Organization Address City/[facility] Centercode Phone [place] [address] [facility] [address] [facility] Hepatitis B e antigen (05/31/2019 10:06 AM SLOT OPERATIONS DIRECTOR) Hep Be Ag (Antigen) NONREACTIVE [facility] Comment: INCORPORATED REFERENCE RANGES:NONREACTIVE For additional information, please refer to [email or web address] (This link is being provided for informational/ educational purposes only.) Specimen Blood Narrative Performed At Performing [facility] [employer] *[employer] [address] [place] [address] Monroe Cat MD Performing Organization Address City/[facility]/Zipcode Phone [place], [place] [address] [employer]PORATED [address] [facility] Hepatitis B surface antigen (05/31/2019 10:06 AM SLOT OPERATIONS DIRECTOR) HBsAg Screen Reactive (A) Nonreactive [facility] Specimen Blood Performing Organization Address City/State/Zipcode Phone Number [facility] [address] [place], [place] [phone] CENTER Pro-time/INR (05/31/2019 10:06 AM SLOT OPERATIONS DIRECTOR) Protime 12.9 11.9 - 14.2 seconds [facility] INR 1.0 <=5.9 [facility] Specimen Blood Narrative Performed At Effective 11/21/2018: PT Reference Range [facility] Change New: 11.9-14.2Previous: 11.7-14.7 RECOMMENDED COUMADIN/WARFARIN INR THERAPY RANGES STANDARD DOSE: 2.0-3.0Includes: PROPHYLAXIS for venous thrombosis, systemic embolization; TREATMENT for venous thrombosis and/or pulmonary embolus. HIGH RISK: Target INR is 2.5-3.5 for patients wiht mechanical heart valves. Performing Organization Address City/State/Zipcode Phone Number [facility] [address] [place] [address] CENTER after 04/01/2019 Insurance Payer Benefit Plan / Subscriber ID Type Phone Address Group [employer] - MEDICARE A[employer] MEDICARE HMO xxxxxxxx [id number] [id number] [employer] [place] [address]
--- OUTSIDE RECORDS SUMMARY | 2020-04-02 01:07 | XMS REPORT | Continuity of Care Document ---
:1945 Author Organization [facility] t Address [address] [place] [address] Dr. Chavarria [address] [place] [id number] Care Team Providers Name Role Phone Zohaib TODD Primary Care Physician Maxx Del Real DO Attending Clinician Gilma TODD, Nati Attending Clinician Hasmukh TODD, N. Attending Clinician Vonnie TODD, Amanda Attending Clinician Boris TODD, Zenon Attending Clinician Quan TODD, Toni Attending Clinician Toni Gay DO Attending Clinician Sylvia POPE Attending Clinician Unavailable Jeanine Guerrero Attending Clinician Onesimo Newman MD Attending Clinician ONESIMO NEWMAN Attending Clinician Unavailable Neri POPE Attending Clinician Unavailable Fabian POPE Attending Clinician Unavailable Edinson KING, Lisbeth Attending Clinician Josue TODD, Skyler Attending Clinician Tevin TODD, SAfshan Attending Clinician Marshal TODD, Tiarra Attending Clinician Lurdes TODD, Deja Guzman Attending Clinician [phone] Zohaib TODD Attending Clinician Mary Aparicio PA-C Attending Clinician GILMA Admitting Clinician Unavailable HASMUKH Admitting Clinician Unavailable Payers Payer Name Policy Type Policy Effective Expiration Source Number Date Date CIGNA [id number] 2019 [facility] 00:00:00 Methodi [facility] [id number] 2019-Pr esentHMO AETNA - MEDICARE MGD [id number] [facility] CAREAETNA MEDICARE HMO - Medical [facility] Center [phone] [id number] [address] Problems Condition Condition Condition Status Onset Resolution Last Treating Co mments Source Name Details Category Date Date Treatment Clinician Date Acute Acute Disease Active [facility] upper GI upper GI 02-21 Method i bleed bleed 00:00: st 00 Coffee Coffee Disease Active Overview: [place] ground ground 02-21 Added Methodi emesis emesis 00:00: automatic st 00 ally from request for surgery [id number] Lactic Lactic Disease Active [facility] acidosis acidosis 7-02 Method i 00:00: st 00 Syncope Syncope Disease Active [facility] 2- Methodi 00:00: st 00 Chest pain Chest pain Disease Active [place] 1-06 Methodi 00:00: st 00 Liver Liver Disease Active 2017-[address] lesion lesion 2-06 [facility] - 00:[facility]: t & Plan: Medical 00 [facility] non-contr ast MRI liver showed 7x7 cm lesion on right lobe. We will review the imaging. He may need resection or US guided biopsy to confirm the diagnosis . Serum AFP 1.25. 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 Unclear mode of transmiss ion. He was never treated. No previous imaging for HCC surveilla nce. No evidence of advance fibrosis/ decompens ation.We will re-check HBV DNA, and will hold off anti-HBV therapy. Discussed the risk of re-activa tion on immunosup pression, screening of family members for HBV, and if negative, needs vaccinati on. Obesity Obesity Disease Active 2017-06 [facility] - 00:00: t & Plan: Medical 00 Discussed Center the need for weight loss with a target of 10% weight loss in next 6 months through life-styl e modificat ion. Stage 3 Stage 3 Disease Active 2017-06 [facility] chronic chronic - [facility] - kidney kidney 00:00: Medical disease disease 00 Center Screening Screening Disease Active 2017-06 [facility] for for 08-01 [facility] - endocrine, endocrine, 00:00: Me dical metabolic metabolic 00 Cent er and and immunity immunity disorder disorder COPD COPD Disease Active [facility] (chronic (chronic 03-10 Method i obstructiv obstructiv 00:00: st e e 00 pulmonary pulmonary disease) disease) Alcohol Alcohol Disease Active [facility] abuse abuse 15 Methodi 00:00: st 00 Acute Acute Disease Active [facility] pancreatit pancreatit -13 Me thodi is is 00:00: st 00 Disturbanc Diagnosis Active 2019-10-29 Memoria e of skin 02:45:10 l sensation [place] Disturbanc e of skin sensation Active Diagnosis 10/29/2019 2.16.840.1 [id number]. [id number] 4 Gait Diagnosis Active 2019-10-29 Mem oria disorder 02:45:10 l Gait [place] disorder Active Diagnosis 10/29/2019 2.16.840.1 .[id number]. [id number] 4 Essential Problem Active 2019-10-29 Me moria hypertensi 02:45:10 l on [place]ouss[place] Essential hypertensi on Active Problem 0 2.16.840.1 .[id number]. [id number] 4 Lumbosacra Problem Active 2019-10-29 M emoria l 02:45:10 l radiculopa Fercho n thy Lumbosacra l radiculopa thy Active Problem 10/29/2019 2.16.840.1 .[id number]. 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 [id number] 4 Weakness Problem Active 2019-10-29 Mem oria 02:45:10 l Weakness Fercho n Active Problem 10/29/2019 2.16.840.1 .151056.4. [id number] 4 Essential Problem Active 2019-10-29 Me moria tremor 02:45:10 l Josafat Essential tremor Active Problem 10/29/2019 2.16.840.1 .[id number]. [id number] 4 Allergies, Adverse Reactions, Alerts Allergy Allergy Status Severity Reaction(s) Onset Inactive Treating Comm ents Source Name Type Date Date Clinician N.K.D.A. N.K.D.A. Active Info Not 2019- Henry amanda Available 6-14 l 00:00: Josafat 00 No Known DA Active U [facility] 2-26 [place] Allergie 00:00: e s [facility] No Known DA Active U [facility] 2-13 [place] Allergie 00:00: d s [facility] No Known DA Active U 2017-06 [facility] Allergie 1-04 Clear s 00:00: Salazar 00 [facility] Family History Family Member Diagnosis Comments Start Date Stop Date Source Natural mother Hypertension [facility] Natural mother Kidney disease [facility] Social History Social Habit Start Date Stop Date Quantity Comments Source History of tobacco Cigarette Smoker [facility] use [facility] Sex Assigned At [facility] Cigarettes smoked 2020-02-23 2020-02-23 [facility] current (pack per 00:00:00 00:00:[address] day) - Reported Tobacco use and 2020-02-23 2020-02-23 Never used [facility] exposure 00:00:00 00:00:00 [facility] Alcohol intake 2020-02-23 2020-02-23 Ex-drinker [facility] 00:00:00 00:00:00 (finding) [facility] Alcohol Comment 2019-12-26 2019-12-26 3 years ago [facility] 00:00:00 00:00:00 [facility] Smoking Status Start Date Stop Date Source Current every day smoker 2020-02-23 00:00:00 Radhakadeem olsonn [facility] Never smoker [facility] Medications Ordered Filled Start Stop Current Ordering Indication Dosage Frequency Signature Comments Components Source Medication Medication Date Date Medication? Clinician (SIG) Name Name aspirin 2019- 2020- No 81mg QD Take 81 mg Radha rickie (ECOTRIN) 03-09 by mouth Metho di 81 MG 22:44: 00:[address] enteric 54 :00 coated tablet pantoprazol 2019- No 40mg QD Take 40 mg Eden e 03-09 by mouth Methodi (PROTONIX) 22:44: 00:[address] 40 MG EC 54 :00 tablet albuterol 2019- 2020- No 2{puff} Q6H Inhale 2 [facility] (PROAIR 03-09 puffs Methodi HFA) 90 22:44: 00:[address] mcg/actuati 54 :00 (six) on inhaler hours as needed for wheezing. metoprolol 2019- 2020- No 25mg Q.5D Take 25 mg Eden tartrate 03-09 by mouth 2 Meth vik (LOPRESSOR) 22:44: 00:00 (two) st 25 mg 54 :00 times a tablet day. nitroglycer 2019-[address] 0.4 [place] in 03-09 mg under Methodi (NITROSTAT) 22:44: the tongue st 0.4 MG SL 52 every 5 tablet (five) minutes as needed for chest pain. atorvastati 2019-0 Yes 20mg QD Take 20 mg Eden n (LIPITOR) 03-09 by mouth Meth vik 20 mg 22:44: nightly. st tablet 52 Default OP ins citalopram 2019-0 Yes 20mg QD Take 20 mg [place] (CeleXA) 20 -14 by mouth Meth vik MG tablet 22:44: daily. st 52 thiamine 2020- Yes 100mg QD 1 tablet Radha ston mononitrate -08 04-14 (100 mg Meth vik , vit B1, 00:00: 23:59 total) by st (B-1) 100 00 :00 Nasogastri mg tablet c route daily for 30 days. spironolact 2020- Yes 12.5mg QD Take 0.5 [facility] one -14 10-14 tablets Methodi (ALDACTONE) 00:00: 23:59 (12.5 mg s t 25 MG 00 :00 total) by tablet mouth daily for 30 days. sodium 2020- Yes Aspiration 4mL Q.25D Take 4 mL Eden chloride 3 - 10-14 pneumonia, by Me thodi % nebulizer 00:00: 23:[address] solution 00 :00 aspiration on every 6 pneumonia (six) type, hours for unspecified 30 days. laterality, unspecified part of lung (HCC) senna 2020- Yes 1{tbl} QD Take 1 [facility] (SENOKOT) - 10-14 tablet by Meth vik 8.6 mg 00:00: 23:[address] tablet 00 :00 daily for 30 days. pantoprazol 2020- Yes 40mg Q.5D Infuse 10 Eden e 4 mg/mL - 10-14 mL (40 mg Meth vik in sodium 00:00: 23:59 total) st chloride 00 :00 into a injection venous catheter 2 (two) times a day before meals for 30 days. naloxone 2020- Yes .2mg Infuse 0.5 [place] (NARCAN) -14 10-14 mL (0.2 mg Meth vik 0.4 mg/mL 00:00: 23:59 total) st injection 00 :00 into a venous catheter once as needed for opioid reversal or respirator y depression (as needed for respirator y rate 8 per minute or less OR patient sommnolent and difficult to arouse (POSS GREATER than 3).) for up to 30 days. multivitami 2019-0 2020- Yes 1{tbl} QD Take 1 [place] n -14 10-14 tablet by Methodi (THERAGRAN) 00:00: 23:[address] tablet 00 :00 daily for 30 days. losartan 2019- 2020- Yes 25mg QD Take 1 [place] (COZAAR) 25 03-09- tablet (25 M ethodi MG tablet 00:00: 23:59 mg total) st 00 :00 by mouth daily for 30 days. ipratropium 2019- Yes 3mL Q6H Take 3 mL [facility] -albuteroL 03-09 by Methodi (DUO-NEB) 00:00: 23:59 nebulizati s t 0.5-2.5 00 :00 on every 6 mg/3 mL (six) nebulizer hours as needed for wheezing for up to 30 days. insulin 2019- Yes 0U Q4H Inject [facility] lispro 03-09 0-12 Units Method i (ADMELOG) 00:00: 23:[address] 100 unit/mL 00 :00 skin every injection 4 (four) hours for 30 days. glucagon 1 2019- Yes 1mg Inject 1 [place] mg/mL recon 03-09 10 mg into Meth vik soln 00:00: 23:[address] 00 :00 shoulder, thigh, or buttocks every 15 (fifteen) minutes as needed (if patient NPO, unable to swallow safely with no IV access.) for up to 30 days. furosemide 2019- Yes 40mg QD 1 tablet [place] (LASIX) 40 03-09 (40 mg Method i mg tablet 00:00: 23:59 total) by st 00 :00 Nasogastri c route daily for 30 days. folic acid 2019- 2020- Yes 1mg QD Take 1 [place] (FOLVITE) 1 03-09-14 tablet (1 Me thodi MG tablet 00:00: 23:59 mg total) st 00 :00 by mouth daily for 30 days. dextrose 2019- 2020- Yes 25g Infuse 50 Radha ston 50% syringe 03-09 mL (25 g Met hodi 00:00: 23:59 total) st 00 :00 into a venous catheter every 20 (twenty) minutes as needed (If blood glucose is 40 mg/dL or LESS) for up to 30 days. dextrose 2020-0 2020- Yes 12.5g Infuse 25 [place] 50% syringe 03-09 mL (12.5 g M ethodi 00:00: 23:59 total) st 00 :00 into a venous catheter every 20 (twenty) minutes as needed (If blood glucose is between 41-69 mg/dL) for up to 30 days. dextrose 10 2019- Yes 40mL/h Infuse 40 Eden % infusion 03-09-14 mL/hr into Me thodi 00:00: 23:[address] 00 :00 catheter continuous ly as needed (for interrupti on in TPN or tube feeds) for up to 30 days. dextrose 10 2019- Yes 40mL/h Infuse 40 Eden % infusion 03-09 mL/hr into Me thodi 00:00: 23:[address] 00 :00 catheter continuous ly as needed (For bedside glucose LESS than 70 mg/dL) for up to 30 days. carvediloL 2019- Yes 3.125mg Q.5D Take 1 [place] (COREG) 03-09 tablet Methodi 3.125 MG 00:00: 23:59 (3.[address] tablet 00 :00 total) by mouth 2 (two) times a day for 30 days. amIODarone 2019- Yes 200mg Q.5D Take 1 Radha ston (PACERONE) 03-09 tablet Method i 200 MG 00:00: 23:59 ([address] tablet 00 :00 total) by mouth 2 (two) times a day for 30 days. acetaminoph 2019- Yes 650mg Q4H 20.3 mL [place] en 03-09 (650 mg Methodi (TYLENOL) 00:00: 23:59 total) by st 160 mg/5 mL 00 :00 Nasogastri (5 mL) c route solution every 4 (four) hours as needed (Fever, mild pain or headache) for up to 30 days. traMADoL 2019- No acute pain 25mg Q6H 0.5 [place] (ULTRAM) 50 03-09 09-21 tablets Meth vik mg tablet 00:00: 23:59 ([address] 00 :00 total) by Nasogastri c route every 6 (six) hours as needed for moderate pain for up to 7 days .acute pain. sodium 2020-0 2020- No 500mL Irrigate [place] on chloride 03-09 with 500 Method i 0.9% for 00:00: 23:[address] IRRIGATION 00 :00 directed (NS) 0.9 % once for 1 irrigation dose. levoFLOXaci 2020-0 2020- No 500mg QD Take 1 Seb jair n 12-26 tablet Methodi (Levaquin) 00:00: 23:59 ([address] 500 MG 00 :00 total) by tablet mouth daily for 8 days. metroNIDAZO 2020-0 2020- No 500mg Q.[id number] Take 1 Eden LE (FlagyL) 12-26 [id number] tablet Methodi 500 MG 00:00: 23:59 3D ([address] tablet 00 :00 total) by mouth 3 (three) times a day for 8 days. codeine-gua 2020-0 2020- No acute pain 5mL Q.25D Take 5 mL [facility] ifenesin 12-26 by mouth 4 Meth vik (GUAIFENESI 00:00: 23:59 (four) st N AC) 00 :00 times a 10-100 mg/5 day as mL liquid needed for cough for up to 4 days .acute pain. Flecainide 2020-0 Yes Carola 1 tablet Mem oria Acetate 5-05 Vanderlick l 02:45: Josafat 10 Zantac 2020-0 Yes Carola 1 tablet Memoria 5-05 Vanderlick at bedtime l 02:45: [place]ouss[place] 10 Chrissy 2020-0 Yes Carola 1 tablet Memoria Aspirin 5-05 Vanderlick l 02:45: Josafat 10 Metoprolol 2020-0 Yes Carola 1 capsule Me moria Succinate 5-05 Vanderlick l 02:45: Josafat 10 fluticasone 2020-0 2020- No QD Inhale 1 [place] furoate-rina 08-04-10 inhalation M ethodi anterol 00:00: 23:[address] (BREO 00 :00 daily for ELLIPTA) 30 days. 100-25 mcg/dose blister with device powder for inhalation montelukast 2020-0 2020- No 10mg QD Take 1 Radha ston (SINGULAIR) 08-03 tablet (10 M ethodi 10 mg 00:00: 23:59 mg total) st tablet 00 :00 by mouth nightly for 30 days. atorvastati 2019-0 2020- No 20mg QD Take 20 mg Eden n (LIPITOR) 08-02 by mouth Met hodi 20 MG 16:39: 00:[address] tablet 32 :00 Default OP ins fluticasone 2019- 2020- No QD Inhale 1 [place] -vilanterol 08-01 inhalation M ethodi (BREO 18:45: 00:[address] ELLIPTA) 58 :00 daily. 200-25 mcg/dose blister with device powder for inhalation albuterol 2019- 2020- No 2{puff} Q.[id number] Inhale 2 [facility] (PROAIR 08-01 [id number] puffs 3 Me thodi HFA,PROVENT 18:45: 00:00 3D (three) st [place] 49 :00 times a HFA,VENT. N HFA) 90 mcg/actuati on inhaler pantoprazol 2019- No 40mg QD Take 1 Radha ston e 07-04 tablet (40 Methodi (PROTONIX) 00:00: 00:00 mg total) s t 40 MG EC 00 :00 by mouth tablet daily for 30 days. atorvastati 2019-0 2020- No 20mg QD Take 1 Radha ston n (LIPITOR) 07-03 tablet (20 M ethodi 20 MG 00:00: 00:00 mg total) st tablet 00 :00 by mouth nightly for 30 days. metoprolol 0 2019- No 25mg Q.5D Take 1 [place] tartrate 07-03 tablet (25 Meth vik (LOPRESSOR) 00:00: 00:00 mg total) st 25 mg 00 :00 by mouth 2 tablet (two) times a day for 30 days. nitroglycer 2019- 2020- No .4mg Place 1 [place] in 07-03 tablet Methodi (NITROSTAT) 00:00: 00:00 (0.[address] 0.4 MG SL 00 :00 total) tablet under the tongue every 5 (five) minutes as needed for chest pain for up to 30 days. citalopram No 10mg QD Take 10 mg [place] (CeleXA) 10 07-0207 by mouth Met hodi MG tablet 01:47: 00:[address] 06 :00 amLODIPine 2019- No 10mg QD Take 10 mg [place] (NORVASC) 07-02 by mouth Metho di 10 mg 01:47: 00:[address] tablet 04 :00 ranitidine 2018-06- No 150mg QD Take [address] (ZANTAC) 2-06 12-06 mg by [facility] - 150 MG 09:25: 00:00 mouth Medical tablet 40 :00 nightly. [facility] ARNUITY 2018-06 Yes 1{puff} QD Inhale [address] [facility] ELLIPTA 200 1-02 puff by [facility] - mcg/actuati 00:00: mouth via Bárbara harmon on DsDv 00 inhaler Center daily. olmesartan 2018-06 Yes 40mg QD Take [address] (BENICAR) 0-26 by mouth [facility] - 40 MG 00:00: daily. Medical tablet 00 [facility] omeprazole 2018-06 Yes 40mg QD Take [address] (PRILOSEC) 0-15 by mouth [facility] - 40 MG 00:00: daily. Medical capsule 00 [facility] doxazosin 2018-06 Yes 4mg QD Take [address] (CARDURA) 4 0-07 by mouth Luke s - MG tablet 00:00: daily. Medica l 00 [facility] furosemide 2018-06 Yes 40mg Take [address] (LASIX) 40 0-07 by mouth [facility] - MG tablet 00:00: daily as Medi paul 00 needed. [facility] metoprolol 2018-06 Yes 50mg QD Take [address] (TOPROL-XL) 0-05 by mouth Luke s - 50 MG 24 hr 00:00: daily. Medi paul tablet 00 [facility] calcitriol 2017-06 Yes .25ug QD Take 0.[address] (ROCALTROL) 2-06 mcg by [facility] - 0.25 MCG 09:11: mouth Medical capsule 14 daily. [facility] IRON, 2017-06 Yes 65mg QD Take [address] FERROUS 2-06 by mouth [facility] - SULFATE, 09:10: daily . Medica l ORAL 10 [facility] aspirin 2017-06 Yes 325mg Take 325 [facility] (CHRISSY 2-06 mg by Kirk - ASPIRIN) 09:09: mouth. Medical 325 MG 23 Center tablet red yeast 2017-06 Yes 2{tbl} Take [address] rice 600 mg 2-06 tablets by Jaquelin kes - Cap 09:09: mouth. Medical 23 [facility] OMEGA-3 2017-06 Yes Take by [facility] FATTY 2-06 mouth. [facility] - ACIDS-FISH 09:09: Medical OIL ORAL 23 [facility] allopurinol 2017-06 Yes 300mg Take [address] (ZYLOPRIM) 2-06 mg by [facility] - 300 MG 09:03: mouth. Medical tablet 02 [facility] olmesartan- Yes 1{tbl} QD Take [address] hydrochloro 2-22 tablet by Kevin es - thiazide 12:04: mouth Medical (BENICAR 50 daily. [facility] HCT) 40-12.5 mg per tablet flecainide Yes 50mg Q.5D Take [address] (TAMBOCOR) 2-22 by mouth 2 Kevin es - 50 MG 12:04: (two) Medical tablet 50 times Center daily. cyanocobala Yes 1000ug QD Take 1,[address] min 2-22 mcg by Lumelanie - (VITAMIN 12:04: mouth Medical B-12) 1000 50 daily. Center MCG tablet FOLIC Yes Take by [facility] ACID/MULTIV 2-22 mouth. [facility] - IT-MIN/LUTE 12:04: Medica l [place] (CENTRUM 50 Center SILVER ORAL) Immunizations Ordered Immunization Filled Immunization Date Status Commen ts Source Name Name FLUCELVAX QUAD PF 2018-03-10 Completed [facility] 00:00:00 [facility] Pneumococcal 2018-03-10 Completed [facility] Conjugate 13-Valent 00:00:00 Metho dist Vital Signs Vital Name Observation Time Observation Value Comments Source Heart rate 2020-03-09 21:20:00 66 /min Meek Tracey Respiratory rate 2020-03-09 21:20:00 18 /min Ada Tracey Oxygen saturation in 2020-03-09 20:57:00 98 /min Meek Tracey Arterial blood by Pulse oximetry Systolic blood 2020-03-09 19:25:14 112 mm[Hg] Danielle n [facility] pressure Diastolic blood 2020-03-09 19:25:14 55 mm[Hg] Eddie on [facility] pressure Body temperature 2020-03-09 19:25:14 36.44 Marina Ada adam [facility] Body weight 2020-03-09 05:34:00 62 kg Meek [facility] BMI 2020-03-09 05:34:00 20.18 kg/m2 Meek [facility] Body height 2020-02-22 01:43:00 175.3 cm [facility] Systolic blood 2019-05-31 09:11:00 149 mm[Hg] [facility] Diastolic blood 2019-05-31 09:11:00 102 mm[Hg] [facility] Heart rate 2019-05-31 09:10:00 62 /min [facility] Body temperature 2019-05-31 09:10:00 36.56 Marina [facility] Respiratory rate 2019-05-31 09:10:00 16 /min [facility] Body height 2019-05-31 09:10:00 176.5 cm [facility] Body weight Measured 2019-05-31 09:10:00 112.628 kg [facility] BMI 2019-05-31 09:10:00 36.14 kg/m2 [facility] Oxygen saturation in 2019-05-31 09:10:00 97 /min [facility] Arterial blood by Medical Ce nter Pulse oximetry Weight 2018-12-07 14:30:00 [facility] Height 2018-12-07 14:30:00 [facility] Procedures Procedure Date / Time Performing Clinician Source Performed POC GLUCOSE 2020-03-09 16:02:00 Valeriano Noe POC GLUCOSE 2020-03-09 11:48:00 Valeriano Noe [facility] POC GLUCOSE 2020-03-09 09:15:00 Valeriano Noe [facility] POC GLUCOSE 2020-03-09 05:09:00 Valeriano Noe [facility] POC GLUCOSE 2020-03-09 01:18:00 Valeriano Noe [facility] POC GLUCOSE 2020-03-08 21:02:00 Valeriano Noe [facility] POC GLUCOSE 2020-03-08 16:03:00 Valeriano Noe [facility] POC GLUCOSE 2020-03-08 12:54:00 Valeriano Noe [facility] POC GLUCOSE 2020-03-08 08:27:00 Valeriano Noe [facility] CBC HEMOGRAM 2020-03-08 05:45:00 Mason Abarca Met hodist PARTIAL THROMBOPLASTIN 2020-03-08 05:45:00 Ernie Bedoya [place] [facility] TIME (PTT) POC GLUCOSE 2020-03-08 04:39:00 Valeriano Noe [facility] POC GLUCOSE 2020-03-08 00:01:00 Valeriano Noe [facility] PARTIAL THROMBOPLASTIN 2020 22:15:00 Uppalapati, Hieu [place] [facility] TIME (PTT) POC GLUCOSE 2020 20:19:00 Valeriano Noe [facility] POC GLUCOSE 2020 15:27:00 Valeriano Noe [facility] PARTIAL THROMBOPLASTIN 2020 14:30:00 Valeriano Noe [facility] TIME (PTT) POC GLUCOSE 2020 12:04:00 Valeriano oNe [facility] POC GLUCOSE 2020 08:46:00 Valeriano Noe [facility] CBC HEMOGRAM 2020 07:35:00 Mason Abarca Met hodist PARTIAL THROMBOPLASTIN 2020 06:54:00 Ernie Bedoya [place] [facility] TIME (PTT) POC GLUCOSE 2020 04:15:00 Valeriano Noe [facility] POC GLUCOSE 2020 00:26:00 BenjaminianValeriano [facility] PARTIAL THROMBOPLASTIN 2020-03-06 22:50:00 Uppalapati, Hieu [place] [facility] TIME (PTT) POC GLUCOSE 2020-03-06 20:46:00 Valeriano Noe [facility] POC GLUCOSE 2020-03-06 15:50:00 Valeriano Noe [facility] PARTIAL THROMBOPLASTIN 2020-03-06 15:15:00 Hieu Pelletier [facility] TIME (PTT) POC GLUCOSE 2020-03-06 11:35:00 Valeriano Noe [facility] PARTIAL THROMBOPLASTIN 2020-03-06 07:45:00 Mason Abarca [facility] TIME (PTT) POC GLUCOSE 2020-03-06 07:43:00 Valeriano Noe [facility] POC GLUCOSE 2020-03-06 04:39:00 Valeriano Noe [facility] BASIC METABOLIC PANEL 2020-03-06 04:30:00 Brain Ramirez [facility] CBC WITH PLATELET AND 2020-03-06 04:30:00 Brain Ramirez [facility] DIFFERENTIAL MAGNESIUM LEVEL 2020-03-06 04:30:00 Brain Ramirez Me thodist PHOSPHORUS LEVEL 2020-03-06 04:30:00 Brain Ramirez M ethodist IONIZED CALCIUM 2020-03-06 04:30:00 Brain Ramirez Me thodist ESTIMATED GFR 2020-03-06 04:30:00 Mason Abarca Met hodist MANUAL DIFFERENTIAL 2020-03-06 04:30:00 Mason Abarca [facility] POC GLUCOSE 2020-03-06 03:59:00 Valeriano Noe [facility] POC GLUCOSE 2020-03-06 00:25:00 Valeriano Noe [facility] POTASSIUM LEVEL 2020-03-05 22:22:00 Scottie Kaur Meth odist PARTIAL THROMBOPLASTIN 2020-03-05 22:22:00 Mason Abarca [facility] TIME (PTT) POC GLUCOSE 2020-03-05 20:58:00 Valeriano Noe [facility] IONIZED CALCIUM 2020-03-05 17:30:00 Scottie Kaur Meth odist POC GLUCOSE 2020-03-05 16:10:00 Valeriano Noe [facility] PARTIAL THROMBOPLASTIN 2020-03-05 13:00:00 Valeriano Noe [facility] TIME (PTT) POC GLUCOSE 2020-03-05 11:27:00 Valeriano Noe [facility] POC GLUCOSE 2020-03-05 08:07:00 Valeriano Noe [facility] XR CHEST 1 VW PORTABLE 2020-03-05 06:26:06 Mary Larios Radha damian [facility] CBC WITH PLATELET AND 2020-03-05 05:00:00 Mary Larios Ada ton [facility] DIFFERENTIAL COMPREHENSIVE METABOLIC 2020-03-05 05:00:00 Mary Larios [place] [facility] PANEL PHOSPHORUS LEVEL 2020-03-05 05:00:00 Mary Larios M ethodist IONIZED CALCIUM 2020-03-05 05:00:00 Mary Larios Me thodist ESTIMATED GFR 2020-03-05 05:00:00 Farhan Lariosa Amanda Eden Me thodist MAGNESIUM LEVEL 2020-03-05 05:00:00 Farhan Lariosa Amanda Eden Me thodist PARTIAL THROMBOPLASTIN 2020-03-05 05:00:00 Ernie Bedoyaton [facility] TIME (PTT) MANUAL DIFFERENTIAL 2020-03-05 05:00:00 Mary Larios Amanda figueroa [facility] ARTERIAL BLOOD GAS 2020-03-05 04:17:00 Mary Larios [facility] POC GLUCOSE 2020-03-05 00:50:00 Valeriano Noe [facility] PARTIAL THROMBOPLASTIN 2020-03-04 22:40:00 Valeriano Noe [facility] TIME (PTT) POC GLUCOSE 2020-03-04 20:19:00 Valeriano Noe [facility] IONIZED CALCIUM 2020-03-04 16:40:00 Chano Bolandaustin Lackeycarolina Eden [facility] POC GLUCOSE 2020-03-04 15:45:00 Valeriano Noe [facility] XR CHEST 1 VW PORTABLE 2020-03-04 14:45:15 Hieu Pelletierton [facility] HC CVL PICC INSERT 5 YRS 2020-03-04 14:28:50 Asia Sutherland [facility] OR > W/RS&I AND IMG GUID HC CATH DUAL LUMEN PICC # 2020-03-04 14:28:50 Asia Sutherland [place] [facility] [id number] BRONCHOSCOPY 2020-03-04 12:20:56 Jorgeeugenia Hieu Eden Bárbara ethodist XR CHEST 1 VW PORTABLE 2020-03-04 12:08:27 Raynne Orr on [facility]ist POC GLUCOSE 2020-03-04 11:52:00 Valeriano Noe [facility] RESPIRATORY CULTURE 2020-03-04 11:05:00 Hieu Pelletier on [facility] GRAM STAIN 2020-03-04 11:05:00 Prabhu Hieu Eden Bárbara ethodist POC GLUCOSE 2020-03-04 09:10:00 Valeriano Noe PROTHROMBIN TIME WITH INR 2020-03-04 07:42:00 Hieu Pelletier PARTIAL THROMBOPLASTIN 2020-03-04 07:42:00 Hieu Pelletierton [facility] TIME (PTT) POC GLUCOSE 2020-03-04 07:42:00 Valeriano Noe [facility] XR CHEST 1 VW PORTABLE 2020-03-04 06:17:07 Magy Boland ARTERIAL BLOOD GAS 2020-03-04 04:34:00 Magy Boland on [facility] CBC HEMOGRAM 2020-03-04 04:15:00 Jorgetomangelvibha Hieu Granger ethodist PARTIAL THROMBOPLASTIN 2020-03-04 04:15:00 Valeriano Noe TIME (PTT) COMPREHENSIVE METABOLIC 2020-03-04 04:15:00 Magy Boland PANEL MAGNESIUM LEVEL 2020-03-04 04:15:00 Magy Boland PHOSPHORUS LEVEL 2020-03-04 04:15:00 Magy Boland ESTIMATED GFR 2020-03-04 04:15:00 Magy Boland IONIZED CALCIUM 2020-03-04 04:15:00 Magy Boland POC GLUCOSE 2020-03-04 01:03:00 Valeriano Noe [facility] POC GLUCOSE 2020-03-03 17:05:00 Valeriano Noe [facility] CBC WITH PLATELET AND 2020-03-03 17:00:00 Hieu Pelletier ston [facility] DIFFERENTIAL IONIZED CALCIUM 2020-03-03 17:00:00 Ada Kaursam Eden Meth odist MANUAL DIFFERENTIAL 2020-03-03 17:00:00 Hieu Pelletiert on [facility]ist POC GLUCOSE 2020-03-03 15:51:00 Valeriano Noe [facility] POC GLUCOSE 2020-03-03 12:14:00 Valeriano Noe [facility] POC GLUCOSE 2020-03-03 08:29:00 Valeriano Noe [facility] PROTHROMBIN TIME WITH INR 2020-03-03 04:55:00 Desirae Sterling [facility] POC GLUCOSE 2020-03-03 04:15:00 Valeriano Noe [facility] PARTIAL THROMBOPLASTIN 2020-03-03 04:10:00 Valeriano Noe [facility] TIME (PTT) CBC WITH PLATELET AND 2020-03-03 04:10:00 Quiana Whitfield on [facility] DIFFERENTIAL Ld BASIC METABOLIC PANEL 2020-03-03 04:10:00 Quiana Whitfield on [facility] Ld MAGNESIUM LEVEL 2020-03-03 04:10:00 Quiana Whitfield Met hodjustina Ld ESTIMATED GFR 2020-03-03 04:10:00 Quiana Whitfield Met hodist Ld IONIZED CALCIUM 2020-03-03 04:10:00 Scottie Kaur Meth odist MANUAL DIFFERENTIAL 2020-03-03 04:10:00 Quiana Whitfield [facility] Ld POC GLUCOSE 2020-03-02 20:08:00 Valeriano Noeto carolina [facility]ist POC GLUCOSE 2020-03-02 16:08:00 Valeriano Noe [facility] POC GLUCOSE 2020-03-02 12:35:00 Valeriano Noe [facility] POC GLUCOSE 2020-03-02 09:57:00 Valeriano Noe [facility] POC GLUCOSE 2020-03-02 07:44:00 Valeriano Noe [facility] POC GLUCOSE 2020-03-02 05:43:00 Valeriano Noe [facility] ARTERIAL BLOOD GAS 2020-03-02 04:01:00 Mary Larios Amanda Eden [facility] CBC HEMOGRAM 2020-03-02 03:45:00 Hieu Pelletier M ethodist PHOSPHORUS LEVEL 2020-03-02 03:45:00 Ryanne Orr Met hodist MAGNESIUM LEVEL 2020-03-02 03:45:00 FelizCheryl moraes [facility]ist Lenet PARTIAL THROMBOPLASTIN 2020-03-02 03:45:00 Gilberto Stratton [facility] TIME (PTT) Bassam Ferguson POTASSIUM LEVEL 2020-03-02 03:45:00 FelizCheryl devlinist Lenet IONIZED CALCIUM 2020-03-02 03:42:00 FelizCheryl devlin [facility]ist Lenet POC GLUCOSE 2020-03-02 00:01:00 Valeriano Noe [facility] POC GLUCOSE 2020-03-01 20:33:00 Valeriano Noe [facility] PARTIAL THROMBOPLASTIN 2020-03-01 18:24:00 Hieu Pelletier [facility] TIME (PTT) POC GLUCOSE 2020-03-01 16:32:00 Valeriano Noe [facility] IONIZED CALCIUM 2020-03-01 15:20:00 Ryanne Orr Meth odist BASIC METABOLIC PANEL 2020-03-01 15:20:00 Cheryl Piper [facility] Lenet MAGNESIUM LEVEL 2020-03-01 15:20:00 FelizCheryl devlin Lenet ESTIMATED GFR 2020-03-01 15:20:00 Cheryl Piper Lenet HC COMPLETE BLD COUNT 2020-03-01 14:23:00 Cheryl Piper [facility] W/AUTO DIFF Lenet SMEAR REVIEW 2020-03-01 14:23:00 Cheryl Piper [facility] Lenet B NATRIURETIC PEPTIDE 2020-03-01 14:23:00 Jacinto Bedoya on [facility]ist POC GLUCOSE 2020-03-01 13:21:00 Valeriano Noe [facility] POC GLUCOSE 2020-03-01 12:05:00 Valeriano Noe [facility] PARTIAL THROMBOPLASTIN 2020-03-01 10:05:00 Hieu Pelletier [facility] TIME (PTT) POC GLUCOSE 2020-03-01 09:06:00 Valeriano Noe [facility] TRANSFUSE RED BLOOD CELLS 2020-03-01 08:17:50 Harriet Mary Amanda Eden [facility] HC COMPLETE BLD COUNT 2020-03-01 06:52:00 Cheryl Piper [facility] W/AUTO DIFF Lenet SMEAR REVIEW 2020-03-01 06:52:00 Cheryl Piper Lenet XR CHEST 1 VW PORTABLE 2020-03-01 06:30:38 CecyemmettMary little Radha ston [facility] ARTERIAL BLOOD GAS 2020-03-01 04:40:00 Harriet Mary Patel Eden [facility] CBC HEMOGRAM 2020-03-01 03:15:00 Hieu Pelletier ethodist PARTIAL THROMBOPLASTIN 2020-03-01 03:15:00 Hieu Pelletier [facility] TIME (PTT) ANTI XA, UNFRACTIONATED 2020-03-01 03:15:00 Hieu Pelletier [facility] COMPREHENSIVE METABOLIC 2020-03-01 03:15:00 Harriet Mary Amanda mcgarry [facility] PANEL MAGNESIUM LEVEL 2020-03-01 03:15:00 Harriet Mary Eden Me thodist PHOSPHORUS LEVEL 2020-03-01 03:15:00 Harriet Mary Eden M ethodist IONIZED CALCIUM 2020-03-01 03:15:00 CecyamandaMary Eden Me thodist ESTIMATED GFR 2020-03-01 03:15:00 Mary Larios Me thodist MANUAL DIFFERENTIAL 2020-03-01 03:15:00 Hieu Pelletier on [facility] POC GLUCOSE 2020-03-01 01:03:00 Valeriano Noe [facility] HC COMPLETE BLD COUNT 2020-02-29 22:20:00 FelizCheryl devlin jair [facility] W/AUTO DIFF Lenet SMEAR REVIEW 2020-02-29 22:20:00 Cheryl Piper [facility]orationist Lenet POC GLUCOSE 2020-02-29 20:45:00 Valeriano Noe [facility] ANTI XA, UNFRACTIONATED 2020-02-29 18:25:00 Hieu Pelletier [facility] POTASSIUM LEVEL 2020-02-29 17:32:00 Kevin Burger Meth odist IONIZED CALCIUM 2020-02-29 17:32:00 Kevin Burger Meth odist POC GLUCOSE 2020-02-29 16:14:00 Valeriano Noe [facility] MRSA SCREEN CULTURE 2020-02-29 15:51:00 OdinElizabeth Meek [facility]orationist Thompson HC COMPLETE BLD COUNT 2020-02-29 14:10:00 FelizCheryl Seb mcgarry [facility] W/AUTO DIFF Lenet SMEAR REVIEW 2020-02-29 14:10:00 FelizCheryl Restorationist Lenet OCCULT BLOOD, STOOL 2020-02-29 11:09:00 Hieu Pelletier [facility] POC GLUCOSE 2020-02-29 11:09:00 Valeriano Noe [facility] ANTI XA, UNFRACTIONATED 2020-02-29 09:45:00 Hieu Pelletier [facility] AMMONIA LEVEL 2020-02-29 09:00:00 Hieu Pelletier M ethodist LACTIC ACID LEVEL 2020-02-29 09:00:00 Hieu Pelletier [facility] POC GLUCOSE 2020-02-29 08:56:00 Valeriano Noe [facility] POC GLUCOSE 2020-02-29 08:18:00 Valeriano Noe [facility] TRANSFUSE RED BLOOD CELLS 2020-02-29 08:01:35 Harriet Mary Eden [facility] XR CHEST 1 VW PORTABLE 2020-02-29 06:42:15 TwialMary little Amanda Garcia stocarolina [facility]orationist XR ABDOMEN 1 VW 2020-02-29 06:40:33 Gilberto Stratton [facility]orationist Bassam Alexanderu TYPE AND SCREEN 2020-02-29 04:33:00 Mary Larios Me thodist PREPARE RBC 2020-02-29 04:33:00 Mary Larios Me thodist ARTERIAL BLOOD GAS 2020-02-29 03:56:00 Mary Larios [facility] CBC WITH PLATELET AND 2020-02-29 03:07:00 Mary Larios ton [facility] DIFFERENTIAL COMPREHENSIVE METABOLIC 2020-02-29 03:07:00 Mary Larios [place] [facility] PANEL IONIZED CALCIUM 2020-02-29 03:07:00 Mary Larios Me thodist MAGNESIUM LEVEL 2020-02-29 03:07:00 Mary Larios Me thodist PHOSPHORUS LEVEL 2020-02-29 03:07:00 Mary Larios M ethodist BILIRUBIN DIRECT 2020-02-29 03:07:00 Zenon Shankar [facility] ESTIMATED GFR 2020-02-29 03:07:00 Zenon Shankar M ethodist MANUAL DIFFERENTIAL 2020-02-29 03:07:00 Zenon Shankar on [facility]ist POC GLUCOSE 2020-02-29 02:13:00 Valeriano Noe [facility] ANTI XA, UNFRACTIONATED 2020-02-29 02:04:00 Hieu Pelletier [facility] POC GLUCOSE 2020-02-28 22:44:00 Valeriano Noe [facility] ARTERIAL BLOOD GAS 2020-02-28 21:54:00 Mary Larios [facility] XR CHEST 1 VW PORTABLE 2020-02-28 21:33:04 Mary Larios Radha ston [facility]ist BRONCHOSCOPY 2020-02-28 21:15:18 Naldo Rene [facility] INTUBATION 2020-02-28 21:13:47 Naldo Rene [facility] ANTI XA, UNFRACTIONATED 2020-02-28 18:30:00 Hieu Pelletier [facility] POTASSIUM LEVEL 2020-02-28 16:48:00 Ryanne Orr Nogal Meth odist IONIZED CALCIUM 2020-02-28 16:48:00 [facility] Meth odist POC GLUCOSE 2020-02-28 16:04:00 Valeriano Noe [facility] POC GLUCOSE 2020-02-28 11:51:00 Valeriano Noe [facility] ANTI XA, UNFRACTIONATED 2020-02-28 10:10:00 Hieu Pelletier PROTHROMBIN TIME WITH INR 2020-02-28 10:10:00 Hieu Pelletier PARTIAL THROMBOPLASTIN 2020-02-28 10:10:00 Hieu Pelletier [facility] TIME (PTT) POC GLUCOSE 2020-02-28 07:48:00 Valeriano Noe [facility] POC GLUCOSE 2020-02-28 06:03:00 Valeriano Noe XR CHEST 1 VW PORTABLE 2020-02-28 05:37:21 Lagemmettsidney, Ayesa Amanda Radha ston [facility] POC GLUCOSE 2020-02-28 03:52:00 Valeriano Noe [facility]ist HC COMPLETE BLD COUNT 2020-02-28 03:49:00 Cecyemmetta, Ayesa Amanda Ada adam [facility] W/AUTO DIFF COMPREHENSIVE METABOLIC 2020-02-28 03:49:00 Lagria, Ayesa Amanda [place] [facility] PANEL IONIZED CALCIUM 2020-02-28 03:49:00 Cecyria, Ayesa [facility] Me thodist MAGNESIUM LEVEL 2020-02-28 03:49:00 Lagria, Ayesa Amanda Nogal Me thodist PHOSPHORUS LEVEL 2020-02-28 03:49:00 Cecyria, Farhana Amanda [facility] ethodist BILIRUBIN DIRECT 2020-02-28 03:49:00 Zenon Shankar ESTIMATED GFR 2020-02-28 03:49:00 Zenon Shankar M ethodist SMEAR REVIEW 2020-02-28 03:49:00 Zenon Shankar M ethodist POC GLUCOSE 2020-02-28 02:22:00 Valeriano Noe [facility] POC GLUCOSE 2020-02-27 22:48:00 Valeriano Noe [facility] POC GLUCOSE 2020-02-27 20:21:00 Valeriano Noe [facility] POC GLUCOSE 2020-02-27 18:36:00 Valeriano Noe [facility] IONIZED CALCIUM 2020-02-27 18:35:00 Gilberto Stratton Restorationist Bassam Ferguson BASIC METABOLIC PANEL 2020-02-27 15:40:00 Venus Pelletiera Radha ston [facility]orationist CBC WITH PLATELET AND 2020-02-27 15:40:00 Venus Pelletiera Radha ston [facility] DIFFERENTIAL ESTIMATED GFR 2020-02-27 15:40:00 Hieu Pelletier ethodist HEPARIN PF4 ANTIBODY 2020-02-27 15:40:00 Hieu Pelletier [facility]orationist (IGG) MANUAL DIFFERENTIAL 2020-02-27 15:40:00 Hieu Pelletier on Restorationist ARTERIAL BLOOD GAS 2020-02-27 15:30:00 Hieu Pelletier [facility]orationist POC GLUCOSE 2020-02-27 15:19:00 Valeriano Noe [facility] BRONCHOSCOPY 2020-02-27 15:18:37 Hieu Pelletier ethodist POC GLUCOSE 2020-02-27 11:34:00 Valeriano Noe [facility]orationist POC GLUCOSE 2020-02-27 09:30:00 Valeriano Noe [facility] RESPIRATORY CULTURE 2020-02-27 09:11:00 Hieu Pelletier on Restorationist GRAM STAIN 2020-02-27 09:11:00 Hieu Pelletier ethodist RESPIRATORY CULTURE 2020-02-27 09:10:00 Hieu Pelletier on Restorationist GRAM STAIN 2020-02-27 09:10:00 Hieu Pelletier ethodist XR CHEST 1 VW PORTABLE 2020-02-27 06:41:33 Mary Lariosu ston [facility]orationist POC GLUCOSE 2020-02-27 06:27:00 Valeriano Noe [facility]orationist POC GLUCOSE 2020-02-27 03:43:00 Valeriano Noe [facility]ist HEPATIC FUNCTION PANEL 2020-02-27 03:40:00 Zenon Shankar [place] [facility]ist PROTHROMBIN TIME WITH INR 2020-02-27 03:40:00 Zenon Shankar Eden [facility]ist CBC WITH PLATELET AND 2020-02-27 03:40:00 Lagria, Ayesa Amanda [place] [facility]orationist DIFFERENTIAL COMPREHENSIVE METABOLIC 2020-02-27 03:40:00 Lagria, Ayesa Amanda [place] [facility]ist PANEL IONIZED CALCIUM 2020-02-27 03:40:00 Lagria, Ayesa Amanda Eden Me thodist MAGNESIUM LEVEL 2020-02-27 03:40:00 Lagria, Ayesa Amanda Eden Me thodist PHOSPHORUS LEVEL 2020-02-27 03:40:00 Lagria, Ayesa Amanda Nogal M ethodist ESTIMATED GFR 2020-02-27 03:40:00 Lagria, Ayesa Amanda Eden Me thodist ARTERIAL BLOOD GAS 2020-02-27 03:40:00 Lagria, Ayesa Amanda Eden [facility]ist MANUAL DIFFERENTIAL 2020-02-27 03:40:00 Lagria, Ayesa Amanda Adato n Restorationist POC GLUCOSE 2020-02-27 02:13:00 Valeriano Noe [facility]orationist POC GLUCOSE 2020-02-26 22:22:00 Valeriano Noe Restorationist POC GLUCOSE 2020-02-26 19:26:00 Valeriano Noe Restorationist POTASSIUM LEVEL 2020-02-26 18:40:00 DominicsabinoDenilson Restorationist POC GLUCOSE 2020-02-26 17:07:00 Valeriano Noe Restorationist POC GLUCOSE 2020-02-26 15:16:00 Valeriano Noe Restorationist MRI BRAIN WO CONTRAST 2020-02-26 15:05:28 Hieu Pelletier Restorationist POC GLUCOSE 2020-02-26 13:17:00 Valeriano Noe Restorationist POC GLUCOSE 2020-02-26 12:09:00 Valeriano Noe [facility]ist HEPATIC FUNCTION PANEL 2020-02-26 10:43:00 Zenon Shankar PHOSPHORUS LEVEL 2020-02-26 10:43:00 Zenon Shankar [facility]orationist POC GLUCOSE 2020-02-26 10:17:00 Valeriano Noe Restorationist POC GLUCOSE 2020-02-26 09:26:00 Valeriano Noe Restorationist VENOUS BLOOD GAS 2020-02-26 09:21:00 Hieu Pelletier Restorationist XR CHEST 1 VW PORTABLE 2020-02-26 08:16:25 Blew, Denilson jin [facility]ist POC GLUCOSE 2020-02-26 08:08:00 Valeriano Noe [facility]orationist POC GLUCOSE 2020-02-26 04:21:00 Valeriano Noe [facility] ARTERIAL BLOOD GAS 2020-02-26 04:20:00 Naldo Rene [facility]orationist BASIC METABOLIC PANEL 2020-02-26 04:20:00 Blew, Denilson Tracey CBC WITH PLATELET AND 2020-02-26 04:20:00 BlewDenilson DIFFERENTIAL MAGNESIUM LEVEL 2020-02-26 04:20:00 BlewDenilson PHOSPHORUS LEVEL 2020-02-26 04:20:00 BlewDenilson IONIZED CALCIUM 2020-02-26 04:20:00 DominicwDenilson ESTIMATED GFR 2020-02-26 04:20:00 BlewDenilson MANUAL DIFFERENTIAL 2020-02-26 04:20:00 DominicwDenilson POC GLUCOSE 2020-02-26 02:03:00 Valeriano Noeto carolina Restorationist POC GLUCOSE 2020-02-25 22:04:00 Valeriano Noe Restorationist POC GLUCOSE 2020-02-25 18:10:00 Valeriano Noeto carolina Restorationist POC GLUCOSE 2020-02-25 14:59:00 Valeriano Noe [facility]orationist BASIC METABOLIC PANEL 2020-02-25 14:46:00 Hieu Pelletier [facility] MAGNESIUM LEVEL 2020-02-25 14:46:00 Hieu Pelletier ethodist ESTIMATED GFR 2020-02-25 14:46:00 Hieu Pelletier ethodist ECG 12-LEAD 2020-02-25 09:53:49 Hieu Pelletier ethodist POC GLUCOSE 2020-02-25 09:23:00 Valeriano Noe Restorationist VENOUS BLOOD GAS 2020-02-25 09:18:00 Hieu Pelletier Restorationist XR CHEST 1 VW PORTABLE 2020-02-25 06:32:31 Amanda Barber Restorationist Fadhil CBC WITH PLATELET AND 2020-02-25 04:34:00 Amanda Barber on [facility]orationist DIFFERENTIAL Fadhil COMPREHENSIVE METABOLIC 2020-02-25 04:34:00 Amanda Barber [facility]ist PANEL Fadhil PROTHROMBIN TIME WITH INR 2020-02-25 04:34:00 Amanda Barber Restorationist Fadhil MAGNESIUM LEVEL 2020-02-25 04:34:00 Naldo Rene Restorationist PHOSPHORUS LEVEL 2020-02-25 04:34:00 Naldo Rene Restorationist ESTIMATED GFR 2020-02-25 04:34:00 Naldo Rene [facility]orationist MANUAL DIFFERENTIAL 2020-02-25 04:34:00 Naldo Rene [facility]orationist ARTERIAL BLOOD GAS 2020-02-25 04:28:00 Naldo Rene [facility]orationist IONIZED CALCIUM 2020-02-25 04:28:00 Quiana Whitfield Met [place] Jaffe POC GLUCOSE 2020-02-25 04:26:00 Valeriano Noe [facility]orationist POC GLUCOSE 2020-02-25 00:08:00 Valeriano Noe [facility]orationist IONIZED CALCIUM 2020-02-24 22:04:00 Gilberto Stratton Restorationist Bassam Babu POTASSIUM LEVEL 2020-02-24 22:04:00 Gilberto Stratton Restorationist Bassam Babu POC GLUCOSE 2020-02-24 21:09:00 Valeriano Noe Restorationist ECG 12-LEAD 2020-02-24 17:39:41 Mason Abarca TheoAfshan Eden Met hodist POC GLUCOSE 2020-02-24 16:44:00 Valeriano Noe Restorationist BASIC METABOLIC PANEL 2020-02-24 15:29:00 Amanda Barber on Restorationist Fadhil MAGNESIUM LEVEL 2020-02-24 15:29:00 Amanda Barber Met hodist Fadhil PHOSPHORUS LEVEL 2020-02-24 15:29:00 Amanda Barber Me thodist Fadhil ESTIMATED GFR 2020-02-24 15:29:00 Amanda Barber Met hodist Fadhil US ABDOMEN COMPLETE 2020-02-24 09:56:21 Zenon Shankar on Restorationist POTASSIUM LEVEL 2020-02-24 08:54:00 Gilberto Stratton Restorationist Bassam Babu IONIZED CALCIUM 2020-02-24 08:54:00 Gilberto Stratton Restorationist Bassam Babu TTE COMPLETE, WO 2020-02-24 08:30:00 Naldo Rene Restorationist CONTRAST, W DOPPLER ([id number]) POC GLUCOSE 2020-02-24 08:18:00 Valeriano Noe Restorationist XR CHEST 1 VW PORTABLE 2020-02-24 06:13:49 Amanda Barber Restorationist Fadhil CBC WITH PLATELET AND 2020-02-24 04:41:00 Amanda Barber on Restorationist DIFFERENTIAL Fadhil COMPREHENSIVE METABOLIC 2020-02-24 04:41:00 Amanda Barber [facility]ist PANEL Fadhil PROTHROMBIN TIME WITH INR 2020-02-24 04:41:00 Amanda Barber Restorationist Fadhil MAGNESIUM LEVEL 2020-02-24 04:41:00 Naldo Rene Restorationist PHOSPHORUS LEVEL 2020-02-24 04:41:00 Naldo Renejaron figueroa Restorationist ARTERIAL BLOOD GAS 2020-02-24 04:41:00 Naldo Rene Ada adam Restorationist ESTIMATED GFR 2020-02-24 04:41:00 Amanda Barber Met hodist Fadhil TROPONIN 2020-02-24 04:41:00 Naldo Rene [facility]orationist MANUAL DIFFERENTIAL 2020-02-24 04:41:00 Amanda Barber Restorationist Fadhil POC GLUCOSE 2020-02-24 04:37:00 Valeriano Noe Restorationist POC GLUCOSE 2020-02-24 00:40:00 Valeriano Noe Restorationist TROPONIN 2020-02-24 00:22:00 Naldo Rene Eden [facility]orationist CBC WITH PLATELET AND 2020-02-24 00:22:00 Naldo Rene [place] Restorationist DIFFERENTIAL COMPREHENSIVE METABOLIC 2020-02-24 00:22:00 Naldo Rene Eden [facility]orationist PANEL MAGNESIUM LEVEL 2020-02-24 00:22:00 Naldo Rene Eden Restorationist PHOSPHORUS LEVEL 2020-02-24 00:22:00 Naldo Renejaron figueroa Restorationist ESTIMATED GFR 2020-02-24 00:22:00 Naldo Rene Meek Restorationist MANUAL DIFFERENTIAL 2020-02-24 00:22:00 Naldo Rene Radha ston Restorationist POC GLUCOSE 2020-02-23 22:07:00 Valeriano Noe Restorationist TROPONIN 2020-02-23 21:07:00 Naldo Rene Meek Restorationist POC GLUCOSE 2020-02-23 21:05:00 Valeriano Noe Restorationist POC GLUCOSE 2020-02-23 16:41:00 Valeriano Noe Restorationist XR CHEST 1 VW PORTABLE 2020-02-23 15:54:03 Anju Naldo Bulljaron Eden [facility]orationist HEART/LUNG RESUSCITATION 2020-02-23 15:52:26 Maj Anjubritni Skip Tracey (CPR) ECG 12-LEAD 2020-02-23 15:48:10 Naldo Renejaron Eden [facility]orationist COMPREHENSIVE METABOLIC 2020-02-23 15:38:00 Naldo Rene Meek [facility]orationist PANEL ESTIMATED GFR 2020-02-23 15:38:00 Naldo Rene Meek [facility]orationist THYROID STIMULATING 2020-02-23 15:38:00 Naldo Renejaron damian Restorationist HORMONE BILIRUBIN DIRECT 2020-02-23 15:38:00 Naldo Rene Valeria figueroa Restorationist MAGNESIUM LEVEL 2020-02-23 15:38:00 Naldo Renejaron Eden Restorationist PHOSPHORUS LEVEL 2020-02-23 15:38:00 Naldo Rene Valeria figueroa Restorationist ARTERIAL BLOOD GAS 2020-02-23 15:37:00 Naldo Rene Valeria adam Restorationist CBC WITH PLATELET AND 2020-02-23 15:35:00 Naldo Rene Valeria jin [facility]orationist DIFFERENTIAL MANUAL DIFFERENTIAL 2020-02-23 15:35:00 Naldo Renejaron damian Restorationist POC GLUCOSE 2020-02-23 11:31:00 Valeriano Noe Restorationist ARTERIAL BLOOD GAS 2020-02-23 10:39:00 Naldo Renejaron adam Restorationist POC GLUCOSE 2020-02-23 08:17:00 Valeriano Noeto carolina Restorationist XR CHEST 1 VW PORTABLE 2020-02-23 06:59:26 Amanda Barber Restorationist Fadhil PHOSPHORUS LEVEL 2020-02-23 04:09:00 Brain Ramirez M ethodist CBC WITH PLATELET AND 2020-02-23 04:09:00 Amanda Barber on Restorationist DIFFERENTIAL Fadhil COMPREHENSIVE METABOLIC 2020-02-23 04:09:00 Amanda Barber [facility] PANEL Fadhil MAGNESIUM LEVEL 2020-02-23 04:09:00 Amanda Barber Met hodist Fadhil PROTHROMBIN TIME WITH INR 2020-02-23 04:09:00 Amanda Barber [facility]orationist Fadhil LIPASE LEVEL 2020-02-23 04:09:00 Amanda Barber Met hodist Fadhil ESTIMATED GFR 2020-02-23 04:09:00 Brain Ramirez Me thodist IONIZED CALCIUM 2020-02-23 04:09:00 Barin Ramirez Me thodist LACTIC ACID LEVEL 2020-02-23 04:09:00 Brain Ramirez [facility] MANUAL DIFFERENTIAL 2020-02-23 04:09:00 Brain Ramirez [facility] ARTERIAL BLOOD GAS 2020-02-23 04:08:00 Brain Ramirez [facility]ist POC GLUCOSE 2020-02-23 04:08:00 Valeriano Noe [facility]orationist POC GLUCOSE 2020-02-23 00:16:00 Valeriano Noe Restorationist LACTIC ACID LEVEL 2020-02-22 22:05:00 Brain Ramirez [facility]ist POC GLUCOSE 2020-02-22 20:53:00 Valeriano Noe [facility]orationist LACTIC ACID LEVEL 2020-02-22 18:56:00 Amanda Barber ethodist Fadhil BASIC METABOLIC PANEL 2020-02-22 18:56:00 Amanda Barber on Restorationist Fadhil HEMOGLOBIN & HEMATOCRIT 2020-02-22 18:56:00 Amanda Barber [facility]orationist Fadhil ESTIMATED GFR 2020-02-22 18:56:00 Amanda Barber Met hodist Fadhil VENOUS BLOOD GAS 2020-02-22 18:45:00 Amanda Barber Me thodist Fadhil POC GLUCOSE 2020-02-22 18:41:00 Valeriano Noe Restorationist XR ABDOMEN 1 VW PORTABLE 2020-02-22 15:14:46 Zenon Shankar [facility] LACTIC ACID LEVEL 2020-02-22 12:38:00 Amanda Barber M ethodist Fadhil BASIC METABOLIC PANEL 2020-02-22 12:38:00 Amanda Barber on Restorationist Fadhil HEMOGLOBIN & HEMATOCRIT 2020-02-22 12:38:00 Amanda Barber Radha damian Restorationist Fadhil ESTIMATED GFR 2020-02-22 12:38:00 Amanda Barber Met hodist Fadwil VENOUS BLOOD GAS 2020-02-22 12:35:00 Amanda Barber Me thodist Fadhil SURGICAL PATHOLOGY 2020-02-22 12:14:00 Valeriano Noe [facility]ist REQUEST EGD WITH BIOPSY 2020-02-22 11:35:00 ShankarZenon multani M ethodist VENOUS BLOOD GAS 2020-02-22 10:00:00 Amanda Barber Me thodist Fadhil LACTIC ACID LEVEL, SEPSIS 2020-02-22 08:25:00 Alexandria Del Real [facility] - NOW AND REPEAT 2X EVERY 3 HOURS AMMONIA LEVEL 2020-02-22 08:25:00 Destinblancaana Amanda [facility] P[facility]SE 2020-02-22 08:06:00 Valeriano Noe Restorationist OK INSERT 2020-02-22 07:57:17 Brain Ramirez Me thodist CATH,ART,PERCUT,SHORTTERM BASIC METABOLIC PANEL 2020-02-22 06:27:00 Brain Ramirez [facility]orationist CBC WITH PLATELET AND 2020-02-22 06:27:00 Brain Ramirez [facility] DIFFERENTIAL MAGNESIUM LEVEL 2020-02-22 06:27:00 Brain Ramirez T[facility] PHOSPHORUS LEVEL 2020-02-22 06:27:00 Brain Ramirez [facility]ist IONIZED CALCIUM 2020-02-22 06:27:00 Brain Ramirez [facility] ESTIMATED GFR 2020-02-22 06:27:00 Brain Ramirez [facility] HEPATIC FUNCTION PANEL 2020-02-22 06:27:00 Brain Ramirez [facility] MANUAL DIFFERENTIAL 2020-02-22 06:27:00 Brain Ramirez [facility] SPUTUM CULTURE 2020-02-22 05:34:00 Brain Ramirez [facility] GRAM STAIN 2020-02-22 05:34:00 Brain Ramirez [facility] ARTERIAL BLOOD GAS 2020-02-22 04:35:00 Brain Ramirez URINE CULTURE 2020-02-22 03:24:00 Cheryl Piper [facility] COVID-19 QUALITATIVE PCR 2020-02-22 03:05:00 Alexandria Del Real URINALYSIS SCREEN AND 2020-02-22 03:05:00 Cheryl Piper MICROSCOPY, WITH REFLEX [facility] TO CULTURE CONSULT TO SEPSIS 2020-02-22 02:55:55 Cheryl Piper RESPONSE TEAM [facility] LACTIC ACID LEVEL, SEPSIS 2020-02-22 01:59:00 Alexandria Del Real - NOW AND REPEAT 2X EVERY 3 HOURS BLOOD CULTURE, AEROBIC & 2020-02-22 01:54:00 Alexandria Del Real ANAEROBIC TYPE AND SCREEN 2020-02-22 01:54:00 Alexandria Del Real CBC WITH PLATELET AND 2020-02-22 01:54:00 Alexandria Del Real DIFFERENTIAL PROTHROMBIN TIME WITH INR 2020-02-22 01:54:00 Alexandria Del Real PARTIAL THROMBOPLASTIN 2020-02-22 01:54:00 Alexandria Del Real on [facility] TIME (PTT) LACTIC ACID LEVEL, SEPSIS 2020-02-22 01:54:00 Alexandria Del Real - NOW AND REPEAT 2X EVERY 3 HOURS COMPREHENSIVE METABOLIC 2020-02-22 01:54:00 Alexandria Del Real [facility] PANEL LIPASE LEVEL 2020-02-22 01:54:00 Alexandria Del Real Meth odist ESTIMATED GFR 2020-02-22 01:54:00 Alexandria Del Real odjustina ALCOHOL LEVEL, BLOOD 2020-02-22 01:54:00 Alexandria Del Real MANUAL DIFFERENTIAL 2020-02-22 01:54:00 Alexandria Del Real PREPARE RBC 2020-02-22 01:54:00 Alexandria Del Real Meth odjustina XR CHEST 1 VW 2020-02-22 01:45:17 Alexandria Del Real Meth odist OK CRITICAL CARE, E/M 2020-02-22 01:37:13 Alexandria Del Real n [facility] 30-74 MINUTES INTUBATION 2020-02-22 01:37:13 Alexandria Del Real Meth odist HC CVL NON-TUNNELED 2020-02-22 01:37:13 Alexandria Del Real INSERT 5YRS OR > ECG ED PRELIMINARY 2020-02-22 01:37:13 Alexandria Del Real ethodist INTERPRETATION ARTERIAL BLOOD GAS 2020-02-22 01:15:00 Alexandria Del Real ethodist BLOOD CULTURE, AEROBIC & 2020-02-22 01:10:00 Alexandria Del Real stocarolina Tracey ANAEROBIC ECG 12-LEAD 2020-02-22 00:54:56 Alexandria Del Real Meth [facility]ist LACTIC ACID LEVEL 2019-12-27 08:51:00 Valeriano Noe [facility] LACTIC ACID LEVEL 2019-12-26 17:05:00 Mofor, Gloriaycroyce Morgan on [facility] LACTIC ACID LEVEL 2019-12-26 13:43:00 Mofor, Gloriayce Aristidesla Adat on [facility] CT ANGIOGRAM ABDOMEN 2019-12-26 12:56:45 Mofor, Alea mcgarry [facility] PELVIS W AND OR WO CONTRAST ENTERIC VIRAL PANEL 2019-12-26 11:43:00 Valeriano Noe [facility] COMPREHENSIVE METABOLIC 2019-12-26 09:44:00 Mofor, Alea [place] [facility] PANEL ESTIMATED GFR 2019-12-26 09:44:00 Mofor, Loyce Devyn [place] [facility] LACTIC ACID LEVEL 2019-12-26 08:50:00 Valeriano Noe [facility] TTE COMPLETE, WO 2019-12-26 07:20:00 Valeriano Noe on [facility] CONTRAST, W DOPPLER ([id number]) LACTIC ACID LEVEL, SEPSIS 2019-12-26 01:29:00 Yousuf Gay - NOW AND REPEAT 2X EVERY B. 3 HOURS XR CHEST 1 VW PORTABLE 2019-12-26 00:59:54 Srinivas Gay ECG 12-LEAD 2019-12-26 00:38:[address] ABDOMEN PELVIS W 2019-12-25 21:56:42 Srinivas Gay CONTRAST B. OK CRITICAL CARE, E/M 2019-12-25 21:30:02 Srinivas Gay 30-74 MINUTES B. ECG ED PRELIMINARY 2019-12-25 21:30:02 Srinivas Gay on [facility] INTERPRETATION B. XR CHEST 1 VW PORTABLE 2019-12-25 20:49:04 Srinivas Gay ECG 12-LEAD 2019-12-25 20:45:37 Srinivas Gay HC COMPLETE BLD COUNT 2019-12-25 20:12:00 Srinivas Gay W/AUTO DIFF B. COMPREHENSIVE METABOLIC 2019-12-25 20:12:00 Srinivas Gay PANEL B. LACTIC ACID LEVEL, SEPSIS 2019-12-25 20:12:00 Yousuf Gay - NOW AND REPEAT 2X EVERY B. 3 HOURS LIPASE LEVEL 2019-12-25 20:12:00 Srinivas Gay ESTIMATED GFR 2019-12-25 20:12:00 Srinivas Gay SMEAR REVIEW 2019-12-25 20:12:00 Srinivas Gay COVID-19 QUALITATIVE PCR 2019-12-25 20:09:00 Srinivas Gay BASIC METABOLIC PANEL (7) 2019-12-12 09:51:00 Boo Newman [facility] HEPATIC FUNCTION PANEL 2019-12-12 09:51:00 Boo Newman [facility] [place] ALPHA FETOPROTEIN (AFP), 2019-12-12 09:51:[address] [facility] TUMOR MARKER [facility] HEPATITIS B PCR, 2019-12-12 09:51:00 Boo Newman [facility] CBC W/PLT COUNT & AUTO 2019-12-12 09:51:00 Boo Newman [facility] MR ABDOMEN WITH & WITHOUT 2019-12-12 09:12:00 Boo Newman [facility] POCT-CREATININE 2019-12-12 08:29:00 Boo Newman [facility] CV LEFT HEART CATH LV 2019-08-02 15:25:25 Mason Abarca on [facility] GRAM WITH CORS MAGNESIUM LEVEL 2019-08-02 08:50:00 Tone Simpson Meth odist Darian TROPONIN 2019-08-01 21:40:00 Josue Desirae Meek Kenny thodist [place] TROPONIN 2019-08-01 18:41:00 Josue Desirae [facility] [place] XR RIBS W PA CHEST LEFT 2019-08-01 16:45:01 Desirae Salas HC COMPLETE BLD COUNT 2019-08-01 15:43:00 Desirae Salas [facility] W/AUTO DIFF Skyler COMPREHENSIVE METABOLIC 2019-08-01 15:43:00 Desirae Salas [facility] PANEL Skyler TROPONIN 2019-08-01 15:43:00 Josue Desirae [facility] T[facility] [place] B NATRIURETIC PEPTIDE 2019-08-01 15:43:00 Desirae Salas ESTIMATED GFR 2019-08-01 15:43:00 Josue Desirae Edne Tn lyric [place] ECG ED PRELIMINARY 2019-08-01 15:33:00 Desirae Salas [facility] INTERPRETATION Skyler ECG 12-LEAD 2019-08-01 15:30:28 Desirae Salas Tn lyric [place] CT ANGIOGRAM PE CHEST 2019-07-03 13:22:49 Tone Simpson n Kyung Farmer US ABDOMEN COMPLETE 2019-07-03 09:30:00 Boo Newman [facility] TROPONIN 2019-07-02 11:27:00 Mary Larios Tn thodist TTE COMPLETE, WO 2019-07-02 10:11:38 Ashley Prieto [facility] CONTRAST, W STANLEY Hooper ([id number]) TROPONIN 2019-07-02 05:48:00 Mary Larios Me thodist LIPID PANEL 2019-07-02 05:48:00 Ashley Prieto Meek [facility] Sandie TROPONIN 2019-07-02 03:35:00 Mary Larios Me thodist BASIC METABOLIC PANEL 2019-07-02 03:35:00 Mary Larios ton [facility] IONIZED CALCIUM 2019-07-02 03:35:00 Mary Larios [place] Me thodist MAGNESIUM LEVEL 2019-07-02 03:35:00 Mary Larios [place] Me thodist PHOSPHORUS LEVEL 2019-07-02 03:35:00 Mary Larios [place] M ethodist ESTIMATED GFR 2019-07-02 03:35:00 Mary Larios [place] Me thodist ECG 12-LEAD 2019-07-02 03:29:25 Mary Larios [place] Me thodist TROPONIN 2019-07-01 22:19:00 Nestor Lundy [facility] Ankush TROPONIN 2019-07-01 19:41:00 Nestor Lundy [facility] Ankush XR CHEST 2 VW 2019-07-01 18:37:26 Marshal Moizmonroe [place] Meth odist ECG ED PRELIMINARY 2019-07-01 18:13:39 MarshalMoiz goodrich M ethodist INTERPRETATION HC COMPLETE BLD COUNT 2019-07-01 18:08:00 Nestor Lundy W/AUTO DIFF Ankush COMPREHENSIVE METABOLIC 2019-07-01 18:08:00 Balta Lundy PANEL Ankush TROPONIN 2019-07-01 18:08:00 Nestor Lundy Ankush B NATRIURETIC PEPTIDE 2019-07-01 18:08:00 Nestor Lundy Ankush ESTIMATED GFR 2019-07-01 18:08:00 Nestor Lundy Ankush LIPASE LEVEL 2019-07-01 18:08:00 Moiz Araya Meth odist ECG 12-LEAD 2019-07-01 17:05:18 Nestor Lundy BASIC METABOLIC PANEL (7) 2019-05-31 10:06:00 Boo Newman [facility] HEPATIC FUNCTION PANEL 2019-05-31 10:06:00 Boo Newman [facility] PROTHROMBIN TIME/INR 2019-05-31 10:06:00 Boo Newman [facility] ALPHA FETOPROTEIN (AFP), 2019-05-31 10:06:00 Boo Newman [facility] TUMOR MARKER [facility] HEPATITIS B SURFACE 2019-05-31 10:06:00 Boo Newman [facility] ANTIGEN [facility] HEPATITIS B E ANTIGEN 2019-05-31 10:06:00 Boo Newman [facility] HEPATITIS B E ANTIBODY 2019-05-31 10:06:00 Boo Newman [facility] HEPATITIS B PCR, 2019-05-31 10:06:00 Boo Newman [facility] HBSAG CONFIRMATION 2019-05-31 10:06:00 Boo Newman [facility] CBC W/PLT COUNT & AUTO 2019-05-31 10:06:00 Boo Newman [facility] Plan of Care Planned Activity Planned Date Details Comments Source Future Scheduled 2020-02-25 INFLUENZA VACCINE (#1) [facility] - Test 00:00:00 [code = INFLUENZA Medical Ce nter VACCINE (#1)] Future Scheduled 2020-01-25 INFLUENZA VACCINE [place] [facility] Test 00:00:00 [code = INFLUENZA VACCINE] Future Scheduled 2019-03-10 65+ PNEUMOCOCCAL [place] [facility] Test 00:00:00 VACCINE (2 of 2 - PPSV23) [code = 65+ PNEUMOCOCCAL VACCINE (2 of 2 - PPSV23)] Future Scheduled 2017-06-[address] [facility] - Test 00:00:00 WELLNESS (YEAR 2 or Medical Center FIRST YEAR if no IPPE) [code = MEDICARE ANNUAL WELLNESS (YEAR 2 or FIRST YEAR if no IPPE)] Future Scheduled 2012 P[address]OCCAL [address] - Test 00:00:00 LOW/MEDIUM RISK (1 of Medica Center 2 - PCV13) [code = PNEUMOCOCCAL 65+ LOW/MEDIUM RISK (1 of 2 - PCV13)] Future Scheduled 1997 COLONOSCOPY SCREENING Ho zeferino [facility] Test 00:00:00 [code = COLONOSCOPY SCREENING] Future Scheduled 1997 SHINGLES VACCINES (#1) H annabel [facility] Test 00:00:00 [code = SHINGLES VACCINES (#1)] Future Scheduled [address] Test 00:00:00 malignant neoplasm of Medica l Center colon (procedure) [code = 706647841] Encounters Start End Encounter Admission Attending Care Care Encounter Source Date/Time Date/Time Type Type Clinicians Facility Department ID 2020-02-22 2020-03-09 Inpatient [facility] [id number] [place] 00:00:00 00:00:00 VALERIANO 424 Method i 2020-01-02 2020-01-02 Office RAISSA Glass [id number] 08:08:44 08:18:44 Visit Ion AMBULATOR 350.1.13.21 Tae-Jin Y 0.2.7.2.[id number] [facility] 2019-12-25 2019-12-27 Inpatient [facility]MU[facility], [facility] [id number] [place] 00:00:00 00:00:00 VALERIANO 753 Method i 2019-12-06 2019-12-07 Office RAISSA Glass [id number] 08:50:00 09:54:02 Visit Ion AMBULATOR 350.1.13.21 Tae-Jin Y 0.2.7.2.[id number] [facility] 2019-08-01 2019-08-03 [facility] [id number] [place] 00:00:00 00:00:00 VALERIANO 139 Method i 2019-07-01 2019-07-03 Outpatient [facility] [id number] [place] 00:00:00 00:00:00 VALERIANO 938 Method i 2018-12-07 2018-12-07 Outpatient Neurology Neurology [id number] eClinic 09:30:00 09:30:00 [facility] Sandrine morgan [facility] Results Test Description Test Time Test Comments Results Result Comments Source POC glucose 2020-03-09 16:03:13 Test Item Value Reference Range Interpretation Comme nts POC glucose (test code = 78662-1) 112 mg/dL 65-100 H Shrimp Peeler Name: Nick Kramer ID : [id number] Lab Interpretation (test code = Abnormal 41862-3) [facility] [id number] 06:42:25 Test Item Value Reference Range Interpretation Comments PTT (test code = 53.3 23.0- 36.0 sec H PTT thera peutic range 3173-2) for unfractiona jerica heparin is61.0- 112.0 seconds which corresponds to Anti-Xa0.3-0.7 U/ml. Lab Interpretation Abnormal (test code = 39767-8) [facility] [id number] 06:25:26 Test Item Value Reference Range Interpretation Comments WBC (test code = 61589-8) 14.2 4.2- 11.0 k/uL H RBC (test code = 76521-5) 2.43 m/uL 4.04-5.86 L HGB (test code = 718-7) 7.3 g/dL 13-17.3 L HCT (test code = 4544-3) 23.2 % 34-45 L MCV (test code = 787-2) 95.5 fL 80-98 MCH (test code = 785-6) 30.0 pg 27-34 MCHC (test code = 786-4) 31.5 g/dL 31.5-36.5 RDW - SD (test code = 52434-6) 82.4 fL 37-51 H MPV (test code = 10895-5) 12.3 fL 7.4-10.4 H Platelet count (test code = 419 150- 400 k/uL H 04558-2) Nucleated RBC (test code = 05189-5) 0.00 /100 WBC Lab Interpretation (test code = Abnormal 69617-0) [facility] [id number] 23:43:22Gram stain isolateOccasional WBC's No organisms seen Comment: Specimen InformationSpecimen Source: Bronchial WashingSpecimen Site: Right and left lobes [facility] with platelet and [id number] 06:45:10 Test Item Value Reference Range Interpretation Comments WBC (test code = 87463-3) 13.4 4.2- 11.0 k/uL H RBC (test code = 86708-2) 2.45 m/uL 4.04-5.86 L HGB (test code = 718-7) 7.2 g/dL 13-17.3 L HCT (test code = 4544-3) 23.5 % 34-45 L MCV (test code = 787-2) 95.9 fL 80-98 MCH (test code = 785-6) 29.4 pg 27-34 MCHC (test code = 786-4) 30.6 g/dL 31.5-36.5 L RDW - SD (test code = 43073-5) 84.7 fL 37-51 H MPV (test code = 71859-0) 12.1 fL 7.4-10.4 H Platelet count (test code = 345 150- 400 k/uL 73506-0) Nucleated RBC (test code = 37042-7) 0.00 /100 WBC Neutrophils (test code = 73677-0) 86.0 % 36-66 H Lymphocytes (test code = 19488-7) 6.0 % 24-44 L Monocytes (test code = 13072-3) 4.0 % 0-6 Eosinophils (test code = 75359-9) 0.0 % 0-6 Basophils (test code = 80000-9) 1.0 % 0-1.2 Lab Interpretation (test code = Abnormal 84954-4) [place] MethodistManual [id number] 06:45:10 Test Item Value Reference Range Interpretation Comments Manual differential (test code = PERFORMED 46791-4) Neutrophils (test code = 86.0 % 36-66 H 38240-7) Lymphocytes (test code = 6.0 % 24-44 L 41372-5) Monocytes (test code = 50942-4) 4.0 % 0-6 Eosinophils (test code = 0.0 % 0-6 71123-1) Basophils (test code = 71576-2) 1.0 % 0-1.2 Metamyelocytes (test code = 0 % 0-1 740-1) Myelocytes (test code = 749-2) 1 % 0-1 Promyelocytes (test code = 0 % 0-1 783-1) Reactive lymphocytes (test code 2.0 = 733-6) Platelet slide review (test code Satya adequate = 06134-9) Toxic granulation (test code = Slight 803-7) Neutrophils, vacuolated (test Slight code = 66571-9) Anisocytosis (test code = 702-1) Moderate Polychromasia (test code = slight 85108-9) Tear drop cells (test code = Occasional 7791-7) Schistocytes (test code = 800-3) Occasional Target cells (test code = few 11619-2) Spherocytes (test code = 802-9) Occasional Ovalocytes (test code = 774-0) few Elier cells (test code = 7790-9) Occasional Enlarged platelets (test code = Occasional 10465-5) Giant platelets (test code = Occasional 5908-9) Stomatocytes (test code = Occasional 29504-1) Lab Interpretation (test code = Abnormal 71679-7) [place] MethodistBasic metabolic [id number] 05:22:30 Test Item Value Reference Range Interpretation Comments Sodium (test code = 2951-2) 137 135- 150 mEq/L Potassium (test code = 2823-3) 3.9 3.5- 5.0 mEq/L Chloride (test code = 2075-0) 100 98- 112 mEq/L CO2 (test code = 2027-) 29 mmol/L 24-31 Anion gap (test code = 04838-0) 8@ANIO 7- 15 mEq/L BUN (test code = 3094-0) 17 mg/dL 7-18 Creatinine (test code = 2160-0) 0.60 mg/dL 0.7-1.2 L Glucose (test code = 2345-7) 148 mg/dL 65-100 H Calcium (test code = 25053-6) 8.8 mg/dL 8.8-10.2 Lab Interpretation (test code = Abnormal 10757-8) [place] MethodistMagnesium [id number] 05:22:30 Test Item Value Reference Range Interpretation Comments Magnesium (test code = 02363-7) 2.20 mg/dL 1.6-2.4 [place] MethodistPhosphorus [id number] 05:22:30 Test Item Value Reference Range Interpretation Comments Phosphorus (test code = 2777-1) 2.6 mg/dL 2.4-4.5 [place] MethodistEstimated [id number] 05:22:30 Test Item Value Reference Range Interpretation Comments Estimated GFR (test >=90 mL/min/1.73 m2 April hoover Units code = 5488) InterpretationG 1 >=90 Normal or highG2 60-89 Mildly cttygwuprW1j 45-59 Mildly to mode rately enpmipsoiQ7s 30-44 Moderately to severely decreasedG4 15-29 Severely decre asedG5 <15 Kidn ey failureThe eGFR was calculated daryl dyer the Chronic Kidney Disease Epidemiology Co llaboration (CKD-EPI) equat ion. Interpretation is based on recommendations of the National Kidney Foundation-Kidn ey Disease Outcomes Qualit y Initiative (NKF-KDOQI) pub lished in 2014. [facility] MethodistIonized [id number] 05:08:15 Test Item Value Reference Range Interpretation Comments pH (test code = 2753-2) 7.45 Ionized calcium (test code = 1.23 mmol/L 1.11-1.32 ) [place] MethodistPotassium [id number] 23:02:36 Test Item Value Reference Range Interpretation Comments Potassium (test code = 2823-3) 3.7 3.5- 5.0 mEq/L [place] MethodistECG 12 [id number] 14:19:11 Test Item Value Reference Range Interpretation Comments Ventricular rate (test 91 code = 253) Atrial rate (test code 91 = 255) OK interval (test code 150 = 266) QRSD interval (test 68 code = 260) QT interval (test code 404 = 264) QTC interval (test 496 code = 265) P axis 1 (test code = 62 267) QRS axis 1 (test code 73 = 268) T wave axis (test code 72 = 270) EKG impression (test Normal sinus code = 273) rhythm-Normal ECG-In automated comparison with ECG of 24-FEB-2020 17:39,-Sinus rhythm has replaced Atrial fibrillation-Criteria for Septal infarct are no longer present-Nonspecific T wave abnormality, improved in Anterolateral leads- Meek TraceyXR Chest 1 Vw [id number] 07:39:21 Interface, Radiology Results - 03/05/2020 7:42 AM CDTSINGLE VIEW CHEST, 03/05/2020Clinical History: Stable ICU patient.Technique: Single, portable AP view chest.Comparison: 03/04/2020Impression:1.Tracheostomy, Dobbhoff and right PICC are unchanged.2.Decreasing left basilar predominant atelectasis. No new focal airspace disease. No cavitation. Lungs are otherwise clear.3.Normal heart size and mediastinal contour for technique.4.Normal pulmonary vasculature.5.Slightly decreased trace left pleural effusion. No right effusion. No pneumothorax.6.Intact skeleton.[place] MethodistComprehensive metabolic panel 2020-03-05 05:37:22 Test Item Value Reference Range Interpretation Comments Sodium (test code = 2951-2) 142 135- 150 mEq/L Potassium (test code = 2823-3) 3.4 3.5- 5.0 mEq/L L Chloride (test code = 2075-0) 103 98- 112 mEq/L CO2 (test code = 2027-) 31 mmol/L 24-31 Anion gap (test code = 15706-0) 8@ANIO 7- 15 mEq/L BUN (test code = 3094-0) 18 mg/dL 7-18 Creatinine (test code = 2160-0) 0.70 mg/dL 0.7-1.2 Glucose (test code = 2345-7) 128 mg/dL 65-100 H Calcium (test code = 07860-4) 8.2 mg/dL 8.8-10.2 L Protein (test code = 2885-2) 5.6 g/dL 6.3-8.3 L Albumin (test code = 1751-7) 1.8 g/dL 3.5-5 L A/G ratio (test code = 1759-0) 0.5 0.7-3.8 L Alkaline phosphatase (test code = 89 U/L 0-129 6768-6) AST (test code = 1920-8) 28 U/L 10-50 ALT (test code = 1742-6) 20 U/L 5-50 Total bilirubin (test code = 0.5 mg/dL 0.2-1.2 1974-) Lab Interpretation (test code = Abnormal 63111-6) [place] MethodistArterial blood [id number] 04:39:35 Test Item Value Reference Interpretation Comments Range pH, arterial (test 7.545 7.350- 7.450 H code = 2744-1) units pCO2, arterial (test 36.2 35.0- 45.0 code = 2019-8) mmHg pO2, arterial (test 162.0 80.0- 90.0 H code = 2703-7) mmHg O2 saturation, >100.0 95-100 arterial (test code = 62268-9) Base excess, arterial 8.9 mEq/L (test code = 1925-7) Bicarbonate (test code 31.3 21.0- 28.0 H = 349) mEq/L O2 content (test code 11.1 VOL% = 1828) FiO2, inspired O2% 40.0 % (test code = 1389) Carboxyhemoglobin 1.4 % 0-1.4 Reference Ranges: (test code = 80311-0) Carbox yhemoglobinNon smoker: 0.0 - 2.0%Smoker: 2.1 - 5.0%Heavy smoke r: 5.1 - 9% Methemoglobin (test 0.4 % 0-1 code = 2613-8) Hemoglobin, blood gas 7.8 g/dL 14-18 LL (test code = 64309-7) pO2, A-a (test code = 84.2 mmHg 1989) Lab Interpretation Abnormal (test code = 77751-3) [facility] [id number] 14:28:50Asia Sutherland RN 03/04/2020 2:38 PMPICC insertionDate/Time: 03/04/2020 2:29 PMPerformed by: Asia Sutherland, RNAuthorized by: Valeriano Noe MD Consent: Consent obtained: Verbal Consent given by: Healthcare agent Risks discussed: Arterial puncture, incorrect placement, bleeding, infection, superficial thrombus and deep vein thrombus Alternatives discussed: Delayed treatment and alternative treatmentUniversal protocol: Procedure explained and questions answered to patient or proxy's satisfaction: yes Relevant documents present and verified: yes Test results available and properly labeled: yes Imaging studies available: yes Required blood products, implants, devices, and special equipment available: yes Site/side marked: yes Immediately prior to procedure, a time out was called: yes Patient identity confirmed: Verbally with patient, arm band and hospital-assigned identification numberPre-procedure details: Hand hygiene: Hand hygiene performed prior to insertion Sterile barrier technique: All elements of maximal sterile technique followed Skin preparation: ChloraPrep Skin preparation agent: Completely dried prior to procedure Anesthesia (see MAR for exact dosages): Anesthesia method: Local infiltration Local anesthetic: Lidocaine 1% w/o epi Route administered: SubcutaneousPICC Line Placement Details: Extremity Circumference Upper (cm): 29 Extremity Circumference Forearm (cm): 25 Extremity Circumference Site: 27 Patient position: Flat Vessel Size (mm): 5 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 Location: Right basilic Site selection rationale: Largest vein in dominant arm Device Type: Valved Catheter Lumens: Triple lumen Catheter size: 5 Fr Catheter to vein ratio: 11%PICC Characteristics: Catheter Brand: [employer] Navigation POWER PICC SOLO HF CATHETER WITH SHERLOCK 3 CG TIP POSITIONING SYSTEM External Catheter Length (cm): 0 Internal Catheter Length (cm): 42 Total Catheter Length (cm): 42 Catheter Lot Number: [id number] Catheter Expiration Date: 02/23/2021 Micro-Introducer Lot Number: [id number] M icro-Introducer Expiration Date: 1Procedure details: Landmarks identified: yes Ultrasound guidance: yes Sterile ultrasound techniques: Sterile gel and sterile probe covers were usedNumber of attempts: 1 Number of PICC kits used during procedure: 1 Extra guide wire required?: No Purpose of procedure: PICC Placement Successful PICC Placement: yes Patency/Placement: Flushes without difficulty, flushed with 10 mL normal saline, positive blood return, x-ray placement verified and ultrasound placement verified Dressing/Securement: Catheter securement device and antimicrobial dressing applied Blood Loss Amount: Less than 20 mLPost-procedure details: Post-procedure: Dressing applied Tip placement confirmed by: X-Ray Name of provider who confirmed tip placement:: RADIOLOGIST. SEE CXR. Patient tolerance of procedure: Tolerated well, no immediate complicationsComments: Report to Brittany Pereyra RN, primary ICU nurse.[place] MethodistBronchoscopy 2020-03-04 12:20:56Hieu Pelletier MD 03/04/2020 12:23 PMBronchoscopyDate/Time: 03/04/2020 12:21 PMPerformed by: Hieu Pelletier MDAuthorized by: Hieu Pelletier MD Consent: Consent obtained: Verbal Consent given by: Healthcare agent Alternatives discussed: Referral, observation, alternative treatment, delayed treatment and no treatmentUniversal protocol: Procedure explained and questions answeredto patient or proxy's satisfaction: yes Relevant documents present and verified: yes Test resul ts available and properly labeled: yes Imaging studies available: yes Required blood products,implants, devices, and special equipment available: yes Site/side marked: yes Immediately prior to procedure, a time out was called: yes Patient identity confirmed: Arm band and hospital-assigned identification numberPre-procedure details: Indication: Percutaneous traacheotomy , fever/ sepsis Scope type: Flexible bronchoscope Airway: Intubated Monitoring devices: ECG, NIPB, arterial line and pulse oximetrySedation: Sedation Type: Anxiolysis and Narcotic Anxiolysis used:: Versed Narcotic(s) used:: FentanylWashings: Washings: Right and left Sample sent for: Gram stainPost-procedure details: Patient tolerance of procedure: Patient tolerated the procedure well with noimmediate complications Comments: Patient was sedated with Versed, fentanyl, rocuronium. Broncho scopy was inserted and bilateral secretions cleared, patient had significant secretions on the left lower lobe, suctioned and sent for cultures, subsequently endotracheal tube was slowly withdrawn up to around 1718 cm, and assisted with percutaneous tracheostomy, after trach inserted bronchoscopy wasinserted into the trachea through the tracheostomy and confirmed positionNogal Restorationist Prothrombin time with [id number] 07:57:13 Test Item Value Reference Range Interpretation Comments Prothrombin time 14.7 11.5- 14.5 sec H (test code = 5902-2) INR (test code = 1.15 [place] [address]-2) anticoagulant t herapy, reference range s below:Indicatio n: INR ValueTreatment of Venous Thrombosis, 2.0-3.0pulmonar y emboli, or prophylaxiso f a venous thrombosis, or systemic emboli.High dos e, high risk patients 3.0-4.5with mec hanical valves.NOTE: I NR values over 3.0 are so metimes associated withgastrointes tinal hemorrhage, francisca ecially values over 4.0 . Lab Interpretation Abnormal (test code = 21632-0) [place] RestorationistMRSA screen [id number] 18:17:55 Test Item Value Reference Interpretation Comments Range MRSA screen No Methicillin Specimen culture Resistant InformationSpec imen isolate (test Staphylococcus Source: Teetee sSpecimen code = 1754) aureus isolated. [facility] [id number] 17:50:46 Test Item Value Reference Range Interpretation Comments BNP (test code = 20433-1) 463 pg/mL 0-100 H Lab Interpretation (test code = Abnormal 76332-1) [place] Sumanmear [id number] 15:09:51 Test Item Value Reference Range Interpretation Comments Platelet slide review (test code Satya adequate = 36074-4) Anisocytosis (test code = 702-1) Moderate Polychromasia (test code = SLIGHT 00318-2) Tear drop cells (test code = OCCASIONAL 7791-7) Schistocytes (test code = 800-3) OCCASIONAL Target cells (test code = FEW 12653-4) Spherocytes (test code = 802-9) OCCASIONAL Ovalocytes (test code = 774-0) FEW Enlarged platelets (test code = FEW 20457-4) Toxic granulation (test code = SLIGHT 803-7) [place] RestorationistPrepare RBC, 1 [id number] 04:41:00 Test Item Value Reference Range Interpretation Comments Product name (test code Red Blood Cells -1, = 25) Leukored Unit number (test code [id number] = [id number]) Product code (test code [id number] = 3092) Dispense status (test Transfused code = 24) Blood expiration date (test code = 302) Blood type code (test 5100 code = 308) Blood type (test code = O POSITIVE 1314) Compatibility (test Compatible code = 6400) [place] MethodistAnti Xa, [id number] 03:46:08 Test Item Value Reference Range Interpretation Comments Anti Xa, unfractionated 0.12 U/mL 0.3-0.7 L Ther apeutic Range: (test code = 3274-8) 0.30 - 0.70 U/mL Lab Interpretation (test Abnormal code = 53067-2) [place] RestorationistOccult blood, [id number] 13:17:48 Test Item Value Reference Interpretation Comments Range Occult blood, stool Positive for A Specimen (test code = Occult blood InformationSpec imen 2334-1) Source: StoolSp ecimen Site: Nonpreser laura Lab Interpretation Abnormal (test code = 33469-5) [facility] MethodistAmmonia sxbbz4591-73-74 09:28:28 Test Item Value Reference Range Interpretation Comments Ammonia (test code = 1841-6) 25 umol/L 16-60 N[facility] MethodistLactic acid dayqh4327-25-42 09:09:50 Test Item Value Reference Range Interpretation Comments Lactic acid (test code = 39016-8) 0.8 mmol/L 0.5-2.2 [facility] MethodistXR Abdomen 1 [id number] 06:45:56Hm Interface, Radiology Results 02/29/2020 6:49 AM CDTEXAMINATION: XR ABDOMEN 1 VWCLINICAL HISTORY: DobbhoffCOMPARISON: 02/03/2020 IMPRESSION:Dobbhoff tube has its tip in the distal thirdof the stomach. Bowel gas pattern is nonobstructive. There is no gross intra-abdominal free air. There is bilateral perihilar infiltrate or edema as well as left basilar opacities and volume loss and possible effusion. [facility] MethodistType and piyesw7720-45-82 05:30:00 Test Item Value Reference Range Interpretation Comments ABO grouping (test code = 883-9) O Rh type (test code = 73708-2) POS Antibody screen (gel) (test code = NEG 890-4) N[facility] MethodistBilirubin pismoc9306-42-73 03:39:31 Test Item Value Reference Range Interpretation Comments Bilirubin direct (test code = 0.6 mg/dL 0-0.4 H 1967-12) Lab Interpretation (test code = Abnormal 95367-5) Meek VlbplvgmbHnqnkyjxzigl1875-33-02 21:15:18SafNaldo wiggins MD 02/28/2020 9:18 PMBronchoscopyDate/Time: 02/28/2020 9:15 PMPerformed by: Naldo Rene MDAuthorized by: Naldo Rene MD Consent: Consent obtained: Writtenand verbal Consent given by: Guardian (Consent been obtained from the patient daughter on the phone as the patient has altered mental status unable to give consent at this time)Crossnore protocol: Procedure explained and questions answered to patient or proxy's satisfaction: yes Relevant documents present and verified: yes Test results available and properly labeled: yes Imaging studies available: yes Required blood products, implants, devices, and special equipment available: yesSite/side marked: yes Immediately prior to procedure, a time out was called: yes Patient identity confirmed: Verbally with patient, provided demographic data and arm bandPre- procedure details:Indication: Acute hypoxemic respiratory failure, copious secretion, possible mucous plugging Scopetype: Flexible bronchoscope Airway: Intubated Monitoring devices: ECG, pulse oximetry and CVPSedation: Sedation Type: Systemic Systemic used:: PrecidexFindings: Findings: Erythema (Extensive amount of copious secretions mainly in the left bronchus with mucous plugging of the left lower lobe and lingula) Secretion consistency: Thick Secretion amount: LargePost-procedure details: Patient tolerance of procedure: Patient tolerated the procedure well with no immediate complications Comments: Immediately after intubating the patient and connected to mechanical ventilator I went through the ET tube using flexible bronchoscopy and once to trachea which has some erythematous changes and then went to left main stem and left upper lobe had mucous secretions with some subsegmental plugging which I did suction out and then went to right mainstem went down to bronchus intermedius and left right middle lobe right lower lobe has thick secretions which I suctioned out no mucous plugging. I went to the trachea again and then went to the left mainstem which has thick mucus secretions that I suctioned out also it looks purulent secretions and went down to left lower lobe which had mucousplugging that I suctioned out also went down to left upper lobe and lingula also had thick secretions but no plugging.[facility] MethodistIntubation 2020-02-28 21:13:47SaNaldo montoya MD 02/28/2020 9:15 PMIntubationDate/Time: 02/28/2020 9:13 PMPerformed by: Naldo Rene MDAuthorized by: Naldo Rene MD Consent: Consent obtained: Verbal Consent given by: Guardian (Sent was taken from the patient daughter on the phone as the patient is confused and not able to give consent at this time.) Risks discussed: Aspiration, bleeding, , brain injury, dental trauma, hypoxia, laryngeal injury and pneumothoraxUniversal protocol: Procedure explained and questions answered to patient or proxy's satisfaction: yes Relevant documents present and verified: yes Test results available and properly labeled: yes Imaging studies available: yes Required blood products, implants, devices, and special equipment available: yes Site/side marked: yes Immediately prior to procedure, a time out was called: yes Patient identity confirmed: Verbally with patient, arm band and provided demographic dataPre-procedure details: Patient status: Altered mental status Mallampati score: 1 Induction: Etomidate Paralytics: RocuroniumProcedure details: Preoxygenation: BiPAP Intubation method: Oral Technique: Video laryngoscopyLaryngoscope blade: Mac 4 Grade view: 2 Difficult airway?: No Tube size (mm): 8.0 Tube type: Cuffed Number of attempts: 1 Tube visualized through cords: yes Placement assessment: ETT tolip: 23 ETT to teeth: 22 Tube secured with: Adhesive tape Breath sounds: Equal Placement verification: chest rise, direct visualization, equal breath sounds, ETCO2 detector and fiberoptic scope CXR findings: ETT in proper placePost-procedure details: Patient tolerance of procedure: Tolerated well, no immediate complicationsComments: Indication of procedure acute hypoxemic respiratory failure, copious secretions, mucous pluggingNogal MethodistHeparin PF4 antibody (IgG)2020-02-27 23:23:37 Test Item Value Reference Range Interpretation Comments Heparin PF4 Ab OD reading (test code 0.084 0.000-0.399 = 1500) Heparin PF4 Ab, IgG (test code = Negative Negative 76684-0) N[facility]al YvvylgzogDkyerjeujofk1621-41-02 15:18:37Hieu Pelletier MD 02/27/2020 3:20 PMBronchoscopyDate/Time: 02/27/2020 3:18 PMPerformed by: Hieu Stephens MDAuthorized by: Hieu Pelletier MD Consent: Consent obtained: Verbal Consent given by: Healthcare agent Alternatives discussed: Referral, observation, alternative treatment, delayed treatment and no treatmentUniversal protocol: Procedure explained and questions answered to patient or proxy's satisfaction: yes Relevant documents present and verified: yes Test results available and properly labeled: yes Imaging studies available: yes Required blood products, implants, devices, and special equipment available: yes Site/side marked: yes Immediately priorto procedure, a time out was called: yes Patient identity confirmed: Arm band and hospital-assigned identification numberPre-procedure details: Indication: Acute Hypoxemic Respiratory Failure, Atelectasis, Sepsis Scope type: Flexible bronchoscope Airway: Intubated Monitoring devices: ECG,NIPB, arterial line and pulse oximetrySedation: Sedation Type: Anxiolysis and Narcotic Anxiolysis used:: Versed Narcotic(s) used:: FentanylFindings: Location of endotracheal tube: Pushed et tube by 2 cm Secretion consistency: Thick Secretion amount: ModerateWashings: Washings: Right and left Sample sent for: Gram stainLavage: Bronchoscopy Lavage: Laterality: rml. Sample sent for : Gram stain and routine culturePost-procedure details: Patient tolerance of procedure: Patient tolerated the procedure well with no immediate complications Comments: Thick copious mucous secretions , mucous plus bilaterally , mucosal edema and inflammation with friability right side- Bronch, bal - rml done and cultures sentNogal [facility]istSt. [facility] culture, aerobic & anaerobic 2020-02-27 09:33:04 Test Item Value Reference Range Interpretation Comments Blood culture No growth Specimen isolate (test after 5 days InformationSpe cimen code = 600-7) of Source: BloodS pecimen incubation. [facility] hospitalHep[facility] function [id number] 04:03:20 Test Item Value Reference Range Interpretation Comments Albumin (test code = 1751-7) 1.8 g/dL 3.5-5 L Total bilirubin (test code = 2.8 mg/dL 0.2-1.2 H 1974-2) Bilirubin direct (test code = 2.0 mg/dL 0-0.4 H 1967-7) Alkaline phosphatase (test code = 150 U/L 0-129 H 6768-6) Protein (test code = 2885-2) 4.6 g/dL 6.3-8.3 L ALT (test code = 1742-6) 96 U/L 5-50 H AST (test code = 1920-8) 127 U/L 10-50 H Lab Interpretation (test code = Abnormal 91096-8) [facility] Wo Zxfhnuol4379-86-36 15:13:12 Interface, Radiology Results Incoming - 02/26/2020 3:16 PM CDTEXAMINATION: MRI BRAIN WO CONTRAST CLINICAL HISTORY: Altered level of consciousness (LOC) unexplainedCOMPARISON: None.Findings:Mild diffusion restriction in the right posterior cerebellum measures 1.9 x 1 cm compatible with recent ischemia. No hemorrhage or mass effect. Questionable punctate focus of diffusion restriction in the left posterior temporal lobe.No intracranial hemorrhage, extra-axial fluid collections or parenchymal mass lesions. No hydrocephalus. No suspicious focal bone marrow lesions.Mild chronic ischemic small vessel white matter changes. Major flow voids are maintained. Mild chronic ischemic small vessel white matter changes. 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 Questionable punctate focus of recent ischemia in the left posterior temporal lobe.Findings were discussed with and acknowledged by DAVID Parker at 02/26/2020 3:10 PM. [facility]-[id number] Restorationist Venous blood jub1732-68-30 09:29:11 Test Item Value Reference Interpretation Comments Range pH, venous (test code 7.428 7.320- 7.420 H = 2746-6) units pCO2, venous (test 39.4 45.0- 51.0 L code = 1-4) mmHg pO2, venous (test code 42.4 25.0- 40.0 H = 2705-2) mmHg O2 saturation, venous 77.5 % 40-70 H (test code = 59354-6) Base excess, venous 1.7 -2.0 - 2.0 (test code = 1927-3) mEq-L Bicarbonate (test code 26.0 21.0- 28.0 = 349) mEq/L O2 content (test code 7.5 VOL% = 1828) FiO2, inspired O2% 30.0 % (test code = 1389) Carboxyhemoglobin 1.7 % 0-1.4 H Reference Ranges: (test code = 71861-1) Carbox yhemoglobinNon smoker: 0.0 - 2.0%Smoker: 2.1 - 5.0%Heavy smoke r: 5.1 - 9% Methemoglobin (test 1.3 % 0-1 H code = 2613-8) Hemoglobin, blood gas 7.0 g/dL 14-18 LL NOT CR ITICAL (test code = 49550-3) Lab Interpretation Abnormal (test code = 57455-6) [facility] MethodistSurgical pathology fruegzb9450-02-04 14:33:23 Test Item Value Reference Range Interpretation Comments Case number (test code = [id number]) Surgical pathology See link below for report (test code = PDF Lab Report [id number]) Result status (test code This is Final Report = [id number]) for [id number] [facility] MethodistTransthoracic Echocardiogram Complete, (w Contrast, Strain and 3D if needed)2020-02-24 17:39:17 Test Item Value Reference Range Interpretation Comments Ao Root Diameter (test 3.32 cm code = 5373781532) AoV Area, Vmax (test 3.14 cm2 code = 2061070361) AoV Area, VTI (test 3.97 cm2 code = 4940048309) AoV Mean PG (test code 0.91 mmHg = 9732981815) AoV Peak PG (test code 1.44 mmHg = 0503239040) AoV Vmax (test code = 0.60 m/s 0672254916) AoV VTI (test code = 0.10 m 8890373039) BSA Lucio (test code = 1.72 m2 4054599303) BSA (test code = 1.75 m2 2575714047) IVS,d (test code = 0.72 cm 8482341740) IVS/LVPW,2D (test code 0.90 = 2975157535) Left Atrium Dimension 2.75 cm Anterior (test code = 5517943536) LV,d (test code = 4.23 cm 6113021244) LV EF,2D (test code = 29.91 % 8985667288) LV EF,A4C (test code = 19.80 % 7590468881) Artem Mesa,d A4C (test 6.98 cm code = 8308936397) Artem Mesa,s A4C (test 6.72 cm code = 5791197732) LV,s (test code = 3.76 cm 1758515538) LV SV,A4C (test code = 15.49 % 5427725359) LV Vol,d A4C (test code 78.26 ml = 7753940715) LV Vol,s A4C (test code 62.76 ml = 9513266064) LVOT area (test code = 3.56 cm2 8549966112) LVOT Diam,S (test code 2.13 cm = 9411720513) LVOT Vmax (test code = 0.53 m/s 6210102113) LVOT VTI (test code = 0.11 m 2194972551) LVPWD,d (test code = 0.80 cm 1548752920) PV Pk Grad (test code = 0.71 mmHg 0648008761) PV VMAX (test code = 0.42 m/s 8340076829) MV E A ratio (test code 3.03 = 9503703438) AoV area i VTI BSA 2.27 cm2/m2 [place] (test code = 8594979546) BMI (test code = 19.94 kg/m2 0260938823) E wave decelartion time 166.88 msec (test code = 0735061141) MV Peak A Bakari (test 0.24 m/s code = 6250999522) MV valve area p 1/2 4.55 cm2 method (test code = 3102158925) MV Peak E Bakari (test 0.74 m/s code = 6192794901) MV stenosis pressure 48.40 ms 1/2 time (test code = 2443495575) AV LVOT peak gradient 1.13 mmHg (test code = 7110410307) Ascending aorta (test 3.23 cm code = 6166985216) Ao Root Diameter (test 3.32 cm code = 1023292370) LV SYS VOL (test code = 60.31 ml 3234660400) LV ANGELES VOL (test code 79.91 ml = 1504360125) LA area s A4C (test 15.46 cm2 code = 2603067199) LV SI Teich 2D (test 11.22 ml/m2 code = 6879379489) LV SV Teich 2D (test 19.60 ml code = 0692236486) LV Vol s Teich PSAX 60.31 ml (test code = 8946883541) LVOT CI (test code = 1.65 l/min/m2 3440373992) LVOT CO (test code = 2.88 l/min 6082473045) LVOT HR for LVOT CO 75.88 bpm (test code = 0312246473) LVOT SI (test code = 21.72 ml/m2 4993518190) BSA [place]cock (test code 1.72 m2 = 4403803642) AoV Vmn (test code = 0.46 2087137514) IVS s 2D (test code = 0.92 2111720696) LV FS Teich 2D (test 11.17 code = 3144830398) MV AE ratio (test code 0.33 = 5694602336) LV FS Cube 2D (test 11.17 code = 7561467118) LVOT Vmn (test code = 0.34 0845637670) Pt Size (test code = 175.26 3796072555) Pt Wt (test code = 61.23 9309712767) Aov area Vmn (test code 2.61 cm2 = 1040408120) LA A_P score P (test 0.17 code = 3625315900) LVOT mean grad (test 0.53 mmHg code = 0602258327) MAX Pred HR (test code 147.03 = 5541774515) 85 of MPHR (test code = 124.98 8670576779) AoV area I VMN bsa 1.49 cm2/m2 (test code = 6132516954) Calc MPHR (test code = 147.03 bpm 5240181855) IVS pct thck PLAX (test 27.59 % code = 1225516313) LV SI Cube 2D (test 12.95 ml/m2 code = 0760116910) LV SV Cube 2D (test 22.64 ml code = 8528527344) LV vol d cube 2D (test 75.69 ml code = 2419803307) LV vol s cube 2D (test 53.05 ml code = 1926952787) LVPW pct thck PLAX 32.78 % (test code = 7574116997) LVPW s PLAX (test code 1.06 cm = 1201864734) MV Decel slope (test 4.41 m/s2 code = 7222023200) Pred Exer Dur R1 (test 6.72 code = 3096360239) Pred METS R1 (test code 7.05 = 2379213095) LA Vol MOD A4C (test 35.48 ml code = 9703296593) Velocity Ratio (V1/V2) 0.88 m/s (test code = 4689) EF (test code = 24.53 % 1967573404) E/A ratio (test code = 3.08 3053406387) PETEY (test code = PETEY) The left ventricular chamber size is mildly enlarged. Left ventricular systolic function is severely impaired. Left Ventricular ejection fraction is 25 - 30%. There is mild to moderate Severely Hypokinetic in the anterior septal segment of the wall. Right Ventricle: [place] [place] Abdomen Rswyggvw7627-60-53 10:42:26Hm Interface, Radiology Results 02/24/2020 10:45 AM CDTEXAM: US ABDOMEN COMPLETECLINICAL D ROBERT: Assess for signs of cirrhosis liver nodularity splenomegaly signs of portal hypertensionCOMPARISON: NONE.FINDINGS: PANCREAS: The head and body of the pancreas are unremarkable. The tail of the is not well seen on the current study.LIVER: The liver demonstrates normal echogenicity without focal mass or intrahepatic biliary ductal dilatation.MPV: Doppler evaluation of the portal vein demonstrates normal hepatopedal flow. CBD: 0.72 cm within normal limits.GALLBLADDER: The gallbladder is without evidence of calculi. The gallbladder wall is not thickened thickened. There is some minimal pe richolecystic fluid. Mild sludge is present within the gallbladder.RIGHT KIDNEY: The right kidney is normal in size and echogenicity. There is no evidence of mass, calculi, or hydronephrosis. The right kidney measures 12.30 cm LEFT KIDNEY: The left kidney is normal in size and echogenicity. There is no evidence of mass, calculi, or hydronephrosis. The left kidney measures 11.27 cm .SPLEEN: The spleen is homogeneous and not enlarged measuring 8.54 cm AORTA: The visualized upper abdominal aorta demonstrates no evidence of ectasia or aneurysm.IVC: The visualized portions of the inferior vena cava are unremarkable.IMPRESSION:1. The gallbladder demonstrates sludge to be present. There is someminimal pericholecystic fluid. There are no stones identified.2. Common bile duct is not dilated.3. Hepatopedal flow is seen within the portal vein. The spleen is not enlarged.4.There are no signs of portal hypertension.P-[id number] JkrbmacgwLkregdlo4742-34-39 07:49:24 Test Item Value Reference Range Interpretation Comments Troponin (test code = 0.453 ng/mL 0-0.04 H [facility] 33611-4) suspected of pritchett ving a myocardial infarction, sami ng with all other appropriate cli nical measures and ac tions including ECG a nd other diagnosti cs as appropriate, me asure Ultra TnI at 0 hrs and at 3 hrs.Myocardial infarction VERY LIKELYThe 0 hr TnI level is > 0.10 ng/mL ----- ----- ----- --Tim cardial infarct ion LIKELYThe 0 hr TnI level is > 0.04 ng/mL and 3 hr level is increased or decreased by at least 0.020 ng/ mL ----- ----- ----- Tim cardi al infarction V LUIS UNLIKELYBoth th e 0 hr and 3 hr TnI levels <= 0.04 ng/mL(within no rmal limits) OR 0 hr is > 0.04 ng/mL and 3 hr is increased OR decreased by le ss than 0.020 ng/m L Lab Interpretation Abnormal (test code = 55374-2) [place] MethodistThyroid stimulating ioftgzg0261-08-34 16:45:17 Test Item Value Reference Range Interpretation Comments TSH (test code = 3016-3) 0.63 0.27- 4.20 uIU/mL [facility] MethodistHEART/LUNG RESUSCITATION (CPR)2020-02-23 15:52:26SNaldo beavers MD 02/23/2020 3:58 PM Date of Service: 02/23/2020 Code Leader (Attending Provider): Naldo Rene MDDiagnosis: Cardiopulmonary arrestProcedure: Cardiopulmonary resuscitation - CPT code: 29558 Initial events: Ender Rodriguez a 74 y.o. male was found pulseless at 15:29.Comments: Description of events: Compressions: Initiated (02/23/20 1529). 15:29Upon my arrival at the bedside, patient's rhythm was ventricular tachycardia. The initial rhythm reported to me by the code narrator nurse was ventricular fibrillation.CPR Stop Time: Compressions: Stopped for Pulse Check (02/23/20 1535). 15:34CPR Outcome: Code Termination Due to: Return of spontaneous circulation (02/23/20 1535). ROSC Airway: Already intubated Defibrillation/Cardioversion during CPR: Yes Defibrilated @200JxDisposition: remained in ICU following ROSC.Comments: The patient had went into ventricular tachycardia at the ventricular fibrillation he was shocked twice given 1 amp of epinephrine CPR was started at 1529 we got a pulse back after giving him 1 amp of calcium chloride and 1 amp of bicarband re-defibrillated the patient second time.I did order electrolytes and give the patient 2 g of magnesium and also did consult cardiology started on amiodarone we are going to do EKG which shows supraventricular tachycardia rate of 160s to 170. Repeat EKG and will again order echocardiogram also wewill get a trend troponin and start on amiodarone drip. We will get a try to replace electrolytes.Did update the patient sister on the phone Vikki Oquendo and I did try to update the daughter Luz Kirk on the phone but she was not available. Electronically Signed By: Prince Sandoval MD02/23/20 3:52 PMNogal Restorationist Urine owgqdre0293-57-84 09:57:23 Test Item Value Reference Range Interpretation Comments Urine culture No growth Specimen isolate (test after 24 InformationSpe [facility] code = 90663-0) hours Source: Urin eSpecimen Site: Clean cat [facility] MethodistLipase [id number] 05:52:01 Test Item Value Reference Range Interpretation Comments Lipase (test code = 3040-3) 8 U/L 13-60 L Lab Interpretation (test code = Abnormal 81432-9) [facility] MethodistHemoglobin & pcxnvunxja5416-46-51 19:02:45 Test Item Value Reference Range Interpretation Comments HGB (test code = 718-7) 8.4 g/dL 13-17.3 L HCT (test code = 4544-3) 25.0 % 34-45 L Lab Interpretation (test code = Abnormal 07905-8) [facility] MethodistXR Abdomen 1 Wrwlyqtj3896-50-72 15:41:02Hm Interface, Radiology Results 02/22/2020 3:44 PM CDTEXAMINATION: XR ABDOMEN 1 PORTABLECLINICAL HISTORY: feeding tube insertionCOMPARISON: None available.FINDINGS: A Dobbhoff tube terminates within the gastric body.Nonobstructive bowel gas patternNo acute osseous abnormality.IMPRESSI ON:Consider advancement of Dobbhoff tube into the proximal small bowel.1D2RAD_PS01[facility] MethodistCOVID-19 qualitative [id number] 09:54:15 Test Item Value Reference Range Interpretation Comments Interpretation (test Negative results do code = 1809489) not preclude 2019-nCoV infection and should not be used as the sole basis for treatment or other patient management decisions. Negative results must be combined with clinical observations, patient history, and epidemiological information. COVID-19 qualitative Not-Detected Not-Detected PCR result (test code = 62610-8) COVID-19 qualitative See link below for C ase Number: PCR (test code = PDF Lab Report [id number]) [facility]ogal MethodistLactic acid level, SEPSIS - Now and repeat 2x every 3 hours 2020-02-22 08:50:36 Test Item Value Reference Range Interpretation Comments Lactic acid (test code = 4.7 mmol/L 0.5-2.2 [place] [address]-3) and read back b austin _BJ ROTHMAN NP AND ROSALVA VINCENT AL (name/location) at _ICU(date/time) by __LSL. 02/22/20 20 08:48 Lab Interpretation (test Abnormal code = 12347-1) [facility] MethodistArterial Line Ynaycabxm9245-41-26 07:57:17Brain Ramirez NP 02/22/2020 7:57 AMArterial Line InsertionDate/Time: 02/22/2020 7:57 AMPerfor med by: Brain Ramirez NPAuthorized by: Brain Ramirez NP Consent: Consent obtained: Emergent situationIndications: Indications: hemodynamic monitoring and multiple ABGs Pre-procedure details: Skin preparation: 2% Chlorhexidine Preparation: Patient was prepped and draped in sterile fashion Anesthesia (see MAR for exact dosages): Anesthesia method: NoneProcedure details: Location: R radial Needle gauge: 20 G Ultrasound guidance: yes Number of attempts: 1 Transducer: waveform confirmed Post-procedure details: Post-procedure: Secured with tape, sterile dressing applied, sutured and wrist guard applied CMS: Normal Patient tolerance of procedure: Tolerated well, no immediate complicationsNogal MethodistUrinalysis screen and microscopy, with reflex to lxwxqdo5163-22-44 03:29:01 Test Item Value Reference Range Interpretation Comments Specimen site (test code = Clean catch 4560886) Color, UA (test code = Yellow 5778-6) Appearance, UA (test code = Slightly-Cloudy 5767-9) Specific gravity, UA (test 1.015 1.001-1.035 code = 5811-5) pH, UA (test code = 5803-2) 6.0 5.0-8.5 Protein, UA (test code = 2+ Negative A 50638-8) Glucose, UA (test code = 1+ Negative A 71407-1) Ketones, UA (test code = 1+ Negative A 2514-8) Bilirubin, UA (test code = Negative Negative 5770-3) Blood, UA (test code = Large Negative A 5794-3) Nitrite, UA (test code = Negative Negative 5802-4) Urobilinogen, UA (test code = Negative <2.0 18320-0) Leukocyte esterase, UA (test Negative Negative code = 5799-2) Epithelial cells, UA (test Many /HPF code = 5787-7) WBC, UA (test code = 5821-4) 19 0- 1 /HPF H RBC, UA (test code = 09728-8) 10 0- 5 /HPF A Bacteria, UA (test code = Few None seen 24030-8) Yeast, UA (test code = None seen 62472-7) Yeast with pseudohyphae, UA None seen (test code = 50444-1) Hyaline casts, UA (test code 81 /LPF = 5796-8) Lab Interpretation (test code Abnormal = 47533-8) [facility] MethodistAlcohol level, eizgl0647-37-43 03:05:21 Test Item Value Reference Range Interpretation Comments Alcohol percent 0.060 % Normal (test code = 5643-2) None DetectedLegal Intoxication in [place] 80 mg/dL (0.08%)To xic Concentration 200 mg/dL (0.2%)Potential ly Fatal 350-50 0 mg/dL (0.35%-0.5%) [facility] MethodistSepsis Clinical Wkgrqynnch3343-99-25 02:55:55FoCheryl olivarez NP 02/22/2020 3:27 AM74 y.o. male with PMH of COPD, CAD, HTN, PE, pancreatitis, ETOH abuse who presented to the ED following consuming an entire bottle of whiskey. Per records, pt became minimally responsive so family called EMS. Pt became unresponsive in route and subsequently intubated in ED. Lab called to report lactic acid 13.2. Sepsis score 4, SIRS criteria 2. CXR n egative. Blood cx pending. Received Rocephin in ED. Discussed with ED physician -- reported that ptreceived 1L fluid bolus per EMS and an additional 1L fluid bolus in ED (adequate for 30mL/kg fluid resuscitation). MD states she will broaden abx coverage with Zosyn. Elevated lactic acid likely due inpart to ETOH abuse and GI bleed. Transfused 2 units PRBCs in ED. MD reports concern for active bleed/possible esophageal varices. UA/cx added. Trend lactic acid. Pt being admitted to ICU. Further management per ICU team. Sepsis Clinical AssessmentPerformed by: Cheryl Piper NPAuthorized by: Cheryl Piper NP Sepsis Clinical Assessment General Assessment InformationCurrent sepsis score: 4 On comfort care?: No If score does not worsen, snooze alerts until: 02/22/2020 14:56 CDT SIRS Criteria Heart rate > 90 bpm due to acute condition WBC > 12 K/mcL due to acute condition Organ Dysfunction Lactate > 2.0 mmol/L due to acute condition Sepsis AssessmentClinical suspicion of infection? YesTime of suspicion of infection: 02/22/2020 2:56 AMClinical suspicion of sepsis?: YesSepsis staging: Severe sepsisSevere Sepsis T0: 02/22/2020 2:56 AM Sepsis protocol started? YesWhere did the protocol start?: ED Started Suspected Type/Source of InfectionSuspected Type of Infection: BacterialSuspected Source of Infection: Source unknown Sepsis Related VitalsHeart rate: 130Temperature: Respiratory rate: 20Blood pressure: 130/75Altered mental status: WBC (k/uL) Date Value 02/22/2020 27.6 (HH) 12/25/2019 9.2 Weight-Based Fluid Bolus CalculationThe recommended weight-based bolus volume: 1,842 mL (dosing weight)Please refer to the MAR for actual med/fluid administrations.Nogal MethodistXR Chest 1 [id number] 02:02:04Hm Interface, Radiology Results Incoming - 02/22/2020 2:05 AM CDTExamination: XR CHEST 1 VWClinical History: ETTComparison: 12/26/2019Technique: Single frontal view of the chest is obtained.Findings:The lungs are free of infiltrate.The heart size is normal.No pleural effusion is seen.Tip of the left IJ line is at the mid to distal SVC. Tip of the ET tube is 4.8 cm above the wilman. Mild bibasilar atelectasis is seen. No pneumothorax is seen.Impression:Mild bibasilar atelectasis but otherwise no acute infiltrate.[id number] Preliminary Interpretation - Not an Rwdqi2021-26-27 01:37:13 Test Item Value Reference Range Interpretation Comments PETEY (test code = PETEY) Alexandria Del Real DO 02/22/2020 11:31 [facility] Preliminary Interpretation - Not an OrderPerformed by: Alexandria Del Real DOAuthorized by: Alexandria Del Real DO ECG reviewed by ED Physician in the absence of a fiberglass ski maker: yes Interpretation: Interpretation: abnormal Rate: ECG rate: 131 ECG rate assessment: tachycardic Rhythm: Rhythm: sinus tachycardia Ectopy: Ectopy: none QRS: QRS axis: Normal QRS intervals: NormalConduction: Conduction: normal ST segments: ST segments: Non-specific (changes in lateral leads)T waves: T waves: normal Lab Interpretation Abnormal (test code = 58461-9) [place] [facility] [id number] 01:37:13Alexandria Del Real DO 02/22/2020 11:31 AMCentral LinePerformed by: Alexandria Del Real DOAuthorized by: Alexandria Del Real DO Consent: Consent obtained: Emergent situation Alternatives discussed: No treatmentUniversal protocol: Patient identity confirmed: Hospital- assigned identification number and arm bandPre-procedure details: Hand hygiene: Hand hygiene performed prior to insertion Sterile barrier technique: All elements of maximal sterile technique followed Skin preparation: 2% chlorhexidine Skin preparation agent: Skin preparation agent completely dried prior to procedure Sedation: Sedation Type: Systemic Systemic used:: PropofolProcedure details: Catheter type: Triple lumen Catheter size: 7 Fr Catheter length (cm): 20 Catheter site: internal jugular vein CatheterSite Laterality: Left Patient position: Flat Landmarks identified: yes Ultrasound guidance: yes Sterile ultrasound techniques: Sterile gel and sterile probe covers were used Number of attempts: 1 Successful placement: yes Post-procedure details: Post-procedure: Dressing applied and line sutured Assessment: Blood return through all ports, no pneumothorax on x-ray, free fluid flow and placement verified by x-ray Patient tolerance of procedure: Tolerated well, no immediate complicationsNogal [id number] 01:37:Alexandria Gu DO 02/22/2020 11:31 AMIntubationPerformed by: Alexandria Del Real DOAuthorized by: Alexandria Del Real DO Consent: Consent obtained: Emergent situation Alternatives discussed: No treatmentUniversal protocol: Patient identity confirmed: Anonymous protocol, patient vented/unresponsivePre- procedure details: Patient status: Unresponsive Induction: Etomidate Paralytics: RocuroniumProcedure details: Preoxygenation: Bag valve mask CPR in progress: no Intubation method: Oral Technique: Video laryngoscopy Laryngoscope blade: Mac 3 Grade view: 1 Difficult airway?: No Tube size (mm): 7.5 Tube type: Cuffed Number of attempts: 1 Cricoid pressure: yes Tube visualized through cords: yes Placement assessment: ETT to teeth: 21 Tube secured with: ETT can Breath sounds: Equal and absent over the epigastrium Placement verification: chest rise, condensation, CXR verification and ETCO2 detector CXR findings: ETT in proper placePost-procedure details: Patient tolerance of procedure: Tolerated well, no immediate complications [facility] [id number] 01:37:Alexandria Gu DO 02/22/2020 11:31 AMCritical CarePerformed by: Alexandria Del Real DOAuthorized by: Alexandria Del Real DO Critical care provider statement: Critical care time (minutes): 60 Critical care time was exclusive of: Separately billable procedures and treating other patients Critical care was necessary to treat or prevent imminent or life-threatening deterioration of the following conditions: Respiratory failure, shock and hepatic failure Critical care was time spent personally by meon the following activities: Re-evaluation of patient's condition, review of old charts, discussions with consultants, evaluation of patient's response to treatment, examination of patient, gastric intubation, ordering and performing treatments and interventions, ordering and review of laboratory studies, ordering and review of radiographic studies, ventilator management and vascular access procedures Lanre 'yes' if you are taking over critical care for this patient from another provider.: [facility] Enteric viral [id number] 12:56:29Enteric viral panelNegative for all pathogens tested:Negative for Adenovirus F 40/41Negative for AstrovirusNegative for Norovirus GI/GIINegative for Rotavirus ANegative for SapovirusThis real-time PCR assay detects the presence of nucleic acids (RNA or DNA) for the gastrointestinal pathogens listed.A result of "Not-detected" does not exclude the possibility of the presence of one or more pathogens atconcentrations less than the detectable limits of the assay. Comment: Specimen InformationSpecimen Source: StoolSpecimen Site: NonpresH[facility] SoutheastTransthoracic Echocardiogram Complete, (w Contrast, Strain and 3D if needed)2019-12-26 17:49:16 Test Item Value Reference Range Interpretation Comments Ao Root Diameter (test 3.54 cm code = 3522838841) AoV Area, Vmax (test 4.53 cm2 code = 6299424876) AoV Area, VTI (test 5.02 cm2 code = 6225413609) AoV Mean PG (test code 2.03 mmHg = 5027963573) AoV Peak PG (test code 3.13 mmHg = 6862526340) AoV Vmax (test code = 0.89 m/s 8448094332) AoV VTI (test code = 0.13 m 1365658615) BSA Lucio (test code = 1.69 m2 3061528625) BSA (test code = 1.74 m2 1672469629) IVS,d (test code = 1.09 cm 4988088610) IVS/LVPW,2D (test code 0.90 = 7115295748) Left Atrium Dimension 3.78 cm Anterior (test code = 3569558614) LV,d (test code = 3.63 cm 3765014845) LV EF,2D (test code = 62.15 % 0423202546) LV,s (test code = 2.63 cm 0339733293) LVOT area (test code = 4.79 cm2 4597776567) LVOT Diam,S (test code 2.47 cm = 6045671147) LVOT Vmax (test code = 0.87 m/s 1540109480) LVOT VTI (test code = 0.15 m 5780244045) LVPWD,d (test code = 1.22 cm 2988466388) PV Pk Grad (test code = 1.91 mmHg 4361179936) PV VMAX (test code = 0.69 m/s 1266454516) MV E A ratio (test code 0.69 = 4988082912) AoV area i VTI BSA 2.89 cm2/m2 Nay (test code = 9754364446) BMI (test code = 18.65 kg/m2 1107117665) E wave decelartion time 219.04 msec (test code = 4482054937) MV Peak A Bakari (test 0.83 m/s code = 0830134440) MV valve area p 1/2 3.46 cm2 method (test code = 9046344159) MV Peak E Bakari (test 0.57 m/s code = 6468559377) MV stenosis pressure 63.52 ms 1/2 time (test code = 3550171916) AV LVOT peak gradient 2.78 mmHg (test code = 9492551447) Ascending aorta (test 3.32 cm code = 7180795320) Ao Root Diameter (test 3.54 cm code = 3511151029) LV SYS VOL (test code = 25.20 ml 9007821521) LV ANGELES VOL (test code 55.49 ml = 6001399344) LA area s A4C (test 14.07 cm2 code = 9927061894) LV SI Teich 2D (test 17.43 ml/m2 code = 9756732536) LV SV Teich 2D (test 30.29 ml code = 3680802291) LV Vol s Teich PSAX 25.20 ml (test code = 2488420643) LVOT CI (test code = 4.37 l/min/m2 0963320554) LVOT CO (test code = 7.60 l/min 4196537845) LVOT HR for LVOT CO 115.49 bpm (test code = 5151904287) LVOT SI (test code = 37.88 ml/m2 6727389151) BSA Haycock (test code 1.69 m2 = 8249470740) AoV Vmn (test code = 0.68 7189748571) IVS s 2D (test code = 1.24 6261289383) LV FS Teich 2D (test 27.66 code = 2547414093) MV AE ratio (test code 1.46 = 7664797827) LV FS Cube 2D (test 27.66 code = 9683594712) LVOT Vmn (test code = 0.62 3201429765) Pt Size (test code = 177.80 0752307195) Pt Wt (test code = 58.97 4371233275) Aov area Vmn (test code 4.14 cm2 = 5624295281) LA A_P score P (test 2.47 code = 6083760035) LVOT mean grad (test 1.67 mmHg code = 5030435883) MAX Pred HR (test code 147.20 = 2389002882) 85 of MPHR (test code = 125.12 1414018732) AoV area I VMN bsa 2.38 cm2/m2 (test code = 6344105403) Calc MPHR (test code = 147.20 bpm 3208800876) IVS pct thck PLAX (test 13.18 % code = 6121649546) LV SI Cube 2D (test 17.09 ml/m2 code = 1887788181) LV SV Cube 2D (test 29.71 ml code = 7005788731) LV vol d cube 2D (test 47.80 ml code = 5963521543) LV vol s cube 2D (test 18.09 ml code = 3265663421) LVPW pct thck PLAX -8.83 % (test code = 6968775793) LVPW s PLAX (test code 1.11 cm = 1360179570) MV Decel slope (test 2.61 m/s2 code = 0558423835) Pred Exer Dur R1 (test 6.74 code = 6843206730) Pred METS R1 (test code 7.08 = 3841357759) LA Vol MOD A4C (test 34.15 ml code = 2176814789) Velocity Ratio (V1/V2) 0.98 m/s (test code = 4689) EF (test code = 54.59 % 9185886814) E/A ratio (test code = 0.69 0006581005) PETEY (test code = PETEY) There is borderline left ventricular concentric hypertrophy. Left Ventricular ejection fraction is 50 - 55%. Spectral Doppler shows impaired relaxation pattern of left ventricular diastolic filling. Left atrium size is mildly dilated. Nogal MethodistCT Abdomen Pelvis W And Or Wo [id number] 16:29:21Hm Interface, Radiology Results 12/26/2019 4:32 PM CDTEXAMINATION: CT ANGIOGRAM ABDOMENPELVIS W AND OR WO CONTRASTCLINICAL HISTORY: lactic acidosis suspect ischemicTECHNIQUE: Multiple CT angiographic images of the abdomen and pelvis were obtained during intravenous administration of contrast. Multiple computerized reformatted images as well as 3-D volume rendered images were also obtained.CT imaging was performed with iterative reconstruction techniques and/or automated exposure control to reduce radiation dose. Precontrast images of the abdomen were also obtained.COMPARISON: None. FINDINGS:FINDINGS:Vasculature:Abdominal aorta demonstrates a normal course and caliber. There are moderate atherosclerotic changes of the abdominal aorta. No evidence of aortic aneurysm, dissection or other acute aortic syndrome. Moderate approximately 50% stenosis in the proximal celiac at the ostium. SMA is patent with minimal disease which is nonobstructive. Mild stenosis at the ostium of the right renal artery with mixed calcified and noncalcified plaque, approximately 25% stenosis. The left renal artery is patent. Patent BHAVNA.Aortic Measurements are as follows:Abdominal aorta at the diaphragmatic sapphire: 25 mmAbdominal aorta at the renal arteries: 16 mmInfrarenal abdominal aorta: 20 mmAbdominal aorta just proximal to the bifurcation: 12.7 mmRight pelvic and runoff vessels:Mild disease throughout the right common iliac, external iliac and LOGISTICS ANALYTICS MANAGER, without significant stenosis.Left pelvic and runoffvessels:Mild disease throughout the left common iliac, external iliac and LOGISTICS ANALYTICS MANAGER, without significant st enosis.Chest:Lung bases are unremarkable.Abdomen: Liver parenchyma is diffusely and markedly low density, compatible with severe steatosis. The spleen, pancreas, gallbladder, and adrenal glands are unremarkable. Small hiatal hernia stable from prior. The kidneys are unremarkable. Colonic diverticuli noted. Unchanged pancolonic wall thickening compared with prior study and mild surrounding inflammatory changes in the mesentery.Pelvis: Bladder is unremarkable. The orthopedic hardware in the sacrum is in place.IMPRESSION:1.Patent mesenteric vasculature.2.Unchanged pancolonic mild wall thickening, favored infectious or inflammatory.3.Severe hepatic steatosis.[facility]-[id number] and approved by residential concierge/fellow: Elie Aleman, Micha Whatley MD, personally reviewed the images and res ident's/fellow's findings and agree with the final report.[facility] MethodistCT Abdomen Pelvis W [id number] 22:27:31Hm Interface, Radiology Results 12/25/2019 10:30 PM CDTExamination: CT ABDOMEN PELVIS W C ONTRASTClinical History: Abd pain gastroenteritis or colitis suspectedComparison: None.Findings:CT scans are performed using radiation dose reduction techniques. Technical factors are evaluated and adjusted to ensure appropriate moderation of exposure. Automated dose management technology is applied to adjust radiation exposure while achieving a diagnostic quality image. CT imaging was performed with iterative reconstruction techniques and/or automated exposure control to reduce radiation dose.CTscan of the abdomen and pelvis was performed after intravenous contrast.The liver is diffusely low in density. The spleen, pancreas, gallbladder, and adrenal glands are unremarkable.The kidneys are within normal limits without hydronephrosis or urinary calculus.The appendix is nonvisualized. There is mild bowel wall prominence or thickening noted of the sigmoid colon but is not well-distended. No fatstranding is seen. Scattered colonic diverticuli are noted. No bowel dilatation is seen.No free air or fluid is seen. Urinary bladder is unremarkable.The visualized lung bases show small hiatal hernia.IMPRESSION:1. Fatty liver.2 small hiatal hernia.3. No bowel wall prominence with thickening noted of the sigmoid colon may represent incomplete distention versus mild inflammation.[facility]-[id number] MethodistCRITICAL [id number] 21:30:02 Srinivas Gay DO 12/26/2019 1:35 AMCritical CarePerformed by: Srinivas Gay, Authorized by: Srinivas Gay DO Critical care provider statement: Critical care time (minutes): 65 Critical care time was exclusive of: Separately billable procedures and treating otherpatients and teaching time Critical care was necessary to treat or prevent imminent or life-threatening deterioration of the following conditions: Cardiac failure and circulatory failure Critical care was time spent personally by me on the following activities: Blood draw for specimens, development of treatment plan with patient or surrogate, discussions with consultants, discussions with primaryprovider, evaluation of patient's response to treatment, examination of patient, interpretation of cardiac output measurements, obtaining history from patient or surrogate, vascular access procedures, re-evaluation of patient's condition, pulse oximetry, ordering and review of radiographic studies, ordering and review of laboratory studies, ordering and performing treatments and interventions and review of old charts Lanre 'yes' if you are taking over critical care for this patient from another provider.: Lianna Tracey Hepatitis B Viral DNA, quant [id number] 13:49:00 Test Item Value Reference Range Interpretation Comments HBV PCR, Quantitative 22 <20 IU/mL H (test code = 36933-7) PETEY (test code = PETEY) This test uses a Real-Time Polymerase Chain Reaction (RT-PCR) methodology and was performed using [employer] AmpliPrep/[employer] TaqMan HBV Test, v2.0 ([employer] Reportable range for this assay is 20 - 170,000,000 IU per mL (1.30 - 8.23 Log IU/mL). Lab Interpretation (test Abnormal code = 97703-8) [facility] CenterHEP[facility]IS [facility] PCR, [id number] 13:49:00 Test Item Value Reference Range Interpretation Comments HBV NUMERIC RESULT (BEAKER) (test 22 IU/mL <20 H code = 2702) This test uses a Real-Time Polymerase Chain Reaction (RT-PCR) methodology and was performed using [employer] AmpliPrep/[employer] TaqMan HBV Test, v2.0 ([employer]Reportable range for this assay is 20 - 170,000,000 IU per mL (1.30 - 8.23 Log IU/mL).MR, ABDOMEN, [id number] 13:54:00Referring: Dr. Duran Lemus, assess for HCC, liver lesionHepatitis B, assess for HCC, liver lesionFINAL REPORT TECHNIQUE: MRI of the abdomen WITHOUT and WITH intravenous contrast. INDICATION: Hepatitis B screening for HCC. COMPARISON: 11/21/2018. FINDINGS: LOWER THORAX: The heart is enlarged.. LIVER: No hepatic signal abnormality. Mixed T2 signal intensity lesion in the domeof the right hepatic lobe measuring 7.6 x 7 cm, not significant change since June 14, 2018. The lesion demonstrates intrinsic T1 hyperintense signal enhance on the postcontrast images. There are multiple additional T2 hyperintense foci in the bilateral hepatic lobes which do not postcontrast images consistent with multiple simple cysts.. BILIARY: Gallbladder is unremarkable. No biliary ductal dilatation or filling defect.SPLEEN: No splenomegaly.PANCREAS: No focal masses or ductal dilatation. ADRENALS: No adrenal nodules.KIDNEYS/URETERS: No hydronephrosis or solid mass lesions. Multiple bilateral renal cysts. The largest measures 4.3 cm in the lower pole of the right kidney. PERITONEUM/RETROPERITONEUM: No free fluid.LYMPH NODES: No lymphadenopathy.VESSELS: Unremarkable. GI TRACT: No distentionor wall thickening. There is colonic diverticulosis. BONES AND SOFT TISSUES: Multilevel degenerativechanges in the spine.. IMPRESSION:Stable hemorrhagic cyst in the dome of the right hepatic lobe. No suspicious hepatic lesions. Signed: Ct Nieto MDReport Verified Date/Time: 12/12/201913:54:01 Reading Location: [address] Radiology Reading Room MR abdomen with/without IV [id number] 13:54:00Interface, External Ris In - 12/12/2019 1:56 PM CDTFINAL REPORT TECHNIQUE: MRI of the abdomen WITHOUT and WITH intravenous contrast. INDICATION: Hepatitis B screening for HCC. CO MPARISON: 11/21/2018. FINDINGS: LOWER THORAX: The heart is enlarged.. LIVER: No hepatic signal abnormality. Mixed T2 signal intensity lesion in the dome of the right hepatic lobe measuring 7.6 x 7 cm, not significant change since June 14, 2018. The lesion demonstrates intrinsic T1 hyperintense signal enhance on the postcontrast images. There are multiple additional T2 hyperintense foci in the bilateral hepatic lobes which do not postcontrast images consistent with multiple simple cysts.. BILIARY: Gallbladder is unremarkable. No biliary ductal dilatation or filling defect.SPLEEN: No splenomegaly.PANCREAS: No focal masses or ductal dilatation. ADRENALS: No adrenal nodules.KIDNEYS/URETERS: No hydr onephrosis or solid mass lesions. Multiple bilateral renal cysts. The largest measures 4.3 cm in thelower pole of the right kidney. PERITONEUM/RETROPERITONEUM: No free fluid.LYMPH NODES: No lymphadenop athy.VESSELS: Unremarkable. GI TRACT: No distention or wall thickening. There is colonic diverticulosis. BONES AND SOFT TISSUES: Multilevel degenerative changes in the spine.. IMPRESSION:Stable hemorrhagic cyst in the dome of the right hepatic lobe. No suspicious hepatic lesions. Signed: Ct Nieto MDReport Verified Date/Time: 12/12/2019 13:54:01 Reading Location: [address] Radiology Reading [facility] tumor [id number] 10:52:00 Test Item Value Reference Range Interpretation Comments Alpha-Fetoprotein (test <2.0 <10.0 ng/mL code = 1834-1) PETEY (test code = PETEY) Shrimp Peeler ID Jesse ROCK L Lab Interpretation (test Normal code = 41168-2) [facility] CenterALPHA FETOPROTEIN (AFP), TUMOR [id number] 10:52:00 Test Item Value Reference Range Interpretation Comments ALPHA-FETOPROTEIN (BEAKER) (test code < ng/mL <10.0 = 1094) Shrimp Peeler RAFIQ LOWERYasic Metabolic [id number] 10:43:00 Test Item Value Reference Range Interpretation Comments Sodium (test code = 139 meq/L 810-082 9345-2) Potassium (test code = 4.9 meq/L 3.5-5.1 2823-3) Chloride (test code = 105 meq/L 98-107 2075-0) CO2 (test code = 28 meq/L 22-29 2028-9) BUN (test code = 30 mg/dL 7-21 H 3094-0) Creatinine (test code 2.36 mg/dL 0.57-1.25 H = 2160-0) Glucose (test code = 90 mg/dL 70-105 2345-7) Calcium (test code = 9.6 mg/dL 8.4-10.2 03875-0) EGFR (test code = 33 mL/min/1.73 [place] [address]-1) NOT ACCURATE CREATININE CLEARANCE IN PREDICTING GLOMERULAR FILTRATION RATE . ESTIMATED GFR I S NOT APPLICABLE FOR DIALYSIS PATIENTS. PETEY (test code = PETEY) Shrimp Peeler ID - CESAR C Lab Interpretation Abnormal (test code = 48775-1) [facility] CenterHepatic function [id number] 10:43:00 Test Item Value Reference Range Interpretation Comments Protein, Total (test code 7.4 6.0- 8.3 gm/dL = 2885-2) Albumin (test code = 3.8 g/dL 3.5-5 48876-8) Total Bilirubin (test code 0.4 mg/dL 0.2-1.2 = 1975-2) Bilirubin, Direct (test 0.1 mg/dL 0.1-0.5 code = 1968-7) Alkaline Phosphatase (test 48 U/L 40-150 code = 6768-6) AST (test code = 1920-8) 16 U/L 5-34 ALT (test code = 1742-6) 14 U/L 6-55 PETEY (test code = PETEY) Shrimp Peeler ID - CESAR C Lab Interpretation (test Normal code = 63939-3) [facility] CenterHEPATIC FUNCTION [id number] 10:43:00 Test Item Value Reference Range Interpretation Comments TOTAL PROTEIN (BEAKER) (test code = 7.4 gm/dL 6.0-8.3 770) ALBUMIN (BEAKER) (test code = 1145) 3.8 g/dL 3.5-5.0 BILIRUBIN TOTAL (BEAKER) (test code 0.4 mg/dL 0.2-1.2 = 377) BILIRUBIN DIRECT (BEAKER) (test 0.1 mg/dL 0.1-0.5 code = 706) ALKALINE PHOSPHATASE (BEAKER) (test 48 U/L 40-150 code = 346) AST (SGOT) (BEAKER) (test code = 16 U/L 5-34 353) ALT (SGPT) (BEAKER) (test code = 14 U/L 6-55 347) Shrimp Peeler ID - JUN CBASIC METABOLIC [id number] 10:43:00 Test Item Value Reference Range Interpretation Comments SODIUM (BEAKER) 139 meq/L 136-145 (test code = 381) POTASSIUM (BEAKER) 4.9 meq/L 3.5-5.1 (test code = 379) CHLORIDE (BEAKER) 105 meq/L 98-107 (test code = 382) CO2 (BEAKER) (test 28 meq/L 22-29 code = 355) BLOOD UREA NITROGEN 30 mg/dL 7-21 H (BEAKER) (test code = 354) CREATININE (BEAKER) 2.36 mg/dL 0.57-1.25 H (test code = 358) GLUCOSE RANDOM 90 mg/dL 70-105 (BEAKER) (test code = 652) CALCIUM (BEAKER) 9.6 mg/dL 8.4-10.2 (test code = 697) EGFR (BEAKER) (test 33 mL/min/1.73 ESTIMA JERICA GFR IS code = 1092) sq m NOT ACCURATE CREATININE CLEARANCE IN PREDICTING GLOMERULAR FILTRATION RATE . ESTIMATED GFR I S NOT APPLICABLE FOR DIALYSIS PATIEN TS. Shrimp Peeler ID - JUN CCBC with platelet count + automated [id number] 10:15:00 Test Item Value Reference Range Interpretation Comments WBC (test code = 6690-2) 4.7 3.5- 10.5 K/L RBC (test code = 789-8) 3.60 4.63- 6.08 M/L L MCHC (test code = 786-4) 32.1 32.3- 36.5 GM/DL L Hematocrit (test code = 4544-3) 34.3 % 40.1-51 L MCV (test code = 787-2) 95.3 fL 79-92.2 H MCH (test code = 785-6) 30.6 pg 25.7-32.2 RDW (test code = 788-0) 14.9 % 11.6-14.4 H Platelets (test code = 777-3) 150 150- 450 K/CU MM MPV (test code = 29223-7) 11.0 fL 9.4-12.4 nRBC (test code = 413) 0 0- 0 /100 WBC % Neutros (test code = 429) 52 % % Lymphs (test code = 430) 32 % % Monos (test code = 431) 10 % % Eos (test code = 432) 5 % % Baso (test code = 437) 1 % # Neutros (test code = 670) 2.44 1.78- 5.38 K/L # Lymphs (test code = 414) 1.52 1.32- 3.57 K/L # Monos (test code = 415) 0.47 0.30- 0.82 K/L # Eos (test code = 416) 0.21 0.04- 0.54 K/L # Baso (test code = 417) 0.05 0.01- 0.08 K/L Immature Granulocytes-Relative 0 % 0-1 (test code = 2801) Lab Interpretation (test code = Abnormal 01672-5) [facility] W/PLT COUNT & AUTO [id number] 10:15:00 Test Item Value Reference Range Interpretation Comments WHITE BLOOD CELL COUNT (BEAKER) 4.7 K/ L 3.5-10.5 (test code = 775) RED BLOOD CELL COUNT (BEAKER) 3.60 M/ L 4.63-6.08 L (test code = 761) HEMOGLOBIN (BEAKER) (test code = 11.0 GM/DL 13.7-17.5 L 410) HEMATOCRIT (BEAKER) (test code = 34.3 % 40.1-51.0 L 411) MEAN CORPUSCULAR VOLUME (BEAKER) 95.3 fL 79.0-92.2 H (test code = 753) MEAN CORPUSCULAR HEMOGLOBIN 30.6 pg 25.7-32.2 (BEAKER) (test code = 751) MEAN CORPUSCULAR HEMOGLOBIN CONC 32.1 GM/DL 32.3-36.5 L (BEAKER) (test code = 752) RED CELL DISTRIBUTION WIDTH 14.9 % 11.6-14.4 H (BEAKER) (test code = 412) PLATELET COUNT (BEAKER) (test 150 K/CU MM 150-450 code = 756) MEAN PLATELET VOLUME (BEAKER) 11.0 fL 9.4-12.4 (test code = 754) NUCLEATED RED BLOOD CELLS 0 /100 WBC 0-0 (BEAKER) (test code = 413) NEUTROPHILS RELATIVE PERCENT 52 % (BEAKER) (test code = 429) LYMPHOCYTES RELATIVE PERCENT 32 % (BEAKER) (test code = 430) MONOCYTES RELATIVE PERCENT 10 % (BEAKER) (test code = 431) EOSINOPHILS RELATIVE PERCENT 5 % (BEAKER) (test code = 432) BASOPHILS RELATIVE PERCENT 1 % (BEAKER) (test code = 437) NEUTROPHILS ABSOLUTE COUNT 2.44 K/ L 1.78-5.38 (BEAKER) (test code = 670) LYMPHOCYTES ABSOLUTE COUNT 1.52 K/ L 1.32-3.57 (BEAKER) (test code = 414) MONOCYTES ABSOLUTE COUNT (BEAKER) 0.47 K/ L 0.30-0.82 (test code = 415) EOSINOPHILS ABSOLUTE COUNT 0.21 K/ L 0.04-0.54 (BEAKER) (test code = 416) BASOPHILS ABSOLUTE COUNT (BEAKER) 0.05 K/ L 0.01-0.08 (test code = 417) IMMATURE GRANULOCYTES-RELATIVE 0 % 0-1 PERCENT (BEAKER) (test code = 2801) [id number] 08:43:00 Test Item Value Reference Range Interpretation Comments POC-Creatinine (test code 2.4 mg/dL 0.6-1.3 H : TESTED AT [facility] = 1859) [address] [facility] [place], [address]: Shrimp Peeler/Techni eloy ID = [id number] for Ele Gil POC-EGFR (test code = 32 mL/min/1.73M2 1860) Lab Interpretation (test Abnormal code = 81242-7) [id number] 08:43:00 Test Item Value Reference Range Interpretation Comments POC-CREATININE 2.4 mg/dL 0.6-1.3 H : TESTED AT [facility] (BEAKER) (test [address] [place] [address] code = 1859) [place], [address]: Shrimp Peeler/Techni eloy ID = [id number] for Vu-Yung S nancy POC-EGFR (BEAKER) 32 mL/min/1.73M2 (test code = 1860) COMPREHENSIVE METABOLIC [id number] 04:32:00 Test Item Value Reference Range Interpretation Comments SODIUM (test code = 133 mmol/L 136-145 L NA) POTASSIUM (test code = 3.6 mmol/L 3.5-5.1 N K) CHLORIDE (test code = 102.0 mmol/L 98-107 N CL) CARBON DIOXIDE (test 23.0 mmol/L 21-32 N code = CO2) ANION GAP (test code = 11.6 10-20 N GAP) GLUCOSE (test code = 95 mg/dL 74-106 N GLU) BLOOD UREA NITROGEN 7 mg/dL 7-18 N (test code = BUN) GLOMERULAR FILTRATION > 60 mL/min >=60 Estima jerica GFR by RATE (test code = GFR) using Modified MDRD formula.Chronic kidney disease is defined as [facility] kidney damageor GFR <60 mL/min/1.73 m2 for >3 months. CREATININE (test code 0.60 mg/dL 0.7-1.3 L = CREAT) BUN/CREATININE RATIO 11.7 10-20 N (test code = BUN/CREA) TOTAL PROTEIN (test 5.5 gram/dL 6.4-8.2 L code = PROT) ALBUMIN (test code = 2.4 g/dL 3.4-5.0 L ALB) GLOBULIN (test code = 3.1 gram/dL 2.7-4.2 N GLOB) ALBUMIN/GLOBULIN RATIO 0.8 0.75-1.50 N (test code = A/G) CALCIUM (test code = 8.0 mg/dL 8.5-10.1 L CA) BILIRUBIN TOTAL (test 0.90 mg/dL 0.0-1.0 N code = BILT) SGOT/AST (test code = 60 IUnit/L 15-37 H AST) SGPT/ALT (test code = 68 IUnit/L 12-78 N ALT) ALKALINE PHOSPHATASE 121 IUnit/L 45-117 H Note change in TOTAL (test code = reference range due ALKP) to change in reagent. [id number] 04:32:00 Test Item Value Reference Range Interpretation Comments LIPASE (test code = LIP) 1170 U/L 73.0-393.0 H CBC W/AUTO [id number] 04:29:00 Test Item Value Reference Range Interpretation Comments WHITE BLOOD CELL (test 11.4 K/mm3 4.5-12.5 N code = WBC) RED BLOOD CELL (test code 3.88 mill/mm3 4.0-5.8 L = RBC) HEMOGLOBIN (test code = 10.1 gram/dL 13.0-17.5 L HGB) HEMATOCRIT (test code = 32.8 % 42.0-52.0 L HCT) MEAN CELL VOLUME (test 84.5 fL 80-98 N code = MCV) MEAN CELL HGB (test code 26.0 picogram 27.0-33.0 L = MCH) MEAN CELL HGB 30.8 gram/dL 33.0-36.0 L CONCETRATION (test code = MCHC) RED CELL DISTRIBUTION 24.0 % 11.6-16.2 H WIDTH (test code = RDW) RED CELL DISTRIBUTION 64.3 fL 37.0-51.0 H WIDTH SD (test code = RDW-SD) PLATELET COUNT (test code 268 K/mm3 150-450 N = PLT) MEAN PLATELET VOLUME 10.4 fL 6.7-11.0 N (test code = MPV) NEUTROPHIL % (test code = 76.9 % 39.0-69.0 H NT%) IMMATURE GRANULOCYTE % 1.9 % 0.0-5.0 N (test code = IG%) LYMPHOCYTE % (test code = 8.3 % 25.0-55.0 L LY%) MONOCYTE % (test code = 11.8 % 0.0-10.0 H MO%) EOSINOPHIL % (test code = 0.6 % 0.0-5.0 N EO%) BASOPHIL % (test code = 0.5 % 0.0-1.0 N BA%) NUCLEATED RBC % (test 0.0 % 0-0 N code = NRBC%) NEUTROPHIL # (test code = 8.78 K/mm3 1.8-7.7 H NT#) IMMATURE GRANULOCYTE # 0.22 x10 3/uL 0-0.03 H (test code = IG#) LYMPHOCYTE # (test code = 0.95 K/mm3 1.0-5.0 L LY#) MONOCYTE # (test code = 1.35 K/mm3 0-0.8 H MO#) EOSINOPHIL # (test code = 0.07 K/mm3 0.0-0.5 N EO#) BASOPHIL # (test code = 0.06 K/mm3 0.0-0.2 N BA#) NUCLEATED RBC # (test 0.00 K/mm3 0.0-0.1 N code = NRBC#) MANUAL DIFF REQUIRED NO, ONLY SCAN NEEDED (test code = MDIFF) DIFFERENTIAL [id number] 04:29:00 Test Item Value Reference Range Interpretation Comments STAIN ACCEPTABILITY (test STAIN ACCEPTABLE code = STN ACCEPTABLE) POLYCHROMASIA (test code = 1+ POLC) POIKILOCYTOSIS (test code 2+ = POIK) ANISOCYTOSIS (test code = 2+ ANISO) MICROCYTOSIS (test code = 1+ MICR) TARGET CELLS (test code = 1+ TGT) ELIER CELLS (test code = 1+ NONE ELIER) ACANTHOCYTES (test code = 1+ NONE ACAN) MORPHOLOGY COMMENT (test TEST NOT PERFORMED code = MOC) PLATELET ESTIMATE (test ADEQUATE code = PLTEST) PLATELET MORPHOLOGY (test NORMAL code = PLTMORPH) COMPREHENSIVE METABOLIC [id number] 04:24:00 Test Item Value Reference Range Interpretation Comments SODIUM (test code = NA) 133 mmol/L 136-145 L POTASSIUM (test code = K) 3.6 mmol/L 3.5-5.1 N CHLORIDE (test code = CL) 102.0 mmol/L 98-107 N CARBON DIOXIDE (test code = CO2) mmol/L 21-32 ANION GAP (test code = GAP) 10-20 GLUCOSE (test code = GLU) mg/dL 74-106 BLOOD UREA NITROGEN (test code = mg/dL 7-18 BUN) GLOMERULAR FILTRATION RATE (test mL/min >=60 code = GFR) CREATININE (test code = CREAT) mg/dL 0.7-1.3 BUN/CREATININE RATIO (test code 10-20 = BUN/CREA) TOTAL PROTEIN (test code = PROT) gram/dL 6.4-8.2 ALBUMIN (test code = ALB) g/dL 3.4-5.0 GLOBULIN (test code = GLOB) gram/dL 2.7-4.2 ALBUMIN/GLOBULIN RATIO (test 0.75-1.50 code = A/G) CALCIUM (test code = CA) mg/dL 8.5-10.1 BILIRUBIN TOTAL (test code = mg/dL 0.0-1.0 BILT) SGOT/AST (test code = AST) IUnit/L 15-37 SGPT/ALT (test code = ALT) IUnit/L 12-78 ALKALINE PHOSPHATASE TOTAL (test IUnit/L 45-117 code = ALKP) [id number] 04:24:00 Test Item Value Reference Range Interpretation Comments LIPASE (test code = LIP) U/L 73.0-393.0 CBC W/AUTO [id number] 04:06:00 Test Item Value Reference Range Interpretation Comments WHITE BLOOD CELL (test 11.4 K/mm3 4.5-12.5 N code = WBC) RED BLOOD CELL (test code 3.88 mill/mm3 4.0-5.8 L = RBC) HEMOGLOBIN (test code = 10.1 gram/dL 13.0-17.5 L HGB) HEMATOCRIT (test code = 32.8 % 42.0-52.0 L HCT) MEAN CELL VOLUME (test 84.5 fL 80-98 N code = MCV) MEAN CELL HGB (test code 26.0 picogram 27.0-33.0 L = MCH) MEAN CELL HGB 30.8 gram/dL 33.0-36.0 L CONCETRATION (test code = MCHC) RED CELL DISTRIBUTION 24.0 % 11.6-16.2 H WIDTH (test code = RDW) RED CELL DISTRIBUTION 64.3 fL 37.0-51.0 H WIDTH SD (test code = RDW-SD) PLATELET COUNT (test code 268 K/mm3 150-450 N = PLT) MEAN PLATELET VOLUME 10.4 fL 6.7-11.0 N (test code = MPV) NEUTROPHIL % (test code = 76.9 % 39.0-69.0 H NT%) IMMATURE GRANULOCYTE % 1.9 % 0.0-5.0 N (test code = IG%) LYMPHOCYTE % (test code = 8.3 % 25.0-55.0 L LY%) MONOCYTE % (test code = 11.8 % 0.0-10.0 H MO%) EOSINOPHIL % (test code = 0.6 % 0.0-5.0 N EO%) BASOPHIL % (test code = 0.5 % 0.0-1.0 N BA%) NUCLEATED RBC % (test 0.0 % 0-0 N code = NRBC%) NEUTROPHIL # (test code = 8.78 K/mm3 1.8-7.7 H NT#) IMMATURE GRANULOCYTE # 0.22 x10 3/uL 0-0.03 H (test code = IG#) LYMPHOCYTE # (test code = 0.95 K/mm3 1.0-5.0 L LY#) MONOCYTE # (test code = 1.35 K/mm3 0-0.8 H MO#) EOSINOPHIL # (test code = 0.07 K/mm3 0.0-0.5 N EO#) BASOPHIL # (test code = 0.06 K/mm3 0.0-0.2 N BA#) NUCLEATED RBC # (test 0.00 K/mm3 0.0-0.1 N code = NRBC#) MANUAL DIFF REQUIRED NO, ONLY SCAN NEEDED (test code = MDIFF) DIFFERENTIAL [id number] 04:06:00 Test Item Value Reference Range Interpretation Comments STAIN ACCEPTABILITY (test code = STN ACCEPTABLE) CABOT RINGS (test code = CAB) MORPHOLOGY COMMENT (test code = MOC) PLATELET ESTIMATE (test code = PLTEST) PLATELET MORPHOLOGY (test code = PLTMORPH) CBC W/AUTO [id number] 04:06:00 Test Item Value Reference Range Interpretation Comments WHITE BLOOD CELL (test 11.4 K/mm3 4.5-12.5 N code = WBC) RED BLOOD CELL (test code 3.88 mill/mm3 4.0-5.8 L = RBC) HEMOGLOBIN (test code = 10.1 gram/dL 13.0-17.5 L HGB) HEMATOCRIT (test code = 32.8 % 42.0-52.0 L HCT) MEAN CELL VOLUME (test 84.5 fL 80-98 N code = MCV) MEAN CELL HGB (test code 26.0 picogram 27.0-33.0 L = MCH) MEAN CELL HGB 30.8 gram/dL 33.0-36.0 L CONCETRATION (test code = MCHC) RED CELL DISTRIBUTION 24.0 % 11.6-16.2 H WIDTH (test code = RDW) RED CELL DISTRIBUTION 64.3 fL 37.0-51.0 H WIDTH SD (test code = RDW-SD) PLATELET COUNT (test code 268 K/mm3 150-450 N = PLT) MEAN PLATELET VOLUME 10.4 fL 6.7-11.0 N (test code = MPV) NEUTROPHIL % (test code = 76.9 % 39.0-69.0 H NT%) IMMATURE GRANULOCYTE % 1.9 % 0.0-5.0 N (test code = IG%) LYMPHOCYTE % (test code = 8.3 % 25.0-55.0 L LY%) MONOCYTE % (test code = 11.8 % 0.0-10.0 H MO%) EOSINOPHIL % (test code = 0.6 % 0.0-5.0 N EO%) BASOPHIL % (test code = 0.5 % 0.0-1.0 N BA%) NUCLEATED RBC % (test 0.0 % 0-0 N code = NRBC%) NEUTROPHIL # (test code = 8.78 K/mm3 1.8-7.7 H NT#) IMMATURE GRANULOCYTE # 0.22 x10 3/uL 0-0.03 H (test code = IG#) LYMPHOCYTE # (test code = 0.95 K/mm3 1.0-5.0 L LY#) MONOCYTE # (test code = 1.35 K/mm3 0-0.8 H MO#) EOSINOPHIL # (test code = 0.07 K/mm3 0.0-0.5 N EO#) BASOPHIL # (test code = 0.06 K/mm3 0.0-0.2 N BA#) NUCLEATED RBC # (test 0.00 K/mm3 0.0-0.1 N code = NRBC#) MANUAL DIFF REQUIRED NO, ONLY SCAN NEEDED (test code = MDIFF) DIFFERENTIAL [id number] 04:06:00 Test Item Value Reference Range Interpretation Comments STAIN ACCEPTABILITY (test code = STN ACCEPTABLE) CABOT RINGS (test code = CAB) MORPHOLOGY COMMENT (test code = MOC) PLATELET ESTIMATE (test code = PLTEST) PLATELET MORPHOLOGY (test code = PLTMORPH) CBC W/AUTO [id number] 04:06:00 Test Item Value Reference Range Interpretation Comments WHITE BLOOD CELL (test 11.4 K/mm3 4.5-12.5 N code = WBC) RED BLOOD CELL (test code 3.88 mill/mm3 4.0-5.8 L = RBC) HEMOGLOBIN (test code = 10.1 gram/dL 13.0-17.5 L HGB) HEMATOCRIT (test code = 32.8 % 42.0-52.0 L HCT) MEAN CELL VOLUME (test 84.5 fL 80-98 N code = MCV) MEAN CELL HGB (test code 26.0 picogram 27.0-33.0 L = MCH) MEAN CELL HGB 30.8 gram/dL 33.0-36.0 L CONCETRATION (test code = MCHC) RED CELL DISTRIBUTION 24.0 % 11.6-16.2 H WIDTH (test code = RDW) RED CELL DISTRIBUTION 64.3 fL 37.0-51.0 H WIDTH SD (test code = RDW-SD) PLATELET COUNT (test code 268 K/mm3 150-450 N = PLT) MEAN PLATELET VOLUME 10.4 fL 6.7-11.0 N (test code = MPV) NEUTROPHIL % (test code = 76.9 % 39.0-69.0 H NT%) IMMATURE GRANULOCYTE % 1.9 % 0.0-5.0 N (test code = IG%) LYMPHOCYTE % (test code = 8.3 % 25.0-55.0 L LY%) MONOCYTE % (test code = 11.8 % 0.0-10.0 H MO%) EOSINOPHIL % (test code = 0.6 % 0.0-5.0 N EO%) BASOPHIL % (test code = 0.5 % 0.0-1.0 N BA%) NUCLEATED RBC % (test 0.0 % 0-0 N code = NRBC%) NEUTROPHIL # (test code = 8.78 K/mm3 1.8-7.7 H NT#) IMMATURE GRANULOCYTE # 0.22 x10 3/uL 0-0.03 H (test code = IG#) LYMPHOCYTE # (test code = 0.95 K/mm3 1.0-5.0 L LY#) MONOCYTE # (test code = 1.35 K/mm3 0-0.8 H MO#) EOSINOPHIL # (test code = 0.07 K/mm3 0.0-0.5 N EO#) BASOPHIL # (test code = 0.06 K/mm3 0.0-0.2 N BA#) NUCLEATED RBC # (test 0.00 K/mm3 0.0-0.1 N code = NRBC#) MANUAL DIFF REQUIRED NO, ONLY SCAN NEEDED (test code = MDIFF) DIFFERENTIAL [id number] 04:06:00 Test Item Value Reference Range Interpretation Comments STAIN ACCEPTABILITY (test code = STN ACCEPTABLE) MORPHOLOGY COMMENT (test code = MOC) PLATELET ESTIMATE (test code = PLTEST) PLATELET MORPHOLOGY (test code = PLTMORPH) CBC W/AUTO [id number] 04:06:00 Test Item Value Reference Range Interpretation Comments WHITE BLOOD CELL (test 11.4 K/mm3 4.5-12.5 N code = WBC) RED BLOOD CELL (test code 3.88 mill/mm3 4.0-5.8 L = RBC) HEMOGLOBIN (test code = 10.1 gram/dL 13.0-17.5 L HGB) HEMATOCRIT (test code = 32.8 % 42.0-52.0 L HCT) MEAN CELL VOLUME (test 84.5 fL 80-98 N code = MCV) MEAN CELL HGB (test code 26.0 picogram 27.0-33.0 L = MCH) MEAN CELL HGB 30.8 gram/dL 33.0-36.0 L CONCETRATION (test code = MCHC) RED CELL DISTRIBUTION 24.0 % 11.6-16.2 H WIDTH (test code = RDW) RED CELL DISTRIBUTION 64.3 fL 37.0-51.0 H WIDTH SD (test code = RDW-SD) PLATELET COUNT (test code 268 K/mm3 150-450 N = PLT) MEAN PLATELET VOLUME 10.4 fL 6.7-11.0 N (test code = MPV) NEUTROPHIL % (test code = 76.9 % 39.0-69.0 H NT%) IMMATURE GRANULOCYTE % 1.9 % 0.0-5.0 N (test code = IG%) LYMPHOCYTE % (test code = 8.3 % 25.0-55.0 L LY%) MONOCYTE % (test code = 11.8 % 0.0-10.0 H MO%) EOSINOPHIL % (test code = 0.6 % 0.0-5.0 N EO%) BASOPHIL % (test code = 0.5 % 0.0-1.0 N BA%) NUCLEATED RBC % (test 0.0 % 0-0 N code = NRBC%) NEUTROPHIL # (test code = 8.78 K/mm3 1.8-7.7 H NT#) IMMATURE GRANULOCYTE # 0.22 x10 3/uL 0-0.03 H (test code = IG#) LYMPHOCYTE # (test code = 0.95 K/mm3 1.0-5.0 L LY#) MONOCYTE # (test code = 1.35 K/mm3 0-0.8 H MO#) EOSINOPHIL # (test code = 0.07 K/mm3 0.0-0.5 N EO#) BASOPHIL # (test code = 0.06 K/mm3 0.0-0.2 N BA#) NUCLEATED RBC # (test 0.00 K/mm3 0.0-0.1 N code = NRBC#) MANUAL DIFF REQUIRED NO, ONLY SCAN NEEDED (test code = MDIFF) DIFFERENTIAL [id number] 04:06:00 Test Item Value Reference Range Interpretation Comments STAIN ACCEPTABILITY (test code = STN ACCEPTABLE) CABOT RINGS (test code = CAB) MORPHOLOGY COMMENT (test code = MOC) PLATELET ESTIMATE (test code = PLTEST) PLATELET MORPHOLOGY (test code = PLTMORPH) [id number] 12:04:00 RUN DATE: 10/02/19 [facility] PAGE 1 RUN TIME: 1205 Specimen Inquiry RUN USER: INTERFACE PATIENT: ENDER RODRIGUEZ LOC: SANDRA U #: [id number] AGE/SX: 74/M ROOM: 2045 [id number]/27/19REG DR: Immanuel Spencer MD : 47 BED: B DIS: STATUS: ADM IN TLOC: SPEC #: [id number] RECD: 10/01/19 STATUS: MARIANNE PARTIDA #: [id number] NIRALI: 10/01/19- SUBM DR: Ramo Gomez MD ENTERED: 10/01/19 SP TYPE: STOMACH OTHR DR: ORDERED: GROSS PROCEDURES: GROSS (10/02/19-1137) TISSUES: 1. DUODENUM, NOS - BX 2. GASTRIC CORPUS - BX CLINICAL HISTORY COLLECTION DATE: 10/01/19 SEVERE ANEMIA, MELENA FINAL DIAGNOSIS Duodenal bulb, biopsy: DUODENAL MUCOSA, NO PATHOLOGIC ALTERATION Gastric biopsy: FOCAL REACTIVE REGENERATIVE EPITHELIAL CHANGES WITH ASSOCIATED PATCHY MILD CHRONIC INFLAMMATION NO INTESTINAL METAPLASIA SEEN NEGATIVE FOR HELICOBACTER PYLORI BY GIEMSA STAIN NEGATIVE FOR MALIGNANCY DMW/sm D [id number], [id number] MACROSCOPIC The first specimen is received in formalin, labeled with the patient's name, and identified as "duodenal bulb bx", and consists of light pink-ding biopsy tissue measuring 0.3 cm in aggregate, submitted as (1). The second specimen is received in formalin, labeled with the patient's name, and identified as "gastric", and consists of ding-light pink biopsy tissuemeasuring 0.3 cm in aggregate, submitted as (2). GROSS PERFORMED AT [facility] CONTINUED ON NEXT PAGE RUN DATE: 10/02/19 [facility] PAGE 2 RUN TIME: 1205 Specimen Inquiry RUN USER: INTERFACE SPEC #: [id number] PATIENT: ENDER RODRIGUEZ #[id number] (Continued)-------- ---- MACROSCOPIC (Continued) [facility] [address] [place] [address] (p)[phone] MICROSCOPIC All of the stains, including any controls performed, stain appropriately. MICROSCOPIC PERFORMED AT [facility] [address] [place] [address] (p)[phone] PERFORMING SITE Diagnosis performed at: [facility] [place] [address] [place] [address] Signed SIGNATURE ON FILE Vicky Waters MD 10/02/19 1204 END OF REPORT COMPREHENSIVE METABOLIC [id number] 05:21:00 Test Item Value Reference Range Interpretation Comments SODIUM (test code = 133 mmol/L 136-145 L NA) POTASSIUM (test code = 3.6 mmol/L 3.5-5.1 N K) CHLORIDE (test code = 102.0 mmol/L 98-107 N CL) CARBON DIOXIDE (test 21.0 mmol/L 21-32 N code = CO2) ANION GAP (test code = 13.6 10-20 N GAP) GLUCOSE (test code = 82 mg/dL 74-106 N GLU) BLOOD UREA NITROGEN 5 mg/dL 7-18 L (test code = BUN) GLOMERULAR FILTRATION > 60 mL/min >=60 Estima jerica GFR by RATE (test code = GFR) using Modified MDRD formula.Chronic kidney disease is defined as [facility] kidney damageor GFR <60 mL/min/1.73 m2 for >3 months. CREATININE (test code 0.60 mg/dL 0.7-1.3 L = CREAT) BUN/CREATININE RATIO 8.3 10-20 L (test code = BUN/CREA) TOTAL PROTEIN (test 6.0 gram/dL 6.4-8.2 L code = PROT) ALBUMIN (test code = 2.5 g/dL 3.4-5.0 L ALB) GLOBULIN (test code = 3.5 gram/dL 2.7-4.2 N GLOB) ALBUMIN/GLOBULIN RATIO 0.7 0.75-1.50 L (test code = A/G) CALCIUM (test code = 8.0 mg/dL 8.5-10.1 L CA) BILIRUBIN TOTAL (test 1.00 mg/dL 0.0-1.0 N code = BILT) SGOT/AST (test code = 89 IUnit/L 15-37 H AST) SGPT/ALT (test code = 83 IUnit/L 12-78 H ALT) ALKALINE PHOSPHATASE 127 IUnit/L 45-117 H Note change in TOTAL (test code = reference range due ALKP) to change in reagent. CBC W/AUTO [id number] 05:15:00 Test Item Value Reference Range Interpretation Comments WHITE BLOOD CELL (test 14.1 K/mm3 4.5-12.5 H code = WBC) RED BLOOD CELL (test code 3.52 mill/mm3 4.0-5.8 L = RBC) HEMOGLOBIN (test code = 9.2 gram/dL 13.0-17.5 L HGB) HEMATOCRIT (test code = 29.3 % 42.0-52.0 L HCT) MEAN CELL VOLUME (test 83.2 fL 80-98 N code = MCV) MEAN CELL HGB (test code 26.1 picogram 27.0-33.0 L = MCH) MEAN CELL HGB 31.4 gram/dL 33.0-36.0 L CONCETRATION (test code = MCHC) RED CELL DISTRIBUTION 22.5 % 11.6-16.2 H WIDTH (test code = RDW) RED CELL DISTRIBUTION 60.1 fL 37.0-51.0 H WIDTH SD (test code = RDW-SD) PLATELET COUNT (test code 256 K/mm3 150-450 N = PLT) MEAN PLATELET VOLUME 10.4 fL 6.7-11.0 N (test code = MPV) NEUTROPHIL % (test code = 86.7 % 39.0-69.0 H NT%) IMMATURE GRANULOCYTE % 1.9 % 0.0-5.0 N (test code = IG%) LYMPHOCYTE % (test code = 4.5 % 25.0-55.0 L LY%) MONOCYTE % (test code = 6.4 % 0.0-10.0 N MO%) EOSINOPHIL % (test code = 0.1 % 0.0-5.0 N EO%) BASOPHIL % (test code = 0.4 % 0.0-1.0 N BA%) NUCLEATED RBC % (test 0.0 % 0-0 N code = NRBC%) NEUTROPHIL # (test code = 12.23 K/mm3 1.8-7.7 H NT#) IMMATURE GRANULOCYTE # 0.27 x10 3/uL 0-0.03 H (test code = IG#) LYMPHOCYTE # (test code = 0.64 K/mm3 1.0-5.0 L LY#) MONOCYTE # (test code = 0.90 K/mm3 0-0.8 H MO#) EOSINOPHIL # (test code = 0.01 K/mm3 0.0-0.5 N EO#) BASOPHIL # (test code = 0.05 K/mm3 0.0-0.2 N BA#) NUCLEATED RBC # (test 0.00 K/mm3 0.0-0.1 N code = NRBC#) MANUAL DIFF REQUIRED NO, ONLY SCAN NEEDED (test code = MDIFF) DIFFERENTIAL [id number] 05:15:00 Test Item Value Reference Range Interpretation Comments STAIN ACCEPTABILITY (test STAIN ACCEPTABLE code = STN ACCEPTABLE) POLYCHROMASIA (test code = 2+ POLC) POIKILOCYTOSIS (test code 2+ = POIK) ANISOCYTOSIS (test code = 2+ ANISO) MACROCYTOSIS (test code = 1+ MACR) TARGET CELLS (test code = 1+ TGT) ELIER CELLS (test code = 1+ NONE ELIER) OVALOCYTES (test code = 1+ OVAL) MORPHOLOGY COMMENT (test TEST NOT PERFORMED code = MOC) PLATELET ESTIMATE (test ADEQUATE code = PLTEST) PLATELET MORPHOLOGY (test NORMAL code = PLTMORPH) COMPREHENSIVE METABOLIC [id number] 05:11:00 Test Item Value Reference Range Interpretation Comments SODIUM (test code = NA) 133 mmol/L 136-145 L POTASSIUM (test code = K) 3.6 mmol/L 3.5-5.1 N CHLORIDE (test code = CL) 102.0 mmol/L 98-107 N CARBON DIOXIDE (test code = CO2) mmol/L 21-32 ANION GAP (test code = GAP) 10-20 GLUCOSE (test code = GLU) mg/dL 74-106 BLOOD UREA NITROGEN (test code = mg/dL 7-18 BUN) GLOMERULAR FILTRATION RATE (test mL/min >=60 code = GFR) CREATININE (test code = CREAT) mg/dL 0.7-1.3 BUN/CREATININE RATIO (test code 10-20 = BUN/CREA) TOTAL PROTEIN (test code = PROT) gram/dL 6.4-8.2 ALBUMIN (test code = ALB) g/dL 3.4-5.0 GLOBULIN (test code = GLOB) gram/dL 2.7-4.2 ALBUMIN/GLOBULIN RATIO (test 0.75-1.50 code = A/G) CALCIUM (test code = CA) mg/dL 8.5-10.1 BILIRUBIN TOTAL (test code = mg/dL 0.0-1.0 BILT) SGOT/AST (test code = AST) IUnit/L 15-37 SGPT/ALT (test code = ALT) IUnit/L 12-78 ALKALINE PHOSPHATASE TOTAL (test IUnit/L 45-117 code = ALKP) CBC W/AUTO [id number] 04:43:00 Test Item Value Reference Range Interpretation Comments WHITE BLOOD CELL (test 14.1 K/mm3 4.5-12.5 H code = WBC) RED BLOOD CELL (test code 3.52 mill/mm3 4.0-5.8 L = RBC) HEMOGLOBIN (test code = 9.2 gram/dL 13.0-17.5 L HGB) HEMATOCRIT (test code = 29.3 % 42.0-52.0 L HCT) MEAN CELL VOLUME (test 83.2 fL 80-98 N code = MCV) MEAN CELL HGB (test code 26.1 picogram 27.0-33.0 L = MCH) MEAN CELL HGB 31.4 gram/dL 33.0-36.0 L CONCETRATION (test code = MCHC) RED CELL DISTRIBUTION 22.5 % 11.6-16.2 H WIDTH (test code = RDW) RED CELL DISTRIBUTION 60.1 fL 37.0-51.0 H WIDTH SD (test code = RDW-SD) PLATELET COUNT (test code 256 K/mm3 150-450 N = PLT) MEAN PLATELET VOLUME 10.4 fL 6.7-11.0 N (test code = MPV) NEUTROPHIL % (test code = 86.7 % 39.0-69.0 H NT%) IMMATURE GRANULOCYTE % 1.9 % 0.0-5.0 N (test code = IG%) LYMPHOCYTE % (test code = 4.5 % 25.0-55.0 L LY%) MONOCYTE % (test code = 6.4 % 0.0-10.0 N MO%) EOSINOPHIL % (test code = 0.1 % 0.0-5.0 N EO%) BASOPHIL % (test code = 0.4 % 0.0-1.0 N BA%) NUCLEATED RBC % (test 0.0 % 0-0 N code = NRBC%) NEUTROPHIL # (test code = 12.23 K/mm3 1.8-7.7 H NT#) IMMATURE GRANULOCYTE # 0.27 x10 3/uL 0-0.03 H (test code = IG#) LYMPHOCYTE # (test code = 0.64 K/mm3 1.0-5.0 L LY#) MONOCYTE # (test code = 0.90 K/mm3 0-0.8 H MO#) EOSINOPHIL # (test code = 0.01 K/mm3 0.0-0.5 N EO#) BASOPHIL # (test code = 0.05 K/mm3 0.0-0.2 N BA#) NUCLEATED RBC # (test 0.00 K/mm3 0.0-0.1 N code = NRBC#) MANUAL DIFF REQUIRED NO, ONLY SCAN NEEDED (test code = MDIFF) DIFFERENTIAL [id number] 04:43:00 Test Item Value Reference Range Interpretation Comments STAIN ACCEPTABILITY (test code = STN ACCEPTABLE) CABOT RINGS (test code = CAB) MORPHOLOGY COMMENT (test code = MOC) PLATELET ESTIMATE (test code = PLTEST) PLATELET MORPHOLOGY (test code = PLTMORPH) CBC W/AUTO [id number] 04:43:00 Test Item Value Reference Range Interpretation Comments WHITE BLOOD CELL (test 14.1 K/mm3 4.5-12.5 H code = WBC) RED BLOOD CELL (test code 3.52 mill/mm3 4.0-5.8 L = RBC) HEMOGLOBIN (test code = 9.2 gram/dL 13.0-17.5 L HGB) HEMATOCRIT (test code = 29.3 % 42.0-52.0 L HCT) MEAN CELL VOLUME (test 83.2 fL 80-98 N code = MCV) MEAN CELL HGB (test code 26.1 picogram 27.0-33.0 L = MCH) MEAN CELL HGB 31.4 gram/dL 33.0-36.0 L CONCETRATION (test code = MCHC) RED CELL DISTRIBUTION 22.5 % 11.6-16.2 H WIDTH (test code = RDW) RED CELL DISTRIBUTION 60.1 fL 37.0-51.0 H WIDTH SD (test code = RDW-SD) PLATELET COUNT (test code 256 K/mm3 150-450 N = PLT) MEAN PLATELET VOLUME 10.4 fL 6.7-11.0 N (test code = MPV) NEUTROPHIL % (test code = 86.7 % 39.0-69.0 H NT%) IMMATURE GRANULOCYTE % 1.9 % 0.0-5.0 N (test code = IG%) LYMPHOCYTE % (test code = 4.5 % 25.0-55.0 L LY%) MONOCYTE % (test code = 6.4 % 0.0-10.0 N MO%) EOSINOPHIL % (test code = 0.1 % 0.0-5.0 N EO%) BASOPHIL % (test code = 0.4 % 0.0-1.0 N BA%) NUCLEATED RBC % (test 0.0 % 0-0 N code = NRBC%) NEUTROPHIL # (test code = 12.23 K/mm3 1.8-7.7 H NT#) IMMATURE GRANULOCYTE # 0.27 x10 3/uL 0-0.03 H (test code = IG#) LYMPHOCYTE # (test code = 0.64 K/mm3 1.0-5.0 L LY#) MONOCYTE # (test code = 0.90 K/mm3 0-0.8 H MO#) EOSINOPHIL # (test code = 0.01 K/mm3 0.0-0.5 N EO#) BASOPHIL # (test code = 0.05 K/mm3 0.0-0.2 N BA#) NUCLEATED RBC # (test 0.00 K/mm3 0.0-0.1 N code = NRBC#) MANUAL DIFF REQUIRED NO, ONLY SCAN NEEDED (test code = MDIFF) DIFFERENTIAL [id number] 04:43:00 Test Item Value Reference Range Interpretation Comments STAIN ACCEPTABILITY (test code = STN ACCEPTABLE) MORPHOLOGY COMMENT (test code = MOC) PLATELET ESTIMATE (test code = PLTEST) PLATELET MORPHOLOGY (test code = PLTMORPH) CBC W/AUTO [id number] 04:42:00 Test Item Value Reference Range Interpretation Comments WHITE BLOOD CELL (test 14.1 K/mm3 4.5-12.5 H code = WBC) RED BLOOD CELL (test code 3.52 mill/mm3 4.0-5.8 L = RBC) HEMOGLOBIN (test code = 9.2 gram/dL 13.0-17.5 L HGB) HEMATOCRIT (test code = 29.3 % 42.0-52.0 L HCT) MEAN CELL VOLUME (test 83.2 fL 80-98 N code = MCV) MEAN CELL HGB (test code 26.1 picogram 27.0-33.0 L = MCH) MEAN CELL HGB 31.4 gram/dL 33.0-36.0 L CONCETRATION (test code = MCHC) RED CELL DISTRIBUTION 22.5 % 11.6-16.2 H WIDTH (test code = RDW) RED CELL DISTRIBUTION 60.1 fL 37.0-51.0 H WIDTH SD (test code = RDW-SD) PLATELET COUNT (test code 256 K/mm3 150-450 N = PLT) MEAN PLATELET VOLUME 10.4 fL 6.7-11.0 N (test code = MPV) NEUTROPHIL % (test code = 86.7 % 39.0-69.0 H NT%) IMMATURE GRANULOCYTE % 1.9 % 0.0-5.0 N (test code = IG%) LYMPHOCYTE % (test code = 4.5 % 25.0-55.0 L LY%) MONOCYTE % (test code = 6.4 % 0.0-10.0 N MO%) EOSINOPHIL % (test code = 0.1 % 0.0-5.0 N EO%) BASOPHIL % (test code = 0.4 % 0.0-1.0 N BA%) NUCLEATED RBC % (test 0.0 % 0-0 N code = NRBC%) NEUTROPHIL # (test code = 12.23 K/mm3 1.8-7.7 H NT#) IMMATURE GRANULOCYTE # 0.27 x10 3/uL 0-0.03 H (test code = IG#) LYMPHOCYTE # (test code = 0.64 K/mm3 1.0-5.0 L LY#) MONOCYTE # (test code = 0.90 K/mm3 0-0.8 H MO#) EOSINOPHIL # (test code = 0.01 K/mm3 0.0-0.5 N EO#) BASOPHIL # (test code = 0.05 K/mm3 0.0-0.2 N BA#) NUCLEATED RBC # (test 0.00 K/mm3 0.0-0.1 N code = NRBC#) MANUAL DIFF REQUIRED NO, ONLY SCAN NEEDED (test code = MDIFF) DIFFERENTIAL [id number] 04:42:00 Test Item Value Reference Range Interpretation Comments STAIN ACCEPTABILITY (test code = STN ACCEPTABLE) CABOT RINGS (test code = CAB) MORPHOLOGY COMMENT (test code = MOC) PLATELET ESTIMATE (test code = PLTEST) PLATELET MORPHOLOGY (test code = PLTMORPH) CBC W/AUTO [id number] 04:42:00 Test Item Value Reference Range Interpretation Comments WHITE BLOOD CELL (test 14.1 K/mm3 4.5-12.5 H code = WBC) RED BLOOD CELL (test code 3.52 mill/mm3 4.0-5.8 L = RBC) HEMOGLOBIN (test code = 9.2 gram/dL 13.0-17.5 L HGB) HEMATOCRIT (test code = 29.3 % 42.0-52.0 L HCT) MEAN CELL VOLUME (test 83.2 fL 80-98 N code = MCV) MEAN CELL HGB (test code 26.1 picogram 27.0-33.0 L = MCH) MEAN CELL HGB 31.4 gram/dL 33.0-36.0 L CONCETRATION (test code = MCHC) RED CELL DISTRIBUTION 22.5 % 11.6-16.2 H WIDTH (test code = RDW) RED CELL DISTRIBUTION 60.1 fL 37.0-51.0 H WIDTH SD (test code = RDW-SD) PLATELET COUNT (test code 256 K/mm3 150-450 N = PLT) MEAN PLATELET VOLUME 10.4 fL 6.7-11.0 N (test code = MPV) NEUTROPHIL % (test code = 86.7 % 39.0-69.0 H NT%) IMMATURE GRANULOCYTE % 1.9 % 0.0-5.0 N (test code = IG%) LYMPHOCYTE % (test code = 4.5 % 25.0-55.0 L LY%) MONOCYTE % (test code = 6.4 % 0.0-10.0 N MO%) EOSINOPHIL % (test code = 0.1 % 0.0-5.0 N EO%) BASOPHIL % (test code = 0.4 % 0.0-1.0 N BA%) NUCLEATED RBC % (test 0.0 % 0-0 N code = NRBC%) NEUTROPHIL # (test code = 12.23 K/mm3 1.8-7.7 H NT#) IMMATURE GRANULOCYTE # 0.27 x10 3/uL 0-0.03 H (test code = IG#) LYMPHOCYTE # (test code = 0.64 K/mm3 1.0-5.0 L LY#) MONOCYTE # (test code = 0.90 K/mm3 0-0.8 H MO#) EOSINOPHIL # (test code = 0.01 K/mm3 0.0-0.5 N EO#) BASOPHIL # (test code = 0.05 K/mm3 0.0-0.2 N BA#) NUCLEATED RBC # (test 0.00 K/mm3 0.0-0.1 N code = NRBC#) MANUAL DIFF REQUIRED NO, ONLY SCAN NEEDED (test code = MDIFF) DIFFERENTIAL [id number] 04:42:00 Test Item Value Reference Range Interpretation Comments STAIN ACCEPTABILITY (test code = STN ACCEPTABLE) CABOT RINGS (test code = CAB) MORPHOLOGY COMMENT (test code = MOC) PLATELET ESTIMATE (test code = PLTEST) PLATELET MORPHOLOGY (test code = PLTMORPH) - MRI ABDOMEN W/O [id number] 12:37:00 FAX: Immanuel Spencer MD [phone] [place]: St: ADM Name: ENDER RODRIGUEZ [facility] : 1945 Age/S: 74/M [address] [facility] Unit#: [id number] Loc: V.6 [place] [address] Phys: Immanuel Spencer MD Acct: [id number] Dis Date: Status: ADM IN PHONE #: [phone] Exam Date: 10/01/2019 1229 FAX #: [phone] Reason: elevated lipase, r/o obstruction EXAMS: CPT CODE: [id number] MRI ABDOMEN W/O CONT [id number] HISTORY: Elevated lipase. COMPARISON: Ultrasoundfrom previous day and CT scan from September 27, 2019. Location: [facility]. MRCP: 3-D images. CBD is normal at 5.7 mm. Smooth taper into the ampulla. Study slightly limited due to motion. No filling defects to suggest CBD stones. Common hepatic and the right and left hepatic ducts are normal as well. Well-distended gallbladder. Gallstones. Pancreatic duct is not dilated. No ascites. IMPRESSION: Normal CBD at 5.7 mm without filling defects. Gallstones. Electronically Signed by Hermelinda Lorenzo 10/01/2019 at 1237 Reported and signed by: Bin Garcia M.D. CC: Immanuel Spencer MD Technologist: DEUCE LOREDO,RT - MRI Trnokrd Date/Time/By: 10/01/2019 (2250) : By: [email or web address] Orig Print D/T: S:10/01/2019 (0212) PAGE 1 Signed ReportACUTE HEPATITIS [id number] 07:09:00 Test Item Value Reference Range Interpretation Comments AB HEPATITIS A IGM Negative Negative (test code = HAVMAB) AG HEPAT B SURF (test Negative Negative code = HBSAG) HEPATITIS B CORE Negative Negative ANTIBODY,IGM (test code = HBCMAB) AB HEPATITIS C (test <0.1 0.0-0.9 INFCE R esult Units: s/co code = HCVAB) ratio N egative: < 0.8 Indeterminate: 0.8 - 0.9 Positiv e: > 0.9 The CDC rec ommends that a positive HCV antibody result be followed up wit h a HCV Nucleic Acid Amplification t est ([id number]).Perfor med At: [facility] [id number] [place], [place] [id number] chris Bello MD Ph:[phone] COMPREHENSIVE METABOLIC [id number] 05:01:00 Test Item Value Reference Range Interpretation Comments SODIUM (test code = 130 mmol/L 136-145 L NA) POTASSIUM (test code = 4.5 mmol/L 3.5-5.1 N K) CHLORIDE (test code = 100.0 mmol/L 98-107 N CL) CARBON DIOXIDE (test 23.0 mmol/L 21-32 N code = CO2) ANION GAP (test code = 11.5 10-20 N GAP) GLUCOSE (test code = 79 mg/dL 74-106 N GLU) BLOOD UREA NITROGEN 3 mg/dL 7-18 L (test code = BUN) GLOMERULAR FILTRATION > 60 mL/min >=60 Estima jerica GFR by RATE (test code = GFR) using Modified MDRD formula.Chronic kidney disease is defined as eith er kidney damageor GFR <60 mL/min/1.73 m2 for >3 months. CREATININE (test code 0.70 mg/dL 0.7-1.3 N = CREAT) BUN/CREATININE RATIO 4.3 10-20 L (test code = BUN/CREA) TOTAL PROTEIN (test 6.1 gram/dL 6.4-8.2 L code = PROT) ALBUMIN (test code = 2.9 g/dL 3.4-5.0 L ALB) GLOBULIN (test code = 3.2 gram/dL 2.7-4.2 N GLOB) ALBUMIN/GLOBULIN RATIO 0.9 0.75-1.50 N (test code = A/G) CALCIUM (test code = 8.2 mg/dL 8.5-10.1 L CA) BILIRUBIN TOTAL (test 1.40 mg/dL 0.0-1.0 H code = BILT) SGOT/AST (test code = 154 IUnit/L 15-37 H AST) SGPT/ALT (test code = 99 IUnit/L 12-78 H ALT) ALKALINE PHOSPHATASE 147 IUnit/L 45-117 H Note change in TOTAL (test code = reference range due ALKP) to change in reagent. CBC W/AUTO [id number] 04:56:00 Test Item Value Reference Range Interpretation Comments WHITE BLOOD CELL (test 13.0 K/mm3 4.5-12.5 H code = WBC) RED BLOOD CELL (test code 3.87 mill/mm3 4.0-5.8 L = RBC) HEMOGLOBIN (test code = 9.9 gram/dL 13.0-17.5 L HGB) HEMATOCRIT (test code = 31.6 % 42.0-52.0 L HCT) MEAN CELL VOLUME (test 81.7 fL 80-98 N code = MCV) MEAN CELL HGB (test code 25.6 picogram 27.0-33.0 L = MCH) MEAN CELL HGB 31.3 gram/dL 33.0-36.0 L CONCETRATION (test code = MCHC) RED CELL DISTRIBUTION 21.4 % 11.6-16.2 H WIDTH (test code = RDW) RED CELL DISTRIBUTION 57.3 fL 37.0-51.0 H WIDTH SD (test code = RDW-SD) PLATELET COUNT (test code 263 K/mm3 150-450 N = PLT) MEAN PLATELET VOLUME 10.3 fL 6.7-11.0 N (test code = MPV) NEUTROPHIL % (test code = 83.7 % 39.0-69.0 H NT%) IMMATURE GRANULOCYTE % 2.3 % 0.0-5.0 N (test code = IG%) LYMPHOCYTE % (test code = 7.1 % 25.0-55.0 L LY%) MONOCYTE % (test code = 6.1 % 0.0-10.0 N MO%) EOSINOPHIL % (test code = 0.4 % 0.0-5.0 N EO%) BASOPHIL % (test code = 0.4 % 0.0-1.0 N BA%) NUCLEATED RBC % (test 0.2 % 0-0 H code = NRBC%) NEUTROPHIL # (test code = 10.91 K/mm3 1.8-7.7 H NT#) IMMATURE GRANULOCYTE # 0.30 x10 3/uL 0-0.03 H (test code = IG#) LYMPHOCYTE # (test code = 0.92 K/mm3 1.0-5.0 L LY#) MONOCYTE # (test code = 0.79 K/mm3 0-0.8 N MO#) EOSINOPHIL # (test code = 0.05 K/mm3 0.0-0.5 N EO#) BASOPHIL # (test code = 0.05 K/mm3 0.0-0.2 N BA#) NUCLEATED RBC # (test 0.02 K/mm3 0.0-0.1 N code = NRBC#) MANUAL DIFF REQUIRED NO, ONLY SCAN NEEDED (test code = MDIFF) DIFFERENTIAL [id number] 04:56:00 Test Item Value Reference Range Interpretation Comments STAIN ACCEPTABILITY (test STAIN ACCEPTABLE code = STN ACCEPTABLE) POLYCHROMASIA (test code = 2+ POLC) HYPOCHROMIA (test code = 1+ HYPO) ANISOCYTOSIS (test code = 2+ ANISO) MACROCYTOSIS (test code = 1+ MACR) MORPHOLOGY COMMENT (test TEST NOT PERFORMED code = MOC) PLATELET ESTIMATE (test ADEQUATE code = PLTEST) PLATELET MORPHOLOGY (test NORMAL code = PLTMORPH) COMPREHENSIVE METABOLIC [id number] 04:53:00 Test Item Value Reference Range Interpretation Comments SODIUM (test code = NA) 130 mmol/L 136-145 L POTASSIUM (test code = K) 4.5 mmol/L 3.5-5.1 N CHLORIDE (test code = CL) 100.0 mmol/L 98-107 N CARBON DIOXIDE (test code = CO2) mmol/L 21-32 ANION GAP (test code = GAP) 10-20 GLUCOSE (test code = GLU) mg/dL 74-106 BLOOD UREA NITROGEN (test code = mg/dL 7-18 BUN) GLOMERULAR FILTRATION RATE (test mL/min >=60 code = GFR) CREATININE (test code = CREAT) mg/dL 0.7-1.3 BUN/CREATININE RATIO (test code 10-20 = BUN/CREA) TOTAL PROTEIN (test code = PROT) gram/dL 6.4-8.2 ALBUMIN (test code = ALB) g/dL 3.4-5.0 GLOBULIN (test code = GLOB) gram/dL 2.7-4.2 ALBUMIN/GLOBULIN RATIO (test 0.75-1.50 code = A/G) CALCIUM (test code = CA) mg/dL 8.5-10.1 BILIRUBIN TOTAL (test code = mg/dL 0.0-1.0 BILT) SGOT/AST (test code = AST) IUnit/L 15-37 SGPT/ALT (test code = ALT) IUnit/L 12-78 ALKALINE PHOSPHATASE TOTAL (test IUnit/L 45-117 code = ALKP) [id number] 04:53:00 Test Item Value Reference Range Interpretation Comments LIPASE (test code = LIP) 1329 U/L 73.0-393.0 H CBC W/AUTO [id number] 04:33:00 Test Item Value Reference Range Interpretation Comments WHITE BLOOD CELL (test 13.0 K/mm3 4.5-12.5 H code = WBC) RED BLOOD CELL (test code 3.87 mill/mm3 4.0-5.8 L = RBC) HEMOGLOBIN (test code = 9.9 gram/dL 13.0-17.5 L HGB) HEMATOCRIT (test code = 31.6 % 42.0-52.0 L HCT) MEAN CELL VOLUME (test 81.7 fL 80-98 N code = MCV) MEAN CELL HGB (test code 25.6 picogram 27.0-33.0 L = MCH) MEAN CELL HGB 31.3 gram/dL 33.0-36.0 L CONCETRATION (test code = MCHC) RED CELL DISTRIBUTION 21.4 % 11.6-16.2 H WIDTH (test code = RDW) RED CELL DISTRIBUTION 57.3 fL 37.0-51.0 H WIDTH SD (test code = RDW-SD) PLATELET COUNT (test code 263 K/mm3 150-450 N = PLT) MEAN PLATELET VOLUME 10.3 fL 6.7-11.0 N (test code = MPV) NEUTROPHIL % (test code = 83.7 % 39.0-69.0 H NT%) IMMATURE GRANULOCYTE % 2.3 % 0.0-5.0 N (test code = IG%) LYMPHOCYTE % (test code = 7.1 % 25.0-55.0 L LY%) MONOCYTE % (test code = 6.1 % 0.0-10.0 N MO%) EOSINOPHIL % (test code = 0.4 % 0.0-5.0 N EO%) BASOPHIL % (test code = 0.4 % 0.0-1.0 N BA%) NUCLEATED RBC % (test 0.2 % 0-0 H code = NRBC%) NEUTROPHIL # (test code = 10.91 K/mm3 1.8-7.7 H NT#) IMMATURE GRANULOCYTE # 0.30 x10 3/uL 0-0.03 H (test code = IG#) LYMPHOCYTE # (test code = 0.92 K/mm3 1.0-5.0 L LY#) MONOCYTE # (test code = 0.79 K/mm3 0-0.8 N MO#) EOSINOPHIL # (test code = 0.05 K/mm3 0.0-0.5 N EO#) BASOPHIL # (test code = 0.05 K/mm3 0.0-0.2 N BA#) NUCLEATED RBC # (test 0.02 K/mm3 0.0-0.1 N code = NRBC#) MANUAL DIFF REQUIRED NO, ONLY SCAN NEEDED (test code = MDIFF) DIFFERENTIAL [id number] 04:33:00 Test Item Value Reference Range Interpretation Comments STAIN ACCEPTABILITY (test code = STN ACCEPTABLE) CABOT RINGS (test code = CAB) MORPHOLOGY COMMENT (test code = MOC) PLATELET ESTIMATE (test code = PLTEST) PLATELET MORPHOLOGY (test code = PLTMORPH) CBC W/AUTO [id number] 04:33:00 Test Item Value Reference Range Interpretation Comments WHITE BLOOD CELL (test 13.0 K/mm3 4.5-12.5 H code = WBC) RED BLOOD CELL (test code 3.87 mill/mm3 4.0-5.8 L = RBC) HEMOGLOBIN (test code = 9.9 gram/dL 13.0-17.5 L HGB) HEMATOCRIT (test code = 31.6 % 42.0-52.0 L HCT) MEAN CELL VOLUME (test 81.7 fL 80-98 N code = MCV) MEAN CELL HGB (test code 25.6 picogram 27.0-33.0 L = MCH) MEAN CELL HGB 31.3 gram/dL 33.0-36.0 L CONCETRATION (test code = MCHC) RED CELL DISTRIBUTION 21.4 % 11.6-16.2 H WIDTH (test code = RDW) RED CELL DISTRIBUTION 57.3 fL 37.0-51.0 H WIDTH SD (test code = RDW-SD) PLATELET COUNT (test code 263 K/mm3 150-450 N = PLT) MEAN PLATELET VOLUME 10.3 fL 6.7-11.0 N (test code = MPV) NEUTROPHIL % (test code = 83.7 % 39.0-69.0 H NT%) IMMATURE GRANULOCYTE % 2.3 % 0.0-5.0 N (test code = IG%) LYMPHOCYTE % (test code = 7.1 % 25.0-55.0 L LY%) MONOCYTE % (test code = 6.1 % 0.0-10.0 N MO%) EOSINOPHIL % (test code = 0.4 % 0.0-5.0 N EO%) BASOPHIL % (test code = 0.4 % 0.0-1.0 N BA%) NUCLEATED RBC % (test 0.2 % 0-0 H code = NRBC%) NEUTROPHIL # (test code = 10.91 K/mm3 1.8-7.7 H NT#) IMMATURE GRANULOCYTE # 0.30 x10 3/uL 0-0.03 H (test code = IG#) LYMPHOCYTE # (test code = 0.92 K/mm3 1.0-5.0 L LY#) MONOCYTE # (test code = 0.79 K/mm3 0-0.8 N MO#) EOSINOPHIL # (test code = 0.05 K/mm3 0.0-0.5 N EO#) BASOPHIL # (test code = 0.05 K/mm3 0.0-0.2 N BA#) NUCLEATED RBC # (test 0.02 K/mm3 0.0-0.1 N code = NRBC#) MANUAL DIFF REQUIRED NO, ONLY SCAN NEEDED (test code = MDIFF) DIFFERENTIAL [id number] 04:33:00 Test Item Value Reference Range Interpretation Comments STAIN ACCEPTABILITY (test code = STN ACCEPTABLE) MORPHOLOGY COMMENT (test code = MOC) PLATELET ESTIMATE (test code = PLTEST) PLATELET MORPHOLOGY (test code = PLTMORPH) CBC W/AUTO [id number] 04:32:00 Test Item Value Reference Range Interpretation Comments WHITE BLOOD CELL (test 13.0 K/mm3 4.5-12.5 H code = WBC) RED BLOOD CELL (test code 3.87 mill/mm3 4.0-5.8 L = RBC) HEMOGLOBIN (test code = 9.9 gram/dL 13.0-17.5 L HGB) HEMATOCRIT (test code = 31.6 % 42.0-52.0 L HCT) MEAN CELL VOLUME (test 81.7 fL 80-98 N code = MCV) MEAN CELL HGB (test code 25.6 picogram 27.0-33.0 L = MCH) MEAN CELL HGB 31.3 gram/dL 33.0-36.0 L CONCETRATION (test code = MCHC) RED CELL DISTRIBUTION 21.4 % 11.6-16.2 H WIDTH (test code = RDW) RED CELL DISTRIBUTION 57.3 fL 37.0-51.0 H WIDTH SD (test code = RDW-SD) PLATELET COUNT (test code 263 K/mm3 150-450 N = PLT) MEAN PLATELET VOLUME 10.3 fL 6.7-11.0 N (test code = MPV) NEUTROPHIL % (test code = 83.7 % 39.0-69.0 H NT%) IMMATURE GRANULOCYTE % 2.3 % 0.0-5.0 N (test code = IG%) LYMPHOCYTE % (test code = 7.1 % 25.0-55.0 L LY%) MONOCYTE % (test code = 6.1 % 0.0-10.0 N MO%) EOSINOPHIL % (test code = 0.4 % 0.0-5.0 N EO%) BASOPHIL % (test code = 0.4 % 0.0-1.0 N BA%) NUCLEATED RBC % (test 0.2 % 0-0 H code = NRBC%) NEUTROPHIL # (test code = 10.91 K/mm3 1.8-7.7 H NT#) IMMATURE GRANULOCYTE # 0.30 x10 3/uL 0-0.03 H (test code = IG#) LYMPHOCYTE # (test code = 0.92 K/mm3 1.0-5.0 L LY#) MONOCYTE # (test code = 0.79 K/mm3 0-0.8 N MO#) EOSINOPHIL # (test code = 0.05 K/mm3 0.0-0.5 N EO#) BASOPHIL # (test code = 0.05 K/mm3 0.0-0.2 N BA#) NUCLEATED RBC # (test 0.02 K/mm3 0.0-0.1 N code = NRBC#) MANUAL DIFF REQUIRED NO, ONLY SCAN NEEDED (test code = MDIFF) DIFFERENTIAL [id number] 04:32:00 Test Item Value Reference Range Interpretation Comments STAIN ACCEPTABILITY (test code = STN ACCEPTABLE) CABOT RINGS (test code = CAB) MORPHOLOGY COMMENT (test code = MOC) PLATELET ESTIMATE (test code = PLTEST) PLATELET MORPHOLOGY (test code = PLTMORPH) CBC W/AUTO [id number] 04:32:00 Test Item Value Reference Range Interpretation Comments WHITE BLOOD CELL (test 13.0 K/mm3 4.5-12.5 H code = WBC) RED BLOOD CELL (test code 3.87 mill/mm3 4.0-5.8 L = RBC) HEMOGLOBIN (test code = 9.9 gram/dL 13.0-17.5 L HGB) HEMATOCRIT (test code = 31.6 % 42.0-52.0 L HCT) MEAN CELL VOLUME (test 81.7 fL 80-98 N code = MCV) MEAN CELL HGB (test code 25.6 picogram 27.0-33.0 L = MCH) MEAN CELL HGB 31.3 gram/dL 33.0-36.0 L CONCETRATION (test code = MCHC) RED CELL DISTRIBUTION 21.4 % 11.6-16.2 H WIDTH (test code = RDW) RED CELL DISTRIBUTION 57.3 fL 37.0-51.0 H WIDTH SD (test code = RDW-SD) PLATELET COUNT (test code 263 K/mm3 150-450 N = PLT) MEAN PLATELET VOLUME 10.3 fL 6.7-11.0 N (test code = MPV) NEUTROPHIL % (test code = 83.7 % 39.0-69.0 H NT%) IMMATURE GRANULOCYTE % 2.3 % 0.0-5.0 N (test code = IG%) LYMPHOCYTE % (test code = 7.1 % 25.0-55.0 L LY%) MONOCYTE % (test code = 6.1 % 0.0-10.0 N MO%) EOSINOPHIL % (test code = 0.4 % 0.0-5.0 N EO%) BASOPHIL % (test code = 0.4 % 0.0-1.0 N BA%) NUCLEATED RBC % (test 0.2 % 0-0 H code = NRBC%) NEUTROPHIL # (test code = 10.91 K/mm3 1.8-7.7 H NT#) IMMATURE GRANULOCYTE # 0.30 x10 3/uL 0-0.03 H (test code = IG#) LYMPHOCYTE # (test code = 0.92 K/mm3 1.0-5.0 L LY#) MONOCYTE # (test code = 0.79 K/mm3 0-0.8 N MO#) EOSINOPHIL # (test code = 0.05 K/mm3 0.0-0.5 N EO#) BASOPHIL # (test code = 0.05 K/mm3 0.0-0.2 N BA#) NUCLEATED RBC # (test 0.02 K/mm3 0.0-0.1 N code = NRBC#) MANUAL DIFF REQUIRED NO, ONLY SCAN NEEDED (test code = MDIFF) DIFFERENTIAL [id number] 04:32:00 Test Item Value Reference Range Interpretation Comments STAIN ACCEPTABILITY (test code = STN ACCEPTABLE) CABOT RINGS (test code = CAB) MORPHOLOGY COMMENT (test code = MOC) PLATELET ESTIMATE (test code = PLTEST) PLATELET MORPHOLOGY (test code = PLTMORPH) - US ABDOMEN [id number] 16:48:00 Name: ENDER RODRIGUEZ [facility] : 1945 Age/S: 74 / M [address] [facility] Unit #: [id number] Loc: [place] [address] Phys: Karli Wick Acct: [id number] Dis Date: Status: ADM IN PHONE #: [phone] Exam Date: 09/30/20191615 FAX #: [phone] Reason: ABN LFTS EXAMS: CPT CODE: [id number] US ABDOMEN LTD [id number] REASON FOR EXAM: ABN LFTS EXAM ORDER DATE: 09/30/2019 2:40 PM Attending MEric: LAURIE Chu PROCEDURE: - US ABDOMEN LTD Technique: Grayscale and color Doppler images of the right-upper quadrant of the abdomen. Comparison: CTof the abdomen and pelvis September 27, 2019 FINDINGS: Aorta and IVC: Patentand grossly normal in caliber. Liver: Size: 16.7 cm craniocaudally Parenchyma and contour: Diffusely increased echogenicity of the parenchyma Cysts and/or masses:None. Intrahepatic bile ducts: No intrahepatic biliary ductal dilation Common bile duct: 3.5 mm in diameter. No echogenic filling defects in visualized duct. Gallbladder: Stones/sludge: Small intraluminal stones are present Wall: 1.3 mm in t hickness. No discontinuity. No polyps. No pericholecystic fluid. No hyperemia. Sonographic Kirkland's sign: Negative Portal vein: Portal vein caliber is within normal limits. Portal vein is patent with hepatopetal flow. Pancreas: Incompletely visualized. However the visualized portions are grossly within normal limits. Right kidney: parenchyma echogenicity: Normal echogenicity size: 11.4 x 5.3 x 5.1 cm stones: none PAGE 1 Signed Report (CONTINUED) Name: ENDER RODRIGUEZ [facility] : 1945 Age/S: 74 / M [address] [facility] Unit #: [id number] Loc: [place] [address] Phys: Karli Wick Acct: [id number] Dis Date: Status: ADM IN PHONE #: [phone] Exam Date: 09/30/2019 161 FAX #: [phone] Reason: ABN LFTS EXAMS: CPT CODE: [id number] US ABDOMEN LTD [id number] <Continued> cysts/masses: none hydronephrosis: none Ascites/pleural effusions: None IMPRESSION: Cholelithiasis without sonographic evidence of acute cholecystitis. Hepaticsteatosis. Location: [facility] Electronically Signed by Teo Glover MD on 11/2019 at 1648 Reported and signed by: Teo Glover MD CC: Immanuel Spencer MD; Karli Wick Technologist: Laura Abraham RDMS Trnscb Date/Time: 09/30/2019 (1647) [email or web address] Orig Print D/T: S:09/30/2019 (261) Probe: PAGE 2 Signed ReportCBC W/AUTO [id number] 06:06:00 Test Item Value Reference Range Interpretation Comments WHITE BLOOD CELL (test 9.7 K/mm3 4.5-12.5 N code = WBC) RED BLOOD CELL (test code 3.50 mill/mm3 4.0-5.8 L = RBC) HEMOGLOBIN (test code = 9.0 gram/dL 13.0-17.5 L HGB) HEMATOCRIT (test code = 28.6 % 42.0-52.0 L HCT) MEAN CELL VOLUME (test 81.7 fL 80-98 N code = MCV) MEAN CELL HGB (test code 25.7 picogram 27.0-33.0 L = MCH) MEAN CELL HGB 31.5 gram/dL 33.0-36.0 L CONCETRATION (test code = MCHC) RED CELL DISTRIBUTION 20.6 % 11.6-16.2 H WIDTH (test code = RDW) RED CELL DISTRIBUTION 59.0 fL 37.0-51.0 H WIDTH SD (test code = RDW-SD) PLATELET COUNT (test code 247 K/mm3 150-450 N = PLT) MEAN PLATELET VOLUME 10.6 fL 6.7-11.0 N (test code = MPV) NEUTROPHIL % (test code = 77.7 % 39.0-69.0 H NT%) IMMATURE GRANULOCYTE % 2.9 % 0.0-5.0 N (test code = IG%) LYMPHOCYTE % (test code = 10.6 % 25.0-55.0 L LY%) MONOCYTE % (test code = 8.3 % 0.0-10.0 N MO%) EOSINOPHIL % (test code = 0.3 % 0.0-5.0 N EO%) BASOPHIL % (test code = 0.2 % 0.0-1.0 N BA%) NUCLEATED RBC % (test 0.4 % 0-0 H code = NRBC%) NEUTROPHIL # (test code = 7.57 K/mm3 1.8-7.7 N NT#) IMMATURE GRANULOCYTE # 0.28 x10 3/uL 0-0.03 H (test code = IG#) LYMPHOCYTE # (test code = 1.03 K/mm3 1.0-5.0 N LY#) MONOCYTE # (test code = 0.81 K/mm3 0-0.8 H MO#) EOSINOPHIL # (test code = 0.03 K/mm3 0.0-0.5 N EO#) BASOPHIL # (test code = 0.02 K/mm3 0.0-0.2 N BA#) NUCLEATED RBC # (test 0.04 K/mm3 0.0-0.1 N code = NRBC#) MANUAL DIFF REQUIRED NO, ONLY SCAN NEEDED (test code = MDIFF) DIFFERENTIAL [id number] 06:06:00 Test Item Value Reference Range Interpretation Comments STAIN ACCEPTABILITY (test STAIN ACCEPTABLE code = STN ACCEPTABLE) POLYCHROMASIA (test code = 1+ POLC) HYPOCHROMIA (test code = 1+ HYPO) ANISOCYTOSIS (test code = 1+ ANISO) MICROCYTOSIS (test code = 1+ MICR) MORPHOLOGY COMMENT (test TEST NOT PERFORMED code = MOC) PLATELET ESTIMATE (test ADEQUATE code = PLTEST) PLATELET MORPHOLOGY (test NORMAL code = PLTMORPH) COMPREHENSIVE METABOLIC [id number] 05:58:00 Test Item Value Reference Range Interpretation Comments SODIUM (test code = 131 mmol/L 136-145 L NA) POTASSIUM (test code = 3.2 mmol/L 3.5-5.1 L K) CHLORIDE (test code = 98.0 mmol/L 98-107 N CL) CARBON DIOXIDE (test 25.0 mmol/L 21-32 N code = CO2) ANION GAP (test code = 11.2 10-20 N GAP) GLUCOSE (test code = 95 mg/dL 74-106 N GLU) BLOOD UREA NITROGEN 4 mg/dL 7-18 L (test code = BUN) GLOMERULAR FILTRATION > 60 mL/min >=60 Est[place] jer[place] GFR by RATE (test code = GFR) using Modified MDRD formula.Chronic kidney disease is defined as ei er kidney damageor GFR <60 mL/min/1.73 m2 for >3 months. CREATININE (test code 0.60 mg/dL 0.7-1.3 L = CREAT) BUN/CREATININE RATIO 6.7 10-20 L (test code = BUN/CREA) TOTAL PROTEIN (test 5.9 gram/dL 6.4-8.2 L code = PROT) ALBUMIN (test code = 2.5 g/dL 3.4-5.0 L ALB) GLOBULIN (test code = 3.4 gram/dL 2.7-4.2 N GLOB) ALBUMIN/GLOBULIN RATIO 0.7 0.75-1.50 L (test code = A/G) CALCIUM (test code = 7.8 mg/dL 8.5-10.1 L CA) BILIRUBIN TOTAL (test 1.20 mg/dL 0.0-1.0 H code = BILT) SGOT/AST (test code = 154 IUnit/L 15-37 H AST) SGPT/ALT (test code = 87 IUnit/L 12-78 H ALT) ALKALINE PHOSPHATASE 142 IUnit/L 45-117 H Note change in TOTAL (test code = reference range due ALKP) to change in reagent. [id number] 05:58:00 Test Item Value Reference Range Interpretation Comments LIPASE (test code = LIP) 2477 U/L 73.0-393.0 H COMPREHENSIVE METABOLIC [id number] 05:43:00 Test Item Value Reference Range Interpretation Comments SODIUM (test code = NA) 131 mmol/L 136-145 L POTASSIUM (test code = K) 3.2 mmol/L 3.5-5.1 L CHLORIDE (test code = CL) 98.0 mmol/L 98-107 N CARBON DIOXIDE (test code = CO2) mmol/L 21-32 ANION GAP (test code = GAP) 10-20 GLUCOSE (test code = GLU) mg/dL 74-106 BLOOD UREA NITROGEN (test code = mg/dL 7-18 BUN) GLOMERULAR FILTRATION RATE (test mL/min >=60 code = GFR) CREATININE (test code = CREAT) mg/dL 0.7-1.3 BUN/CREATININE RATIO (test code = 10-20 BUN/CREA) TOTAL PROTEIN (test code = PROT) gram/dL 6.4-8.2 ALBUMIN (test code = ALB) g/dL 3.4-5.0 GLOBULIN (test code = GLOB) gram/dL 2.7-4.2 ALBUMIN/GLOBULIN RATIO (test code 0.75-1.50 = A/G) CALCIUM (test code = CA) mg/dL 8.5-10.1 BILIRUBIN TOTAL (test code = mg/dL 0.0-1.0 BILT) SGOT/AST (test code = AST) IUnit/L 15-37 SGPT/ALT (test code = ALT) IUnit/L 12-78 ALKALINE PHOSPHATASE TOTAL (test IUnit/L 45-117 code = ALKP) [id number] 05:43:00 Test Item Value Reference Range Interpretation Comments LIPASE (test code = LIP) U/L 73.0-393.0 CBC W/AUTO [id number] 05:29:00 Test Item Value Reference Range Interpretation Comments WHITE BLOOD CELL (test 9.7 K/mm3 4.5-12.5 N code = WBC) RED BLOOD CELL (test code 3.50 mill/mm3 4.0-5.8 L = RBC) HEMOGLOBIN (test code = 9.0 gram/dL 13.0-17.5 L HGB) HEMATOCRIT (test code = 28.6 % 42.0-52.0 L HCT) MEAN CELL VOLUME (test 81.7 fL 80-98 N code = MCV) MEAN CELL HGB (test code 25.7 picogram 27.0-33.0 L = MCH) MEAN CELL HGB 31.5 gram/dL 33.0-36.0 L CONCETRATION (test code = MCHC) RED CELL DISTRIBUTION 20.6 % 11.6-16.2 H WIDTH (test code = RDW) RED CELL DISTRIBUTION 59.0 fL 37.0-51.0 H WIDTH SD (test code = RDW-SD) PLATELET COUNT (test code 247 K/mm3 150-450 N = PLT) MEAN PLATELET VOLUME 10.6 fL 6.7-11.0 N (test code = MPV) NEUTROPHIL % (test code = 77.7 % 39.0-69.0 H NT%) IMMATURE GRANULOCYTE % 2.9 % 0.0-5.0 N (test code = IG%) LYMPHOCYTE % (test code = 10.6 % 25.0-55.0 L LY%) MONOCYTE % (test code = 8.3 % 0.0-10.0 N MO%) EOSINOPHIL % (test code = 0.3 % 0.0-5.0 N EO%) BASOPHIL % (test code = 0.2 % 0.0-1.0 N BA%) NUCLEATED RBC % (test 0.4 % 0-0 H code = NRBC%) NEUTROPHIL # (test code = 7.57 K/mm3 1.8-7.7 N NT#) IMMATURE GRANULOCYTE # 0.28 x10 3/uL 0-0.03 H (test code = IG#) LYMPHOCYTE # (test code = 1.03 K/mm3 1.0-5.0 N LY#) MONOCYTE # (test code = 0.81 K/mm3 0-0.8 H MO#) EOSINOPHIL # (test code = 0.03 K/mm3 0.0-0.5 N EO#) BASOPHIL # (test code = 0.02 K/mm3 0.0-0.2 N BA#) NUCLEATED RBC # (test 0.04 K/mm3 0.0-0.1 N code = NRBC#) MANUAL DIFF REQUIRED NO, ONLY SCAN NEEDED (test code = MDIFF) DIFFERENTIAL [id number] 05:29:00 Test Item Value Reference Range Interpretation Comments STAIN ACCEPTABILITY (test code = STN ACCEPTABLE) CABOT RINGS (test code = CAB) MORPHOLOGY COMMENT (test code = MOC) PLATELET ESTIMATE (test code = PLTEST) PLATELET MORPHOLOGY (test code = PLTMORPH) CBC W/AUTO [id number] 05:29:00 Test Item Value Reference Range Interpretation Comments WHITE BLOOD CELL (test 9.7 K/mm3 4.5-12.5 N code = WBC) RED BLOOD CELL (test code 3.50 mill/mm3 4.0-5.8 L = RBC) HEMOGLOBIN (test code = 9.0 gram/dL 13.0-17.5 L HGB) HEMATOCRIT (test code = 28.6 % 42.0-52.0 L HCT) MEAN CELL VOLUME (test 81.7 fL 80-98 N code = MCV) MEAN CELL HGB (test code 25.7 picogram 27.0-33.0 L = MCH) MEAN CELL HGB 31.5 gram/dL 33.0-36.0 L CONCETRATION (test code = MCHC) RED CELL DISTRIBUTION 20.6 % 11.6-16.2 H WIDTH (test code = RDW) RED CELL DISTRIBUTION 59.0 fL 37.0-51.0 H WIDTH SD (test code = RDW-SD) PLATELET COUNT (test code 247 K/mm3 150-450 N = PLT) MEAN PLATELET VOLUME 10.6 fL 6.7-11.0 N (test code = MPV) NEUTROPHIL % (test code = 77.7 % 39.0-69.0 H NT%) IMMATURE GRANULOCYTE % 2.9 % 0.0-5.0 N (test code = IG%) LYMPHOCYTE % (test code = 10.6 % 25.0-55.0 L LY%) MONOCYTE % (test code = 8.3 % 0.0-10.0 N MO%) EOSINOPHIL % (test code = 0.3 % 0.0-5.0 N EO%) BASOPHIL % (test code = 0.2 % 0.0-1.0 N BA%) NUCLEATED RBC % (test 0.4 % 0-0 H code = NRBC%) NEUTROPHIL # (test code = 7.57 K/mm3 1.8-7.7 N NT#) IMMATURE GRANULOCYTE # 0.28 x10 3/uL 0-0.03 H (test code = IG#) LYMPHOCYTE # (test code = 1.03 K/mm3 1.0-5.0 N LY#) MONOCYTE # (test code = 0.81 K/mm3 0-0.8 H MO#) EOSINOPHIL # (test code = 0.03 K/mm3 0.0-0.5 N EO#) BASOPHIL # (test code = 0.02 K/mm3 0.0-0.2 N BA#) NUCLEATED RBC # (test 0.04 K/mm3 0.0-0.1 N code = NRBC#) MANUAL DIFF REQUIRED NO, ONLY SCAN NEEDED (test code = MDIFF) DIFFERENTIAL [id number] 05:29:00 Test Item Value Reference Range Interpretation Comments STAIN ACCEPTABILITY (test code = STN ACCEPTABLE) CABOT RINGS (test code = CAB) MORPHOLOGY COMMENT (test code = MOC) PLATELET ESTIMATE (test code = PLTEST) PLATELET MORPHOLOGY (test code = PLTMORPH) CBC W/AUTO [id number] 05:29:00 Test Item Value Reference Range Interpretation Comments WHITE BLOOD CELL (test 9.7 K/mm3 4.5-12.5 N code = WBC) RED BLOOD CELL (test code 3.50 mill/mm3 4.0-5.8 L = RBC) HEMOGLOBIN (test code = 9.0 gram/dL 13.0-17.5 L HGB) HEMATOCRIT (test code = 28.6 % 42.0-52.0 L HCT) MEAN CELL VOLUME (test 81.7 fL 80-98 N code = MCV) MEAN CELL HGB (test code 25.7 picogram 27.0-33.0 L = MCH) MEAN CELL HGB 31.5 gram/dL 33.0-36.0 L CONCETRATION (test code = MCHC) RED CELL DISTRIBUTION 20.6 % 11.6-16.2 H WIDTH (test code = RDW) RED CELL DISTRIBUTION 59.0 fL 37.0-51.0 H WIDTH SD (test code = RDW-SD) PLATELET COUNT (test code 247 K/mm3 150-450 N = PLT) MEAN PLATELET VOLUME 10.6 fL 6.7-11.0 N (test code = MPV) NEUTROPHIL % (test code = 77.7 % 39.0-69.0 H NT%) IMMATURE GRANULOCYTE % 2.9 % 0.0-5.0 N (test code = IG%) LYMPHOCYTE % (test code = 10.6 % 25.0-55.0 L LY%) MONOCYTE % (test code = 8.3 % 0.0-10.0 N MO%) EOSINOPHIL % (test code = 0.3 % 0.0-5.0 N EO%) BASOPHIL % (test code = 0.2 % 0.0-1.0 N BA%) NUCLEATED RBC % (test 0.4 % 0-0 H code = NRBC%) NEUTROPHIL # (test code = 7.57 K/mm3 1.8-7.7 N NT#) IMMATURE GRANULOCYTE # 0.28 x10 3/uL 0-0.03 H (test code = IG#) LYMPHOCYTE # (test code = 1.03 K/mm3 1.0-5.0 N LY#) MONOCYTE # (test code = 0.81 K/mm3 0-0.8 H MO#) EOSINOPHIL # (test code = 0.03 K/mm3 0.0-0.5 N EO#) BASOPHIL # (test code = 0.02 K/mm3 0.0-0.2 N BA#) NUCLEATED RBC # (test 0.04 K/mm3 0.0-0.1 N code = NRBC#) MANUAL DIFF REQUIRED NO, ONLY SCAN NEEDED (test code = MDIFF) DIFFERENTIAL [id number] 05:29:00 Test Item Value Reference Range Interpretation Comments STAIN ACCEPTABILITY (test code = STN ACCEPTABLE) MORPHOLOGY COMMENT (test code = MOC) PLATELET ESTIMATE (test code = PLTEST) PLATELET MORPHOLOGY (test code = PLTMORPH) CBC W/AUTO [id number] 05:29:00 Test Item Value Reference Range Interpretation Comments WHITE BLOOD CELL (test 9.7 K/mm3 4.5-12.5 N code = WBC) RED BLOOD CELL (test code 3.50 mill/mm3 4.0-5.8 L = RBC) HEMOGLOBIN (test code = 9.0 gram/dL 13.0-17.5 L HGB) HEMATOCRIT (test code = 28.6 % 42.0-52.0 L HCT) MEAN CELL VOLUME (test 81.7 fL 80-98 N code = MCV) MEAN CELL HGB (test code 25.7 picogram 27.0-33.0 L = MCH) MEAN CELL HGB 31.5 gram/dL 33.0-36.0 L CONCETRATION (test code = MCHC) RED CELL DISTRIBUTION 20.6 % 11.6-16.2 H WIDTH (test code = RDW) RED CELL DISTRIBUTION 59.0 fL 37.0-51.0 H WIDTH SD (test code = RDW-SD) PLATELET COUNT (test code 247 K/mm3 150-450 N = PLT) MEAN PLATELET VOLUME 10.6 fL 6.7-11.0 N (test code = MPV) NEUTROPHIL % (test code = 77.7 % 39.0-69.0 H NT%) IMMATURE GRANULOCYTE % 2.9 % 0.0-5.0 N (test code = IG%) LYMPHOCYTE % (test code = 10.6 % 25.0-55.0 L LY%) MONOCYTE % (test code = 8.3 % 0.0-10.0 N MO%) EOSINOPHIL % (test code = 0.3 % 0.0-5.0 N EO%) BASOPHIL % (test code = 0.2 % 0.0-1.0 N BA%) NUCLEATED RBC % (test 0.4 % 0-0 H code = NRBC%) NEUTROPHIL # (test code = 7.57 K/mm3 1.8-7.7 N NT#) IMMATURE GRANULOCYTE # 0.28 x10 3/uL 0-0.03 H (test code = IG#) LYMPHOCYTE # (test code = 1.03 K/mm3 1.0-5.0 N LY#) MONOCYTE # (test code = 0.81 K/mm3 0-0.8 H MO#) EOSINOPHIL # (test code = 0.03 K/mm3 0.0-0.5 N EO#) BASOPHIL # (test code = 0.02 K/mm3 0.0-0.2 N BA#) NUCLEATED RBC # (test 0.04 K/mm3 0.0-0.1 N code = NRBC#) MANUAL DIFF REQUIRED NO, ONLY SCAN NEEDED (test code = MDIFF) DIFFERENTIAL [id number] 05:29:00 Test Item Value Reference Range Interpretation Comments STAIN ACCEPTABILITY (test code = STN ACCEPTABLE) CABOT RINGS (test code = CAB) MORPHOLOGY COMMENT (test code = MOC) PLATELET ESTIMATE (test code = PLTEST) PLATELET MORPHOLOGY (test code = PLTMORPH) COMPREHENSIVE METABOLIC [id number] 06:34:00 Test Item Value Reference Range Interpretation Comments SODIUM (test code = 129 mmol/L 136-145 L NA) POTASSIUM (test code = 3.0 mmol/L 3.5-5.1 L K) CHLORIDE (test code = 94.0 mmol/L 98-107 L CL) CARBON DIOXIDE (test 24.0 mmol/L 21-32 N code = CO2) ANION GAP (test code = 14.0 10-20 N GAP) GLUCOSE (test code = 80 mg/dL 74-106 N GLU) BLOOD UREA NITROGEN 7 mg/dL 7-18 N (test code = BUN) GLOMERULAR FILTRATION > 60 mL/min >=60 Estima jer[place] GFR by RATE (test code = GFR) using Modified MDRD formula.Chronic kidney disease is defined as [facility] er kidney damageor GFR <60 mL/min/1.73 m2 for >3 months. CREATININE (test code 0.60 mg/dL 0.7-1.3 L = CREAT) BUN/CREATININE RATIO 11.7 10-20 N (test code = BUN/CREA) TOTAL PROTEIN (test 6.0 gram/dL 6.4-8.2 L code = PROT) ALBUMIN (test code = 2.5 g/dL 3.4-5.0 L ALB) GLOBULIN (test code = 3.5 gram/dL 2.7-4.2 N GLOB) ALBUMIN/GLOBULIN RATIO 0.7 0.75-1.50 L (test code = A/G) CALCIUM (test code = 7.6 mg/dL 8.5-10.1 L CA) BILIRUBIN TOTAL (test 1.60 mg/dL 0.0-1.0 H code = BILT) SGOT/AST (test code = 149 IUnit/L 15-37 H AST) SGPT/ALT (test code = 84 IUnit/L 12-78 H ALT) ALKALINE PHOSPHATASE 141 IUnit/L 45-117 H Note change in TOTAL (test code = reference range due ALKP) to change in reagent. [id number] 06:34:00 Test Item Value Reference Range Interpretation Comments LIPASE (test code = LIP) 2027 U/L 73.0-393.0 H [id number] 06:34:00 Test Item Value Reference Range Interpretation Comments TROPONIN-I (test code = TROPI) 0.026 ng/mL 0-0.045 N CBC W/AUTO [id number] 05:55:00 Test Item Value Reference Range Interpretation Comments WHITE BLOOD CELL (test 10.3 K/mm3 4.5-12.5 N code = WBC) RED BLOOD CELL (test code 3.55 mill/mm3 4.0-5.8 L = RBC) HEMOGLOBIN (test code = 9.0 gram/dL 13.0-17.5 L HGB) HEMATOCRIT (test code = 28.6 % 42.0-52.0 L HCT) MEAN CELL VOLUME (test 80.6 fL 80-98 N code = MCV) MEAN CELL HGB (test code 25.4 picogram 27.0-33.0 L = MCH) MEAN CELL HGB 31.5 gram/dL 33.0-36.0 L CONCETRATION (test code = MCHC) RED CELL DISTRIBUTION 20.6 % 11.6-16.2 H WIDTH (test code = RDW) RED CELL DISTRIBUTION 59.2 fL 37.0-51.0 H WIDTH SD (test code = RDW-SD) PLATELET COUNT (test code 235 K/mm3 150-450 N = PLT) MEAN PLATELET VOLUME 10.3 fL 6.7-11.0 N (test code = MPV) NEUTROPHIL % (test code = 76.8 % 39.0-69.0 H NT%) IMMATURE GRANULOCYTE % 2.6 % 0.0-5.0 N (test code = IG%) LYMPHOCYTE % (test code = 10.9 % 25.0-55.0 L LY%) MONOCYTE % (test code = 9.2 % 0.0-10.0 N MO%) EOSINOPHIL % (test code = 0.3 % 0.0-5.0 N EO%) BASOPHIL % (test code = 0.2 % 0.0-1.0 N BA%) NUCLEATED RBC % (test 0.5 % 0-0 H code = NRBC%) NEUTROPHIL # (test code = 7.93 K/mm3 1.8-7.7 H NT#) IMMATURE GRANULOCYTE # 0.27 x10 3/uL 0-0.03 H (test code = IG#) LYMPHOCYTE # (test code = 1.13 K/mm3 1.0-5.0 N LY#) MONOCYTE # (test code = 0.95 K/mm3 0-0.8 H MO#) EOSINOPHIL # (test code = 0.03 K/mm3 0.0-0.5 N EO#) BASOPHIL # (test code = 0.02 K/mm3 0.0-0.2 N BA#) NUCLEATED RBC # (test 0.05 K/mm3 0.0-0.1 N code = NRBC#) MANUAL DIFF REQUIRED NO, ONLY SCAN NEEDED (test code = MDIFF) DIFFERENTIAL [id number] 05:55:00 Test Item Value Reference Range Interpretation Comments STAIN ACCEPTABILITY (test STAIN ACCEPTABLE code = STN ACCEPTABLE) POLYCHROMASIA (test code = 1+ POLC) HYPOCHROMIA (test code = 2+ HYPO) ANISOCYTOSIS (test code = 1+ ANISO) MACROCYTOSIS (test code = 1+ MACR) TARGET CELLS (test code = 1+ TGT) CRENATED CELLS (test code = 1+ CREN) PLATELET ESTIMATE (test code ADEQUATE = PLTEST) PLATELET MORPHOLOGY (test NORMAL code = PLTMORPH) COMPREHENSIVE METABOLIC [id number] 05:53:00 Test Item Value Reference Range Interpretation Comments SODIUM (test code = 129 mmol/L 136-145 L NA) POTASSIUM (test code = 3.0 mmol/L 3.5-5.1 L K) CHLORIDE (test code = 94.0 mmol/L 98-107 L CL) CARBON DIOXIDE (test 24.0 mmol/L 21-32 N code = CO2) ANION GAP (test code = 14.0 10-20 N GAP) GLUCOSE (test code = 80 mg/dL 74-106 N GLU) BLOOD UREA NITROGEN 7 mg/dL 7-18 N (test code = BUN) GLOMERULAR FILTRATION > 60 mL/min >=60 Estima jer[place] GFR by RATE (test code = GFR) using Modified MDRD formula.Chronic kidney disease is defined as [facility] er kidney damageor GFR <60 mL/min/1.73 m2 for >3 months. CREATININE (test code 0.60 mg/dL 0.7-1.3 L = CREAT) BUN/CREATININE RATIO 11.7 10-20 N (test code = BUN/CREA) TOTAL PROTEIN (test 6.0 gram/dL 6.4-8.2 L code = PROT) ALBUMIN (test code = 2.5 g/dL 3.4-5.0 L ALB) GLOBULIN (test code = 3.5 gram/dL 2.7-4.2 N GLOB) ALBUMIN/GLOBULIN RATIO 0.7 0.75-1.50 L (test code = A/G) CALCIUM (test code = 7.6 mg/dL 8.5-10.1 L CA) BILIRUBIN TOTAL (test 1.60 mg/dL 0.0-1.0 H code = BILT) SGOT/AST (test code = 149 IUnit/L 15-37 H AST) SGPT/ALT (test code = 84 IUnit/L 12-78 H ALT) ALKALINE PHOSPHATASE 141 IUnit/L 45-117 H Note change in TOTAL (test code = reference range due ALKP) to change in reagent. [id number] 05:53:00 Test Item Value Reference Range Interpretation Comments LIPASE (test code = LIP) U/L 73.0-393.0 [id number] 05:53:00 Test Item Value Reference Range Interpretation Comments TROPONIN-I (test code = TROPI) 0.026 ng/mL 0-0.045 N COMPREHENSIVE METABOLIC [id number] 05:41:00 Test Item Value Reference Range Interpretation Comments SODIUM (test code = NA) 129 mmol/L 136-145 L POTASSIUM (test code = K) 3.0 mmol/L 3.5-5.1 L CHLORIDE (test code = CL) 94.0 mmol/L 98-107 L CARBON DIOXIDE (test code = CO2) mmol/L 21-32 ANION GAP (test code = GAP) 10-20 GLUCOSE (test code = GLU) mg/dL 74-106 BLOOD UREA NITROGEN (test code = mg/dL 7-18 BUN) GLOMERULAR FILTRATION RATE (test mL/min >=60 code = GFR) CREATININE (test code = CREAT) mg/dL 0.7-1.3 BUN/CREATININE RATIO (test code = 10-20 BUN/CREA) TOTAL PROTEIN (test code = PROT) gram/dL 6.4-8.2 ALBUMIN (test code = ALB) g/dL 3.4-5.0 GLOBULIN (test code = GLOB) gram/dL 2.7-4.2 ALBUMIN/GLOBULIN RATIO (test code 0.75-1.50 = A/G) CALCIUM (test code = CA) mg/dL 8.5-10.1 BILIRUBIN TOTAL (test code = mg/dL 0.0-1.0 BILT) SGOT/AST (test code = AST) IUnit/L 15-37 SGPT/ALT (test code = ALT) IUnit/L 12-78 ALKALINE PHOSPHATASE TOTAL (test IUnit/L 45-117 code = ALKP) [id number] 05:41:00 Test Item Value Reference Range Interpretation Comments LIPASE (test code = LIP) U/L 73.0-393.0 [id number] 05:41:00 Test Item Value Reference Range Interpretation Comments TROPONIN-I (test code = TROPI) ng/mL 0-0.045 CBC W/AUTO [id number] 05:18:00 Test Item Value Reference Range Interpretation Comments WHITE BLOOD CELL (test 10.3 K/mm3 4.5-12.5 N code = WBC) RED BLOOD CELL (test code 3.55 mill/mm3 4.0-5.8 L = RBC) HEMOGLOBIN (test code = 9.0 gram/dL 13.0-17.5 L HGB) HEMATOCRIT (test code = 28.6 % 42.0-52.0 L HCT) MEAN CELL VOLUME (test 80.6 fL 80-98 N code = MCV) MEAN CELL HGB (test code 25.4 picogram 27.0-33.0 L = MCH) MEAN CELL HGB 31.5 gram/dL 33.0-36.0 L CONCETRATION (test code = MCHC) RED CELL DISTRIBUTION 20.6 % 11.6-16.2 H WIDTH (test code = RDW) RED CELL DISTRIBUTION 59.2 fL 37.0-51.0 H WIDTH SD (test code = RDW-SD) PLATELET COUNT (test code 235 K/mm3 150-450 N = PLT) MEAN PLATELET VOLUME 10.3 fL 6.7-11.0 N (test code = MPV) NEUTROPHIL % (test code = 76.8 % 39.0-69.0 H NT%) IMMATURE GRANULOCYTE % 2.6 % 0.0-5.0 N (test code = IG%) LYMPHOCYTE % (test code = 10.9 % 25.0-55.0 L LY%) MONOCYTE % (test code = 9.2 % 0.0-10.0 N MO%) EOSINOPHIL % (test code = 0.3 % 0.0-5.0 N EO%) BASOPHIL % (test code = 0.2 % 0.0-1.0 N BA%) NUCLEATED RBC % (test 0.5 % 0-0 H code = NRBC%) NEUTROPHIL # (test code = 7.93 K/mm3 1.8-7.7 H NT#) IMMATURE GRANULOCYTE # 0.27 x10 3/uL 0-0.03 H (test code = IG#) LYMPHOCYTE # (test code = 1.13 K/mm3 1.0-5.0 N LY#) MONOCYTE # (test code = 0.95 K/mm3 0-0.8 H MO#) EOSINOPHIL # (test code = 0.03 K/mm3 0.0-0.5 N EO#) BASOPHIL # (test code = 0.02 K/mm3 0.0-0.2 N BA#) NUCLEATED RBC # (test 0.05 K/mm3 0.0-0.1 N code = NRBC#) MANUAL DIFF REQUIRED NO, ONLY SCAN NEEDED (test code = MDIFF) DIFFERENTIAL [id number] 05:18:00 Test Item Value Reference Range Interpretation Comments STAIN ACCEPTABILITY (test code = STN ACCEPTABLE) CABOT RINGS (test code = CAB) MORPHOLOGY COMMENT (test code = MOC) PLATELET ESTIMATE (test code = PLTEST) PLATELET MORPHOLOGY (test code = PLTMORPH) CBC W/AUTO [id number] 05:18:00 Test Item Value Reference Range Interpretation Comments WHITE BLOOD CELL (test 10.3 K/mm3 4.5-12.5 N code = WBC) RED BLOOD CELL (test code 3.55 mill/mm3 4.0-5.8 L = RBC) HEMOGLOBIN (test code = 9.0 gram/dL 13.0-17.5 L HGB) HEMATOCRIT (test code = 28.6 % 42.0-52.0 L HCT) MEAN CELL VOLUME (test 80.6 fL 80-98 N code = MCV) MEAN CELL HGB (test code 25.4 picogram 27.0-33.0 L = MCH) MEAN CELL HGB 31.5 gram/dL 33.0-36.0 L CONCETRATION (test code = MCHC) RED CELL DISTRIBUTION 20.6 % 11.6-16.2 H WIDTH (test code = RDW) RED CELL DISTRIBUTION 59.2 fL 37.0-51.0 H WIDTH SD (test code = RDW-SD) PLATELET COUNT (test code 235 K/mm3 150-450 N = PLT) MEAN PLATELET VOLUME 10.3 fL 6.7-11.0 N (test code = MPV) NEUTROPHIL % (test code = 76.8 % 39.0-69.0 H NT%) IMMATURE GRANULOCYTE % 2.6 % 0.0-5.0 N (test code = IG%) LYMPHOCYTE % (test code = 10.9 % 25.0-55.0 L LY%) MONOCYTE % (test code = 9.2 % 0.0-10.0 N MO%) EOSINOPHIL % (test code = 0.3 % 0.0-5.0 N EO%) BASOPHIL % (test code = 0.2 % 0.0-1.0 N BA%) NUCLEATED RBC % (test 0.5 % 0-0 H code = NRBC%) NEUTROPHIL # (test code = 7.93 K/mm3 1.8-7.7 H NT#) IMMATURE GRANULOCYTE # 0.27 x10 3/uL 0-0.03 H (test code = IG#) LYMPHOCYTE # (test code = 1.13 K/mm3 1.0-5.0 N LY#) MONOCYTE # (test code = 0.95 K/mm3 0-0.8 H MO#) EOSINOPHIL # (test code = 0.03 K/mm3 0.0-0.5 N EO#) BASOPHIL # (test code = 0.02 K/mm3 0.0-0.2 N BA#) NUCLEATED RBC # (test 0.05 K/mm3 0.0-0.1 N code = NRBC#) MANUAL DIFF REQUIRED NO, ONLY SCAN NEEDED (test code = MDIFF) DIFFERENTIAL [id number] 05:18:00 Test Item Value Reference Range Interpretation Comments STAIN ACCEPTABILITY (test code = STN ACCEPTABLE) CABOT RINGS (test code = CAB) MORPHOLOGY COMMENT (test code = MOC) PLATELET ESTIMATE (test code = PLTEST) PLATELET MORPHOLOGY (test code = PLTMORPH) CBC W/AUTO [id number] 05:18:00 Test Item Value Reference Range Interpretation Comments WHITE BLOOD CELL (test 10.3 K/mm3 4.5-12.5 N code = WBC) RED BLOOD CELL (test code 3.55 mill/mm3 4.0-5.8 L = RBC) HEMOGLOBIN (test code = 9.0 gram/dL 13.0-17.5 L HGB) HEMATOCRIT (test code = 28.6 % 42.0-52.0 L HCT) MEAN CELL VOLUME (test 80.6 fL 80-98 N code = MCV) MEAN CELL HGB (test code 25.4 picogram 27.0-33.0 L = MCH) MEAN CELL HGB 31.5 gram/dL 33.0-36.0 L CONCETRATION (test code = MCHC) RED CELL DISTRIBUTION 20.6 % 11.6-16.2 H WIDTH (test code = RDW) RED CELL DISTRIBUTION 59.2 fL 37.0-51.0 H WIDTH SD (test code = RDW-SD) PLATELET COUNT (test code 235 K/mm3 150-450 N = PLT) MEAN PLATELET VOLUME 10.3 fL 6.7-11.0 N (test code = MPV) NEUTROPHIL % (test code = 76.8 % 39.0-69.0 H NT%) IMMATURE GRANULOCYTE % 2.6 % 0.0-5.0 N (test code = IG%) LYMPHOCYTE % (test code = 10.9 % 25.0-55.0 L LY%) MONOCYTE % (test code = 9.2 % 0.0-10.0 N MO%) EOSINOPHIL % (test code = 0.3 % 0.0-5.0 N EO%) BASOPHIL % (test code = 0.2 % 0.0-1.0 N BA%) NUCLEATED RBC % (test 0.5 % 0-0 H code = NRBC%) NEUTROPHIL # (test code = 7.93 K/mm3 1.8-7.7 H NT#) IMMATURE GRANULOCYTE # 0.27 x10 3/uL 0-0.03 H (test code = IG#) LYMPHOCYTE # (test code = 1.13 K/mm3 1.0-5.0 N LY#) MONOCYTE # (test code = 0.95 K/mm3 0-0.8 H MO#) EOSINOPHIL # (test code = 0.03 K/mm3 0.0-0.5 N EO#) BASOPHIL # (test code = 0.02 K/mm3 0.0-0.2 N BA#) NUCLEATED RBC # (test 0.05 K/mm3 0.0-0.1 N code = NRBC#) MANUAL DIFF REQUIRED NO, ONLY SCAN NEEDED (test code = MDIFF) DIFFERENTIAL [id number] 05:18:00 Test Item Value Reference Range Interpretation Comments STAIN ACCEPTABILITY (test code = STN ACCEPTABLE) MORPHOLOGY COMMENT (test code = MOC) PLATELET ESTIMATE (test code = PLTEST) PLATELET MORPHOLOGY (test code = PLTMORPH) CBC W/AUTO [id number] 05:18:00 Test Item Value Reference Range Interpretation Comments WHITE BLOOD CELL (test 10.3 K/mm3 4.5-12.5 N code = WBC) RED BLOOD CELL (test code 3.55 mill/mm3 4.0-5.8 L = RBC) HEMOGLOBIN (test code = 9.0 gram/dL 13.0-17.5 L HGB) HEMATOCRIT (test code = 28.6 % 42.0-52.0 L HCT) MEAN CELL VOLUME (test 80.6 fL 80-98 N code = MCV) MEAN CELL HGB (test code 25.4 picogram 27.0-33.0 L = MCH) MEAN CELL HGB 31.5 gram/dL 33.0-36.0 L CONCETRATION (test code = MCHC) RED CELL DISTRIBUTION 20.6 % 11.6-16.2 H WIDTH (test code = RDW) RED CELL DISTRIBUTION 59.2 fL 37.0-51.0 H WIDTH SD (test code = RDW-SD) PLATELET COUNT (test code 235 K/mm3 150-450 N = PLT) MEAN PLATELET VOLUME 10.3 fL 6.7-11.0 N (test code = MPV) NEUTROPHIL % (test code = 76.8 % 39.0-69.0 H NT%) IMMATURE GRANULOCYTE % 2.6 % 0.0-5.0 N (test code = IG%) LYMPHOCYTE % (test code = 10.9 % 25.0-55.0 L LY%) MONOCYTE % (test code = 9.2 % 0.0-10.0 N MO%) EOSINOPHIL % (test code = 0.3 % 0.0-5.0 N EO%) BASOPHIL % (test code = 0.2 % 0.0-1.0 N BA%) NUCLEATED RBC % (test 0.5 % 0-0 H code = NRBC%) NEUTROPHIL # (test code = 7.93 K/mm3 1.8-7.7 H NT#) IMMATURE GRANULOCYTE # 0.27 x10 3/uL 0-0.03 H (test code = IG#) LYMPHOCYTE # (test code = 1.13 K/mm3 1.0-5.0 N LY#) MONOCYTE # (test code = 0.95 K/mm3 0-0.8 H MO#) EOSINOPHIL # (test code = 0.03 K/mm3 0.0-0.5 N EO#) BASOPHIL # (test code = 0.02 K/mm3 0.0-0.2 N BA#) NUCLEATED RBC # (test 0.05 K/mm3 0.0-0.1 N code = NRBC#) MANUAL DIFF REQUIRED NO, ONLY SCAN NEEDED (test code = MDIFF) DIFFERENTIAL [id number] 05:18:00 Test Item Value Reference Range Interpretation Comments STAIN ACCEPTABILITY (test code = STN ACCEPTABLE) CABOT RINGS (test code = CAB) MORPHOLOGY COMMENT (test code = MOC) PLATELET ESTIMATE (test code = PLTEST) PLATELET MORPHOLOGY (test code = PLTMORPH) [id number] 01:30:00 Test Item Value Reference Range Interpretation Comments TROPONIN-I (test code = TROPI) 0.022 ng/mL 0-0.045 N [id number] 17:38:00 Test Item Value Reference Range Interpretation Comments POTASSIUM (test code = 2.9 mmol/L 3.5-5.1 L Resul ts called to K) [id number] by ADRIANNA HENRY 09/28/19 [id number] itical results verifie d and read back by Nu rse? Y PROTHROMBIN [id number] 13:01:00 Test Item Value Reference Range Interpretation Comments PROTHROMBIN TIME 11.7 seconds 9.0-14.0 N PATIENT (test code = PTP) INTERNATIONAL NORMAL 1.0 0.8-1.2 N The the rapeutic range RATIO (test code = for oral INR) anticoagulant t herapy formost indicat ions is an internati onal normalized rati o (INR)of between 2.0 and 3.0. The recommended therapeutic INR range for various cli nical situations is l isted below: Clinical Situat ion INR range Pulmonary embol ism treatment (2.0-3.0)Venou s thrombosis treatmentVenous thrombosis prophylaxis (hi gh risk surgery)Prevent ion of systemic emboli sm from: A cute myocardial infa rction Valvula r heart disease Atrial fibrilla tion Mechanical pros thetic heart valves (2.5-3.5) IS PATIENT ON ANTICOAGULANTS? NCBC W/AUTO [id number] 10:31:00 Test Item Value Reference Range Interpretation Comments WHITE BLOOD CELL 10.6 K/mm3 4.5-12.5 N (test code = WBC) RED BLOOD CELL (test 3.04 mill/mm3 4.0-5.8 L code = RBC) HEMOGLOBIN (test 7.4 gram/dL 13.0-17.5 L code = HGB) HEMATOCRIT (test 24.1 % 42.0-52.0 L code = HCT) MEAN CELL VOLUME 79.3 fL 80-98 L (test code = MCV) MEAN CELL HGB (test 24.3 picogram 27.0-33.0 L code = MCH) MEAN CELL HGB 30.7 gram/dL 33.0-36.0 L CONCETRATION (test code = MCHC) RED CELL 21.5 % 11.6-16.2 H DISTRIBUTION WIDTH (test code = RDW) RED CELL 60.6 fL 37.0-51.0 H DISTRIBUTION WIDTH SD (test code = RDW-SD) PLATELET COUNT (test 240 K/mm3 150-450 RESULT VERIFIED BY code = PLT) REPEAT ANALYSIS MEAN PLATELET VOLUME 10.3 fL 6.7-11.0 N (test code = MPV) NEUTROPHIL % (test 86.8 % 39.0-69.0 H Previousl y code = NT%) reported result : 80.1 %Edited by : SpiralFrogDANNY on 09/28/19:1030 LYMPHOCYTE % (test 6.1 % 25.0-55.0 L code = LY%) MONOCYTE % (test 7.0 % 0.0-10.0 N Previously code = MO%) reported result : 12.6 %Edited by : SpiralFrogDANNY on 09/28/19:1030 EOSINOPHIL % (test 0.0 % 0.0-5.0 N code = EO%) BASOPHIL % (test 0.1 % 0.0-1.0 N code = BA%) NUCLEATED RBC % 0.8 % 0-0 H (test code = NRBC%) NEUTROPHIL # (test 8.45 K/mm3 1.8-7.7 H code = NT#) IMMATURE GRANULOCYTE 0.12 x10 3/uL 0-0.03 H # (test code = IG#) LYMPHOCYTE # (test 0.64 K/mm3 1.0-5.0 L code = LY#) MONOCYTE # (test 1.33 K/mm3 0-0.8 H code = MO#) EOSINOPHIL # (test 0.00 K/mm3 0.0-0.5 N code = EO#) BASOPHIL # (test 0.01 K/mm3 0.0-0.2 N code = BA#) NUCLEATED RBC # 0.08 K/mm3 0.0-0.1 N (test code = NRBC#) MANUAL DIFF REQUIRED NO, ONLY SCAN (test code = MDIFF) NEEDED Patient Receiving BloodDIFFERENTIAL [id number] 10:31:00 Test Item Value Reference Range Interpretation Comments STAIN ACCEPTABILITY (test STAIN ACCEPTABLE code = STN ACCEPTABLE) POLYCHROMASIA (test code = 2+ POLC) HYPOCHROMIA (test code = 1+ HYPO) ANISOCYTOSIS (test code = 2+ ANISO) MACROCYTOSIS (test code = 2+ MACR) TARGET CELLS (test code = 1+ TGT) ELLIPTOCYTES (test code = 1+ ELL) PLATELET ESTIMATE (test code ADEQUATE = PLTEST) PLATELET MORPHOLOGY (test SIZE VARIABLE code = PLTMORPH) Patient Receiving BloodCBC W/AUTO [id number] 10:29:00 Test Item Value Reference Range Interpretation Comments WHITE BLOOD CELL 10.6 K/mm3 4.5-12.5 N (test code = WBC) RED BLOOD CELL (test 3.04 mill/mm3 4.0-5.8 L code = RBC) HEMOGLOBIN (test code 7.4 gram/dL 13.0-17.5 L = HGB) HEMATOCRIT (test code 24.1 % 42.0-52.0 L = HCT) MEAN CELL VOLUME 79.3 fL 80-98 L (test code = MCV) MEAN CELL HGB (test 24.3 picogram 27.0-33.0 L code = MCH) MEAN CELL HGB 30.7 gram/dL 33.0-36.0 L CONCETRATION (test code = MCHC) RED CELL DISTRIBUTION 21.5 % 11.6-16.2 H WIDTH (test code = RDW) RED CELL DISTRIBUTION 60.6 fL 37.0-51.0 H WIDTH SD (test code = RDW-SD) PLATELET COUNT (test 240 K/mm3 150-450 RESULT VERIFIED code = PLT) BY REPEAT ANALYSIS MEAN PLATELET VOLUME 10.3 fL 6.7-11.0 N (test code = MPV) NEUTROPHIL % (test 80.1 % 39.0-69.0 H code = NT%) IMMATURE GRANULOCYTE 1.1 % 0.0-5.0 N % (test code = IG%) LYMPHOCYTE % (test 6.1 % 25.0-55.0 L code = LY%) MONOCYTE % (test code 12.6 % 0.0-10.0 H = MO%) EOSINOPHIL % (test 0.0 % 0.0-5.0 N code = EO%) BASOPHIL % (test code 0.1 % 0.0-1.0 N = BA%) NUCLEATED RBC % (test 0.8 % 0-0 H code = NRBC%) NEUTROPHIL # (test 8.45 K/mm3 1.8-7.7 H code = NT#) IMMATURE GRANULOCYTE 0.12 x10 3/uL 0-0.03 H # (test code = IG#) LYMPHOCYTE # (test 0.64 K/mm3 1.0-5.0 L code = LY#) MONOCYTE # (test code 1.33 K/mm3 0-0.8 H = MO#) EOSINOPHIL # (test 0.00 K/mm3 0.0-0.5 N code = EO#) BASOPHIL # (test code 0.01 K/mm3 0.0-0.2 N = BA#) NUCLEATED RBC # (test 0.08 K/mm3 0.0-0.1 N code = NRBC#) MANUAL DIFF REQUIRED NO, ONLY SCAN (test code = MDIFF) NEEDED Patient Receiving BloodDIFFERENTIAL [id number] 10:29:00 Test Item Value Reference Range Interpretation Comments STAIN ACCEPTABILITY (test STAIN ACCEPTABLE code = STN ACCEPTABLE) POLYCHROMASIA (test code = 2+ POLC) HYPOCHROMIA (test code = 1+ HYPO) ANISOCYTOSIS (test code = 2+ ANISO) MACROCYTOSIS (test code = 2+ MACR) TARGET CELLS (test code = 1+ TGT) ELLIPTOCYTES (test code = 1+ ELL) PLATELET ESTIMATE (test code ADEQUATE = PLTEST) PLATELET MORPHOLOGY (test SIZE VARIABLE code = PLTMORPH) Patient Receiving BloodCOMPREHENSIVE METABOLIC [id number] 08:49:00 Test Item Value Reference Range Interpretation Comments SODIUM (test code = 129 mmol/L 136-145 L RESULT V ERIFIED BY NA) REPEAT ANALYSIS POTASSIUM (test code = 2.6 mmol/L 3.5-5.1 LL Resul ts called to K) [id number] by ADRIANNA SCHRADER 09/28/19 0847Critical re sults verified and re ad back by Nurse? Y CHLORIDE (test code = 92.0 mmol/L 98-107 L CL) CARBON DIOXIDE (test 27.0 mmol/L 21-32 N code = CO2) ANION GAP (test code = 12.6 10-20 N GAP) GLUCOSE (test code = 87 mg/dL 74-106 N GLU) BLOOD UREA NITROGEN 13 mg/dL 7-18 N (test code = BUN) GLOMERULAR FILTRATION > 60 mL/min >=60 Estima jerica GFR by RATE (test code = GFR) using Modified MDRD formula.Chronic kidney disease is defined as eith er kidney damageor GFR <60 mL/min/1.73 m2 for >3 months. CREATININE (test code 0.70 mg/dL 0.7-1.3 N = CREAT) BUN/CREATININE RATIO 18.6 10-20 N (test code = BUN/CREA) TOTAL PROTEIN (test 5.4 gram/dL 6.4-8.2 L code = PROT) ALBUMIN (test code = 2.5 g/dL 3.4-5.0 L ALB) GLOBULIN (test code = 2.9 gram/dL 2.7-4.2 N GLOB) ALBUMIN/GLOBULIN RATIO 0.9 0.75-1.50 N (test code = A/G) CALCIUM (test code = 7.1 mg/dL 8.5-10.1 L CA) BILIRUBIN TOTAL (test 1.70 mg/dL 0.0-1.0 H code = BILT) SGOT/AST (test code = 162 IUnit/L 15-37 H AST) SGPT/ALT (test code = 84 IUnit/L 12-78 H ALT) ALKALINE PHOSPHATASE 139 IUnit/L 45-117 H Note change in TOTAL (test code = reference range due ALKP) to change in reagent. Patient Receiving BloodCBC W/AUTO [id number] 08:48:00 Test Item Value Reference Range Interpretation Comments WHITE BLOOD CELL 10.6 K/mm3 4.5-12.5 N (test code = WBC) RED BLOOD CELL (test 3.04 mill/mm3 4.0-5.8 L code = RBC) HEMOGLOBIN (test code 7.4 gram/dL 13.0-17.5 L = HGB) HEMATOCRIT (test code 24.1 % 42.0-52.0 L = HCT) MEAN CELL VOLUME 79.3 fL 80-98 L (test code = MCV) MEAN CELL HGB (test 24.3 picogram 27.0-33.0 L code = MCH) MEAN CELL HGB 30.7 gram/dL 33.0-36.0 L CONCETRATION (test code = MCHC) RED CELL DISTRIBUTION 21.5 % 11.6-16.2 H WIDTH (test code = RDW) RED CELL DISTRIBUTION 60.6 fL 37.0-51.0 H WIDTH SD (test code = RDW-SD) PLATELET COUNT (test 240 K/mm3 150-450 RESULT VERIFIED code = PLT) BY REPEAT ANALYSIS MEAN PLATELET VOLUME 10.3 fL 6.7-11.0 N (test code = MPV) NEUTROPHIL % (test 80.1 % 39.0-69.0 H code = NT%) IMMATURE GRANULOCYTE 1.1 % 0.0-5.0 N % (test code = IG%) LYMPHOCYTE % (test 6.1 % 25.0-55.0 L code = LY%) MONOCYTE % (test code 12.6 % 0.0-10.0 H = MO%) EOSINOPHIL % (test 0.0 % 0.0-5.0 N code = EO%) BASOPHIL % (test code 0.1 % 0.0-1.0 N = BA%) NUCLEATED RBC % (test 0.8 % 0-0 H code = NRBC%) NEUTROPHIL # (test 8.45 K/mm3 1.8-7.7 H code = NT#) IMMATURE GRANULOCYTE 0.12 x10 3/uL 0-0.03 H # (test code = IG#) LYMPHOCYTE # (test 0.64 K/mm3 1.0-5.0 L code = LY#) MONOCYTE # (test code 1.33 K/mm3 0-0.8 H = MO#) EOSINOPHIL # (test 0.00 K/mm3 0.0-0.5 N code = EO#) BASOPHIL # (test code 0.01 K/mm3 0.0-0.2 N = BA#) NUCLEATED RBC # (test 0.08 K/mm3 0.0-0.1 N code = NRBC#) MANUAL DIFF REQUIRED NO, ONLY SCAN (test code = MDIFF) NEEDED Patient Receiving BloodDIFFERENTIAL [id number] 08:48:00 Test Item Value Reference Range Interpretation Comments STAIN ACCEPTABILITY (test code = STN ACCEPTABLE) CABOT RINGS (test code = CAB) MORPHOLOGY COMMENT (test code = MOC) PLATELET ESTIMATE (test code = PLTEST) PLATELET MORPHOLOGY (test code = PLTMORPH) Patient Receiving BloodCBC W/AUTO [id number] 08:48:00 Test Item Value Reference Range Interpretation Comments WHITE BLOOD CELL 10.6 K/mm3 4.5-12.5 N (test code = WBC) RED BLOOD CELL (test 3.04 mill/mm3 4.0-5.8 L code = RBC) HEMOGLOBIN (test code 7.4 gram/dL 13.0-17.5 L = HGB) HEMATOCRIT (test code 24.1 % 42.0-52.0 L = HCT) MEAN CELL VOLUME 79.3 fL 80-98 L (test code = MCV) MEAN CELL HGB (test 24.3 picogram 27.0-33.0 L code = MCH) MEAN CELL HGB 30.7 gram/dL 33.0-36.0 L CONCETRATION (test code = MCHC) RED CELL DISTRIBUTION 21.5 % 11.6-16.2 H WIDTH (test code = RDW) RED CELL DISTRIBUTION 60.6 fL 37.0-51.0 H WIDTH SD (test code = RDW-SD) PLATELET COUNT (test 240 K/mm3 150-450 RESULT VERIFIED code = PLT) BY REPEAT ANALYSIS MEAN PLATELET VOLUME 10.3 fL 6.7-11.0 N (test code = MPV) NEUTROPHIL % (test 80.1 % 39.0-69.0 H code = NT%) IMMATURE GRANULOCYTE 1.1 % 0.0-5.0 N % (test code = IG%) LYMPHOCYTE % (test 6.1 % 25.0-55.0 L code = LY%) MONOCYTE % (test code 12.6 % 0.0-10.0 H = MO%) EOSINOPHIL % (test 0.0 % 0.0-5.0 N code = EO%) BASOPHIL % (test code 0.1 % 0.0-1.0 N = BA%) NUCLEATED RBC % (test 0.8 % 0-0 H code = NRBC%) NEUTROPHIL # (test 8.45 K/mm3 1.8-7.7 H code = NT#) IMMATURE GRANULOCYTE 0.12 x10 3/uL 0-0.03 H # (test code = IG#) LYMPHOCYTE # (test 0.64 K/mm3 1.0-5.0 L code = LY#) MONOCYTE # (test code 1.33 K/mm3 0-0.8 H = MO#) EOSINOPHIL # (test 0.00 K/mm3 0.0-0.5 N code = EO#) BASOPHIL # (test code 0.01 K/mm3 0.0-0.2 N = BA#) NUCLEATED RBC # (test 0.08 K/mm3 0.0-0.1 N code = NRBC#) MANUAL DIFF REQUIRED NO, ONLY SCAN (test code = MDIFF) NEEDED Patient Receiving BloodDIFFERENTIAL [id number] 08:48:00 Test Item Value Reference Range Interpretation Comments STAIN ACCEPTABILITY (test code = STN ACCEPTABLE) CABOT RINGS (test code = CAB) MORPHOLOGY COMMENT (test code = MOC) PLATELET ESTIMATE (test code = PLTEST) PLATELET MORPHOLOGY (test code = PLTMORPH) Patient Receiving BloodCBC W/AUTO [id number] 08:48:00 Test Item Value Reference Range Interpretation Comments WHITE BLOOD CELL 10.6 K/mm3 4.5-12.5 N (test code = WBC) RED BLOOD CELL (test 3.04 mill/mm3 4.0-5.8 L code = RBC) HEMOGLOBIN (test code 7.4 gram/dL 13.0-17.5 L = HGB) HEMATOCRIT (test code 24.1 % 42.0-52.0 L = HCT) MEAN CELL VOLUME 79.3 fL 80-98 L (test code = MCV) MEAN CELL HGB (test 24.3 picogram 27.0-33.0 L code = MCH) MEAN CELL HGB 30.7 gram/dL 33.0-36.0 L CONCETRATION (test code = MCHC) RED CELL DISTRIBUTION 21.5 % 11.6-16.2 H WIDTH (test code = RDW) RED CELL DISTRIBUTION 60.6 fL 37.0-51.0 H WIDTH SD (test code = RDW-SD) PLATELET COUNT (test 240 K/mm3 150-450 RESULT VERIFIED code = PLT) BY REPEAT ANALYSIS MEAN PLATELET VOLUME 10.3 fL 6.7-11.0 N (test code = MPV) NEUTROPHIL % (test 80.1 % 39.0-69.0 H code = NT%) IMMATURE GRANULOCYTE 1.1 % 0.0-5.0 N % (test code = IG%) LYMPHOCYTE % (test 6.1 % 25.0-55.0 L code = LY%) MONOCYTE % (test code 12.6 % 0.0-10.0 H = MO%) EOSINOPHIL % (test 0.0 % 0.0-5.0 N code = EO%) BASOPHIL % (test code 0.1 % 0.0-1.0 N = BA%) NUCLEATED RBC % (test 0.8 % 0-0 H code = NRBC%) NEUTROPHIL # (test 8.45 K/mm3 1.8-7.7 H code = NT#) IMMATURE GRANULOCYTE 0.12 x10 3/uL 0-0.03 H # (test code = IG#) LYMPHOCYTE # (test 0.64 K/mm3 1.0-5.0 L code = LY#) MONOCYTE # (test code 1.33 K/mm3 0-0.8 H = MO#) EOSINOPHIL # (test 0.00 K/mm3 0.0-0.5 N code = EO#) BASOPHIL # (test code 0.01 K/mm3 0.0-0.2 N = BA#) NUCLEATED RBC # (test 0.08 K/mm3 0.0-0.1 N code = NRBC#) MANUAL DIFF REQUIRED NO, ONLY SCAN (test code = MDIFF) NEEDED Patient Receiving BloodDIFFERENTIAL [id number] 08:48:00 Test Item Value Reference Range Interpretation Comments STAIN ACCEPTABILITY (test code = STN ACCEPTABLE) MORPHOLOGY COMMENT (test code = MOC) PLATELET ESTIMATE (test code = PLTEST) PLATELET MORPHOLOGY (test code = PLTMORPH) Patient Receiving BloodCBC W/AUTO [id number] 08:48:00 Test Item Value Reference Range Interpretation Comments WHITE BLOOD CELL 10.6 K/mm3 4.5-12.5 N (test code = WBC) RED BLOOD CELL (test 3.04 mill/mm3 4.0-5.8 L code = RBC) HEMOGLOBIN (test code 7.4 gram/dL 13.0-17.5 L = HGB) HEMATOCRIT (test code 24.1 % 42.0-52.0 L = HCT) MEAN CELL VOLUME 79.3 fL 80-98 L (test code = MCV) MEAN CELL HGB (test 24.3 picogram 27.0-33.0 L code = MCH) MEAN CELL HGB 30.7 gram/dL 33.0-36.0 L CONCETRATION (test code = MCHC) RED CELL DISTRIBUTION 21.5 % 11.6-16.2 H WIDTH (test code = RDW) RED CELL DISTRIBUTION 60.6 fL 37.0-51.0 H WIDTH SD (test code = RDW-SD) PLATELET COUNT (test 240 K/mm3 150-450 RESULT VERIFIED code = PLT) BY REPEAT ANALYSIS MEAN PLATELET VOLUME 10.3 fL 6.7-11.0 N (test code = MPV) NEUTROPHIL % (test 80.1 % 39.0-69.0 H code = NT%) IMMATURE GRANULOCYTE 1.1 % 0.0-5.0 N % (test code = IG%) LYMPHOCYTE % (test 6.1 % 25.0-55.0 L code = LY%) MONOCYTE % (test code 12.6 % 0.0-10.0 H = MO%) EOSINOPHIL % (test 0.0 % 0.0-5.0 N code = EO%) BASOPHIL % (test code 0.1 % 0.0-1.0 N = BA%) NUCLEATED RBC % (test 0.8 % 0-0 H code = NRBC%) NEUTROPHIL # (test 8.45 K/mm3 1.8-7.7 H code = NT#) IMMATURE GRANULOCYTE 0.12 x10 3/uL 0-0.03 H # (test code = IG#) LYMPHOCYTE # (test 0.64 K/mm3 1.0-5.0 L code = LY#) MONOCYTE # (test code 1.33 K/mm3 0-0.8 H = MO#) EOSINOPHIL # (test 0.00 K/mm3 0.0-0.5 N code = EO#) BASOPHIL # (test code 0.01 K/mm3 0.0-0.2 N = BA#) NUCLEATED RBC # (test 0.08 K/mm3 0.0-0.1 N code = NRBC#) MANUAL DIFF REQUIRED NO, ONLY SCAN (test code = MDIFF) NEEDED Patient Receiving BloodDIFFERENTIAL [id number] 08:48:00 Test Item Value Reference Range Interpretation Comments STAIN ACCEPTABILITY (test code = STN ACCEPTABLE) CABOT RINGS (test code = CAB) MORPHOLOGY COMMENT (test code = MOC) PLATELET ESTIMATE (test code = PLTEST) PLATELET MORPHOLOGY (test code = PLTMORPH) Patient Receiving [id number] 08:40:00 Test Item Value Reference Range Interpretation Comments AMMONIA (test code = AMM) 47 umol/L 11-32 H Patient Receiving Blood- CT ABD PELVIS [id number] 08:13:00 Name: ENDER RODRIGUEZ [facility] : 1945 Age/S: 74 / M [address] [facility] Unit #: [id number] Loc: [facility] [place] [address] Phys: Immanuel Spencer MD Acct: [id number] Dis Date: Status: ADM IN PHONE #: [phone] Exam Date: 09/27/20192209 FAX #: [phone] Reason: ELEVATED LIPASE EXAMS: CPTCODE: [id number] CT ABD PELVIS W/CONT 94840 HISTORY: E LEVATED LIPASE TECHNIQUE: Immediate and delayed [address] images were obtained through the abdomen and pelvis after IV administration of 100 mL of Isovue-370 contrast. Sagittal and coronal reformatted images were generated. Automated exposure reduction (Auto mA/Smart mA) was utilized in compliance with ACR Image [employer] with DLP of 748 mGy-cm. COMPARISON: None FINDINGS: THORACIC: Included images of thelower chest demonstrate no abnormalities. HEPATOBILIARY: Hepatomegaly with diffuse fattyinfiltration. Tiny gallstones. No gallbladder wall thickening or pericholecystic fluid. No biliary dilation. PANCREAS: Homogeneous pancreas. Punctate calcifications of the pancreatic head. Fluid and fat stranding about the pancreatic head. No organized peripancreatic fluid collection. SPLEEN: Normal. ADRENALS: Normal. GASTROINTESTINAL: Limited evaluation the GI tract without oral contrast. Stomach, small bowel, and colon are unremarkable. Appendix is not visualized. GENITOURINARY: Kidneys are normal. No hydronephrosis. Urinary bladder is unremarkable. Seminal vesicles and prostate gland are unremarkable. VASCULAR: Aortoiliac atherosclerotic vascular calcification without aneurysm. LYMPHATICS: No enlarged ly mph nodes by CT size criteria. PERITONEUM/OTHER: No intraperitoneal free air. No intraperitoneal free fluid. BONES/SOFT TISSUES: Chronic anterior left rib fracture deformities. L5-S1 fusion with posterior decompression. Degenerative changes of the spine, sacroiliac joints, and hips. IMPRESSION: Findings compatible with acute pancreatitis. No evidence of pancreatic necrosis. No organized fluid collection to suggest abscess or pseudocyst. PAGE 1 Signed Report(CONTINUED) Name: ENDER RODRIGUEZ [facility] : 1945 Age/S: 74 / M [address] [facility] Unit #: [id number] Loc:[place] [address] Phys: Immanuel Spencer MD Acct: [id number] Dis Date: Status: ADM IN PHONE #: [phone] Exam Date: 09/27/2019 2210 FAX #: [phone] Reason: ELEVATED LIPASE EXAMS: CPT CODE: [id number] CT ABD PELVIS W/CONT 97948 <Continued> Tiny gallstones. No biliary dilation. Hepatomegaly with diffuse fatty infiltration. LOCATION: LP at 0813 Reported and signed by: Caren Brooks CC: Immanuel Spencer MD Technologist:Moises Washington, RT(R)(CT); October CTDI: DLP: Trnscb Date/Time: 09/28/2019 (812) [email or web address] Orig Print D/T: S: 09/28/2019 (16) PAGE 2 Signed Report- CT HEAD/BRAIN W/O [id number] 07:46:00 Name: ENDER RODRIGUEZ [facility] : 1945 Age/S: 74 / M [address] [facility] Unit #: [id number] Loc: [place] [address] Phys: Immanuel Spencer MD Acct: [id number] Dis Date: Status: ADM IN PHONE #: [phone] Exam Date: 09/27/20192203 FAX #: [phone] Reason: AMS EXAMS: CPTCODE: [id number] CT HEAD/BRAIN W/O CONT 91058 HISTORY: Altered mental status TECHNIQUE: Noncontrast 2.[address] of the head. Examination acquired within 24 hours of arrival. Automated exposure control for dose reduction; DLP: 874 mGy-cm. COMPARISON: None FINDINGS: No acute hemorrhage. No CT evidence of acute infarct. Mild periventricular chronic microvascular ischemic changes. No intracranial mass or mass effect. Moderate parenchymal atrophy. No hydrocephalus. No extra-axial fluid collection. Atherosclerotic vascular calcification of the carotid siphons. Visualized paranasal sinuses are clear. Mastoid air cells and middle ear cavities areclear. Orbital contents are unremarkable. Calvarium and skull base are intact. IMPRESSION: No acute intracranial process. LOCATION: LP at 0746 Reported and signed by: Floridalma Veliz D.O. CC: Immanuel Spencer MD Technologist:Moises Washington, RT(R)(CT); October CTDI: DLP: Trnscb Date/Time: 09/28/2019 (0746) [email or web address] Orig Print D/T: S: 09/28/2019 (0749) PAGE 1 Signed Report [id number] 22:07:00 Test Item Value Reference Range Interpretation Comments GLYCOSYLATED < 3.5 % HbA1 SUGGESTED HEMOGLOBIN (HA1C) DIAGNOSIS: HbA1C (test code = GLYHGB) (%)---- ------ Diab etic >6.4Prediabetes 5.7 - 6.4Normal <5.7 ESTIMATED AVERAGE 54 MG/DL GLUCOSE (test code = EAG) LIPID PROFILE (CORONARY RISK)2019-09-27 21:55:00 Test Item Value Reference Range Interpretation Comments TRIGLYCERIDES (test 47 mg/dL 20-150 N code = TRIG) CHOLESTEROL (test code 82 mg/dL 0-200 N = CHOL) CHOLESTEROL/HDL RATIO 2.0 RATIO 0-4.9 N RISK A SSOCIATED WITH (test code = CHOLHDL) CHOL/H DL RATIOS: Risk M shravan Female1/[address] RAGE 3.43 3.27AVERAGE 4.97 4.4 44X AVERAGE [address] RAGE 23.39 11.04 REFERENCE VALUE IS RELATED TO RISK LEVELS ASRECOMMENDED B Y THE ROSE. HEART, GIULIANO G, AND BLOOD INST. HDL CHOLESTEROL (test 41 mg/dL 40-60 N code = HDL) LIPOPROTEIN LDL (test 18 mg/dL 100-129 L ====== code = LDL) ======= Referen ce Interval: mg/dL mmol/L--------- ------- ------- ------O ptimal <100 <2.6Near/above optimal 100-12 9 2.6-3.3Borderl ine High 130-159 3.4-4.1High 160 -189 4.1-4.9Very High >=190 >=4.9========= This LDL result is a direct measurement.=== ====== THYROID STIMULATING [id number] 21:55:00 Test Item Value Reference Range Interpretation Comments THYROID STIMULATING 0.649 uIU/mL 0.36-3.74 N TSH REFE RENCE HORMONE (test code = RANGES: EUTHYROID: TSH) 0.35 - 4.3 mIU/mL HYPO : > 5.5 mIU/mL HYPER : < 0.35 mIU/mL BASIC METABOLIC [id number] 21:50:00 Test Item Value Reference Range Interpretation Comments SODIUM (test code = 135 mmol/L 136-145 L NA) POTASSIUM (test code = 2.2 mmol/L 3.5-5.1 LL Resul ts called to K) [id number] by VAfshanL AB.GA 09/27/19 2148Critical re sults verified and re ad back by Nurse? Y CHLORIDE (test code = 93.0 mmol/L 98-107 L CL) CARBON DIOXIDE (test 27.0 mmol/L 21-32 N code = CO2) ANION GAP (test code = 17.2 10-20 N GAP) GLUCOSE (test code = 115 mg/dL 74-106 H GLU) BLOOD UREA NITROGEN 16 mg/dL 7-18 N (test code = BUN) GLOMERULAR FILTRATION > 60 mL/min >=60 Estima jerica GFR by RATE (test code = GFR) using Modified MDRD formula.Chronic kidney disease is defined as eith er kidney damageor GFR <60 mL/min/1.73 m2 for >3 months. CREATININE (test code 0.90 mg/dL 0.7-1.3 N = CREAT) BUN/CREATININE RATIO 17.8 10-20 N (test code = BUN/CREA) CALCIUM (test code = 7.2 mg/dL 8.5-10.1 L CA) BASIC METABOLIC [id number] 16:39:00 Test Item Value Reference Range Interpretation Comments SODIUM (test code = 128 mmol/L 128-145 N NA) POTASSIUM (test code = 1.8 mmol/L 3.5-5.1 LL Resul ts called to K) Stone GREWAL VAfshanLAB .PG 09/27/19 1637Critical re sults verified and re ad back by Nurse? Y CHLORIDE (test code = 86.0 mmol/L 98-107 L CL) CARBON DIOXIDE (test 28.2 mmol/L 22-29 N code = CO2) ANION GAP (test code = 16 mmol/L 10-20 N GAP) GLUCOSE (test code = 107 mg/dL 70-110 N GLU) BLOOD UREA NITROGEN 19 mg/dL 7-22 N (test code = BUN) GLOMERULAR FILTRATION > 60 mL/min >=60 Estima jerica GFR by RATE (test code = GFR) using Modified MDRD formula.Chronic kidney disease is defined as eith er kidney damageor GFR <60 mL/min/1.73 m2 for >3 months. CREATININE (test code 1.16 mg/dL 0.55-1.3 N = CREAT) BUN/CREATININE RATIO 16.4 10-20 N (test code = BUN/CREA) CALCIUM (test code = 8.1 mg/dL 8.0-10.5 N CA) HEPATIC FUNCTION [id number] 16:39:00 Test Item Value Reference Range Interpretation Comments TOTAL PROTEIN (test code = PROT) 7.9 gram/dL 6.1-7.8 H ALBUMIN (test code = ALB) 3.5 g/dL 3.3-4.4 N GLOBULIN (test code = GLOB) 4.4 G/DL 1-10 N ALBUMIN/GLOBULIN RATIO (test code 0.8 0.75-1.50 N = A/G) BILIRUBIN TOTAL (test code = 1.10 mg/dL 0.2-1.2 N BILT) BILIRUBIN DIRECT (test code = 0.70 mg/dL 0.0-0.30 H BILD) SGOT/AST (test code = AST) 234 U/L 10-39 H SGPT/ALT (test code = ALT) 123 U/L 10-69 H ALKALINE PHOSPHATASE TOTAL (test 162 U/L 50-139 H code = ALKP) CREATINE KINASE (CK)2019-09-27 16:39:00 Test Item Value Reference Range Interpretation Comments CREATINE KINASE (CK) (test code = CK) 521 U/L 39-308 H [id number] 16:39:00 Test Item Value Reference Range Interpretation Comments LIPASE (test code = LIP) 2563 Unit/L 144-286 H [id number] 16:39:00 Test Item Value Reference Range Interpretation Comments MAGNESIUM (test code = MAG) 2.3 mg/dL 1.4-2.2 H THYROID STIMULATING [id number] 16:39:00 Test Item Value Reference Range Interpretation Comments THYROID STIMULATING 0.87 uIU/mL 0.36-3.74 N TSH REFE RENCE HORMONE (test code = RANGES: EUTHYROID: TSH) 0.4 - 4.3 HYPO : >7.6 HYPER : <0.1 [id number] 16:39:00 Test Item Value Reference Range Interpretation Comments TROPONIN-I (test 0.07 ng/mL 0.00-0.056 HH Results paul led to code = ABRAHAM BLANDON V.LAB.PG 1638Critical re sults verified and re ad back by Nurse? Y [id number] 16:39:00 Test Item Value Reference Range Interpretation Comments ALCOHOL (test code 191 mg/dL 0.0-3.0 H --------- --------INTERPRE = ALC) TIVE DATA NOTE: POSITIVE SCREEN ING RESULTS SHOULD BE CONSIDERED PRESUMPTIVE.WHE N COLLECTED FOR M EDICAL PURPOSES ONLY. SPECIMEN WILL NOTBE NIRALI ECTED BY CHAIN OF CUSTOD Y.IF A CONFIRMATION OF POSITIVE RESULTS IS HEYDI RED, ACONFIRMATION T EST MUST BE REQUESTED BY THE PHYSICIAN AT AN ADDITIONAL CHARGE TO THE [facility]. B-TYPE NATRIURETIC [id number] 16:26:00 Test Item Value Reference Range Interpretation Comments B-TYPE NATRIURETIC PEPTIDE (test 99.9 pg/mL 0-100 N code = BNP) B-TYPE NATRIURETIC [id number] 16:26:00 Test Item Value Reference Range Interpretation Comments B-TYPE NATRIURETIC PEPTIDE (test 99.9 pg/mL 0-100 N code = BNP) - XR CHEST 1 [id number] 16:25:00 FAX: Avery hCambers DO [phone] [place]: [facility] [address]: REG Name: ENDER RODRIGUEZ [facility] FSED : 1945 Age/S: 74/M [address] Unit#: [id number] Loc: JACQUES [address] Phys: Avery Jackson [place], [place] [address] Acct: [id number] Dis Date: Status: REG ER PHONE #: Exam Date: 09/27/2019 1196 FAX #: Reason: WEAKNESS EXAMS: CPT CODE: [id number] XR CHEST 1 V [id number] REASON FOR EXAM: WEAKNESS Exam Order Date: 09/27/2019 3:57 PM Ordering MEric: Avery Jackson DO PROCEDURE: - XR C HEST 1 V COMPARISON: Chest x-ray August 21, 2018 FINDINGS: Thelungs are clear other than a small calcified granuloma in the right upper lung. There is no pleural effusion or pneumothorax. Pulmonary vascularity is within normal limits. Cardiomediastinal silhouette is normal in size for technique. The mediastinal contours are within normal limits. Calcified mediastinal lymph nodes and coronary stent are unchanged from the prior exam. There are degenerative changes in the bilateral shoulders. The visualized upper abdomen is within normal limits. IMPRESSION: No acute cardiopulmonary process. Prior granulomatous disease. Location: [facility] at 2022 Reportedand signed by: Teo Glover MD CC: Avery Jackson DO Technologist: Melchor Sams Trnscrd Date/Time/By: 09/27/2019 ([id number]) : By: [email or web address] Orig Print D/T: S: 09/27/2019 ([id number]) PAGE 1 Signed ReportCBC W/O [id number] 16:13:00 Test Item Value Reference Range Interpretation Comments WHITE BLOOD CELL (test code = 8.6 K/mm3 4.5-12.5 N WBC) RED BLOOD CELL (test code = 2.92 mill/mm3 4.0-5.8 L RBC) HEMOGLOBIN (test code = HGB) 6.4 gram/dL 13.0-17.5 L HEMATOCRIT (test code = HCT) 22.7 % 42.0-52.0 L MEAN CELL VOLUME (test code = 77.7 fL 80-98 L MCV) MEAN CELL HGB (test code = MCH) 21.9 picogram 27.0-33.0 L MEAN CELL HGB CONCETRATION 28.2 gram/dL 33.0-36.0 L (test code = MCHC) RED CELL DISTRIBUTION WIDTH 24.3 % 11.6-16.2 H (test code = RDW) RED CELL DISTRIBUTION WIDTH SD 66.9 fL 37.0-51.0 H (test code = RDW-SD) PLATELET COUNT (test code = 332 K/mm3 150-450 N PLT) MEAN PLATELET VOLUME (test code 10.1 fL 6.7-11.0 N = MPV) XR Ribs W Pa Chest [id number] 16:58:56Hm Interface, Radiology Results Incoming - 08/01/2019 5:02 PM CSTProcedure: XR RIBS W PA CHEST LEFTREFERRING PHYSICIAN: DESIRAE GILMOREANIHISTORY: fallCOMPARISON:NoneFINDINGS:No radiographic evidence of acute left rib fracture. Old union fracture deformity is seen along the posterior aspect of theleft 8th and 10th ribs. There is old nonsolid union fracture deformity of along the posterior aspectof the left ninth rib The lungs are clear. Right upper lobe calcified granuloma is noted. The heart is normal in size. Pulmonary vasculature is within normal limits.XR RIBS W PA CHEST LEFT acquiredIMPRESSION: No radiographic evidence of acute left rib fracture.[facility] – [id number] MethodistCT Angiogram Pe [id number] 13:48:32Hm Interface, Radiology Results Incoming - 07/03/2019 1:51 PM CSTEXAMINATION:CT ANGIOGRAM PE CHESTCLINICAL HISTORY:sinus tach sobTECHNIQUE:CT angiographic images of the chest were obtained during intravenous administration of iodinated contrast. Computerized reformatted images and 3-D MIP images were also obtained and archived (CT pulmonary embolus protocol).DOSE REDUCTION: CT imaging was performedwith iterative reconstruction technique and/or automated exposure control to reduce radiation dose.COMPARISON:2 view chest from 07/01/[address] abdomen and pelvis with contrast from 03/08/2018FINDINGS:1.Pulmonary artery opacification is good. There is no evidence of pulmonary embolism. The pulmonary arteries are normal in caliber. No radiographic evidence of right heart strain.2.The thoracic aorta is normal in course and caliber with a minimal amount of calcified atherosclerotic disease. The cardiac size is normal. No pericardial effusion.3.Centrilobular emphysematous change is noted bilaterally thebiapical pleural-parenchymal scarring. A calcified granuloma seen within the right upper lobe.4.No noncalcified pulmonary nodules. Bibasilar atelectasis. No focal consolidation or pleural effusion. No pleural thickening.5.The trachea main bronchi are clear. No bronchiectasis. Mild central peribronchial thickening is noted.6.No mediastinal, hilar, or axillary lymphadenopathy. Calcified lymph nodes areseen within the mediastinum.7.The thyroid is unremarkable.8.The bones of the chest are within normallimits.9.Questionable filling defect seen within the right internal jugular vein which may representa thrombus versus a filling defect. Recommend further evaluation with ultrasound.10.Limited evaluation of the upper abdomen is unremarkable. Nonspecific bilateral perinephric stranding is noted. Small hiatal hernia.IMPRESSION:1.There is no evidence of pulmonary embolism.2.Mild reactive airway disease without evidence of pneumonia or bronchiolitis. However, the patient has a small hiatal hernia, correlate for history of gastroesophageal reflux.3.Questionable filling defect within the right internal jugular vein. Findings may represent an internal thrombus versus mixing artifact. This can be better evaluated with ultrasound as clinically indicated.[facility]-[id number] MethodistU/S, ABDOMINAL, [id number] 10:11:00Referring: Dr. Duran Toscano for Exam:->hepatitis B, liver lesion, screening for HCCFINAL REPORT Abdominal ultrasound dated 07/03/2019 Clinical information:hepatitis B, liver lesion, screening for HCC Comment: Real-time transabdominal ultrasound was performed. Liver is normal in size and measures 16.2 cm in length. The echogenicity of the liver is increased. A 0.29 x 1.0 cm cyst is seen in the liver. A 4.6 x 5.1 x 5.1 cm echogenic mass is seen in the liver. Spleen is normal in size without focal abnormality. Gallbladder is contracted. No gallstone is present. No biliary dilatation is seen. Common bile duct measures 5 mm in diameter. Main portal vein measures8 mm in diameter. Pancreas is visualized and unremarkable. Right kidney measures 12 x 4.7 x 5.2 cm.Left kidney measures 10.3 x 4.4 x 4.5 cm. Echogenicity of both kidney is increased. No hydronephrosis or solid mass seen in either kidney. A 3.3 x 3.4 x 2.4 cm and 1.1 x 1.0 x 0.9 cm cysts are seen in the right kidney. A 1.1 x 0.9 x 1.2 cm cyst is seen in the left kidney. No ascites is present in the abdomen. Abdominal aorta is normal in caliber. IVC and Hepatic veins are patent. Impression: 1. Echogenic kidneys suggestive of medical renal disease with bilateral renal cysts.2. Hyperechoic mass in the liver. Please correlate with prior MR examination. Signed: Carolyn Donohueort Verified Date/Time: 07/03/2019 10:11:17 Reading Location: [address] Radiology Reading Room Electronicallysigned by: CAROLYN DONOHUE M.D. on 07/03/2019 10:11 AMUS abdomen [id number] 10:11:00Interface, External Ris In - 07/03/2019 10:13 AM CSTFINAL REPORT Abdominal ult rasound dated 07/03/2019 Clinical information:hepatitis B, liver lesion, screening for HCC Comment: Real-time transabdominal ultrasound was performed. Liver is normal in size and measures 16.2 cm in length. The echogenicity of the liver is increased. A 0.29 x 1.0 cm cyst is seen in the liver. A 4.6 x 5.1 x 5.1 cm echogenic mass is seen in the liver. Spleen is normal in size without focal abnormality. Gallbladder is contracted. No gallstone is present. No biliary dilatation is seen. Common bile duct measures 5 mm in diameter. Main portal vein measures 8 mm in diameter. Pancreas is visualized and unremarkable. Right kidney measures 12 x 4.7 x 5.2 cm. Left kidney measures 10.3 x 4.4 x 4.5 cm. Echogenicity of both kidney is increased. No hydronephrosis or solid mass seen in either kidney. A 3.3 x3.4 x 2.4 cm and 1.1 x 1.0 x 0.9 cm cysts are seen in the right kidney. A 1.1 x 0.9 x 1.2 cm cyst is seen in the left kidney. No ascites is present in the abdomen. Abdominal aorta is normal in caliber. IVC and Hepatic veins are patent. Impression: 1. Echogenic kidneys suggestive of medical renal disease with bilateral renal cysts.2. Hyperechoic mass in the liver. Please correlate with prior MR examination. Signed: Carolyn Donohueort Verified Date/Time: 07/03/2019 10:11:17 Reading Location: [address] Radiology Reading Room [facility] w contrast and 3D if [id number] 18:48:05 Test Item Value Reference Range Interpretation Comments Ao Root Diameter (test 3.41 cm code = 2085489582) AoV Area, Vmax (test 2.32 cm2 code = 5637269483) AoV Area, VTI (test 2.20 cm2 code = 0443873448) AoV Mean PG (test code 3.23 mmHg = 4467566022) AoV Peak PG (test code 4.58 mmHg = 5666120369) AoV Vmax (test code = 1.12 m/s 1441386365) AoV VTI (test code = 0.25 m 0440760108) BSA Lucio (test code = 1.74 m2 8978570878) BSA (test code = 1.74 m2 8862615639) IVS,d (test code = 0.94 cm 7225558657) IVS/LVPW,2D (test code 0.89 = 5790944795) Left Atrium Dimension 3.25 cm Anterior (test code = 4799988851) LV,d (test code = 4.52 cm 1992612571) LV EF,2D (test code = 59.95 % 1190681352) LV,s (test code = 3.34 cm 2025074368) LVOT area (test code = 2.89 cm2 9517015186) LVOT Diam,S (test code 1.92 cm = 9767959643) LVOT Vmax (test code = 0.89 m/s 7272221791) LVOT VTI (test code = 0.18 m 3535068293) LVPWD,d (test code = 1.06 cm 7414815023) PV Pk Grad (test code = 3.41 mmHg 7422157342) PV VMAX (test code = 0.92 m/s 5393976785) MV E A ratio (test code 0.82 = 3364006130) AoV area i VTI BSA 1.27 cm2/m2 [place] (test code = 0375405914) BMI (test code = 21.93 kg/m2 9636252816) E wave decelartion time 127.59 msec (test code = 2847135576) MV Peak A Bakari (test 0.96 m/s code = 3967668331) MV valve area p 1/2 5.95 cm2 method (test code = 1575083929) MV Peak E Bakari (test 0.78 m/s code = 4295942009) MV stenosis pressure 37.00 ms 1/2 time (test code = 3121897120) AV LVOT peak gradient 2.92 mmHg (test code = 7655991977) Ascending aorta (test 3.11 cm code = 2765116245) Ao Root Diameter (test 3.41 cm code = 2928000175) LV SYS VOL (test code = 45.29 ml 0312891505) LV ANGELES VOL (test code 93.65 ml = 3277166528) LA area s A4C (test 14.82 cm2 code = 7162295024) LV SI Teich 2D (test 27.83 ml/m2 code = 3687641920) LV SV Teich 2D (test 48.36 ml code = 0151929009) LV Vol s Teich PSAX 45.29 ml (test code = 9344932964) LVOT CI (test code = 2.26 l/min/m2 6576169248) LVOT CO (test code = 3.92 l/min 2250895694) LVOT HR for LVOT CO 77.28 bpm (test code = 3425141966) LVOT SI (test code = 29.22 ml/m2 9564245989) BSA Haycock (test code 1.73 m2 = 3775915486) AoV Vmn (test code = 0.87 7733375689) IVS s 2D (test code = 1.00 3536395463) LV FS Teich 2D (test 26.29 code = 2246116221) MV AE ratio (test code 1.22 = 8719984530) LV FS Cube 2D (test 26.29 code = 5226482370) LVOT Vmn (test code = 0.56 6523102657) Pt Size (test code = 170.18 9886456492) Pt Wt (test code = 63.50 0748460489) Aov area Vmn (test code 2.05 cm2 = 5222886262) LA A_P score P (test 1.39 code = 9001653316) LVOT mean grad (test 1.45 mmHg code = 8284620858) MAX Pred HR (test code 147.68 = 3072105229) 85 of MPHR (test code = 125.53 3462752654) AoV area I VMN bsa 1.18 cm2/m2 (test code = 1783513108) Calc MPHR (test code = 147.68 bpm 4793294065) IVS pct thck PLAX (test 5.97 % code = 5586575606) LV SI Cube 2D (test 31.96 ml/m2 code = 7747658986) LV SV Cube 2D (test 55.54 ml code = 2415805087) LV vol d cube 2D (test 92.65 ml code = 2787370921) LV vol s cube 2D (test 37.11 ml code = 3308879899) LVPW pct thck PLAX -5.00 % (test code = 9072883327) LVPW s PLAX (test code 1.01 cm = 9015824114) MV Decel slope (test 6.13 m/s2 code = 6283387141) Pred Exer Dur R1 (test 6.82 code = 4052795023) Pred METS R1 (test code 7.15 = 5796957141) LA Vol MOD A4C (test 36.15 ml code = 9248504207) Velocity Ratio (V1/V2) 0.79 m/s (test code = 4689) EF (test code = 51.64 % 6041077969) E/A ratio (test code = 0.81 7977088268) PETEY (test code = PETEY) There is mild left ventricular concentric hypertrophy. Left Ventricular ejection fraction is 50 - 55%. Left atrium size is moderately dilated. There is mild sclerosis of the aortic valve leaflets. Spectral Doppler shows impaired relaxation pattern of left ventricular diastolic filling. [place] MethodistLipid [id number] 08:55:06 Test Item Value Reference Interpretation Comments Range Cholesterol (test 153 mg/dL 0-199 code = 3-3) Triglycerides (test 65 mg/dL 0-149 code = 2571-8) HDL cholesterol 57 mg/dL 40-9999 (test code = 5-9) LDL cholesterol 103 mg/dL 0-99 H Result obtai amber by direct (test code = 2088-1) LDL sheri surement Lipid panel See below Total Cholester ol (mg/dL) interpretation (test LDL Cholesterol code = 34685-3) (mg/dL) <200 Desirable <100 Op timal 200-239 Borderline-high 100-129 Ne ar or above optimal >=24 0 High 130-159 Borderline-high 160-189 Hi gh >=190 Very highHDL Cholest robinson (mg/dL) Triglycerides ( mg/dL) <40 Low <150 Normal >=60 Hi gh 150- 199 Borderline-high 200-499 Hi gh >=500 Very high Risk Catergorie s that modify LDL goal s.Risk Catergories LDL goal (mg/dL)CHD and CHD risk eq uivalent <100 ( 10-year risk >20%)Multi ple (2+) risk factors <130 (10-year risk =<20%)0-1 risk factors <160 (<10-year risk) Defi danette levels of lipids in me tabolic syndromeTriglyc erides >=150 mg/dLHDL Choles terol Men <40 mg/dL [place] <50 mg/dL Non-HDL c holesterol is a second tar get for therapy in pers onswith high triglyceri lisa (>=200 mg/dL) Lab Interpretation Abnormal (test code = 77036-7) [place] MethodistXR Chest 2 [id number] 18:41:55Hm Interface, Radiology Results 07/01/2019 6:44 PM CSTEXAMINATION: XR CHEST 2 VWCLINICALHISTORY: Chest pain normal ekgCOMPARISON: February 26, 2018.FINDINGS: 1. The lungs are clear without a focal consolidation. There is no pleural effusion or pneumothorax. 2. The cardiomediastinal silhouette is within normal limits. Aorta is mildly tortuous and partially calcified.3. There is no acute or suspicious osseous abnormality. Severe right chronic clavicular joint osteoarthritis. Multiple healed left rib fracturesIMPRESSION: No acute cardiopulmonary abnormality. [facility]-[id number] MethodistHEPATITIS B PCR, QUANTITATIVE 2019-06-11 12:54:00 Test Item Value Reference Range Interpretation Comments HBV NUMERIC RESULT (CARLEEAKER) (test 154 IU/mL <20 H code = 2702) This test uses a Real-Time Polymerase Chain Reaction (RT-PCR) methodology and was performed using PARTH AmpliPrep/PARTH TaqMan HBV Test, v2.0 ([employer]Reportable range for this assay is 20 - 170,000,000 IU per mL (1.30 - 8.23 Log IU/mL).Hepatitis B e [id number] 17:50:00 Test Item Value Reference Range Interpretation Comments Hep Be Ag NONREACTIVE REFERENCE RANG ES: (Antigen) NONREACTIVE For (test code = additional 3408300) information, pl ease refer tohttp://educat ion.[employer]/ faq/DFV770(This link is being provid ed for informational/e ducat ional purposes only.) PETEY (test code Performing Lab = PETEY) *[facility] [place]. [address] [place] [phone] Monroe Cat MD [facility] B e [id number] 17:50:00 Test Item Value Reference Range Interpretation Comments Hep Be Ab(Anti-Hbe) REACTIVE A REFEREN CE RANGE: (test code = 4929236) NONRE ACTIVE For additional information, please refer tohttp://educat io n.[employer]/faq/FAQ20 2( This link is being provided for informational/e du cational purpos es only.) PETEY (test code = PETEY) Performing Lab *[facility] [address] [place] [phone] Monroe Cat MD Lab Interpretation Abnormal (test code = 11636-5) [facility] B PCR, [id number] 09:20:00 Test Item Value Reference Range Interpretation Comments HBV NUMERIC RESULT (BEAKER) (test 133 IU/mL <20 H code = 2702) This test uses a Real-Time Polymerase Chain Reaction (RT-PCR) methodology and was performed using [employer] AmpliPrep/PARTH TaqMan HBV Test, v2.0 ([employer]Reportable range for this assay is 20 - 170,000,000 IU per mL (1.30 - 8.23 Log IU/mL).HBSAG [id number] 14:24:00 Test Item Value Reference Range Interpretation Comments HBsAg Confirm (test code Confirmed Positive Unconfirmed, HBSAG A = 7905-3) Negative Lab Interpretation (test Abnormal code = 10353-5) [facility] Center[facility] [id number] 14:24:00 Test Item Value Reference Range Interpretation Comments HBSAG CONFIRMATION Confirmed Positive Unconfirmed, HBSAG A (BEAKER) (test code = Negative 1602) Hepatitis B surface [id number] 11:46:00 Test Item Value Reference Range Interpretation Comments HBsAg Screen (test code = 5195-3) Reactive Nonreactive A Lab Interpretation (test code = Abnormal 52495-7) [facility] CenterALPHA FETOPROTEIN (AFP), TUMOR [id number] 11:46:00 Test Item Value Reference Range Interpretation Comments ALPHA-FETOPROTEIN (BEAKER) (test code < ng/mL <10.0 = 1094) HEPATITIS B SURFACE [id number] 11:46:00 Test Item Value Reference Range Interpretation Comments HEPATITIS B SURFACE ANTIGEN (2) Reactive Nonreactive A (BEAKER) (test code = 2585) BASIC METABOLIC [id number] 11:31:00 Test Item Value Reference Range Interpretation Comments SODIUM (BEAKER) 140 meq/L 136-145 (test code = 381) POTASSIUM (BEAKER) 4.4 meq/L 3.5-5.1 (test code = 379) CHLORIDE (BEAKER) 101 meq/L 98-107 (test code = 382) CO2 (BEAKER) (test 31 meq/L 22-29 H code = 355) BLOOD UREA NITROGEN 31 mg/dL 7-21 H (BEAKER) (test code = 354) CREATININE (BEAKER) 2.68 mg/dL 0.57-1.25 H (test code = 358) GLUCOSE RANDOM 95 mg/dL 70-105 (BEAKER) (test code = 652) CALCIUM (BEAKER) 10.1 mg/dL 8.4-10.2 (test code = 697) EGFR (BEAKER) (test 29 mL/min/1.73 ESTIMA [place]ER[place] GFR IS code = 1092) sq m NOT ACCURATE CREATININE CLEARANCE IN PREDICTING GLOMERULAR FILTRATION RATE . ESTIMATED GFR I S NOT APPLICABLE FOR DIALYSIS PATIEN TS. HEPATIC FUNCTION [id number] 11:20:00 Test Item Value Reference Range Interpretation Comments TOTAL PROTEIN (BEAKER) (test code = 8.0 gm/dL 6.0-8.3 770) ALBUMIN (BEAKER) (test code = 1145) 4.0 g/dL 3.5-5.0 BILIRUBIN TOTAL (BEAKER) (test code 0.3 mg/dL 0.2-1.2 = 377) BILIRUBIN DIRECT (BEAKER) (test 0.1 mg/dL 0.1-0.5 code = 706) ALKALINE PHOSPHATASE (BEAKER) (test 57 U/L 40-150 code = 346) AST (SGOT) (BEAKER) (test code = 24 U/L 5-34 353) ALT (SGPT) (BEAKER) (test code = 27 U/L 6-55 347) Pro-time/[id number] 11:06:00 Test Item Value Reference Range Interpretation Comments Protime (test code = 12.9 11.9- 14.2 5902-2) seconds INR (test code = 1.0 <=5.9 6301-6) PETEY (test code = PETEY) Effective 11/21/2018: PT Reference Range ChangeNew: 11.9-14.2 Previous: 11.7-14.7 RECOMMENDED COUMADIN/WARFARIN INR THERAPY RANGESSTANDARD DOSE: 2.0-3.0 Includes: PROPHYLAXIS for venous thrombosis, systemic embolization; TREATMENT for venous thrombosis and/or pulmonary embolus.HIGH RISK: Target INR is 2.5-3.5 for patients wiht mechanical heart valves. Lab Interpretation Normal (test code = 71533-3) [facility] CenterPROTHROMBIN TIME/[id number] 11:06:00 Test Item Value Reference Range Interpretation Comments PROTIME (BEAKER) (test code = 12.9 seconds 11.9-14.2 759) INR (BEAKER) (test code = 370) 1.0 <=5.9 Effective 11/21/2018: PT Reference Range ChangeNew: 11.9-14.2 Previous: 11.7- 14.7RECOMMENDED COUMADIN/WARFARIN INR THERAPY RANGESSTANDARD DOSE: 2.0-3.0 Includes: PROPHYLAXIS for venous thrombosis, systemic embolization; TREATMENT for venous thrombosis and/or pulmonary embolus.HIGH RISK: Target INR is2.5-3.5 for patients wiht mechanical heart valves.CBC W/PLT COUNT & AUTO [id number] 10:58:00 Test Item Value Reference Range Interpretation Comments WHITE BLOOD CELL COUNT (BEAKER) 5.3 K/ L 3.5-10.5 (test code = 775) RED BLOOD CELL COUNT (BEAKER) 3.63 M/ L 4.63-6.08 L (test code = 761) HEMOGLOBIN (BEAKER) (test code = 11.0 GM/DL 13.7-17.5 L 410) HEMATOCRIT (BEAKER) (test code = 35.0 % 40.1-51.0 L 411) MEAN CORPUSCULAR VOLUME (BEAKER) 96.4 fL 79.0-92.2 H (test code = 753) MEAN CORPUSCULAR HEMOGLOBIN 30.3 pg 25.7-32.2 (BEAKER) (test code = 751) MEAN CORPUSCULAR HEMOGLOBIN CONC 31.4 GM/DL 32.3-36.5 L (BEAKER) (test code = 752) RED CELL DISTRIBUTION WIDTH 14.9 % 11.6-14.4 H (BEAKER) (test code = 412) PLATELET COUNT (BEAKER) (test 146 K/CU MM 150-450 L code = 756) MEAN PLATELET VOLUME (BEAKER) 12.1 fL 9.4-12.4 (test code = 754) NUCLEATED RED BLOOD CELLS 0 /100 WBC 0-0 (BEAKER) (test code = 413) NEUTROPHILS RELATIVE PERCENT 50 % (BEAKER) (test code = 429) LYMPHOCYTES RELATIVE PERCENT 34 % (BEAKER) (test code = 430) MONOCYTES RELATIVE PERCENT 11 % (BEAKER) (test code = 431) EOSINOPHILS RELATIVE PERCENT 4 % (BEAKER) (test code = 432) BASOPHILS RELATIVE PERCENT 1 % (BEAKER) (test code = 437) NEUTROPHILS ABSOLUTE COUNT 2.64 K/ L 1.78-5.38 (BEAKER) (test code = 670) LYMPHOCYTES ABSOLUTE COUNT 1.82 K/ L 1.32-3.57 (BEAKER) (test code = 414) MONOCYTES ABSOLUTE COUNT (BEAKER) 0.58 K/ L 0.30-0.82 (test code = 415) EOSINOPHILS ABSOLUTE COUNT 0.23 K/ L 0.04-0.54 (BEAKER) (test code = 416) BASOPHILS ABSOLUTE COUNT (BEAKER) 0.04 K/ L 0.01-0.08 (test code = 417) IMMATURE GRANULOCYTES-RELATIVE 0 % 0-1 PERCENT (BEAKER) (test code = 2801) MR, ABDOMEN, [id number] 14:49:00Referring: Dr. Duran GuantFINAL REPORT MRI of the abdomen with and without contrast Clinical History: hemorrhagic liver cyst Technique: Multiplanar and multisequence MR images of the abdomen are obtainedbefore and after intravenous contrast administration. Contrast is administered to evaluate neoplasm and vasculature. Comparison: July 25, 2018, May 31, 2018 Discussion: Liver is not cirrhotic in morphology. In the right lobe, there is a stable heterogeneously T1 hyperintense and T2 hyperintense, nonenhancing lesion measuring 7 x 7.5 x 6.9 cm, compatible with a hemorrhagic cyst. Several additional small simple cysts are present in the liver. No suspicious mass lesion is identified. Hepatic vas culature is patent. The main portal vein measures 13 mm in diameter. No ductal dilatation. Gallbladder is unremarkable. The spleen, pancreas, adrenal glands are unremarkable. There are a few cysts in the kidneys, largest is on the right, measuring up to 3.4 cm. No hydronephrosis or mass lesion. No ascites or lymphadenopathy. No suspicious bony lesion. Visualized bowel is unremarkable. Impression: Stable appearance of a hemorrhagic cyst in the liver. No suspicious mass lesion is identified. Signed: Polly De La Torre MDReport Verified Date/Time: 11/21/2018 14:49:11 Reading Location: [address] Radiology Reading Room HBSAG [id number] 12:53:00 Test Item Value Reference Range Interpretation Comments HBSAG CONFIRMATION Confirmed Positive Unconfirmed, HBSAG A (BEAKER) (test code = Negative 1602) HEPATITIS B SURFACE [id number] 11:22:00 Test Item Value Reference Range Interpretation Comments HEPATITIS B SURFACE ANTIGEN (2) Reactive Nonreactive A (BEAKER) (test code = 2585) HEPATITIS B SURFACE [id number] 10:14:00 Test Item Value Reference Range Interpretation Comments HEPATITIS B SURFACE ANTIBODY < mIU/mL <8.0 (BEAKER) (test code = 647) ALPHA FETOPROTEIN (AFP), TUMOR [id number] 10:14:00 Test Item Value Reference Range Interpretation Comments ALPHA-FETOPROTEIN (BEAKER) (test code < ng/mL <10.0 = 1094) [id number] 10:10:00 Test Item Value Reference Range Interpretation Comments PROSTATE SPECIFIC ANTIGEN (BEAKER) 3.4 ng/mL 0.0-4.0 (test code = 844) CARCINOEMBRYONIC ANTIGEN (CEA)2018-11-21 10:10:00 Test Item Value Reference Range Interpretation Comments CARCINOEMBRYONIC ANTIGEN (BEAKER) 1.7 ng/mL 0.0-5.0 (test code = 685) BASIC METABOLIC [id number] 09:50:00 Test Item Value Reference Range Interpretation Comments SODIUM (BEAKER) 141 meq/L 136-145 (test code = 381) POTASSIUM (BEAKER) 4.5 meq/L 3.5-5.1 Specimen slightly (test code = 379) hemolyzed CHLORIDE (BEAKER) 108 meq/L 98-107 H (test code = 382) CO2 (BEAKER) (test 25 meq/L 22-29 code = 355) BLOOD UREA NITROGEN 28 mg/dL 7-21 H (BEAKER) (test code = 354) CREATININE (BEAKER) 2.16 mg/dL 0.57-1.25 H Specimen slightly (test code = 358) hemolyzed GLUCOSE RANDOM 100 mg/dL 70-105 (BEAKER) (test code = 652) CALCIUM (BEAKER) 9.9 mg/dL 8.4-10.2 (test code = 697) EGFR (BEAKER) (test 37 mL/min/1.73 ESTIMA JER[place] GFR IS code = 1092) sq m NOT ACCURATE CREATININE CLEARANCE IN PREDICTING GLOMERULAR FILTRATION RATE . ESTIMATED GFR I S NOT APPLICABLE FOR DIALYSIS PATIEN TS. HEPATIC FUNCTION [id number] 09:50:00 Test Item Value Reference Range Interpretation Comments TOTAL PROTEIN (BEAKER) 8.0 gm/dL 6.0-8.3 Speci men slightly (test code = 770) hemolyzed ALBUMIN (BEAKER) (test 3.8 g/dL 3.5-5.0 Speci men slightly code = 1145) hemolyzed BILIRUBIN TOTAL 0.2 mg/dL 0.2-1.2 Specimen sli ghtly (BEAKER) (test code = hemoly zed 377) BILIRUBIN DIRECT 0.1 mg/dL 0.1-0.5 Specimen sl ightly (BEAKER) (test code = hemoly zed 706) ALKALINE PHOSPHATASE 54 U/L 40-150 (BEAKER) (test code = 346) AST (SGOT) (BEAKER) 21 U/L 5-34 Specimen slightly (test code = 353) hemolyzed ALT (SGPT) (BEAKER) 15 U/L 6-55 Specimen slightly (test code = 347) hemolyzed PROTHROMBIN [id number] 09:46:00 Test Item Value Reference Range Interpretation Comments PROTIME (BEAKER) (test code = 13.3 seconds 11.9-14.2 759) INR (BEAKER) (test code = 370) 1.1 <=5.9 RECOMMENDED COUMADIN/WARFARIN INR THERAPY RANGESSTANDARD DOSE: 2.0 - 3.0 Includes: PROPHYLAXIS forvenous thrombosis, systemic embolization; TREATMENT for venous thrombosis and/or pulmonary embolus.HIGH RISK: Target INR is 2.5-3.5 for patients with mechanical heart valves.CBC W/PLT COUNT & AUTO DIFFERENTIAL 2018-11-21 09:31:00 Test Item Value Reference Range Interpretation Comments WHITE BLOOD CELL COUNT (BEAKER) 6.5 K/ L 3.5-10.5 (test code = 775) RED BLOOD CELL COUNT (BEAKER) 3.50 M/ L 4.63-6.08 L (test code = 761) HEMOGLOBIN (BEAKER) (test code = 10.6 GM/DL 13.7-17.5 L 410) HEMATOCRIT (BEAKER) (test code = 32.9 % 40.1-51.0 L 411) MEAN CORPUSCULAR VOLUME (BEAKER) 94.0 fL 79.0-92.2 H (test code = 753) MEAN CORPUSCULAR HEMOGLOBIN 30.3 pg 25.7-32.2 (BEAKER) (test code = 751) MEAN CORPUSCULAR HEMOGLOBIN CONC 32.2 GM/DL 32.3-36.5 L (BEAKER) (test code = 752) RED CELL DISTRIBUTION WIDTH 15.1 % 11.6-14.4 H (BEAKER) (test code = 412) PLATELET COUNT (BEAKER) (test 179 K/CU MM 150-450 code = 756) MEAN PLATELET VOLUME (BEAKER) 11.2 fL 9.4-12.4 (test code = 754) NUCLEATED RED BLOOD CELLS 0 /100 WBC 0-0 (BEAKER) (test code = 413) NEUTROPHILS RELATIVE PERCENT 61 % (BEAKER) (test code = 429) LYMPHOCYTES RELATIVE PERCENT 25 % (BEAKER) (test code = 430) MONOCYTES RELATIVE PERCENT 9 % (BEAKER) (test code = 431) EOSINOPHILS RELATIVE PERCENT 3 % (BEAKER) (test code = 432) BASOPHILS RELATIVE PERCENT 1 % (BEAKER) (test code = 437) NEUTROPHILS ABSOLUTE COUNT 3.97 K/ L 1.78-5.38 (BEAKER) (test code = 670) LYMPHOCYTES ABSOLUTE COUNT 1.63 K/ L 1.32-3.57 (BEAKER) (test code = 414) MONOCYTES ABSOLUTE COUNT (BEAKER) 0.61 K/ L 0.30-0.82 (test code = 415) EOSINOPHILS ABSOLUTE COUNT 0.22 K/ L 0.04-0.54 (BEAKER) (test code = 416) BASOPHILS ABSOLUTE COUNT (BEAKER) 0.04 K/ L 0.01-0.08 (test code = 417) IMMATURE GRANULOCYTES-RELATIVE 0 % 0-1 PERCENT (BEAKER) (test code = 2801) GASTRIC,[id number] 13:49:00 RUN DATE: 09/04/18 [place] - Lab PAGE 1 RUN TIME: 1349 Specimen Inquiry RUN USER: INTERFACE PATIENT: ENDER RODRIGUEZ #: [id number] LOC: [facility] U #: [id number] AGE/SX: 73/M ROOM: [facility] RE08/21/18REG DR: Nohelia Holt MD : 47 BED: 1 DIS: 09/03/18 STATUS: DIS IN TLOC: SPEC #: [id number] RECD: 09/03/18 STATUS: SOUT REQ #: [id number] NIRALI: 09/03/18- SUBM DR: Nohelia Holt MD ENTERED: 09/03/18 SP TYPE: GASTRIC BX OTHR DR: Self Referred Mike Cano MD, Robin Lynn MD Azzam, Mohamad MD Malhotra, Advitya MDORDERED: SPEC STAIN LUCAS, GM LEVEL 4, REQUEST COPIES TO: Self Referred Nohelia Holt MD [address] [place] [address] [place] [address] [place] [address] Kirby Segura MD [address] [place] [address] [email or web address] Ever Escobar MD [address] [facility] [address] [place] [address] [address] O[address] [facility] [facility] [place] [address] OTHER PHONE [phone] (CELL) PROCEDURES: SPEC STAIN LUCAS (09/04/18) GM LEVEL 4 (09/04/18) REQUEST (09/03/18) TISSUES: GASTRIC MUCOUS MEMBRANE - ANTRUM BX CONTINUED ON NEXT PAGE RUN DATE: 09/04/[address] [facility] - Lab PAGE 2 RUN TIME: 1349 Specimen Inquiry RUN USER: INTERFACE SPEC #: [id number] PATIENT: ENDER RODRIGUEZ #[id number] (Contin ued) CLINICAL HISTORY Obscured GI bleeding, esophageal ulcer, hiatal hernia FINAL DIAGNOSIS GASTRIC ANTRUM BIOPSIES: ANTRAL TYPE MUCOSA WITH MINIMAL NON SPECIFIC CHRONIC INFLAMMATION. NO INTESTINAL METAPLASIA. NO BACTERIA SEEN ON GIEMSA STAIN. CPT CODE: 84324, [id number] MACROSCOPIC Specimen is received in formalin labeled "antral bx" and consists of two ding-white softtissue fragments measuring in aggregate 0.4 x 0.2 x 0.2 cm. One cassette. MICROSCOPIC SEE DIAGNOSIS Signed SIGNATURE ON FILE Holly Russell. 09/04/18 1349 END OF REPORT CBC W/AUTO [id number] 05:57:00 Test Item Value Reference Range Interpretation Comments WHITE BLOOD CELL (test code = 7.3 K/mm3 4.5-11.0 N WBC) RED BLOOD CELL (test code = 3.34 M/mm3 4.40-5.90 L RBC) HEMOGLOBIN (test code = HGB) 9.7 gm/dL 13.0-17.0 L HEMATOCRIT (test code = HCT) 31.0 % 36.0-48.0 L MEAN CELL VOLUME (test code = 92.8 UM3 80.0-94.0 N MCV) MEAN CELL HGB (test code = MCH) 29.0 UUG 25.5-32.5 N MEAN CELL HGB CONCETRATION 31.3 gm/dL 29.0-35.5 N (test code = MCHC) RED CELL DISTRIBUTION WIDTH 16.5 % 11.5-15.0 H (test code = RDW) RED CELL DISTRIBUTION WIDTH SD 55.6 fL 34.8-50.2 H (test code = RDW-SD) PLATELET COUNT (test code = 388 K/mm3 150-400 N PLT) MEAN PLATELET VOLUME (test code 9.9 fl 7.4-10.4 N = MPV) NEUTROPHIL % (test code = NT%) 64.8 % 49.0-76.0 N IMMATURE GRANULOCYTE % (test 0.5 % 0.0-0.4 H code = IG%) LYMPHOCYTE % (test code = LY%) 21.2 % 23.0-38.0 L MONOCYTE % (test code = MO%) 10.6 % 1.0-10.0 H EOSINOPHIL % (test code = EO%) 1.8 % 1.0-5.0 N BASOPHIL % (test code = BA%) 1.1 % 0.0-1.0 H NEUTROPHIL # (test code = NT#) 4.7 K/mm3 2.4-6.3 N IMMATURE GRANULOCYTE # (test 0.04 x10 3/uL 0.00-0.07 N code = IG#) LYMPHOCYTE # (test code = LY#) 1.5 K/mm3 1.2-4.0 N MONOCYTE # (test code = MO#) 0.8 K/mm3 0.0-0.6 H EOSINOPHIL # (test code = EO#) 0.1 K/MM3 0.0-0.7 N BASOPHIL # (test code = BA#) 0.1 K/mm3 0.0-0.2 N CBC W/AUTO [id number] 07:04:00 Test Item Value Reference Range Interpretation Comments WHITE BLOOD CELL (test code = 6.3 K/mm3 4.5-11.0 N WBC) RED BLOOD CELL (test code = 3.30 M/mm3 4.40-5.90 L RBC) HEMOGLOBIN (test code = HGB) 9.5 gm/dL 13.0-17.0 L HEMATOCRIT (test code = HCT) 30.2 % 36.0-48.0 L MEAN CELL VOLUME (test code = 91.5 UM3 80.0-94.0 N MCV) MEAN CELL HGB (test code = MCH) 28.8 UUG 25.5-32.5 N MEAN CELL HGB CONCETRATION 31.5 gm/dL 29.0-35.5 N (test code = MCHC) RED CELL DISTRIBUTION WIDTH 15.9 % 11.5-15.0 H (test code = RDW) RED CELL DISTRIBUTION WIDTH SD 52.7 fL 34.8-50.2 H (test code = RDW-SD) PLATELET COUNT (test code = 364 K/mm3 150-400 N PLT) MEAN PLATELET VOLUME (test code 10.4 fl 7.4-10.4 N = MPV) NEUTROPHIL % (test code = NT%) 58.7 % 49.0-76.0 N IMMATURE GRANULOCYTE % (test 1.0 % 0.0-0.4 H code = IG%) LYMPHOCYTE % (test code = LY%) 26.3 % 23.0-38.0 N MONOCYTE % (test code = MO%) 10.5 % 1.0-10.0 H EOSINOPHIL % (test code = EO%) 2.5 % 1.0-5.0 N BASOPHIL % (test code = BA%) 1.0 % 0.0-1.0 N NEUTROPHIL # (test code = NT#) 3.7 K/mm3 2.4-6.3 N IMMATURE GRANULOCYTE # (test 0.06 x10 3/uL 0.00-0.07 N code = IG#) LYMPHOCYTE # (test code = LY#) 1.7 K/mm3 1.2-4.0 N MONOCYTE # (test code = MO#) 0.7 K/mm3 0.0-0.6 H EOSINOPHIL # (test code = EO#) 0.2 K/MM3 0.0-0.7 N BASOPHIL # (test code = BA#) 0.1 K/mm3 0.0-0.2 N PROTHROMBIN [id number] 14:06:00 Test Item Value Reference Range Interpretation Comments PROTHROMBIN TIME 11.0 SECONDS 9.9-12.8 PATIENT (test code = PTP) INTERNATIONAL NORMAL 0.9 0.89-1.14 N THE INR IS TO BE USED RATIO (test code = ONLY FOR MONITORING INR) ORAL ANTICOAGULANTTH ERAPY. THE FOLLOWING A RE SUGGESTED RANGE S FROM [facility] LEGE OF CHEST PHYSICIANS:ROMY CATION INR VALUEPROPHYLAXI S OF VENOUS THROMBOS IS (ORTHOPEDIC JANETH ROZINA) 2.0 - 3.0PROP HYLAXIS OF VENOUS THROM BOSIS (OTHER THAN HIG H-RISK SURGERY) 2.0 - 3.0TRE ATMENT OF DEEP VEIN THROMBOSIS OR PULMONARY EMBOL ISM 2.0 - 3.0PREV ENTION OF SYSTEMIC EMB OLISM TISSUE HEART VA LVES 2.0 - 3.0 AC DIANNE MYOCARDIAL INFA RCTION (TO PREVENT SYSTEMIC EMBOLI SM) 2.0 - 3.0 ACUTE MYOCARDIA L INFARCTION (TO PREVENT RECURRE NT INFARCT) 2.5 - 3.0 VALV ULAR HEART DISEASE 2.0 - 3.0 ATRIAL FIBRILATION 2.0 - 3.0BILEAFLET MECHANICAL VALV E IN AORTIC POSITION 2.0 - 3.0MECHAN ICAL PROSTHETIC VALV ES (HIGH RISK) 2.5 - 3.5PRESEN CE OF LUPUS ANTICOAGU LANT OR ANTIPHOSPHOLIP ID ANTIBODIES 2.5 - 3 .5 CBC W/AUTO [id number] 06:52:00 Test Item Value Reference Range Interpretation Comments WHITE BLOOD CELL (test code = 5.8 K/mm3 4.5-11.0 N WBC) RED BLOOD CELL (test code = 2.45 M/mm3 4.40-5.90 L RBC) HEMOGLOBIN (test code = HGB) 7.0 gm/dL 13.0-17.0 L HEMATOCRIT (test code = HCT) 22.8 % 36.0-48.0 LL MEAN CELL VOLUME (test code = 93.1 UM3 80.0-94.0 N MCV) MEAN CELL HGB (test code = MCH) 28.6 UUG 25.5-32.5 N MEAN CELL HGB CONCETRATION 30.7 gm/dL 29.0-35.5 N (test code = MCHC) RED CELL DISTRIBUTION WIDTH 16.6 % 11.5-15.0 H (test code = RDW) RED CELL DISTRIBUTION WIDTH SD 55.7 fL 34.8-50.2 H (test code = RDW-SD) PLATELET COUNT (test code = 383 K/mm3 150-400 N PLT) MEAN PLATELET VOLUME (test code 10.5 fl 7.4-10.4 H = MPV) NEUTROPHIL % (test code = NT%) 57.9 % 49.0-76.0 N IMMATURE GRANULOCYTE % (test 0.7 % 0.0-0.4 H code = IG%) LYMPHOCYTE % (test code = LY%) 28.9 % 23.0-38.0 N MONOCYTE % (test code = MO%) 9.1 % 1.0-10.0 N EOSINOPHIL % (test code = EO%) 2.4 % 1.0-5.0 N BASOPHIL % (test code = BA%) 1.0 % 0.0-1.0 N NEUTROPHIL # (test code = NT#) 3.4 K/mm3 2.4-6.3 N IMMATURE GRANULOCYTE # (test 0.04 x10 3/uL 0.00-0.07 N code = IG#) LYMPHOCYTE # (test code = LY#) 1.7 K/mm3 1.2-4.0 N MONOCYTE # (test code = MO#) 0.5 K/mm3 0.0-0.6 N EOSINOPHIL # (test code = EO#) 0.1 K/MM3 0.0-0.7 N BASOPHIL # (test code = BA#) 0.1 K/mm3 0.0-0.2 N CBC W/AUTO [id number] 07:52:00 Test Item Value Reference Range Interpretation Comments WHITE BLOOD CELL (test code = 7.2 K/mm3 4.5-11.0 N WBC) RED BLOOD CELL (test code = 2.91 M/mm3 4.40-5.90 L RBC) HEMOGLOBIN (test code = HGB) 8.5 gm/dL 13.0-17.0 L HEMATOCRIT (test code = HCT) 26.7 % 36.0-48.0 L MEAN CELL VOLUME (test code = 91.8 UM3 80.0-94.0 N MCV) MEAN CELL HGB (test code = MCH) 29.2 UUG 25.5-32.5 N MEAN CELL HGB CONCETRATION 31.8 gm/dL 29.0-35.5 N (test code = MCHC) RED CELL DISTRIBUTION WIDTH 16.5 % 11.5-15.0 H (test code = RDW) RED CELL DISTRIBUTION WIDTH SD 55.5 fL 34.8-50.2 H (test code = RDW-SD) PLATELET COUNT (test code = 399 K/mm3 150-400 N PLT) MEAN PLATELET VOLUME (test code 9.9 fl 7.4-10.4 N = MPV) NEUTROPHIL % (test code = NT%) 66.7 % 49.0-76.0 N IMMATURE GRANULOCYTE % (test 1.1 % 0.0-0.4 H code = IG%) LYMPHOCYTE % (test code = LY%) 19.0 % 23.0-38.0 L MONOCYTE % (test code = MO%) 9.8 % 1.0-10.0 N EOSINOPHIL % (test code = EO%) 2.6 % 1.0-5.0 N BASOPHIL % (test code = BA%) 0.8 % 0.0-1.0 N NEUTROPHIL # (test code = NT#) 4.8 K/mm3 2.4-6.3 N IMMATURE GRANULOCYTE # (test 0.08 x10 3/uL 0.00-0.07 H code = IG#) LYMPHOCYTE # (test code = LY#) 1.4 K/mm3 1.2-4.0 N MONOCYTE # (test code = MO#) 0.7 K/mm3 0.0-0.6 H EOSINOPHIL # (test code = EO#) 0.2 K/MM3 0.0-0.7 N BASOPHIL # (test code = BA#) 0.1 K/mm3 0.0-0.2 N CBC W/AUTO [id number] 07:33:00 Test Item Value Reference Range Interpretation Comments WHITE BLOOD CELL (test code = 5.5 K/mm3 4.5-11.0 N WBC) RED BLOOD CELL (test code = 3.36 M/mm3 4.40-5.90 L RBC) HEMOGLOBIN (test code = HGB) 9.5 gm/dL 13.0-17.0 L HEMATOCRIT (test code = HCT) 30.9 % 36.0-48.0 L MEAN CELL VOLUME (test code = 92.0 UM3 80.0-94.0 N MCV) MEAN CELL HGB (test code = MCH) 28.3 UUG 25.5-32.5 N MEAN CELL HGB CONCETRATION 30.7 gm/dL 29.0-35.5 N (test code = MCHC) RED CELL DISTRIBUTION WIDTH 16.5 % 11.5-15.0 H (test code = RDW) RED CELL DISTRIBUTION WIDTH SD 54.6 fL 34.8-50.2 H (test code = RDW-SD) PLATELET COUNT (test code = 410 K/mm3 150-400 H PLT) MEAN PLATELET VOLUME (test code 10.3 fl 7.4-10.4 N = MPV) NEUTROPHIL % (test code = NT%) 58.1 % 49.0-76.0 N IMMATURE GRANULOCYTE % (test 1.3 % 0.0-0.4 H code = IG%) LYMPHOCYTE % (test code = LY%) 22.4 % 23.0-38.0 L MONOCYTE % (test code = MO%) 11.0 % 1.0-10.0 H EOSINOPHIL % (test code = EO%) 6.3 % 1.0-5.0 H BASOPHIL % (test code = BA%) 0.9 % 0.0-1.0 N NEUTROPHIL # (test code = NT#) 3.2 K/mm3 2.4-6.3 N IMMATURE GRANULOCYTE # (test 0.07 x10 3/uL 0.00-0.07 N code = IG#) LYMPHOCYTE # (test code = LY#) 1.2 K/mm3 1.2-4.0 N MONOCYTE # (test code = MO#) 0.6 K/mm3 0.0-0.6 N EOSINOPHIL # (test code = EO#) 0.4 K/MM3 0.0-0.7 N BASOPHIL # (test code = BA#) 0.1 K/mm3 0.0-0.2 N CBC W/AUTO [id number] 08:39:00 Test Item Value Reference Range Interpretation Comments WHITE BLOOD CELL (test code = WBC) 6.9 K/mm3 4.5-11.0 N RED BLOOD CELL (test code = RBC) 3.60 M/mm3 4.40-5.90 L HEMOGLOBIN (test code = HGB) 10.3 gm/dL 13.0-17.0 L HEMATOCRIT (test code = HCT) 32.4 % 36.0-48.0 L MEAN CELL VOLUME (test code = MCV) 90.0 UM3 80.0-94.0 N MEAN CELL HGB (test code = MCH) 28.6 UUG 25.5-32.5 N MEAN CELL HGB CONCETRATION (test 31.8 gm/dL 29.0-35.5 N code = MCHC) RED CELL DISTRIBUTION WIDTH (test 16.3 % 11.5-15.0 H code = RDW) PLATELET COUNT (test code = PLT) 438 K/mm3 150-400 H MEAN PLATELET VOLUME (test code = 10.0 fl 7.4-10.4 N MPV) NEUTROPHIL % (test code = NT%) 59.5 % 49.0-76.0 N LYMPHOCYTE % (test code = LY%) 23.5 % 23.0-38.0 N MONOCYTE % (test code = MO%) 10.2 % 1.0-10.0 H EOSINOPHIL % (test code = EO%) 4.9 % 1.0-5.0 N BASOPHIL % (test code = BA%) 0.9 % 0.0-1.0 N NEUTROPHIL # (test code = NT#) 4.1 K/mm3 2.4-6.3 N LYMPHOCYTE # (test code = LY#) 1.6 K/mm3 1.2-4.0 N MONOCYTE # (test code = MO#) 0.7 K/mm3 0.0-0.6 H EOSINOPHIL # (test code = EO#) 0.3 K/MM3 0.0-0.7 N BASOPHIL # (test code = BA#) 0.1 K/mm3 0.0-0.2 N - CT ANGIO [id number] 21:20:00 FAX: Nohelia Whitley [phone] [place]: St: [facility] FAX: Mike Mcknight MD [phone] FAX: Kirby Benavidez [phone] Name: ENDER RODRIGUEZ [facility]ly [facility] : 1945 Age/S: 73/M [address] [facility] Unit: [id number] Loc: [address] [place] [address] Phys: [place] [address] Acct: [id number] Dis Date: Status: ADM IN PHONE #: [phone] Exam Date: 08/27/20182049 FAX #: [phone] Reason: H/o PE off Anticoagulation EXAMS: CPT CODE: [id number] CT ANGIO CHEST 24119 HISTORY: Chest pain, evaluate for pulmonary embolus. Location: C3 COMPARISON: 05/01/2018 TECHNIQUE: Axial tomograms through the chest were obtained after intravenous contrast utilizing pulmonary CTA protocol. Multiplanar maximum intensity projection reformatted images are provided. One or more of the following dose reduction techniques were used: Automated exposure control, adjustment of the mA and/or kV according to patient size, and/or utilization of iterative reconstruction technique. FINDINGS: Aortic and coronary calcifications are present. The pulmonary arteries are well opacified with no evidence of pulmonary embolus. There is no evidence of aortic aneurysm or dissection. There is no significant mediastinal or hilar adenopathy. Small left effusion is present. Adjacent left basilar atelectasis is noted. No acute osseous abnormalities are demonstrated. Emphysema is demonstrated. Calcified granulomas noted in the right upper lobe. 7 mm ovoid nodule seen in the anterior left upper lobe unchanged from prior exam. IMPRESSION: 1. No evidenceof pulmonary embolus. 2. No evidence of aortic aneurysm or dissection. 3. Emphysema. 4. Evidence of prior granulomatous disease. at 2120 Reported and signed by: Desirae Trinh M.D. PAGE 1 Signed Report (CONTINUED) FAX: Nohelia Whitley [phone] [place]: St: [facility] FAX: Mike Mcknight MD [phone] FAX: Kirby Benavidez [phone] Name: ENDER RODRIGUEZ [facility]ly [facility] : 1945 Age/S: 73/M [address] [facility] Unit: [id number] Loc: [address] Phys: [place] [address] Acct: [id number] Dis Date: Status: ADM IN PHONE #: [phone] Exam Date: 08/27/20182049 FAX #: [phone] Reason: H/o PE off Anticoagulation EXAMS: CPT CODE: [id number] CT ANGIO CHEST 36615 <Continued> CC: Nohelia Holt MD; Mike Cano MD; Kirby Segura MD Technologist: ANA CH Trnscrd Dt/Tm: 08/27/2018 (2119)[id number] Orig Print D/T: S: 08/27/2018 (2124 PAGE 2 Signed ReportBASIC METABOLIC [id number] 07:15:00 Test Item Value Reference Range Interpretation Comments SODIUM (test code = NA) 136 mmol/l 134.0-147.0 N POTASSIUM (test code = K) 3.7 mmol/L 3.6-5.2 N CHLORIDE (test code = CL) 104 mmol/l 98.0-107.0 N CARBON DIOXIDE (test code = CO2) 23.4 mmol/l 21.0-33.0 N ANION GAP (test code = GAP) 12.3 0-20 N GLUCOSE (test code = GLU) 84 mg/dl 70.0-110.0 N BLOOD UREA NITROGEN (test code = 9 mg/dl 7.0-18.0 N BUN) CREATININE (test code = CREAT) 0.84 mg/dL 0.60-1.30 N GFR NON BLACK (test code = 95 mL/min 70-80 H GFRNONBLACK) GFR BLACK (test code = GFRBLACK) 116 mL/min 85-97 H CALCIUM (test code = CA) 9.1 mg/dl 8.0-10.5 N CBC W/AUTO [id number] 06:52:00 Test Item Value Reference Range Interpretation Comments WHITE BLOOD CELL (test code = WBC) 7.4 K/mm3 4.5-11.0 N RED BLOOD CELL (test code = RBC) 3.76 M/mm3 4.40-5.90 L HEMOGLOBIN (test code = HGB) 10.8 gm/dL 13.0-17.0 L HEMATOCRIT (test code = HCT) 34.6 % 36.0-48.0 L MEAN CELL VOLUME (test code = MCV) 92.0 UM3 80.0-94.0 N MEAN CELL HGB (test code = MCH) 28.7 UUG 25.5-32.5 N MEAN CELL HGB CONCETRATION (test 31.2 gm/dL 29.0-35.5 N code = MCHC) RED CELL DISTRIBUTION WIDTH (test 17.1 % 11.5-15.0 H code = RDW) PLATELET COUNT (test code = PLT) 411 K/mm3 150-400 H MEAN PLATELET VOLUME (test code = 10.3 fl 7.4-10.4 N MPV) NEUTROPHIL % (test code = NT%) 53.6 % 49.0-76.0 N LYMPHOCYTE % (test code = LY%) 27.2 % 23.0-38.0 N MONOCYTE % (test code = MO%) 12.0 % 1.0-10.0 H EOSINOPHIL % (test code = EO%) 4.6 % 1.0-5.0 N BASOPHIL % (test code = BA%) 0.9 % 0.0-1.0 N NEUTROPHIL # (test code = NT#) 4.0 K/mm3 2.4-6.3 N LYMPHOCYTE # (test code = LY#) 2.0 K/mm3 1.2-4.0 N MONOCYTE # (test code = MO#) 0.9 K/mm3 0.0-0.6 H EOSINOPHIL # (test code = EO#) 0.3 K/MM3 0.0-0.7 N BASOPHIL # (test code = BA#) 0.1 K/mm3 0.0-0.2 N BASIC METABOLIC [id number] 06:45:00 Test Item Value Reference Range Interpretation Comments SODIUM (test code = NA) 139 mmol/l 134.0-147.0 N POTASSIUM (test code = K) 4.2 mmol/L 3.6-5.2 N CHLORIDE (test code = CL) 109 mmol/l 98.0-107.0 H CARBON DIOXIDE (test code = CO2) 22.3 mmol/l 21.0-33.0 N ANION GAP (test code = GAP) 11.9 0-20 N GLUCOSE (test code = GLU) 89 mg/dl 70.0-110.0 N BLOOD UREA NITROGEN (test code = 5 mg/dl 7.0-18.0 L BUN) CREATININE (test code = CREAT) 0.74 mg/dL 0.60-1.30 N GFR NON BLACK (test code = 111 mL/min 70-80 H GFRNONBLACK) GFR BLACK (test code = GFRBLACK) 134 mL/min 85-97 H CALCIUM (test code = CA) 8.4 mg/dl 8.0-10.5 N CBC W/AUTO [id number] 06:37:00 Test Item Value Reference Range Interpretation Comments WHITE BLOOD CELL (test code = WBC) 6.1 K/mm3 4.5-11.0 N RED BLOOD CELL (test code = RBC) 3.37 M/mm3 4.40-5.90 L HEMOGLOBIN (test code = HGB) 9.7 gm/dL 13.0-17.0 L HEMATOCRIT (test code = HCT) 31.1 % 36.0-48.0 L MEAN CELL VOLUME (test code = MCV) 92.3 UM3 80.0-94.0 N MEAN CELL HGB (test code = MCH) 28.8 UUG 25.5-32.5 N MEAN CELL HGB CONCETRATION (test 31.2 gm/dL 29.0-35.5 N code = MCHC) RED CELL DISTRIBUTION WIDTH (test 17.5 % 11.5-15.0 H code = RDW) PLATELET COUNT (test code = PLT) 353 K/mm3 150-400 N MEAN PLATELET VOLUME (test code = 10.4 fl 7.4-10.4 N MPV) NEUTROPHIL % (test code = NT%) 68.0 % 49.0-76.0 N LYMPHOCYTE % (test code = LY%) 20.0 % 23.0-38.0 L MONOCYTE % (test code = MO%) 8.9 % 1.0-10.0 N EOSINOPHIL % (test code = EO%) 1.5 % 1.0-5.0 N BASOPHIL % (test code = BA%) 0.8 % 0.0-1.0 N NEUTROPHIL # (test code = NT#) 4.2 K/mm3 2.4-6.3 N LYMPHOCYTE # (test code = LY#) 1.2 K/mm3 1.2-4.0 N MONOCYTE # (test code = MO#) 0.5 K/mm3 0.0-0.6 N EOSINOPHIL # (test code = EO#) 0.1 K/MM3 0.0-0.7 N BASOPHIL # (test code = BA#) 0.1 K/mm3 0.0-0.2 N BASIC METABOLIC [id number] 05:55:00 Test Item Value Reference Range Interpretation Comments SODIUM (test code = NA) 141 mmol/l 134.0-147.0 N POTASSIUM (test code = K) 3.0 mmol/L 3.6-5.2 L CHLORIDE (test code = CL) 109 mmol/l 98.0-107.0 H CARBON DIOXIDE (test code = CO2) 24.0 mmol/l 21.0-33.0 N ANION GAP (test code = GAP) 11.0 0-20 N GLUCOSE (test code = GLU) 101 mg/dl 70.0-110.0 N BLOOD UREA NITROGEN (test code = 8 mg/dl 7.0-18.0 N BUN) CREATININE (test code = CREAT) 0.78 mg/dL 0.60-1.30 N GFR NON BLACK (test code = 104 mL/min 70-80 H GFRNONBLACK) GFR BLACK (test code = GFRBLACK) 126 mL/min 85-97 H CALCIUM (test code = CA) 8.3 mg/dl 8.0-10.5 N CBC W/AUTO [id number] 05:28:00 Test Item Value Reference Range Interpretation Comments WHITE BLOOD CELL (test code = WBC) 6.2 K/mm3 4.5-11.0 N RED BLOOD CELL (test code = RBC) 2.41 M/mm3 4.40-5.90 L HEMOGLOBIN (test code = HGB) 6.9 gm/dL 13.0-17.0 LL HEMATOCRIT (test code = HCT) 22.9 % 36.0-48.0 LL MEAN CELL VOLUME (test code = MCV) 95.0 UM3 80.0-94.0 H MEAN CELL HGB (test code = MCH) 28.6 UUG 25.5-32.5 N MEAN CELL HGB CONCETRATION (test 30.1 gm/dL 29.0-35.5 N code = MCHC) RED CELL DISTRIBUTION WIDTH (test 17.8 % 11.5-15.0 H code = RDW) PLATELET COUNT (test code = PLT) 409 K/mm3 150-400 H MEAN PLATELET VOLUME (test code = 10.1 fl 7.4-10.4 N MPV) NEUTROPHIL % (test code = NT%) 61.6 % 49.0-76.0 N LYMPHOCYTE % (test code = LY%) 26.3 % 23.0-38.0 N MONOCYTE % (test code = MO%) 8.3 % 1.0-10.0 N EOSINOPHIL % (test code = EO%) 1.0 % 1.0-5.0 N BASOPHIL % (test code = BA%) 0.8 % 0.0-1.0 N NEUTROPHIL # (test code = NT#) 3.8 K/mm3 2.4-6.3 N LYMPHOCYTE # (test code = LY#) 1.6 K/mm3 1.2-4.0 N MONOCYTE # (test code = MO#) 0.5 K/mm3 0.0-0.6 N EOSINOPHIL # (test code = EO#) 0.1 K/MM3 0.0-0.7 N BASOPHIL # (test code = BA#) 0.1 K/mm3 0.0-0.2 N URINALYSIS [id number] 07:17:00 Test Item Value Reference Range Interpretation Comments UA COLOR (test code = COLU) YELLOW UA APPEARANCE (test code = SLHZY APPU) UA GLUCOSE DIPSTICK (test NORMAL mg/dl NORMAL code = DGLUU) UA BILIRUBIN DIPSTICK (test NEGATIVE mg/dL NEGATIVE code = BILU) UA KETONE DIPSTICK (test NEGATIVE mg/dl NEGATIVE code = KETU) UA SPECIFIC GRAVITY (test 1.015 1.000-1.030 code = SGU) UA BLOOD DIPSTICK (test NEGATIVE Luis/micL NEGATIVE code = STEPHANIE) UA PH DIPSTICK (test code = 6.0 5.0-9.0 MITZI) UA PROTEIN DIPSTICK (test NEGATIVE mg/dl NEGATIVE code = PROU) UA UROBILINIOGEN DIPSTICK 8.0 mg/dl mg/dl NORMAL A (test code = URO) UA NITRITE DIPSTICK (test NEGATIVE NEGATIVE code = PRACHI) UA LEUKOCYTE ESTERASE NEGATIVE Joe/micL NEGATIVE DIPSTICK (test code = LEUU) UA WBC (test code = WBCU) 0-2 WBC/HPF NONE UA RBC (test code = RBCU) 0-2 RBC/HPF 0-3 UA EPITHELIAL CELLS (test 0-3 EPI/HPF 0-3 code = EPIU) UA BACTERIA (test code = FEW NONE BACU) URINALYSIS [id number] 07:00:00 Test Item Value Reference Range Interpretation Comments UA COLOR (test code = COLU) YELLOW UA APPEARANCE (test code = SLHZY APPU) UA GLUCOSE DIPSTICK (test NORMAL mg/dl NORMAL code = DGLUU) UA BILIRUBIN DIPSTICK (test NEGATIVE mg/dL NEGATIVE code = BILU) UA KETONE DIPSTICK (test NEGATIVE mg/dl NEGATIVE code = KETU) UA SPECIFIC GRAVITY (test 1.015 1.000-1.030 code = SGU) UA BLOOD DIPSTICK (test NEGATIVE Luis/micL NEGATIVE code = STEPHANIE) UA PH DIPSTICK (test code = 6.0 5.0-9.0 MITZI) UA PROTEIN DIPSTICK (test NEGATIVE mg/dl NEGATIVE code = PROU) UA UROBILINIOGEN DIPSTICK 8.0 mg/dl mg/dl NORMAL A (test code = URO) UA NITRITE DIPSTICK (test NEGATIVE NEGATIVE code = PRACHI) UA LEUKOCYTE ESTERASE NEGATIVE Joe/micL NEGATIVE DIPSTICK (test code = LEUU) UA WBC (test code = WBCU) WBC/HPF NONE UA RBC (test code = RBCU) RBC/HPF 0-3 UA EPITHELIAL CELLS (test EPI/HPF 0-3 code = EPIU) UA BACTERIA (test code = NONE BACU) CBC W/AUTO [id number] 06:33:00 Test Item Value Reference Range Interpretation Comments WHITE BLOOD CELL (test code = WBC) 6.1 K/mm3 4.5-11.0 N RED BLOOD CELL (test code = RBC) 2.56 M/mm3 4.40-5.90 L HEMOGLOBIN (test code = HGB) 7.3 gm/dL 13.0-17.0 L HEMATOCRIT (test code = HCT) 24.7 % 36.0-48.0 LL MEAN CELL VOLUME (test code = MCV) 96.5 UM3 80.0-94.0 H MEAN CELL HGB (test code = MCH) 28.5 UUG 25.5-32.5 N MEAN CELL HGB CONCETRATION (test 29.6 gm/dL 29.0-35.5 N code = MCHC) RED CELL DISTRIBUTION WIDTH (test 18.6 % 11.5-15.0 H code = RDW) PLATELET COUNT (test code = PLT) 434 K/mm3 150-400 H MEAN PLATELET VOLUME (test code = 10.5 fl 7.4-10.4 H MPV) NEUTROPHIL % (test code = NT%) 66.8 % 49.0-76.0 N LYMPHOCYTE % (test code = LY%) 20.0 % 23.0-38.0 L MONOCYTE % (test code = MO%) 8.7 % 1.0-10.0 N EOSINOPHIL % (test code = EO%) 1.7 % 1.0-5.0 N BASOPHIL % (test code = BA%) 0.8 % 0.0-1.0 N NEUTROPHIL # (test code = NT#) 4.1 K/mm3 2.4-6.3 N LYMPHOCYTE # (test code = LY#) 1.2 K/mm3 1.2-4.0 N MONOCYTE # (test code = MO#) 0.5 K/mm3 0.0-0.6 N EOSINOPHIL # (test code = EO#) 0.1 K/MM3 0.0-0.7 N BASOPHIL # (test code = BA#) 0.1 K/mm3 0.0-0.2 N CBC W/AUTO [id number] 19:02:00 Test Item Value Reference Range Interpretation Comments WHITE BLOOD CELL (test code = WBC) 9.6 K/mm3 4.5-11.0 N RED BLOOD CELL (test code = RBC) 2.56 M/mm3 4.40-5.90 L HEMOGLOBIN (test code = HGB) 7.6 gm/dL 13.0-17.0 L HEMATOCRIT (test code = HCT) 25.3 % 36.0-48.0 L MEAN CELL VOLUME (test code = MCV) 98.8 UM3 80.0-94.0 H MEAN CELL HGB (test code = MCH) 29.7 UUG 25.5-32.5 N MEAN CELL HGB CONCETRATION (test 30.0 gm/dL 29.0-35.5 N code = MCHC) RED CELL DISTRIBUTION WIDTH (test 18.9 % 11.5-15.0 H code = RDW) PLATELET COUNT (test code = PLT) 358 K/mm3 150-400 N MEAN PLATELET VOLUME (test code = 10.9 fl 7.4-10.4 H MPV) NEUTROPHIL % (test code = NT%) 67.6 % 49.0-76.0 N LYMPHOCYTE % (test code = LY%) 20.3 % 23.0-38.0 L MONOCYTE % (test code = MO%) 8.9 % 1.0-10.0 N EOSINOPHIL % (test code = EO%) 0.7 % 1.0-5.0 L BASOPHIL % (test code = BA%) 0.5 % 0.0-1.0 N NEUTROPHIL # (test code = NT#) 6.5 K/mm3 2.4-6.3 H LYMPHOCYTE # (test code = LY#) 2.0 K/mm3 1.2-4.0 N MONOCYTE # (test code = MO#) 0.9 K/mm3 0.0-0.6 H EOSINOPHIL # (test code = EO#) 0.1 K/MM3 0.0-0.7 N BASOPHIL # (test code = BA#) 0.1 K/mm3 0.0-0.2 N CBC W/AUTO [id number] 05:06:00 Test Item Value Reference Range Interpretation Comments WHITE BLOOD CELL (test code = WBC) 10.8 K/mm3 4.5-11.0 N RED BLOOD CELL (test code = RBC) 2.19 M/mm3 4.40-5.90 L HEMOGLOBIN (test code = HGB) 6.5 gm/dL 13.0-17.0 LL HEMATOCRIT (test code = HCT) 20.8 % 36.0-48.0 LL MEAN CELL VOLUME (test code = MCV) 95.0 UM3 80.0-94.0 H MEAN CELL HGB (test code = MCH) 29.7 UUG 25.5-32.5 N MEAN CELL HGB CONCETRATION (test 31.3 gm/dL 29.0-35.5 N code = MCHC) RED CELL DISTRIBUTION WIDTH (test 18.9 % 11.5-15.0 H code = RDW) PLATELET COUNT (test code = PLT) 415 K/mm3 150-400 H MEAN PLATELET VOLUME (test code = 10.4 fl 7.4-10.4 N MPV) NEUTROPHIL % (test code = NT%) 70.7 % 49.0-76.0 N LYMPHOCYTE % (test code = LY%) 18.5 % 23.0-38.0 L MONOCYTE % (test code = MO%) 7.6 % 1.0-10.0 N EOSINOPHIL % (test code = EO%) 0.8 % 1.0-5.0 L BASOPHIL % (test code = BA%) 0.5 % 0.0-1.0 N NEUTROPHIL # (test code = NT#) 7.6 K/mm3 2.4-6.3 H LYMPHOCYTE # (test code = LY#) 2.0 K/mm3 1.2-4.0 N MONOCYTE # (test code = MO#) 0.8 K/mm3 0.0-0.6 H EOSINOPHIL # (test code = EO#) 0.1 K/MM3 0.0-0.7 N BASOPHIL # (test code = BA#) 0.1 K/mm3 0.0-0.2 N Comments to Manager Cost: Patient is currently in the ED waiting on a bedCBC W/AUTO [id number] 20:59:00 Test Item Value Reference Range Interpretation Comments WHITE BLOOD CELL (test code = WBC) 15.7 K/mm3 4.5-11.0 H RED BLOOD CELL (test code = RBC) 1.62 M/mm3 4.40-5.90 L HEMOGLOBIN (test code = HGB) 4.6 gm/dL 13.0-17.0 LL HEMATOCRIT (test code = HCT) 15.9 % 36.0-48.0 LL MEAN CELL VOLUME (test code = MCV) 98.1 UM3 80.0-94.0 H MEAN CELL HGB (test code = MCH) 28.4 UUG 25.5-32.5 N MEAN CELL HGB CONCETRATION (test 28.9 gm/dL 29.0-35.5 L code = MCHC) RED CELL DISTRIBUTION WIDTH (test 22.2 % 11.5-15.0 H code = RDW) PLATELET COUNT (test code = PLT) 555 K/mm3 150-400 H MEAN PLATELET VOLUME (test code = 10.6 fl 7.4-10.4 H MPV) NEUTROPHIL % (test code = NT%) 83.6 % 49.0-76.0 H LYMPHOCYTE % (test code = LY%) 9.4 % 23.0-38.0 L MONOCYTE % (test code = MO%) 4.4 % 1.0-10.0 N EOSINOPHIL % (test code = EO%) 0.1 % 1.0-5.0 L BASOPHIL % (test code = BA%) 0.2 % 0.0-1.0 N NEUTROPHIL # (test code = NT#) 13.1 K/mm3 2.4-6.3 H LYMPHOCYTE # (test code = LY#) 1.5 K/mm3 1.2-4.0 N MONOCYTE # (test code = MO#) 0.7 K/mm3 0.0-0.6 H EOSINOPHIL # (test code = EO#) 0.0 K/MM3 0.0-0.7 N BASOPHIL # (test code = BA#) 0.0 K/mm3 0.0-0.2 N POLYCHROMASIA (test code = POLC) 1+ HYPOCHROMIA (test code = HYPO) 2+ HELMET CELLS (test code = HEL) OCCASIONAL - XR CHEST 1 [id number] 17:37:00 FAX: Nohelia Whitley [phone] [place] St: [facility] FAX: Silver Lozano MD [phone] Name: ENDER RODRIGUEZ [facility]ly [facility] : 1945 Age/S: 73/M [address] [facility] Unit #: [id number] Loc: [place], [place]: [place] [address] Acct: [id number] Dis Date: Status: REG ER PHONE #: [phone] Exam Date: 08/21/2018 1711 FAX #: [phone] Reason: tachycardia / recent rib fx's w/ PTX EXAMS: CPT CODE: [id number] XR CHEST 1 V 11255 AP VIEW OF THE CHEST LOCATION: B2 CLINICAL HISTORY: Tachycardia.COMPARISON: Chest radiograph 08/11/2018. FINDINGS: The cardiomediastinal shadow is within normal limits. Small calcified granulomas are redemonstrated in the mediastinum and the right lung. The lungs show COPD changes. No pneumothorax. No pleural fluids. Degenerative bony changes are noted. Degenerative bony changes are noted. No acute bony abnormality is found. IMPRESSION: No radiographic evidence of acute cardiopulmonary disease process. at 1737 Reported and signed by: Malia Cross M.D. CC: Nohelia Holt MD; Silver Lozano MD Technologist: LYLE WHEAT Trnscrd Date/Time/By: 08/21/2018 (4874) : By: Augustus PAGE 1 Signed Report FAX: Nohelia Whitley [phone] [place]: St: REG FAX: Silver Lozano MD [phone] Name: ENDER RODRIGUEZ [facility] : 1945 Age/S: 73/M [address] [facility] Unit #: [id number] Loc: E.[place], [place]: [place] [address] Acct: [id number] Dis Date: Status: REG ER PHONE #: [phone] Exam Date: 08/21/2018 1711 FAX #: [phone] Reason: tachycardia / recent rib fx's w/ PTX EXAMS: CPT CODE: [id number] XR CHEST 1 V 93854 <Continued> Orig Print D/T: S: 08/21/2018 (1233) PAGE 2 Signed ReportCOMPREHENSIVE METABOLIC [id number] 17:15:00 Test Item Value Reference Range Interpretation Comments SODIUM (test code = NA) 135 mmol/l 134.0-147.0 N POTASSIUM (test code = K) 4.1 mmol/L 3.6-5.2 N CHLORIDE (test code = CL) 101 mmol/l 98.0-107.0 N CARBON DIOXIDE (test code = CO2) 23.1 mmol/l 21.0-33.0 N ANION GAP (test code = GAP) 15.0 0-20 N GLUCOSE (test code = GLU) 147 mg/dl 70.0-110.0 H BLOOD UREA NITROGEN (test code = 27 mg/dl 7.0-18.0 H BUN) CREATININE (test code = CREAT) 1.14 mg/dL 0.60-1.30 N GFR NON BLACK (test code = 67 mL/min 70-80 L GFRNONBLACK) GFR BLACK (test code = GFRBLACK) 81 mL/min 85-97 L TOTAL PROTEIN (test code = PROT) 5.7 GM/DL 6.0-8.1 L ALBUMIN (test code = ALB) 2.0 gm/dL 3.2-4.7 L CALCIUM (test code = CA) 8.6 mg/dl 8.0-10.5 N BILIRUBIN TOTAL (test code = 0.3 mg/dl 0.0-1.0 N BILT) SGOT/AST (test code = AST) 37 Units/L 15.0-37.0 N SGPT/ALT (test code = ALT) 27 Units/L 12.0-78.0 N ALKALINE PHOSPHATASE TOTAL (test 103 Units/L 50.0-136.0 N code = ALKP) [id number] 17:15:00 Test Item Value Reference Range Interpretation Comments TROPONIN-I (test 0.03 NG/ML 0.00-0.06 N REFERENCE R JACQUELINE TROPONIN code = TROPI) I HEALTHY ROMY VIDUALS: <0.06 ng/mL R/O ISCHEMIA: 0.07 - 0.60 ng/mL CUT-OFF R JACQUELINE FOR AMI: 0.60 - 1. 5 ng/mL PROTHROMBIN [id number] 17:12:00 Test Item Value Reference Range Interpretation Comments PROTHROMBIN TIME 23.8 SECONDS 9.9-12.8 H PATIENT (test code = PTP) INTERNATIONAL NORMAL 2.0 0.89-1.14 H THE INR IS TO BE USED RATIO (test code = ONLY FOR MONITORING INR) ORAL ANTICOAGULANTTH ERAPY. THE FOLLOWING A RE SUGGESTED RANGE S FROM THEBAN[facility] COL LEGE OF CHEST PHYSICIANS:ROMY CATION INR VALUEPROPHYLAXI S OF VENOUS THROMBOS IS (ORTHOPEDIC JANETH ROZINA) 2.0 - 3.0PROP HYLAXIS OF VENOUS THROM BOSIS (OTHER THAN HIG H-RISK SURGERY) 2.0 - 3.0TRE ATMENT OF DEEP VEIN THROMBOSIS OR PULMONARY EMBOL ISM 2.0 - 3.0PREV ENTION OF SYSTEMIC EMB OLISM TISSUE HEART VA LVES 2.0 - 3.0 AC DIANNE MYOCARDIAL INFA RCTION (TO PREVENT SYSTEMIC EMBOLI SM) 2.0 - 3.0 ACUTE MYOCARDIA L INFARCTION (TO PREVENT RECURRE NT INFARCT) 2.5 - 3.0 VALV ULAR HEART DISEASE 2.0 - 3.0 ATRIAL FIBRILATION 2.0 - 3.0BILEAFLET MECHANICAL VALV E IN AORTIC POSITION 2.0 - 3.0MECHAN ICAL PROSTHETIC VALV ES (HIGH RISK) 2.5 - 3.5PRESEN CE OF LUPUS ANTICOAGU LANT OR ANTIPHOSPHOLIP ID ANTIBODIES 2.5 - 3 .5 COMPREHENSIVE METABOLIC [id number] 17:08:00 Test Item Value Reference Range Interpretation Comments SODIUM (test code = NA) 135 mmol/l 134.0-147.0 N POTASSIUM (test code = K) 4.1 mmol/L 3.6-5.2 N CHLORIDE (test code = CL) 101 mmol/l 98.0-107.0 N CARBON DIOXIDE (test code = CO2) 23.1 mmol/l 21.0-33.0 N ANION GAP (test code = GAP) 15.0 0-20 N GLUCOSE (test code = GLU) mg/dl 70.0-110.0 BLOOD UREA NITROGEN (test code = mg/dl 7.0-18.0 BUN) CREATININE (test code = CREAT) mg/dL 0.60-1.30 GFR NON BLACK (test code = mL/min 70-80 GFRNONBLACK) GFR BLACK (test code = GFRBLACK) mL/min 85-97 TOTAL PROTEIN (test code = PROT) gm/dL 6.4-8.2 ALBUMIN (test code = ALB) gm/dl 3.2-4.7 CALCIUM (test code = CA) mg/dl 8.0-10.5 BILIRUBIN TOTAL (test code = mg/dl 0.0-1.0 BILT) SGOT/AST (test code = AST) Units/L 15.0-37.0 SGPT/ALT (test code = ALT) Units/L 12.0-78.0 ALKALINE PHOSPHATASE TOTAL (test Units/L 50.0-136.0 code = ALKP) [id number] 17:08:00 Test Item Value Reference Range Interpretation Comments TROPONIN-I (test code = TROPI) NG/ML 0.00-0.06 CBC W/AUTO [id number] 17:08:00 Test Item Value Reference Range Interpretation Comments WHITE BLOOD CELL (test code = WBC) 15.7 K/mm3 4.5-11.0 H RED BLOOD CELL (test code = RBC) 1.62 M/mm3 4.40-5.90 L HEMOGLOBIN (test code = HGB) 4.6 gm/dL 13.0-17.0 LL HEMATOCRIT (test code = HCT) 15.9 % 36.0-48.0 LL MEAN CELL VOLUME (test code = MCV) 98.1 UM3 80.0-94.0 H MEAN CELL HGB (test code = MCH) 28.4 UUG 25.5-32.5 N MEAN CELL HGB CONCETRATION (test 28.9 gm/dL 29.0-35.5 L code = MCHC) RED CELL DISTRIBUTION WIDTH (test 22.2 % 11.5-15.0 H code = RDW) PLATELET COUNT (test code = PLT) 555 K/mm3 150-400 H MEAN PLATELET VOLUME (test code = 10.6 fl 7.4-10.4 H MPV) NEUTROPHIL % (test code = NT%) 83.6 % 49.0-76.0 H LYMPHOCYTE % (test code = LY%) 9.4 % 23.0-38.0 L MONOCYTE % (test code = MO%) 4.4 % 1.0-10.0 N EOSINOPHIL % (test code = EO%) 0.1 % 1.0-5.0 L BASOPHIL % (test code = BA%) 0.2 % 0.0-1.0 N NEUTROPHIL # (test code = NT#) 13.1 K/mm3 2.4-6.3 H LYMPHOCYTE # (test code = LY#) 1.5 K/mm3 1.2-4.0 N MONOCYTE # (test code = MO#) 0.7 K/mm3 0.0-0.6 H EOSINOPHIL # (test code = EO#) 0.0 K/MM3 0.0-0.7 N BASOPHIL # (test code = BA#) 0.0 K/mm3 0.0-0.2 N - XR SWLW FUNC W/C [id number] 15:15:00 FAX: Y Abu-Atherah,Emran Bárbara [phone] [place]: St: ADM Name: ENDER RODRIGUEZ [facility]ly [facility] : 1945 Age/S: 73/M [address] [facility] [id number] Loc: [address] [place] [address] Phys: [place] [address] Acct: [id number] Dis Date: Status: ADM IN PHONE #: [phone] Exam Date: 08/15/2018 1509 FAX #: [phone] Reason: INDICATED BY RESULTS OF BSE EXAMS: CPT CODE: [id number] XR SWLW FUNC W/C V 23605 Location: U19. MODIFIED BARIUM SWALLOW. HISTORY: Dysphagia. TECHNIQUE AND FINDINGS: Fluoroscopy time: 1.7 minutes. Dose area product (DAP Gycm2): 2.285. The exam was performed with speech therapy. The patient was given barium of various consistencies from thin liquids to solids, including a pill, to drink and eat under fluoroscopic observation. No aspiration or penetration is seen of liquids or solids.The patient was able to swallow a pill. IMPRESSION: No aspiration or penetration. at 1515 Reported and signed by: Angie Moreno M.D. CC: Nohelia Holt MD Technologist: ANTHONY FARRELL Trnscrd Date/Time/By: 08/15/2018 (1515) : By: [email or web address] PAGE 1 Signed Report FAX: Nohelia Whitley [phone] [place]: St: ADM Name: ENDER RODRIGUEZ [facility] : 1945 Age/S: 73/M [address] [facility] Unit #: [id number] Loc: [address] [place], [place]: [place] [address] Acct: [id number] Dis Date: St atus: ADM IN PHONE #: [phone] Exam Date: 08/15/20181509 FAX #: [phone] Reason: INDICATED BY RESULTS OF BSE EXAMS: CPT CODE: [id number] XR SWLW FUNC W/C V 23884 <Continued> Orig Print D/T: S: 08/15/2018 (9666) PAGE 2 SignedReport- XR SWLW FUNC W/C [id number] 13:33:00 FAX: Nohelia Davenport [phone] [place]: St: ADM Name: ENDER RODRIGUEZ [facility] : 1945 Age/S: 73/M [address] [facility] Unit[facility] [id number] Loc: [address] [place], [place]: [place] [address] Acct: [id number] Dis Date: Status: ADM IN PHONE #: [phone] Exam Date: 08/14/2018 1139 FAX #: [phone] Reason: FEEDING DIFFICULTY, OROPHARYNGEAL DYSPHAGIA EXAMS: CPT CODE: [id number] XR SWLW FUNC W/C V 13023 Location: U19. MODIFIED BARIUM SWALLOW. HISTORY: Feeding difficulty, oral pharyngeal dysphagia TECHNIQUE AND FINDINGS: Fluoroscopy time: 1.1 minute. Dose area product (DAP Gycm2): 1.536. The exam was performed with speech therapy. A nasogastric tube is in place. The patient was only given thinliquids and nectar to drink by mouth showing aspiration and prominent vallecular residual. It was felt that the epiglottic movement was limited secondary to the nasogastric tube. The exam was then terminated. IMPRESSION: Limited exam. Aspiration of thin liquids and nectar may partly due to the nasogastric tube. Recommend repeat exam oncepatient no longer requires the nasogastric tube. at 5400 Reported and signed by: Angie Moreno M.D. CC: Nohelia Holt MD Technologist: ANTHONY FARRELL Trnscrd Date/Time/By: 08/14/2018 (6538) : By: [email or web address] PAGE 1 Signed Report FAX: Nohelia Whitley [phone] [place]: St: ADM---- Name: ENDER RODRIGUEZ [facility] : 1945 Age/S: 73/M [address] [facility] Unit #: [id number] Loc: [address] [place] [address] [place]: [place] [address] Acct: [id number] Dis Date: Status: ADM IN PHONE #: [phone] Exam Date:08/14/2018 1133 FAX #: [phone] Reason: FEEDING DIFFICULTY, OROPHARYNGEAL DYSPHAGIA EXAMS: CPT CODE: [id number] XR SWLW FUNC W/C V 12879 <Continued> Orig Print D/T: S: 08/14/2018 (3695) PAGE 2 Signed ReportBASIC METABOLIC [id number] 07:37:00 Test Item Value Reference Range Interpretation Comments SODIUM (test code = NA) 143 mmol/l 134.0-147.0 N POTASSIUM (test code = K) 3.7 mmol/L 3.6-5.2 N CHLORIDE (test code = CL) 110 mmol/l 98.0-107.0 H CARBON DIOXIDE (test code = CO2) 23.8 mmol/l 21.0-33.0 N ANION GAP (test code = GAP) 12.9 0-20 N GLUCOSE (test code = GLU) 116 mg/dl 70.0-110.0 H BLOOD UREA NITROGEN (test code = 11 mg/dl 7.0-18.0 N BUN) CREATININE (test code = CREAT) 0.73 mg/dL 0.60-1.30 N GFR NON BLACK (test code = 112 mL/min 70-80 H GFRNONBLACK) GFR BLACK (test code = GFRBLACK) 136 mL/min 85-97 H CALCIUM (test code = CA) 8.5 mg/dl 8.0-10.5 N BASIC METABOLIC [id number] 07:33:00 Test Item Value Reference Range Interpretation Comments SODIUM (test code = NA) 143 mmol/l 134.0-147.0 N POTASSIUM (test code = K) 3.7 mmol/L 3.6-5.2 N CHLORIDE (test code = CL) 110 mmol/l 98.0-107.0 H CARBON DIOXIDE (test code = CO2) 23.8 mmol/l 21.0-33.0 N ANION GAP (test code = GAP) 12.9 0-20 N GLUCOSE (test code = GLU) mg/dl 70.0-110.0 BLOOD UREA NITROGEN (test code = mg/dl 7.0-18.0 BUN) CREATININE (test code = CREAT) mg/dL 0.60-1.30 GFR NON BLACK (test code = mL/min 70-80 GFRNONBLACK) GFR BLACK (test code = GFRBLACK) mL/min 85-97 CALCIUM (test code = CA) mg/dl 8.0-10.5 CBC W/AUTO [id number] 07:27:00 Test Item Value Reference Range Interpretation Comments WHITE BLOOD CELL (test code = WBC) 9.5 K/mm3 4.5-11.0 N RED BLOOD CELL (test code = RBC) 2.76 M/mm3 4.40-5.90 L HEMOGLOBIN (test code = HGB) 7.4 gm/dL 13.0-17.0 L HEMATOCRIT (test code = HCT) 25.9 % 36.0-48.0 L MEAN CELL VOLUME (test code = MCV) 93.8 UM3 80.0-94.0 N MEAN CELL HGB (test code = MCH) 26.8 UUG 25.5-32.5 N MEAN CELL HGB CONCETRATION (test 28.6 gm/dL 29.0-35.5 L code = MCHC) RED CELL DISTRIBUTION WIDTH (test 21.8 % 11.5-15.0 H code = RDW) PLATELET COUNT (test code = PLT) 501 K/mm3 150-400 H MEAN PLATELET VOLUME (test code = 11.0 fl 7.4-10.4 H MPV) NEUTROPHIL % (test code = NT%) 74.1 % 49.0-76.0 N LYMPHOCYTE % (test code = LY%) 15.3 % 23.0-38.0 L MONOCYTE % (test code = MO%) 7.7 % 1.0-10.0 N EOSINOPHIL % (test code = EO%) 1.5 % 1.0-5.0 N BASOPHIL % (test code = BA%) 0.8 % 0.0-1.0 N NEUTROPHIL # (test code = NT#) 7.0 K/mm3 2.4-6.3 H LYMPHOCYTE # (test code = LY#) 1.5 K/mm3 1.2-4.0 N MONOCYTE # (test code = MO#) 0.7 K/mm3 0.0-0.6 H EOSINOPHIL # (test code = EO#) 0.1 K/MM3 0.0-0.7 N BASOPHIL # (test code = BA#) 0.1 K/mm3 0.0-0.2 N [id number] 20:56:00 Test Item Value Reference Range Interpretation Comments GLUBED (test code = GLUBED) 104 mg/dL 70-110 N CBC W/AUTO [id number] 20:50:00 Test Item Value Reference Range Interpretation Comments WHITE BLOOD CELL (test code = WBC) 10.1 K/mm3 4.5-11.0 N RED BLOOD CELL (test code = RBC) 2.99 M/mm3 4.40-5.90 L HEMOGLOBIN (test code = HGB) 8.0 gm/dL 13.0-17.0 L HEMATOCRIT (test code = HCT) 28.0 % 36.0-48.0 L MEAN CELL VOLUME (test code = MCV) 93.6 UM3 80.0-94.0 N MEAN CELL HGB (test code = MCH) 26.8 UUG 25.5-32.5 N MEAN CELL HGB CONCETRATION (test 28.6 gm/dL 29.0-35.5 L code = MCHC) RED CELL DISTRIBUTION WIDTH (test 21.3 % 11.5-15.0 H code = RDW) PLATELET COUNT (test code = PLT) 501 K/mm3 150-400 H MEAN PLATELET VOLUME (test code = 11.0 fl 7.4-10.4 H MPV) NEUTROPHIL % (test code = NT%) 77.1 % 49.0-76.0 H LYMPHOCYTE % (test code = LY%) 13.6 % 23.0-38.0 L MONOCYTE % (test code = MO%) 7.3 % 1.0-10.0 N EOSINOPHIL % (test code = EO%) 0.8 % 1.0-5.0 L BASOPHIL % (test code = BA%) 0.5 % 0.0-1.0 N NEUTROPHIL # (test code = NT#) 7.8 K/mm3 2.4-6.3 H LYMPHOCYTE # (test code = LY#) 1.4 K/mm3 1.2-4.0 N MONOCYTE # (test code = MO#) 0.7 K/mm3 0.0-0.6 H EOSINOPHIL # (test code = EO#) 0.1 K/MM3 0.0-0.7 N BASOPHIL # (test code = BA#) 0.1 K/mm3 0.0-0.2 N GREGG MARMOLEJO INFORMED ABOUT CBC AT [id number] 20:35:00 Test Item Value Reference Range Interpretation Comments GLUBED (test code = GLUBED) 79 mg/dL 70-110 N [id number] 20:35:00 Test Item Value Reference Range Interpretation Comments GLUBED (test code = GLUBED) 113 mg/dL 70-110 H AG STREPTOCOCCUS [id number] 20:13:00 Test Item Value Reference Range Interpretation Comments AG STREPTOCOCCUS Negative Negative TEST PERFOR MED AT PNEUMO/URINE (test code = [facility] STREPPNAG) [address] [address] COMPREHENSIVE METABOLIC [id number] 07:04:00 Test Item Value Reference Range Interpretation Comments SODIUM (test code = NA) 142 mmol/l 134.0-147.0 N POTASSIUM (test code = K) 3.1 mmol/L 3.6-5.2 L CHLORIDE (test code = CL) 108 mmol/l 98.0-107.0 H CARBON DIOXIDE (test code = CO2) 25.1 mmol/l 21.0-33.0 N ANION GAP (test code = GAP) 12.0 0-20 N GLUCOSE (test code = GLU) 104 mg/dl 70.0-110.0 N BLOOD UREA NITROGEN (test code = 14 mg/dl 7.0-18.0 N BUN) CREATININE (test code = CREAT) 0.70 mg/dL 0.60-1.30 N GFR NON BLACK (test code = 118 mL/min 70-80 H GFRNONBLACK) GFR BLACK (test code = GFRBLACK) 143 mL/min 85-97 H TOTAL PROTEIN (test code = PROT) 6.0 gm/dL 6.4-8.2 L ALBUMIN (test code = ALB) 1.6 gm/dl 3.2-4.7 L CALCIUM (test code = CA) 8.8 mg/dl 8.0-10.5 N BILIRUBIN TOTAL (test code = 0.5 mg/dl 0.0-1.0 N BILT) SGOT/AST (test code = AST) 36 Units/L 15.0-37.0 N SGPT/ALT (test code = ALT) 31 Units/L 12.0-78.0 N ALKALINE PHOSPHATASE TOTAL (test 129 Units/L 50.0-136.0 N code = ALKP) [id number] 07:04:00 Test Item Value Reference Range Interpretation Comments MAGNESIUM (test code = MAG) 2.0 mg/dl 1.8-2.4 N COMPREHENSIVE METABOLIC [id number] 06:59:00 Test Item Value Reference Range Interpretation Comments SODIUM (test code = NA) 142 mmol/l 134.0-147.0 N POTASSIUM (test code = K) 3.1 mmol/L 3.6-5.2 L CHLORIDE (test code = CL) 108 mmol/l 98.0-107.0 H CARBON DIOXIDE (test code = CO2) 25.1 mmol/l 21.0-33.0 N ANION GAP (test code = GAP) 12.0 0-20 N GLUCOSE (test code = GLU) mg/dl 70.0-110.0 BLOOD UREA NITROGEN (test code = mg/dl 7.0-18.0 BUN) CREATININE (test code = CREAT) mg/dL 0.60-1.30 GFR NON BLACK (test code = mL/min 70-80 GFRNONBLACK) GFR BLACK (test code = GFRBLACK) mL/min 85-97 TOTAL PROTEIN (test code = PROT) gm/dL 6.4-8.2 ALBUMIN (test code = ALB) gm/dl 3.2-4.7 CALCIUM (test code = CA) mg/dl 8.0-10.5 BILIRUBIN TOTAL (test code = mg/dl 0.0-1.0 BILT) SGOT/AST (test code = AST) Units/L 15.0-37.0 SGPT/ALT (test code = ALT) Units/L 12.0-78.0 ALKALINE PHOSPHATASE TOTAL (test Units/L 50.0-136.0 code = ALKP) [id number] 06:59:00 Test Item Value Reference Range Interpretation Comments MAGNESIUM (test code = MAG) mg/dl 1.8-2.4 CBC W/AUTO [id number] 06:39:00 Test Item Value Reference Range Interpretation Comments WHITE BLOOD CELL (test code = WBC) 9.8 K/mm3 4.5-11.0 N RED BLOOD CELL (test code = RBC) 2.74 M/mm3 4.40-5.90 L HEMOGLOBIN (test code = HGB) 7.4 gm/dL 13.0-17.0 L HEMATOCRIT (test code = HCT) 26.1 % 36.0-48.0 L MEAN CELL VOLUME (test code = MCV) 95.3 UM3 80.0-94.0 H MEAN CELL HGB (test code = MCH) 27.0 UUG 25.5-32.5 N MEAN CELL HGB CONCETRATION (test 28.4 gm/dL 29.0-35.5 L code = MCHC) RED CELL DISTRIBUTION WIDTH (test 22.1 % 11.5-15.0 H code = RDW) PLATELET COUNT (test code = PLT) 447 K/mm3 150-400 H MEAN PLATELET VOLUME (test code = 11.5 fl 7.4-10.4 H MPV) NEUTROPHIL % (test code = NT%) 79.9 % 49.0-76.0 H LYMPHOCYTE % (test code = LY%) 10.5 % 23.0-38.0 L MONOCYTE % (test code = MO%) 7.9 % 1.0-10.0 N EOSINOPHIL % (test code = EO%) 0.6 % 1.0-5.0 L BASOPHIL % (test code = BA%) 0.4 % 0.0-1.0 N NEUTROPHIL # (test code = NT#) 7.9 K/mm3 2.4-6.3 H LYMPHOCYTE # (test code = LY#) 1.0 K/mm3 1.2-4.0 L MONOCYTE # (test code = MO#) 0.8 K/mm3 0.0-0.6 H EOSINOPHIL # (test code = EO#) 0.1 K/MM3 0.0-0.7 N BASOPHIL # (test code = BA#) 0.0 K/mm3 0.0-0.2 N PROCALCITONIN (PCT)2018-08-13 03:32:00 Test Item Value Reference Range Interpretation Comments PROCALCITONIN (PCT) 0.55 ng/mL 0.00-0.05 H PROCALCI TONIN (PCT) (test code = PROCAL) NORMAL RANGE (ADULT): <0.05 NG/ML. * a concentration < 0.5 ng/mL represent s a low risk of severe sepsis and/or septic s hock.* a concentration > 2 ng/mL represents a hi gh risk of severe seps is and/or septic shock.Neverthel ess, concentrations <0.5 ng/mL do not ex clude aninfection, on account of localized in fections (withoutsystemi c signs) which can be as sociated with such lowconcentratio ns, or a systemic infect ion in its initialstag es (< 6 hours). Further more, increased procalcitoninca n occur without infecti on. PCT concentrations between 0.5and 2.0 ng/m L should be interpreted taking into account thepatient's hi story. It is recommend ed to retest PCT with in6-24 hours if any concentrations <2 ng/mL are obtained. PROCALCITONIN (PCT)2018-08-13 03:16:00 Test Item Value Reference Range Interpretation Comments PROCALCITONIN (PCT) 0.55 ng/mL 0.00-0.05 H PROCALCI TONIN (PCT) (test code = PROCAL) NORMAL RANGE (ADULT): <0.05 NG/ML. * a concentration < 0.5 ng/mL represent s a low risk of severe sepsis and/or septic s hock.* a concentration > 2 ng/mL represents a hi gh risk of severe seps is and/or septic shock.Neverthel ess, concentrations <0.5 ng/mL do not ex clude aninfection, on account of localized in fections (withoutsystemi c signs) which can be as sociated with such lowconcentratio ns, or a systemic infect ion in its initialstag es (< 6 hours). Further more, increased procalcitoninca n occur without infecti on. PCT concentrations between 0.5and 2.0 ng/m L should be interpreted taking into account thepatient's hi story. It is recommend ed to retest PCT with in6-24 hours if any concentrations <2 ng/mL are obtained. PROCALCITONIN (PCT)2018-08-12 18:29:00 Test Item Value Reference Range Interpretation Comments PROCALCITONIN (PCT) 1.08 ng/mL 0.00-0.05 H PROCALCI TONIN (PCT) (test code = PROCAL) NORMAL RANGE (ADULT): <0.05 NG/ML. * a concentration < 0.5 ng/mL represent s a low risk of severe sepsis and/or septic s hock.* a concentration > 2 ng/mL represents a hi gh risk of severe seps is and/or septic shock.Neverthel ess, concentrations <0.5 ng/mL do not ex clude aninfection, on account of localized in fections (withoutsystemi c signs) which can be as sociated with such lowconcentratio ns, or a systemic infect ion in its initialstag es (< 6 hours). Further more, increased procalcitoninca n occur without infecti on. PCT concentrations between 0.5and 2.0 ng/m L should be interpreted taking into account thepatient's hi story. It is recommend ed to retest PCT with in6-24 hours if any concentrations <2 ng/mL are obtained. PROCALCITONIN (PCT)2018-08-12 03:12:00 Test Item Value Reference Range Interpretation Comments PROCALCITONIN (PCT) 1.08 ng/mL 0.00-0.05 H PROCALCI TONIN (PCT) (test code = PROCAL) NORMAL RANGE (ADULT): <0.05 NG/ML. * a concentration < 0.5 ng/mL represent s a low risk of severe sepsis and/or septic s hock.* a concentration > 2 ng/mL represents a hi gh risk of severe seps is and/or septic shock.Neverthel ess, concentrations <0.5 ng/mL do not ex clude aninfection, on account of localized in fections (withoutsystemi c signs) which can be as sociated with such lowconcentratio ns, or a systemic infect ion in its initialstag es (< 6 hours). Further more, increased procalcitoninca n occur without infecti on. PCT concentrations between 0.5and 2.0 ng/m L should be interpreted taking into account thepatient's hi story. It is recommend ed to retest PCT with in6-24 hours if any concentrations <2 ng/mL are obtained. PROCALCITONIN (PCT)2018-08-11 21:22:00 Test Item Value Reference Range Interpretation Comments PROCALCITONIN (PCT) 1.82 ng/mL 0.00-0.05 H PROCALCI TONIN (PCT) (test code = PROCAL) NORMAL RANGE (ADULT): <0.05 NG/ML. * a concentration < 0.5 ng/mL represent s a low risk of severe sepsis and/or septic s hock.* a concentration > 2 ng/mL represents a hi gh risk of severe seps is and/or septic shock.Neverthel ess, concentrations <0.5 ng/mL do not ex clude aninfection, on account of localized in fections (withoutsystemi c signs) which can be as sociated with such lowconcentratio ns, or a systemic infect ion in its initialstag es (< 6 hours). Further more, increased procalcitoninca n occur without infecti on. PCT concentrations between 0.5and 2.0 ng/m L should be interpreted taking into account thepatient's hi story. It is recommend ed to retest PCT with in6-24 hours if any concentrations <2 ng/mL are obtained. ARTERIAL BLOOD [id number] 12:09:00 Test Item Value Reference Range Interpretation Comments ARTERIAL BLOOD GAS PH 7.448 7.350-7.450 N (test code = PHA) ARTERIAL BLOOD GAS PCO2 34.5 mmHg 35.0-45.0 L (test code = PCO2A) ARTERIAL BLOOD GAS PO2 75.5 mmHg >80.0 L (test code = PO2A) BICARBONATE TOTAL HCO3 23.3 MMOL/L 22.0-26.0 N (test code = HCO3) BASE EXCESS (test code = -0.4 MMOL/L -4.0-4.0 N PAULA) ABG O2 SATURATION (test 95.7 % 92.0-99.0 N code = SATA) FIO2 (test code = FIO2A) 30.0 ABG VENT MODE (test code = BiPAP MODEA) ABG VENT RESP RATE (test 10.0 /MIN code = RRA) ABG PEEP (test code = 6.0 cmH2O PEEPA) ABG SITE (test code = LR SITEA) ALLENS TEST (test code = Unable ALLENS) TOTAL HGB (test code = 9.2 g/dL 12.0-16.0 L THB) CARBOXYHEMOGLOBIN (test 1.1 % THgb 0.0-1.5 N code = HOHGBT) METHEMOGLOBIN (test code = 0.4 % 0.0-1.5 N N ORMAL METHGB) <2.0POTENTIALLY TOXIC >20.0 - XR CHEST 1 [id number] 09:08:00 FAX: Nohelia Whitley [phone] [place]: St: ADM Name: ENDER RODRIGUEZ [facility]ly [facility] : 1945 Age/S: 73/M [address] [place] [employer] Unit#: [id number] Loc: E.IC[address] [place], [place]: [place] [address] Acct: [id number] Dis Date: Status: ADM IN PHONE #: [phone] Exam Date: 08/11/2018 0845 FAX #: [phone] Reason: F/U PNEUMO EXAMS: CPT CODE: [id number] XR CHEST 1 V 50807 EXAM: - XR CHEST 1 V LOCATION: [id number]: F/U PNEUMO COMPARISON: 08/11/18 FINDINGS: Single view of the chest. PICC line tip overlies the mid SVC. Nasogastric tube is in appropriate position. No pneumothorax. Low lung volumes with bibasilar subsegmental atelectasis. No pleural effusions are present. The mediastinal contours are unremarkable. No acute osseous findings are present. Left thoracic wall subcutaneous emphysema. IMPRESSION: No pneumothorax. Low lung volumes with bibasilar subsegmental atelectasis. at 0908 Reported andsigned by: Marcel Richards M.D. CC: Nohelia Holt MD Technologist: ANGIE STEWART Trnokrd Date/Time/By: 08/11/2018 (0908) : By: [email or web address] PAGE 1 Signed Report FAX: Nohelia Whitley [phone] [place]: St: ADM Name: ENDER RODRIGUEZ [facility] : 1945 Age/S: 73/M [address] [facility] Unit #: [id number] Loc: E.IC[address] [place], [place] Phys: Nohelia Holt MD77591 Acct: [id number] Dis Date: Status: ADM IN PHONE #: [phone] Exam Date: 08/11/2018 0845 FAX #: [phone] Reason: F/U PNEUMO EXAMS: CPT CODE: [id number] XR CHEST 1 V 26947 <Continued> Orig Print D/T: S: 08/11/2018 (0911) PAGE 2 Signed ReportBASIC METABOLIC [id number] 07:33:00 Test Item Value Reference Range Interpretation Comments SODIUM (test code = NA) 140 mmol/l 134.0-147.0 N POTASSIUM (test code = K) 3.1 mmol/L 3.6-5.2 L CHLORIDE (test code = CL) 106 mmol/l 98.0-107.0 N CARBON DIOXIDE (test code = CO2) 22.9 mmol/l 21.0-33.0 N ANION GAP (test code = GAP) 14.2 0-20 N GLUCOSE (test code = GLU) 224 mg/dl 70.0-110.0 H BLOOD UREA NITROGEN (test code = 19 mg/dl 7.0-18.0 H BUN) CREATININE (test code = CREAT) 0.84 mg/dL 0.60-1.30 N GFR NON BLACK (test code = 95 mL/min 70-80 H GFRNONBLACK) GFR BLACK (test code = GFRBLACK) 116 mL/min 85-97 H CALCIUM (test code = CA) 8.6 mg/dl 8.0-10.5 N CBC W/AUTO [id number] 07:22:00 Test Item Value Reference Range Interpretation Comments WHITE BLOOD CELL (test code = WBC) 10.9 K/mm3 4.5-11.0 N RED BLOOD CELL (test code = RBC) 3.11 M/mm3 4.40-5.90 L HEMOGLOBIN (test code = HGB) 8.2 gm/dL 13.0-17.0 L HEMATOCRIT (test code = HCT) 29.2 % 36.0-48.0 L MEAN CELL VOLUME (test code = MCV) 93.9 UM3 80.0-94.0 N MEAN CELL HGB (test code = MCH) 26.4 UUG 25.5-32.5 N MEAN CELL HGB CONCETRATION (test 28.1 gm/dL 29.0-35.5 L code = MCHC) RED CELL DISTRIBUTION WIDTH (test 22.1 % 11.5-15.0 H code = RDW) PLATELET COUNT (test code = PLT) 414 K/mm3 150-400 H MEAN PLATELET VOLUME (test code = 11.6 fl 7.4-10.4 H MPV) NEUTROPHIL % (test code = NT%) 80.0 % 49.0-76.0 H LYMPHOCYTE % (test code = LY%) 9.7 % 23.0-38.0 L MONOCYTE % (test code = MO%) 9.0 % 1.0-10.0 N EOSINOPHIL % (test code = EO%) 0.5 % 1.0-5.0 L BASOPHIL % (test code = BA%) 0.2 % 0.0-1.0 N NEUTROPHIL # (test code = NT#) 8.7 K/mm3 2.4-6.3 H LYMPHOCYTE # (test code = LY#) 1.1 K/mm3 1.2-4.0 L MONOCYTE # (test code = MO#) 1.0 K/mm3 0.0-0.6 H EOSINOPHIL # (test code = EO#) 0.1 K/MM3 0.0-0.7 N BASOPHIL # (test code = BA#) 0.0 K/mm3 0.0-0.2 N PROCALCITONIN (PCT)2018-08-11 03:37:00 Test Item Value Reference Range Interpretation Comments PROCALCITONIN (PCT) 1.82 ng/mL 0.00-0.05 H PROCALCI TONIN (PCT) (test code = PROCAL) NORMAL RANGE (ADULT): <0.05 NG/ML. * a concentration < 0.5 ng/mL represent s a low risk of severe sepsis and/or septic s hock.* a concentration > 2 ng/mL represents a hi gh risk of severe seps is and/or septic shock.Neverthel ess, concentrations <0.5 ng/mL do not ex clude aninfection, on account of localized in fections (withoutsystemi c signs) which can be as sociated with such lowconcentratio ns, or a systemic infect ion in its initialstag es (< 6 hours). Further more, increased procalcitoninca n occur without infecti on. PCT concentrations between 0.5and 2.0 ng/m L should be interpreted taking into account thepatient's hi story. It is recommend ed to retest PCT with in6-24 hours if any concentrations <2 ng/mL are obtained. - CT ABD PELVIS W/O [id number] 16:01:00 FAX: Nohelia Whitley [phone] [place] St: ADM Name: ENDER RODRIGUEZ [facility]ly [facility] : 1945 Age/S: 73/M [address] [facility] Unit: [id number] Loc: [address] [place]: [place] [address] Acct: [id number] Dis Date: Status: ADM IN PHONE #: [phone] Exam Date: 08/10/2018 8135 FAX #: [phone] Reason: ABD DISTENDED EXAMS: CPT CODE: [id number] CT ABD PELVIS W/O CONT 84993 EXAMINATION: - CT ABD PELVIS W/O CONT. LOCATION: S 17. HISTORY: ABD DISTENDED. COMPARISON: CT chest and CT abdomen and pelvis dated 08/04/2018. TECHNIQUE: CT abdomen and pelvis was performed without the use of IV contrast. Sagittal and coronal reconstructed images were available for review. This exam was performed according to our departmental dose-optimization program, which includes automated exposure control, adjustment of the mA and/or kV according to patient size, and/or use of iterative reconstruction technique. FINDINGS: Lower chest: Small left pleural effusion is seen with subsegmental atelectasis in bilateral lower lobes. Heart size is normal. Small pericardial effusion is present. Small amount of pneumomediastinum is noted anteriorly, decreased since prior exam. Abdomen: There is diffuse hypoattenuation of the liver consistent with steatosis. Linear calcifications in bilateral kidneys are likely vascular in nature. The noncontrast appearance of the gallbladder, pancreas, spleen, and bilateral adrenal glands is within normal limits. Air-fluid levels are seen in multiple small bowel loops, which are within the upper limits of normal in size. Air and stool are seen in the colon. No pneumoperitoneum is identified.There is no mesenteric or retroperitoneal adenopathy. Pelvis: The urinary bladder is decompressed by a Lambert catheter and contains air. Mild ascites is present. No inguinal adenopathy is identified. Bones/soft tissues: Multiple acute left rib fractures are again noted. PAGE 1 Signed Report (CONTINUED) FAX: Nohelia Whitley [phone] [place]: St: ADM Name: ENDER RODRIGUEZ [facility]ly [facility] : 1945 Age/S: 73/M [address] [facility] Unit: [id number] Loc: [address] Phys: [place] [address] Acct: [id number] Dis Date: Status: ADMIN PHONE #: [phone] Exam Date: 08/10/2018 1515 FAX #: [phone] Reason: ABD DISTENDED EXAMS: CPT CODE: [id number] CT ABD PELVIS W/O CONT 91779 <Continued> Subcutaneous emphysema in the left chest and abdominopelvic wall has decreased since prior exam. Small amount of air also extends into the left inguinal canal. IMPRESSION: Air-fluid levels within multiple small bowel loops, which are within the upper limits of normal in size. Findings are likely secondary to an ileus or enteritis. Mild pelvic ascites. Small left pleural effusion with subsegmental atelectasis in bilateral lower lobes. Subcutaneous emphysema in the left chest and abdominopelvic wall with a smallamount of pneumomediastinum, decreased since 08/04/2018. Other findings as described. at 1601 Reported and signed by: Viki Duncan M.D. CC: Nohelia Holt MD Technologist: BRAXTON LEONE; YAMEL AGARWAL Trnscrd Dt/Tm: 08/10/2018 (1601)t.[id number] Orig Print D/T: S: 08/10/2018 (1604 PAGE 2 Signed ReportAMMONIA 2018-08-10 13:16:00 Test Item Value Reference Range Interpretation Comments AMMONIA (test code = AMM) <10.0 MCMOL/L 11.0-32.0 L - XR CHEST 1 [id number] 13:10:00 FAX: Nohelia Whitley [phone] [place]: St: ADM Name: ENDER RODRIGUEZ [facility] : 1945 Age/S: 73/M [address] [facility] Unit#: [id number] Loc: E.IC[address] [place], [place]: [place] [address] Acct: [id number] Dis Date: Status: ADM IN PHONE #: [phone] Exam Date: 08/10/2018 1307 FAX #: [phone] Reason: POST PICC LINE INSERTION EXAMS: CPT CODE: [id number] XR CHEST 1 V 04929 Chest Radiograph History: POST PICC LINE INSERTION Comparison: August 10, 2018 Location: R16 A single frontal view of the chest is submitted. The heart appears unchanged in size. Pulmonary vasculature is unremarkable. There is a minimal patchy opacity in the right lung base. The bones appear unchanged. Left rib fractures are again identified. Air in the soft tissue s of the neck and chest is again identified. IMPRESSION: Minimal patchy opacity right lung base. This could be due to atelectasis or pneumonia. There has been placement of a right- sided PICC line, terminating in the SVC. There has been placement of a nasogastric tube, terminating in the stomach. Left rib fractures are again identified. at 1310 Reported and signed by: Skyler Brown M.D. CC: Nohelia Holt MD Technologist: DORYS MEJIAS Trnscrd Date/Time/By: 08/10/2018 (7743) : By: [facility]anieKINDRED [facility]ALTHCARE PAGE 1 Sweta d Report FAX: Nohelia Whitley [phone] [place]: St: ADM -- Name: ENDER RODRIGUEZ [facility] : 1945 Age/S: 73/M [address] [facility] Unit #: [id number] Loc: [address] [place]: [place] [address] Acct: [id number] Dis Date: Status: ADM IN PHONE #: [phone] Exam Date: 08/10/2018 1307 FAX #: [phone] Reason: POST PICC LINE INSERTION EXAMS: CPT CODE:[id number] XR CHEST 1 V 09819 <Continued> Orig Print D/T: S: 08/10/2018 (6032) PAGE 2 Signed ReportARTERIAL BLOOD GAS 2018-08-10 10:22:00 Test Item Value Reference Range Interpretation Comments ARTERIAL BLOOD GAS PH 7.485 7.350-7.450 H (test code = PHA) ARTERIAL BLOOD GAS PCO2 28.0 mmHg 35.0-45.0 L (test code = PCO2A) ARTERIAL BLOOD GAS PO2 86.3 mmHg >80.0 (test code = PO2A) BICARBONATE TOTAL HCO3 20.6 MMOL/L 22.0-26.0 L (test code = HCO3) BASE EXCESS (test code = -2.0 MMOL/L -4.0-4.0 N PAULA) ABG O2 SATURATION (test 97.3 % 92.0-99.0 N code = SATA) FIO2 (test code = FIO2A) 40.0 ABG VENT MODE (test code = BiPAP MODEA) ABG VENT RESP RATE (test 10.0 /MIN code = RRA) ABG PEEP (test code = 6.0 cmH2O PEEPA) ABG CPAP (test code = 12.0 CPAPA) ABG PRESSURE SUPPORT (test 6 cmH2O code = PSABG) ABG SITE (test code = RB SITEA) ALLENS TEST (test code = Yes ALLENS) TOTAL HGB (test code = 10.1 g/dL 12.0-16.0 L THB) CARBOXYHEMOGLOBIN (test 0.8 % THgb 0.0-1.5 N code = HOHGBT) METHEMOGLOBIN (test code = 0.5 % 0.0-1.5 N N ORMAL METHGB) <2.0POTENTIALLY TOXIC >20.0 COMPREHENSIVE METABOLIC [id number] 07:04:00 Test Item Value Reference Range Interpretation Comments SODIUM (test code = NA) 136 mmol/l 134.0-147.0 N POTASSIUM (test code = K) 3.3 mmol/L 3.6-5.2 L CHLORIDE (test code = CL) 100 mmol/l 98.0-107.0 N CARBON DIOXIDE (test code = CO2) 23.3 mmol/l 21.0-33.0 N ANION GAP (test code = GAP) 16.0 0-20 N GLUCOSE (test code = GLU) 111 mg/dl 70.0-110.0 H BLOOD UREA NITROGEN (test code = 17 mg/dl 7.0-18.0 N BUN) CREATININE (test code = CREAT) 1.03 mg/dL 0.60-1.30 N GFR NON BLACK (test code = 75 mL/min 70-80 N GFRNONBLACK) GFR BLACK (test code = GFRBLACK) 91 mL/min 85-97 N TOTAL PROTEIN (test code = PROT) 7.0 GM/DL 6.0-8.1 N ALBUMIN (test code = ALB) 1.9 gm/dL 3.2-4.7 L CALCIUM (test code = CA) 8.9 mg/dl 8.0-10.5 N BILIRUBIN TOTAL (test code = 1.4 mg/dl 0.0-1.0 H BILT) SGOT/AST (test code = AST) 69 Units/L 15.0-37.0 H SGPT/ALT (test code = ALT) 53 Units/L 12.0-78.0 N ALKALINE PHOSPHATASE TOTAL (test 158 Units/L 50.0-136.0 H code = ALKP) COMPREHENSIVE METABOLIC [id number] 06:46:00 Test Item Value Reference Range Interpretation Comments SODIUM (test code = NA) 136 mmol/l 134.0-147.0 N POTASSIUM (test code = K) 3.3 mmol/L 3.6-5.2 L CHLORIDE (test code = CL) 100 mmol/l 98.0-107.0 N CARBON DIOXIDE (test code = CO2) 23.3 mmol/l 21.0-33.0 N ANION GAP (test code = GAP) 16.0 0-20 N GLUCOSE (test code = GLU) mg/dl 70.0-110.0 BLOOD UREA NITROGEN (test code = mg/dl 7.0-18.0 BUN) CREATININE (test code = CREAT) mg/dL 0.60-1.30 GFR NON BLACK (test code = mL/min 70-80 GFRNONBLACK) GFR BLACK (test code = GFRBLACK) mL/min 85-97 TOTAL PROTEIN (test code = PROT) gm/dL 6.4-8.2 ALBUMIN (test code = ALB) gm/dl 3.2-4.7 CALCIUM (test code = CA) mg/dl 8.0-10.5 BILIRUBIN TOTAL (test code = mg/dl 0.0-1.0 BILT) SGOT/AST (test code = AST) Units/L 15.0-37.0 SGPT/ALT (test code = ALT) Units/L 12.0-78.0 ALKALINE PHOSPHATASE TOTAL (test Units/L 50.0-136.0 code = ALKP) CBC W/AUTO [id number] 06:38:00 Test Item Value Reference Range Interpretation Comments WHITE BLOOD CELL (test code = WBC) 20.0 K/mm3 4.5-11.0 H RED BLOOD CELL (test code = RBC) 3.77 M/mm3 4.40-5.90 L HEMOGLOBIN (test code = HGB) 9.8 gm/dL 13.0-17.0 L HEMATOCRIT (test code = HCT) 34.5 % 36.0-48.0 L MEAN CELL VOLUME (test code = MCV) 91.5 UM3 80.0-94.0 N MEAN CELL HGB (test code = MCH) 26.0 UUG 25.5-32.5 N MEAN CELL HGB CONCETRATION (test 28.4 gm/dL 29.0-35.5 L code = MCHC) RED CELL DISTRIBUTION WIDTH (test 22.1 % 11.5-15.0 H code = RDW) PLATELET COUNT (test code = PLT) 400 K/mm3 150-400 N MEAN PLATELET VOLUME (test code = 11.1 fl 7.4-10.4 H MPV) NEUTROPHIL % (test code = NT%) 85.9 % 49.0-76.0 H LYMPHOCYTE % (test code = LY%) 4.0 % 23.0-38.0 L MONOCYTE % (test code = MO%) 9.2 % 1.0-10.0 N EOSINOPHIL % (test code = EO%) 0.0 % 1.0-5.0 L BASOPHIL % (test code = BA%) 0.2 % 0.0-1.0 N NEUTROPHIL # (test code = NT#) 17.2 K/mm3 2.4-6.3 H LYMPHOCYTE # (test code = LY#) 0.8 K/mm3 1.2-4.0 L MONOCYTE # (test code = MO#) 1.8 K/mm3 0.0-0.6 H EOSINOPHIL # (test code = EO#) 0.0 K/MM3 0.0-0.7 N BASOPHIL # (test code = BA#) 0.0 K/mm3 0.0-0.2 N - XR CHEST 1 [id number] 06:29:00 FAX: Nohelia Whitley [phone] [place]: St: ADM Name: ENDER RODRIGUEZ [facility] : 1945 Age/S: 73/M [address] [facility] Unit[facility] [id number] Loc: EIC[address] [place], [place]: [place] [address] Acct: [id number] Dis Date: Status: ADM IN PHONE #: [phone] Exam Date: 08/10/2018619 FAX #: [phone] Reason: POSSIBLE ASPIRATION EXAMS: CPT CODE: [id number] XR CHEST 1 V 94067 LOCATION: Q15 HISTORY: 73-year-old male, possible aspiration. COMMENT: A frontal chest radiograph is obtained at 5:38 a.m., and compared to study of August 09, 2018, obtained at 10:54 p.m. Again seen is subcutaneous emphysema along the left lateral chest wall were, radiating into both sides of the patient's neck. The lungs exhibit no evidence of pneumothoraces. Improved aeration is seen in the right lung base. The cardiac silhouette and mediastinal structuresare unchanged. IMPRESSION: Interval improvement is seen with respect to the infiltrate is in the right lung base which appears to have resolved when compared to a study obtained last evening. at 0629 Reportedand signed by: Desirae Avina M.D. CC: Nohelia Holt MD Technologist: ROBBIN NGUYEN Trnscrd Date/Time/By: 08/10/2018 (628): By: [email or web address] PAGE 1 Signed Report FAX: Nohelia Whitley [phone] [place]: St: ADM Name: ENDER RODRIGUEZ [facility] : 1945 Age/S: 73/M [address] [facility] Unit #: [id number] Loc: JASIEL [place], [place]: [place] [address] Acct: [id number] Dis Date: Status: ADM IN PHONE #: [phone] Exam Date: 08/10/2018 0620 FAX #: [phone] Reason: POSSIBLE ASPIRATION EXAMS: CPT CODE: [id number] XR CHEST 1 V 93533 <Continued> Orig Print D/T: S: 08/10/2018 (0632) PAGE 2 Signed Report- XR CHEST 1 [id number] 23:10:00 FAX: Nohelia Whitley [phone] [place]: St: [facility] FAX: Mike Mcknight MD [phone] Name: ENDER RODRIGUEZ [facility] : 1945 Age/S: 73/M [address] [facility] Unit #: [id number] Loc: SarahA[place], [place]: [place] [address] Acct: [id number] Dis Date: Status: ADM IN PHONE #: [phone] Exam Date: 08/09/2018 2258 FAX #: [phone] Reason: ELEVATED HR. POSSIBLE ASPIRATION EXAMS: CPT CODE: [id number] XR CHEST 1 V 61765 AFTER HOURS SERVICE ON: 08/09/2018 11:07 PM AP Portable Chest Location Code M12 HISTORY: ELEVATED HR. POSSIBLE ASPIRATION FINDINGS: Again noted is atelectasis in the right lung base. There is a surrounding patchy infiltrate. The infiltrates in the retrocardiac region have significantly decreased from 08/09/1999 1913 hours ago. There are no pleural effusions. There is no pneumothorax. Cardiac silhouette and mediastinumappear within normal limits. Soft tissue emphysema again noted. IMPRESSION: Bibasilar infiltrates, improved on the left. Right basilar subsegmental atelectasis. at 0440 Reported and signed by: Gennaro Aguilera M.D. CC: Nohelia Holt MD; Mike Cano MD Technologist: JOSUÉ LANDAVERDE Trnokrd Date/Time/By: 08/09/2018 (7968) : By: [email or web address] PAGE 1 Signed Report FAX: Nohelia Whitley [phone] [place]: St: [facility] FAX: Mike Mcknight MD [phone] Name: ENDER RODRIGUEZ [facility] : 1945 Age/S: 73/M [address] [facility] Unit #: [id number] Loc: E.IC[address] [place], [place]: [place] [address] Acct: [id number] Dis Date: Status: ADM IN PHONE #: [phone] Exam Date: 08/09/20182257 FAX #: [phone] Reason: ELEVATED HR. POSSIBLE ASPIRATION EXAMS: CPT CODE: [id number] XR CHEST 1 V 66955 <Continued> Orig Print D/T: S: 08/09/2018 (8669) PAGE 2 Signed ReportCOMPREHENSIVE METABOLIC [id number] 18:23:00 Test Item Value Reference Range Interpretation Comments SODIUM (test code = NA) 133 mmol/l 134.0-147.0 L POTASSIUM (test code = K) 3.9 mmol/L 3.6-5.2 N CHLORIDE (test code = CL) 99 mmol/l 98.0-107.0 N CARBON DIOXIDE (test code = CO2) 22.1 mmol/l 21.0-33.0 N ANION GAP (test code = GAP) 15.8 0-20 N GLUCOSE (test code = GLU) 66 mg/dl 70.0-110.0 L BLOOD UREA NITROGEN (test code = 11 mg/dl 7.0-18.0 N BUN) CREATININE (test code = CREAT) 0.75 mg/dL 0.60-1.30 N GFR NON BLACK (test code = 109 mL/min 70-80 H GFRNONBLACK) GFR BLACK (test code = GFRBLACK) 132 mL/min 85-97 H TOTAL PROTEIN (test code = PROT) 6.7 GM/DL 6.0-8.1 N ALBUMIN (test code = ALB) 1.9 gm/dL 3.2-4.7 L CALCIUM (test code = CA) 8.7 mg/dl 8.0-10.5 N BILIRUBIN TOTAL (test code = 1.1 mg/dl 0.0-1.0 H BILT) SGOT/AST (test code = AST) 75 Units/L 15.0-37.0 H SGPT/ALT (test code = ALT) 58 Units/L 12.0-78.0 N ALKALINE PHOSPHATASE TOTAL (test 168 Units/L 50.0-136.0 H code = ALKP) COMPREHENSIVE METABOLIC [id number] 18:17:00 Test Item Value Reference Range Interpretation Comments SODIUM (test code = NA) 133 mmol/l 134.0-147.0 L POTASSIUM (test code = K) 3.9 mmol/L 3.6-5.2 N CHLORIDE (test code = CL) 99 mmol/l 98.0-107.0 N CARBON DIOXIDE (test code = CO2) 22.1 mmol/l 21.0-33.0 N ANION GAP (test code = GAP) 15.8 0-20 N GLUCOSE (test code = GLU) mg/dl 70.0-110.0 BLOOD UREA NITROGEN (test code = mg/dl 7.0-18.0 BUN) CREATININE (test code = CREAT) mg/dL 0.60-1.30 GFR NON BLACK (test code = mL/min 70-80 GFRNONBLACK) GFR BLACK (test code = GFRBLACK) mL/min 85-97 TOTAL PROTEIN (test code = PROT) gm/dL 6.4-8.2 ALBUMIN (test code = ALB) gm/dl 3.2-4.7 CALCIUM (test code = CA) mg/dl 8.0-10.5 BILIRUBIN TOTAL (test code = mg/dl 0.0-1.0 BILT) SGOT/AST (test code = AST) Units/L 15.0-37.0 SGPT/ALT (test code = ALT) Units/L 12.0-78.0 ALKALINE PHOSPHATASE TOTAL (test Units/L 50.0-136.0 code = ALKP) [id number] 11:41:00 Test Item Value Reference Range Interpretation Comments GLUBED (test code = GLUBED) 82 mg/dL 70-110 N CBC W/AUTO [id number] 09:32:00 Test Item Value Reference Range Interpretation Comments WHITE BLOOD CELL (test code = WBC) 11.3 K/mm3 4.5-11.0 H RED BLOOD CELL (test code = RBC) 3.50 M/mm3 4.40-5.90 L HEMOGLOBIN (test code = HGB) 9.2 gm/dL 13.0-17.0 L HEMATOCRIT (test code = HCT) 31.7 % 36.0-48.0 L MEAN CELL VOLUME (test code = MCV) 90.6 UM3 80.0-94.0 N MEAN CELL HGB (test code = MCH) 26.3 UUG 25.5-32.5 N MEAN CELL HGB CONCETRATION (test 29.0 gm/dL 29.0-35.5 N code = MCHC) RED CELL DISTRIBUTION WIDTH (test 22.0 % 11.5-15.0 H code = RDW) PLATELET COUNT (test code = PLT) 352 K/mm3 150-400 N MEAN PLATELET VOLUME (test code = 10.4 fl 7.4-10.4 N MPV) NEUTROPHIL % (test code = NT%) 76.7 % 49.0-76.0 H LYMPHOCYTE % (test code = LY%) 8.2 % 23.0-38.0 L MONOCYTE % (test code = MO%) 13.3 % 1.0-10.0 H EOSINOPHIL % (test code = EO%) 0.2 % 1.0-5.0 L BASOPHIL % (test code = BA%) 0.4 % 0.0-1.0 N NEUTROPHIL # (test code = NT#) 8.6 K/mm3 2.4-6.3 H LYMPHOCYTE # (test code = LY#) 0.9 K/mm3 1.2-4.0 L MONOCYTE # (test code = MO#) 1.5 K/mm3 0.0-0.6 H EOSINOPHIL # (test code = EO#) 0.0 K/MM3 0.0-0.7 N BASOPHIL # (test code = BA#) 0.1 K/mm3 0.0-0.2 N - XR CHEST 1 [id number] 09:04:00 FAX: Nohelia Whitley [phone] [place]: St: ADM Name: ENDER RODRIGUEZ [facility] : 1945 Age/S: 73/M [address] [facility] Unit#: [id number] Loc: [address] Phys: [place] [id number] Acct: [id number] Dis Date: Status: ADM IN PHONE #: [phone] Exam Date: 08/09/2018 09 FAX #: [phone] Reason: DYSPNEA EXAMS: CPT CODE: [id number] XR CHEST 1 V [id number] Chest Radiograph History: DYSPNEA Comparison: August 07, 2018 Location: R16 A single frontal view of the chest is submitted. The heart appears unchanged in size. Pulmonary vasculature is unremarkable. There is a patchy opacity in the left lung base. There is minimal right basilar atelectasis. No pneumothorax is identified. The bones appear unchanged. Air in t he subcutaneous soft tissues of the chest and neck is again identified. No chest tube isidentified on today's exam. IMPRESSION: Patchy opacity left lung base. This could be due to atelectasis or pneumonia. There is minimal rightbasilar atelectasis. Compared to the prior exam, there has been little change. at 0904 Reported and signed by: Skyler Brown M.D. CC: Nohelia Holt MD Technologist: DORYS MEJIAS [facility] Date/Time/By: 08/09/2018 (0904): By: Rochelle PAGE 1 Signed Report FAX: Nohelia Whitley [phone] [place]: St: ADM Name: ENDER RODRIGUEZ [facility] : 1945 Age/S: 73/M [address] [facility] Unit #: [id number] Loc: [address] Phys: [place] [address] Acct: [id number] Dis Date: Status: ADM IN PHONE #: [phone] Exam Date: 08/09/2018 0901 FAX #: [phone] Reason: DYSPNEA EXAMS: CPT CODE: [id number] XR CHEST 1 V 70703 <Continued> Orig Print D/T: S: 08/09/2018 (0907) PAGE 2 Signed Report- SCROT AND [id number] 11:53:00 FAX: Nohelia Whitley [phone] [place]: EM St: ADM FAX: Ernie Gustafson [phone] Name: ENDER RODRIGUEZ [facility]ly [facility] : 1945 Age/S: 73/M [address] [facility] Unit #: [id number] Loc: [address] [place], [place]: [place] [address] Acct: [id number] Dis Date: Status: ADM IN PHONE #: [phone] Exam Date: 08/08/2018 1058 FAX #: [phone] Reason: TESTICULAR MASS EXAMS: CPT CODE: [id number] US SCROTUM AND CNTS 93325 REASON FOR EXAM: Testicular mass, lump. Testicular sonogram. B- mode/Magaña scale imaging with color Doppler perfusion imaging with spectral analysis was performed. The right testicle is 4.3 x 1.5 x 3.4 cm with normal echogenicity pattern. Perfusion pattern intact. Tiny hydrocele seen. Epididymis with a 9 x 8 x 1.3 cm epididymal, simple cyst with the epididymis otherwise intact. No evidence of mass. The left testicle is 3.5 x 1.7 x 3.4 cm also with homogeneous pattern and good perfusion. Tiny hydrocele. The epididymis appears to be slightly irregular containing a 1.1 x 0.7 x 0.8 cm cyst. Tiny hydrocele component. A 3rd oval lesion is seen at 3.3 x 2 x 2.9 cm just above the right testicle, mildly inhomogeneous with tiny cystic areas but no significant perfusion is seen.No fluid surrounds the structure. There does not appear to be in epididymis formed. No evidence of varicocele. IMPRESSION: Normal testicular appearance. No torsionor mass. Sliver-like hydrocele. There is a 3rd structure just above the right testicle at the scrotal wall but has an oval-shaped fairly homogeneous echogenicity but is not well perfused. This measures 3.3 x 2 x 2.9 cm. This could represent a mass or a 3rd testicle component. The lesion would be typical for a lymph node without some perfusion documented. Location: U19 PAGE1 Signed Report (CONTINUED) FAX: [place] JonathonMorelianerissa Granger [phone] [place]: St: ADM FAX: [place] ClarenceErnie Dougherty [phone] Name: ENDER RODRIGUEZ [facility] : 1945 Age/S: 73/M [address] [facility] Unit #: [id number] Loc: [address] [place] [address] Phys: [place] [address] Acct: [id number] Dis Date: Status: ADM IN PHONE #: [phone] Exam Date: 08/08/2018 1058 FAX #: [phone] Reason: TESTICULAR MASS EXAMS: CPT CODE: [id number] US SCROTUM AND CNTS 02528 <Continued> at 1153 Reported and signed by: Desirae Sarabia M.D. CC: Nohelia Holt MD; Ernie Lima MD Technologist: HARLEY ELLIOTT Trnscrd Date/Time/By: 08/08/2018 (2021) : By: [facility] PAGE 2 Signed Report FAX: Nohelia Whitley [phone] [place]: St: ADM FAX: [place] Ernie Lima [phone] Name: ENDER RODRIGUEZ [facility] : 1945 Age/S: 73/M [address] [facility] Unit #: [id number] Loc: [address] [place], [place]: [place] [address] Acct: [id number] Dis Date: Status: ADM IN PHONE #: [phone] Exam Date: 08/08/2018 1058 FAX #: [phone] Reason: TESTICULAR MASS EXAMS: CPT CODE: [id number] US SCROTUM AND CNTS 53123 <Continued> Orig Print D/T: S: 08/08/2018 (8095) PAGE 3 Signed Report- XR CHEST 1 [id number] 23:21:00 FAX: Nohelia Whitley [phone] [place]: St: ADM Name: ENDER RODRIGUEZ [facility] : 1945 Age/S: 73/M [facility] Unit[facility] [id number] Loc: [address] [place], [place]: [place] [address] Acct: [id number] Dis Date: Status: ADM IN PHONE #: [phone] Exam Date: 08/07/2018 0531 FAX #: [phone] Reason: pneumothorax EXAMS: CPT CODE: [id number] XR CHEST 1 V 95760 Exam: Chest portable erect Location: F6 History: pneumothorax Comparison: 08/06/2018 Findings: No change has occurred in the aeration of the lungs. The left lung is well expanded. A small bore chest tube remains in place. The heart size is unchanged. The mediastinal silhouette is unremarkable. The bony thorax is intact. The kidneys emphysema is again noted. Impression: Stable chest/no change. at 2031 Reported and signed by: Rj Camarena M.D. CC: Nohelia Holt MD Technologist: ZULEIKA AMIN Trnokrd Date/Time/By: 08/07/2018 (3223) : By: Melanie PAGE 1 Signed Report FAX: Nohelia Whitley [phone] [place]: St: ADM Name: ENDER RODRIGUEZ [facility] : 1945 Age/S: 73/M [address] [facility] Unit #: [id number] Loc: [address] [place] [address] Phys: [place] [address] Acct: [id number] Dis Date: tus: ADM IN PHONE #: [phone] Exam Date: 08/07/2018 0531 FAX #: [phone] Reason: pneumothorax EXAMS: CPT CODE: [id number] XR CHEST 1 V 85463 <Continued> Orig Print D/T: S: 08/07/2018 (1348) PAGE 2 Signed Report CBC W/AUTO [id number] 07:17:00 Test Item Value Reference Range Interpretation Comments WHITE BLOOD CELL (test code = WBC) 7.6 K/mm3 4.5-11.0 N RED BLOOD CELL (test code = RBC) 2.96 M/mm3 4.40-5.90 L HEMOGLOBIN (test code = HGB) 7.7 gm/dL 13.0-17.0 L HEMATOCRIT (test code = HCT) 26.3 % 36.0-48.0 L MEAN CELL VOLUME (test code = MCV) 88.9 UM3 80.0-94.0 N MEAN CELL HGB (test code = MCH) 26.0 UUG 25.5-32.5 N MEAN CELL HGB CONCETRATION (test 29.3 gm/dL 29.0-35.5 N code = MCHC) RED CELL DISTRIBUTION WIDTH (test 23.2 % 11.5-15.0 H code = RDW) PLATELET COUNT (test code = PLT) 243 K/mm3 150-400 N MEAN PLATELET VOLUME (test code = 10.1 fl 7.4-10.4 N MPV) NEUTROPHIL % (test code = NT%) 65.7 % 49.0-76.0 N LYMPHOCYTE % (test code = LY%) 18.7 % 23.0-38.0 L MONOCYTE % (test code = MO%) 12.0 % 1.0-10.0 H EOSINOPHIL % (test code = EO%) 2.2 % 1.0-5.0 N BASOPHIL % (test code = BA%) 0.3 % 0.0-1.0 N NEUTROPHIL # (test code = NT#) 5.0 K/mm3 2.4-6.3 N LYMPHOCYTE # (test code = LY#) 1.4 K/mm3 1.2-4.0 N MONOCYTE # (test code = MO#) 0.9 K/mm3 0.0-0.6 H EOSINOPHIL # (test code = EO#) 0.2 K/MM3 0.0-0.7 N BASOPHIL # (test code = BA#) 0.0 K/mm3 0.0-0.2 N BASIC METABOLIC [id number] 06:57:00 Test Item Value Reference Range Interpretation Comments SODIUM (test code = NA) 134 mmol/l 134.0-147.0 N POTASSIUM (test code = K) 3.4 mmol/L 3.6-5.2 L CHLORIDE (test code = CL) 101 mmol/l 98.0-107.0 N CARBON DIOXIDE (test code = CO2) 26.2 mmol/l 21.0-33.0 N ANION GAP (test code = GAP) 10.2 0-20 N GLUCOSE (test code = GLU) 108 mg/dl 70.0-110.0 N BLOOD UREA NITROGEN (test code = 7 mg/dl 7.0-18.0 N BUN) CREATININE (test code = CREAT) 0.91 mg/dL 0.60-1.30 N GFR NON BLACK (test code = 87 mL/min 70-80 H GFRNONBLACK) GFR BLACK (test code = GFRBLACK) 105 mL/min 85-97 H CALCIUM (test code = CA) 8.5 mg/dl 8.0-10.5 N [id number] 06:57:00 Test Item Value Reference Range Interpretation Comments MAGNESIUM (test code = MAG) 2.0 mg/dl 1.8-2.4 N - XR CHEST 1 [id number] 17:02:00 FAX: Nohelia Whitley [phone] [place]: St: ADM Name: ENDER RODRIGUEZ [facility] : 1945 Age/S: 73/M [address] [facility] Unit#: [id number] Loc: [address] Phys: [place] [address] Acct: [id number] Dis Date: Status: ADM IN PHONE #: [phone] Exam Date: 08/06/2018 1632 FAX #: [phone] Reason: CHEST TUBE CLAMP FOR SIX HOURS EXAMS: CPT CODE: [id number] XR CHEST 1 V 30805 REASON FOR EXAM: Pneumothorax, chest tube. COMPARISON: August 06, 2018 earlier at 0918 hours. Chest, portable single frontal view. 1620 hours. The small diameter chest tube has similar position, at the edge of thepleural space. Subcutaneous emphysema seen similarly but no pneumothorax found.The lungs are poorly inflated with right basilar atelectasis less likely pneumonia. Heart size is normal. No effusion or pneumothorax can be seen. Osseous structures appear to be intact. IMPRESSION: No pneumothorax with the small diameter chest tube in place. Poor breath with right basilar atelectasis, less likely pneumonia Location: U19 at 1703 Reported and signed by: Desirae Sarabia M.D. CC: Nohelia Holt MD Technologist: ZULEIKA AMIN Trnscrd Date/Time/By: 08/06/2018 (4448) : By: [facility] PAGE 1 Signed Report FAX: Nohelia Whitley [phone] [place]: St: ADM Name: ENDER RODRIGUEZ [facility] : 1945 Age/S: 73/M [address] [facility] Unit #: [id number] Loc: [address] Phys: [place] [address] Acct: [id number] Dis Date: Status: ADM IN PHONE #: [phone] Exam Date: 08/06/2018 1632 FAX #: [phone] Reason: CHEST TUBE CLAMP FOR SIX HOURS EXAMS: CPT CODE: [id number] XR CHEST 1 V 54678 <Continued> Orig Print D/T: S: 08/06/2018 (7991) PAGE 2 Signed Report- XR CHEST 1 [id number] 09:46:00 FAX: Nohelia Whitley [phone] [place]: St: ADM Name: ENDER RODRIGUEZ [facility] : 1945 Age/S: 73/M [address] [employer] Unit#: [id number] Loc: [address] Phys: [place] [address] Acct: [id number] Dis Date: Status: ADM IN PHONE #: [phone] Exam Date: 08/06/201845 FAX #: [phone] Reason: pneumothorax EXAMS: CPT CODE: [id number] XR CHEST 1 V 22764 REASON FOR EXAM: Pneumothorax. Chest, single view, portable. COMPARISON: August 04, 2018. The small diameter chest tube mostly resides in the subcutaneous soft tissues been retracted considerably. The tip is in theleft pleural space most likely. There does not appear to be significant pneumothorax present. The degree of subcutaneous emphysema along the chest wall may be improving. Heart size normal. Calcifications aortic arch. Right lung is clear. Old left rib fractures. IMPRESSION: Prominent subcutaneous emphysema. Left-sided chest tube with only a tiny component possibly in the pleural space, most likely. No detectable pneumothorax. Location: U19 at 0946 Reported and signed by: Desirae Sarabia M.D. CC: Nohelia Holt MD Technologist: DORYS MEJIAS Trnscrd Date/Time/By: 08/06/2018 (0946) : By: [facility] PAGE 1 Signed Report FAX: Nohelia Whitley [phone] [place]: St: ADM---- Name: ENDER RODRIGUEZ [facility] : 1945 Age/S: 73/M [address] [employer] Unit #: [id number] Loc: [address] [place]: [place] [address] Acct: [id number] Dis Date: Status: ADM IN PHONE #: [phone] Exam Date:08/06/201845 FAX #: [phone] Reason: pneumothorax EXAMS: CPT CODE: [id number] XRCHEST 1 V 76683 <Continued> Orig Print D/T: S: 07/27 (0924) PAGE 2 Signed ReportBASIC METABOLIC [id number] 07:16:00 Test Item Value Reference Range Interpretation Comments SODIUM (test code = NA) 132 mmol/l 134.0-147.0 L POTASSIUM (test code = K) 2.9 mmol/L 3.6-5.2 L CHLORIDE (test code = CL) 97 mmol/l 98.0-107.0 L CARBON DIOXIDE (test code = CO2) 24.1 mmol/l 21.0-33.0 N ANION GAP (test code = GAP) 13.8 0-20 N GLUCOSE (test code = GLU) 74 mg/dl 70.0-110.0 N BLOOD UREA NITROGEN (test code = 7 mg/dl 7.0-18.0 N BUN) CREATININE (test code = CREAT) 0.79 mg/dL 0.60-1.30 N GFR NON BLACK (test code = 102 mL/min 70-80 H GFRNONBLACK) GFR BLACK (test code = GFRBLACK) 124 mL/min 85-97 H CALCIUM (test code = CA) 8.1 mg/dl 8.0-10.5 N [id number] 07:16:00 Test Item Value Reference Range Interpretation Comments MAGNESIUM (test code = MAG) 1.9 mg/dl 1.8-2.4 N BASIC METABOLIC [id number] 07:00:00 Test Item Value Reference Range Interpretation Comments SODIUM (test code = NA) 132 mmol/l 134.0-147.0 L POTASSIUM (test code = K) 2.9 mmol/L 3.6-5.2 L CHLORIDE (test code = CL) 97 mmol/l 98.0-107.0 L CARBON DIOXIDE (test code = CO2) 24.1 mmol/l 21.0-33.0 N ANION GAP (test code = GAP) 13.8 0-20 N GLUCOSE (test code = GLU) mg/dl 70.0-110.0 BLOOD UREA NITROGEN (test code = mg/dl 7.0-18.0 BUN) CREATININE (test code = CREAT) mg/dL 0.60-1.30 GFR NON BLACK (test code = mL/min 70-80 GFRNONBLACK) GFR BLACK (test code = GFRBLACK) mL/min 85-97 CALCIUM (test code = CA) mg/dl 8.0-10.5 [id number] 07:00:00 Test Item Value Reference Range Interpretation Comments MAGNESIUM (test code = MAG) mg/dl 1.8-2.4 CBC W/AUTO [id number] 06:50:00 Test Item Value Reference Range Interpretation Comments WHITE BLOOD CELL (test code = WBC) 11.4 K/mm3 4.5-11.0 H RED BLOOD CELL (test code = RBC) 3.06 M/mm3 4.40-5.90 L HEMOGLOBIN (test code = HGB) 7.9 gm/dL 13.0-17.0 L HEMATOCRIT (test code = HCT) 27.0 % 36.0-48.0 L MEAN CELL VOLUME (test code = MCV) 88.2 UM3 80.0-94.0 N MEAN CELL HGB (test code = MCH) 25.8 UUG 25.5-32.5 N MEAN CELL HGB CONCETRATION (test 29.3 gm/dL 29.0-35.5 N code = MCHC) RED CELL DISTRIBUTION WIDTH (test 23.4 % 11.5-15.0 H code = RDW) PLATELET COUNT (test code = PLT) 238 K/mm3 150-400 N MEAN PLATELET VOLUME (test code = 10.0 fl 7.4-10.4 N MPV) NEUTROPHIL % (test code = NT%) 80.8 % 49.0-76.0 H LYMPHOCYTE % (test code = LY%) 8.1 % 23.0-38.0 L MONOCYTE % (test code = MO%) 9.3 % 1.0-10.0 N EOSINOPHIL % (test code = EO%) 0.9 % 1.0-5.0 L BASOPHIL % (test code = BA%) 0.2 % 0.0-1.0 N NEUTROPHIL # (test code = NT#) 9.2 K/mm3 2.4-6.3 H LYMPHOCYTE # (test code = LY#) 0.9 K/mm3 1.2-4.0 L MONOCYTE # (test code = MO#) 1.1 K/mm3 0.0-0.6 H EOSINOPHIL # (test code = EO#) 0.1 K/MM3 0.0-0.7 N BASOPHIL # (test code = BA#) 0.0 K/mm3 0.0-0.2 N PROTHROMBIN [id number] 06:46:00 Test Item Value Reference Range Interpretation Comments PROTHROMBIN TIME 13.3 SECONDS 9.9-12.8 H PATIENT (test code = PTP) INTERNATIONAL NORMAL 1.1 0.89-1.14 N THE INR IS TO BE USED RATIO (test code = ONLY FOR MONITORING INR) ORAL ANTICOAGULANTTH ERAPY. THE FOLLOWING A RE SUGGESTED RANGE S FROM [facility] LE[facility]:ROMY CATION INR VALUEPROPHYLAXI S OF VENOUS THROMBOS IS (ORTHOPEDIC JANETH ROZINA) 2.0 - 3.0PROP HYLAXIS OF VENOUS THROM BOSIS (OTHER THAN HIG H-RISK SURGERY) 2.0 - 3.0TRE ATMENT OF DEEP VEIN THROMBOSIS OR PULMONARY EMBOL ISM 2.0 - 3.0PREV ENTION OF SYSTEMIC EMB OLISM TISSUE HEART VA LVES 2.0 - 3.0 AC DIANNE MYOCARDIAL INFA RCTION (TO PREVENT SYSTEMIC EMBOLI SM) 2.0 - 3.0 ACUTE MYOCARDIA L INFARCTION (TO PREVENT RECURRE NT INFARCT) 2.5 - 3.0 VALV ULAR HEART DISEASE 2.0 - 3.0 ATRIAL FIBRILATION 2.0 - 3.0BILEAFLET MECHANICAL VALV E IN AORTIC POSITION 2.0 - 3.0MECHAN ICAL PROSTHETIC VALV ES (HIGH RISK) 2.5 - 3.5PRESEN CE OF LUPUS ANTICOAGU LANT OR ANTIPHOSPHOLIP ID ANTIBODIES 2.5 - 3 .5 LACTIC [id number] 10:54:00 Test Item Value Reference Range Interpretation Comments LACTIC ACID (test code = LACT) 1.8 MMOL/L 0.4-2.0 N CBC W/AUTO [id number] 10:37:00 Test Item Value Reference Range Interpretation Comments WHITE BLOOD CELL (test code = WBC) 11.4 K/mm3 4.5-11.0 H RED BLOOD CELL (test code = RBC) 2.93 M/mm3 4.40-5.90 L HEMOGLOBIN (test code = HGB) 7.6 gm/dL 13.0-17.0 L HEMATOCRIT (test code = HCT) 25.5 % 36.0-48.0 L MEAN CELL VOLUME (test code = MCV) 87.0 UM3 80.0-94.0 N MEAN CELL HGB (test code = MCH) 25.9 UUG 25.5-32.5 N MEAN CELL HGB CONCETRATION (test 29.8 gm/dL 29.0-35.5 N code = MCHC) RED CELL DISTRIBUTION WIDTH (test 22.9 % 11.5-15.0 H code = RDW) PLATELET COUNT (test code = PLT) 224 K/mm3 150-400 N MEAN PLATELET VOLUME (test code = 10.3 fl 7.4-10.4 N MPV) NEUTROPHIL % (test code = NT%) 86.6 % 49.0-76.0 H LYMPHOCYTE % (test code = LY%) 6.2 % 23.0-38.0 L MONOCYTE % (test code = MO%) 6.5 % 1.0-10.0 N EOSINOPHIL % (test code = EO%) 0.1 % 1.0-5.0 L BASOPHIL % (test code = BA%) 0.2 % 0.0-1.0 N NEUTROPHIL # (test code = NT#) 9.8 K/mm3 2.4-6.3 H LYMPHOCYTE # (test code = LY#) 0.7 K/mm3 1.2-4.0 L MONOCYTE # (test code = MO#) 0.7 K/mm3 0.0-0.6 H EOSINOPHIL # (test code = EO#) 0.0 K/MM3 0.0-0.7 N BASOPHIL # (test code = BA#) 0.0 K/mm3 0.0-0.2 N CBC W/AUTO [id number] 06:01:00 Test Item Value Reference Range Interpretation Comments WHITE BLOOD CELL (test code = WBC) 12.9 K/mm3 4.5-11.0 H RED BLOOD CELL (test code = RBC) 3.01 M/mm3 4.40-5.90 L HEMOGLOBIN (test code = HGB) 7.8 gm/dL 13.0-17.0 L HEMATOCRIT (test code = HCT) 26.3 % 36.0-48.0 L MEAN CELL VOLUME (test code = MCV) 87.4 UM3 80.0-94.0 N MEAN CELL HGB (test code = MCH) 25.9 UUG 25.5-32.5 N MEAN CELL HGB CONCETRATION (test 29.7 gm/dL 29.0-35.5 N code = MCHC) RED CELL DISTRIBUTION WIDTH (test 22.9 % 11.5-15.0 H code = RDW) PLATELET COUNT (test code = PLT) 230 K/mm3 150-400 N MEAN PLATELET VOLUME (test code = 11.0 fl 7.4-10.4 H MPV) NEUTROPHIL % (test code = NT%) 85.2 % 49.0-76.0 H LYMPHOCYTE % (test code = LY%) 7.7 % 23.0-38.0 L MONOCYTE % (test code = MO%) 6.3 % 1.0-10.0 N EOSINOPHIL % (test code = EO%) 0.2 % 1.0-5.0 L BASOPHIL % (test code = BA%) 0.1 % 0.0-1.0 N NEUTROPHIL # (test code = NT#) 11.0 K/mm3 2.4-6.3 H LYMPHOCYTE # (test code = LY#) 1.0 K/mm3 1.2-4.0 L MONOCYTE # (test code = MO#) 0.8 K/mm3 0.0-0.6 H EOSINOPHIL # (test code = EO#) 0.0 K/MM3 0.0-0.7 N BASOPHIL # (test code = BA#) 0.0 K/mm3 0.0-0.2 N HYPOCHROMIA (test code = HYPO) 1+ MICROCYTOSIS (test code = MICR) 1+ MACROCYTOSIS (test code = MACR) 1+ TARGET CELLS (test code = TGT) 2+ PLATELET ESTIMATE (test code = ADQ PLTEST) Comments to Manager Cost: Patient is currently in the ED waiting on a bedCARDIAC ENZYMES [id number] 05:05:00 Test Item Value Reference Range Interpretation Comments CREATINE KINASE (CK) 151 Units/L 39-308 N (test code = CK) CKMB (test code = 1.0 NG/ML 0.5-5.0 N DISREGARD CKMB INDEX CKMBT) CALCULATION WHE NEVER THE CKMBT ISREP ORTED <0.5 CKMB INDEX (test 0.7 0.0-2.5 N code = CKMBI) TROPONIN-I (test 0.09 NG/ML 0.00-0.06 H REFERENCE R JACQUELINE code = TROPI) TROPONIN I HEA LTHY INDIVIDUALS: < 0.06 ng/mL R/O ISCHE LARISSA: 0.07 - 0.60 ng/ mL CUT-OFF RANGE F OR AMI: 0.60 - 1.5 ng/ mL : Specimen comments: Please see the initial specimen in the lab as the first draw on this series Comments to Manager Cost: Please draw the 2nd specimen q4hrs after the first and the 3rd 8hrs after the first.Specimen comments: drawn Q4hrs then [id number] to Manager Cost: Patient is currently in the ED waiting on a bedCOMPREHENSIVE METABOLIC [id number] 04:45:00 Test Item Value Reference Range Interpretation Comments SODIUM (test code = NA) 134 mmol/l 134.0-147.0 N POTASSIUM (test code = K) 3.0 mmol/L 3.6-5.2 L CHLORIDE (test code = CL) 98 mmol/l 98.0-107.0 N CARBON DIOXIDE (test code = CO2) 27.2 mmol/l 21.0-33.0 N ANION GAP (test code = GAP) 11.8 0-20 N GLUCOSE (test code = GLU) 93 mg/dl 70.0-110.0 N BLOOD UREA NITROGEN (test code = 9 mg/dl 7.0-18.0 N BUN) CREATININE (test code = CREAT) 1.11 mg/dL 0.60-1.30 N GFR NON BLACK (test code = 69 mL/min 70-80 L GFRNONBLACK) GFR BLACK (test code = GFRBLACK) 84 mL/min 85-97 L TOTAL PROTEIN (test code = PROT) 5.9 gm/dL 6.4-8.2 L ALBUMIN (test code = ALB) 1.7 gm/dl 3.2-4.7 L CALCIUM (test code = CA) 8.0 mg/dl 8.0-10.5 N BILIRUBIN TOTAL (test code = 1.6 mg/dl 0.0-1.0 H BILT) SGOT/AST (test code = AST) 68 Units/L 15.0-37.0 H SGPT/ALT (test code = ALT) 59 Units/L 12.0-78.0 N ALKALINE PHOSPHATASE TOTAL (test 146 Units/L 50.0-136.0 H code = ALKP) Comments to Manager Cost: Patient is currently in the ED waiting on a bedLIPID PROFILE (CORONARY RISK)2018-08-05 04:45:00 Test Item Value Reference Range Interpretation Comments TRIGLYCERIDES (test code = TRIG) 77 mg/dl 40.0-150.0 N CHOLESTEROL (test code = CHOL) 98 mg/dl 0.0-200.0 N CHOLESTEROL/HDL RATIO (test code = 8.9 RATIO CHOLHDL) HDL CHOLESTEROL (test code = HDL) 11 mg/dl 30.0-60.0 L LIPOPROTEIN LDL (test code = LDL) 81 mg/dl 70-130 N Comments to Manager Cost: Patient is currently in the ED waiting on a [id number] 04:45:00 Test Item Value Reference Range Interpretation Comments MAGNESIUM (test code = MAG) 1.4 mg/dl 1.8-2.4 L Comments to Manager Cost: Patient is currently in the ED waiting on a bedCBC W/AUTO [id number] 04:31:00 Test Item Value Reference Range Interpretation Comments WHITE BLOOD CELL (test code = WBC) 12.9 K/mm3 4.5-11.0 H RED BLOOD CELL (test code = RBC) 3.01 M/mm3 4.40-5.90 L HEMOGLOBIN (test code = HGB) 7.8 gm/dL 13.0-17.0 L HEMATOCRIT (test code = HCT) 26.3 % 36.0-48.0 L MEAN CELL VOLUME (test code = MCV) 87.4 UM3 80.0-94.0 N MEAN CELL HGB (test code = MCH) 25.9 UUG 25.5-32.5 N MEAN CELL HGB CONCETRATION (test 29.7 gm/dL 29.0-35.5 N code = MCHC) RED CELL DISTRIBUTION WIDTH (test 22.9 % 11.5-15.0 H code = RDW) PLATELET COUNT (test code = PLT) 230 K/mm3 150-400 N MEAN PLATELET VOLUME (test code = 11.0 fl 7.4-10.4 H MPV) NEUTROPHIL % (test code = NT%) 85.2 % 49.0-76.0 H LYMPHOCYTE % (test code = LY%) 7.7 % 23.0-38.0 L MONOCYTE % (test code = MO%) 6.3 % 1.0-10.0 N EOSINOPHIL % (test code = EO%) 0.2 % 1.0-5.0 L BASOPHIL % (test code = BA%) 0.1 % 0.0-1.0 N NEUTROPHIL # (test code = NT#) 11.0 K/mm3 2.4-6.3 H LYMPHOCYTE # (test code = LY#) 1.0 K/mm3 1.2-4.0 L MONOCYTE # (test code = MO#) 0.8 K/mm3 0.0-0.6 H EOSINOPHIL # (test code = EO#) 0.0 K/MM3 0.0-0.7 N BASOPHIL # (test code = BA#) 0.0 K/mm3 0.0-0.2 N Comments to Manager Cost: Patient is currently in the ED waiting on a bedPROCALCITONIN (PCT)2018-08-05 04:09:00 Test Item Value Reference Range Interpretation Comments PROCALCITONIN (PCT) 0.21 ng/mL 0.00-0.05 H PROCALCI TONIN (PCT) (test code = PROCAL) NORMAL RANGE (ADULT): <0.05 NG/ML. * a concentration < 0.5 ng/mL represent s a low risk of severe sepsis and/or septic s hock.* a concentration > 2 ng/mL represents a hi gh risk of severe seps is and/or septic shock.Neverthel ess, concentrations <0.5 ng/mL do not ex clude aninfection, on account of localized in fections (withoutsystemi c signs) which can be as sociated with such lowconcentratio ns, or a systemic infect ion in its initialstag es (< 6 hours). Further more, increased procalcitoninca n occur without infecti on. PCT concentrations between 0.5and 2.0 ng/m L should be interpreted taking into account thepatient's hi story. It is recommend ed to retest PCT with in6-24 hours if any concentrations <2 ng/mL are obtained. Specimen comments: Clean CatchPROCALCITONIN (PCT)2018-08-05 03:15:00 Test Item Value Reference Range Interpretation Comments PROCALCITONIN (PCT) 0.21 ng/mL 0.00-0.05 H PROCALCI TONIN (PCT) (test code = PROCAL) NORMAL RANGE (ADULT): <0.05 NG/ML. * a concentration < 0.5 ng/mL represent s a low risk of severe sepsis and/or septic s hock.* a concentration > 2 ng/mL represents a hi gh risk of severe seps is and/or septic shock.Neverthel ess, concentrations <0.5 ng/mL do not ex clude aninfection, on account of localized in fections (withoutsystemi c signs) which can be as sociated with such lowconcentratio ns, or a systemic infect ion in its initialstag es (< 6 hours). Further more, increased procalcitoninca n occur without infecti on. PCT concentrations between 0.5and 2.0 ng/m L should be interpreted taking into account thepatient's hi story. It is recommend ed to retest PCT with in6-24 hours if any concentrations <2 ng/mL are obtained. Specimen comments: Clean CatchCARDIAC ENZYMES [id number] 21:19:00 Test Item Value Reference Range Interpretation Comments CREATINE KINASE (CK) 184 Units/L 39-308 N (test code = CK) CKMB (test code = 1.3 NG/ML 0.5-5.0 N DISREGARD CKMB INDEX CKMBT) CALCULATION WHE NEVER THE CKMBT ISREP ORTED <0.5 CKMB INDEX (test 0.7 0.0-2.5 N code = CKMBI) TROPONIN-I (test 0.13 NG/ML 0.00-0.06 H REFERENCE R JACQUELINE code = TROPI) TROPONIN I HEA LTHY INDIVIDUALS: < 0.06 ng/mL R/O ISCHE LARISSA: 0.07 - 0.60 ng/ mL CUT-OFF RANGE F OR AMI: 0.60 - 1.5 ng/ mL CALLED MARILYN AT 2018 TO DRAW CARDIAC. Specimen comments: Please see the initial specimen in the lab as the first draw on this series Comments to Manager Cost: Please draw the 2nd specimen q4hrs after the first and the 3rd 8hrs after the first.Specimen comments: drawn Q4hrs then D5hlvBpspolml to Manager Cost: Patient is currently in the ED waiting on a bedLACTIC ACID [id number] 21:15:00 Test Item Value Reference Range Interpretation Comments LACTIC ACID REPEAT (test code = 3.2 mmol/L 0.4-2.0 H LACTR) CALLED MOE AT 2019 TO DRAW LACTIC ACID.PT IS RECIEVING BLOOD WILL TAKE 3HRS. (1500) E.LAB.BD08/04/18 1335.- XR CHEST 1 [id number] 15:04:00 FAX: Sofía Donahue MD [place]: St: REG Name: ENDER RODRIGUEZ Formerly [facility] : 1945 Age/S: 73/M [address] [facility] Unit#: [id number] Loc: [address] Phys: Sofía [place] [address] Acct: [id number] Dis Date: Status: REG ER PHONE #: [phone] Exam Date: 08/04/2018 1444 FAX #: [phone] Reason: s/p chest tube EXAMS: CPT CODE: [id number] XR CHEST 1 V 16246 Chest Radiograph History: s/p chest tube Comparison: August 04, earlier the same day Location: R16 A single frontal view of the chest is submitted. The heart appears unchanged in size. Pulmonary vasculature is unremarkable. A left- sided chest tube is again identified. No convincing pneumothorax can be appreciated. The bones appear unchanged. Subcutaneous emphysema is again identified. There is a calcified granuloma in the right lung. IMPRESSION: A left-sided chest tube is again identified. No convincing pneumothorax is identified. at 150 Reported and signed by: Skyler Brown M.D. CC: Sofía Forman MD Technologist: ANGIE STEWART Trnscrd Date/Time/By: 08/04/2018 (5119) : By: Rochelle PAGE 1 Signed Report FAX: Sofía Donahue MD [place]: St: REG Name: ENDER RODRIGUEZ [facility]ly [facility] : 1945 Age/S: 73/M [address] [facility] Unit #: [id number] Loc: [address] Phys: Sofía [place] [address] Acct: [id number] Dis Date: Status: REG ERPHONE #: [phone] Exam Date: 08/04/2018 1445 FAX #: [phone] Reason: s/p chest tube EXAMS: CPT CODE: [id number] XR CHEST 1 V 86180<Continued> Orig Print D/T: S: 08/04/2018 (8837) PAGE 2 Signed Report- CT CHEST W/O [id number] 13:10:00 FAX: Nohelia Whitley [phone] [place]: St: REG FAX: Sofía Donahue MD Name: ENDER RODRIGUEZ [facility]ly [facility] : 1945 Age/S: 73/M [address] [facility] Unit: [id number] Loc: [address] [place], [place] Phys: Sofía [place] [address] Acct: [id number] Dis Date: Status: REG ER PHONE #: [phone] Exam Date: 08/04/2018 1243 FAX #: [phone] Reason: PNEUMO EXAMS: CPT CODE: [id number] CT CHEST W/O CONTRAST 93603 Location: T18 Chest CT , 08/04/18 TECHNIQUE: Chest CT without IV contrast was performed on a helical scanner. Contiguous direct 5mm axial slice thickness acquired, scanning from thoracic inlet through the diaphragms.. The examination was performed on updated helical CT scanner utilizing low-dose radiation technique. Automatic exposure control was utilized to reduce radiation dosage CLINICAL HISTORY: Assess pneumothorax. COMPARISON EXAMS: Chest x-ray exam 08/04/[address] examination of the abdomen and pelvisof 08/04/18. The exam is also being correlated with chest CTA exam 05/01/19 FINDINGS: There is a moderate degree of subcutaneous emphysema predominantly along the left chest wall. It does extending across the midline dorsally along the back. There is presence of a small left-sided pneumothorax measuring approximately 15%. This in particular seen along left basilar region of the left hemithorax similar to the CT examination of the abdomen findings conducted on today's exam. Finding was not identified on the prior chest CTA exam conducted in 2018. Pneumomediastinum is also identified in particular adjacent to the thoracic aorta. Small amount of pneumopericardium is also seen. No significant or definite right-sided pneumothorax. There is compressive atelectatic changes in the left lower lobe. Subcutaneousemphysema even extends along the neck along the trachea and great vessels. Multiple rib fractures is seen involving the left seventh through ninth ribs at least laterally. Minimal displacement of the left eighth rib fracture seen on image #43. No definite right-sided rib fracture is seen. The sternum appears intact and the scapula appears intact. Nopathological nodes. Heart size is within normal limits. Small hiatal hernia. In the upper abdomen, fatty changes in the liver. No mediastinal hematoma. IMPRESSION: PAGE 1 Signed Report (CONTINUED) FAX: Y Abu-Atherah,Emran M [phone] [place]: St: REG FAX: N Sofía Forman MD --- Name: ENDER RODRIGUEZ [facility]ly [facility] : 1945 Age/S: 73/M [address] [facility] Unit: [id number] Loc: [address] Phys: Sofía [place] [address] Acct: [id number] Dis Date: Status: REG ER PHONE #: [phone] Exam Date: 08/04/2018 1243 FAX #: [phone] Reason: PNEUMO EXAMS: CPT CODE: [id number] CT CHEST W/O CONTRAST 86959 <Continued> Subcutaneousair predominantly along the left chest wall of moderate degree. There is also pneumomediastinum and a small amount of pneumopericardium. Small amount of air even extends along the subcutaneous compartment of the lower portion of the neck Left-sided pneumothorax in particular along the basilar lateral segment of the left hemithorax of approximately 15% similar to CT findings of the abdomen conducted recently. No tension or mediastinal shift. No definite right-sided pneumothorax is seen. Multiple acute left-sided rib fractures are noted. Probable atelectatic changes seen posteriorly in the left lower lobe with a very small left-sided pleural effusion at 1310 Reported and signed by: Siri Lebron M.D. CC: Nohelia Holt MD; Sofía Forman MD Technologist: DEBBIE MACIAS Trnscrd Dt/Tm: 08/04/2018 (6410) [email or web address] Orig Print D/T: S: 08/04/2018 (8923 PAGE 2 Signed Report- XR CHEST 1 [id number] 12:19:00 FAX: Nohelia Whitley [phone] [place]: St: REG FAX: Sofía Donahue MD Name: ENDER RODRIGUEZ [facility] : 1945 Age/S: 73/M [address] [facility] Unit #: [id number] Loc: [address] Phys: Sofía [place] [address] Acct: [id number] Dis Date: Status: REG ER PHONE #: [phone] Exam Date: 08/04/2018 1211 FAX #: [phone] Reason: Code SEPSIS EXAMS: CPT CODE: [id number] XR CHEST 1 V 89876 LOCATION CODE: B2 CHEST AP LEFT RIB SERIES, 2 VIEWS HISTORY: Rib pain. Fall COMPARISON: Chest dated 07/01/2017. FINDINGS: Acute left 9th and 10thlateral rib fractures. Left pneumothorax is better seen on CT abdomen of same day. Mild compressive atelectasis at left lung base. Extensive left chest wall subcutaneous emphysemaextends to the left lung base. Cardiomediastinal silhouette is within normal limits. IMPRESSION: 1. Acute 9th and 10th lateral rib fractures. 2. Left pneumothorax is better seen on CT abdomen of same day. 3. Extensive leftchest wall subcutaneous emphysema extends to the left lung base. Reported to Sofía Forman MD at 12:18 PM on 08/04/2018. FOR INTERNAL CODING PURPOSES ONLY RESULT CODE: [id number] at 1219 Reported and signed by: Steffany Schulte M.D. CC: Nohelia Holt MD; Sofía Forman MD Technologist: CHEYANNE Richard e/Time/By: 08/04/2018 (9768) : By: [facility] PAGE 1 Signed Report FAX: Austin HoltNohelia Granger [phone] [place]: St: REGFAX: Sofía Donahue MD Name: ENDER RODRIGUEZ [facility] : 1945 Age/S: 73/M [address] [place] [address] Unit #: [id number] Loc: [address] Phys: Sofía [place] [address] Acct: [id number] Dis Date: Status: REG ER PHONE #: [phone] Exam Date: 08/04/2018 1211 FAX #: [phone] Reason: Code SEPSIS EXAMS: CPT CODE: [id number] XR CHEST 1 V 81070 <Continued> Orig Print D/T: S: 08/04/2018 (5861) PAGE 2 Signed Report- XR RIBS UNI 2 V [id number] 12:19:00 FAX: Nohelia Whitley [phone] [place]: EM St: REG FAX: Sofía Donahue MD Name: ENDER RODRIGUEZ [facility] : 1945 Age/S: 73/M [address] Unit #: [id number] Loc: [address] [place], [place] Phys: Sofía [place] [address] Acct: [id number] Dis Date: Status: REG ER PHONE #: [phone] Exam Date: 08/04/2018 1211 FAX #: [phone] Reason: fall EXAMS: CPT CODE: [id number] XR RIBS UNI 2 [place] [address] LOCATION CODE: B2 CHEST AP LEFT RIB SERIES, 2 VIEWS HISTORY: Rib pain. Fall COMPARISON: Chest dated 07/01/2017. FINDINGS: Acute left 9th and 10thlateral rib fractures. Left pneumothorax is better seen on CT abdomen of same day. Mild compressive atelectasis at left lung base. Extensive left chest wall subcutaneous emphysemaextends to the left lung base. Cardiomediastinal silhouette is within normal limits. IMPRESSION: 1. Acute 9th and 10th lateral rib fractures. 2. Left pneumothorax is better seen on CT abdomen of same day. 3. Extensive leftchest wall subcutaneous emphysema extends to the left lung base. Reported to Sofía Forman MD at 12:18 PM on 08/04/2018. FOR INTERNAL CODING PURPOSES ONLY RESULT CODE: CVRMD at 1219 Reported and signed by: Steffany Schulte M.D. CC: Nohelia Holt MD; Sofía Forman MD Technologist: CHEYANNE GORDON Trnscrd Date/Time/By: 08/04/2018 (6300) : By: MelanieEF PAGE 1 Signed Report FAX: Nohelia Whitley [phone] [place]: St: REGFAX: Sofía Donahue MD Name: ENDER RODRIGUEZ [facility] : 1945 Age/S: 73/M [address] [place], [place] [address] Unit #: [id number] c: [address] [place], [place] Phys: Sofía [place] [address] Acct: [id number] Dis Date: Status: REG ER PHONE #: [phone] Exam Date: 08/04/2018 1211 FAX #: [phone] Reason: fall EXAMS: CPT CODE: [id number] XR RIBS UNI 2 V LT [address] <Continued> Orig Print D/T: S: 08/04/2018 (4449) PAGE 2 Signed Report- CT ABD PELVIS [id number] 12:15:00 FAX: Nohelia Whitley [phone] [place]: St: REG FAX: N Sofía Forman MD Name: ENDER RODRIGUEZ [facility] : 1945 Age/S: 73/M [address] [place], [place] [address] Unit: [id number] Loc: [address] [place], [place] Phys: Sofía [place] [address] Acct: [id number] Dis Date: Status: REG ER PHONE #: [phone] Exam Date: 08/04/2018 1155 FAX #: [phone] Reason: Code SEPSIS EXAMS: CPT CODE: [id number] CT ABD PELVIS W/CONT 82935 LOCATION CODE: B2 CT ABDOMEN AND PELVIS WITH CONTRAST HISTORY: Code sepsis COMPARISON: None available TECHNIQUE: Serial axial CT the abdomen and pelvis were obtained from above the diaphragm to the inferior pubic rami post-intravenous contrast. Coronal and sagittal reconstructions are provided. One or more of the following dose reductiontechniques were used: Automated exposure control, adjustment of the mA or KV according to patient size, use of Iterative reconstruction technique. DLP 347.28 mGy-cm FINDINGS: Lung bases: Moderate sized left pneumothorax, partially imaged. There appears to be a small right pneumothorax as well. Compressive atelectasis at left lung base. Left chest wall subcutaneous emphysema. Note of diffuse esophageal wall thickening up to 8 mm. Liver: Severe diffuse low attenuation compatible with severe emphysema. Gallbladder: No biliary dilatation. Kidneys: No evidence of nephrolithiasis or hydronephrosis. Vascular calcifications are noted at bilateral renal arterial branches. Pancreas:Normal Spleen: Normal sized. Adrenal glands: Normal Bowel: No bowel obstruction. Appendix not localized however no pericecal inflammatory changes. Colon is relatively decompressed. Peritoneum: No free abdominal air or fluid. Lymph nodes: No evidence of lymphadenopathy in the abdomen and pelvis. Bladder/prostate: Prostate gland is of normal size. Urinary bladder PAGE 1 Signed Report (CONTINUED) FAX: Nohelia Whitley [phone] [place]: St: REG FAX: N Sofía Forman MD Name: ENDER RODRIGUEZ [facility] : 1945 Age/S: 73/M [address] [facility] Unit: [id number]: [address] [place], [place] Phys: Sofía [place] [address] Acct: [id number] Dis Date: Status: REG ER PHONE #: [phone] Exam Date: 08/04/2018 1155 FAX #: [phone] Reason: Code SEPSIS EXAMS: CPT CODE: [id number] CT ABD PELVIS W/CONT 55852 <Continued> is unremarkable. Vascular: Atherosclerosis of aorta and branches without aneurysm. Osseous: Left 9th and 10th lateral rib fractures.Grade 1 anterolisthesis at L4-L5 facet arthrosis. Disc space at L5-S1 intact. IMPRESSION: 1. Moderate sized left pneumothorax, partially imaged. Compressive atelectasis at left lung base. Left chest wall subcutaneous emphysema. Left 9th and 10th lateral rib fractures. 2. Note of diffuse esophageal wall thickening up to 8 mm. 3. No acute intra-abdominal findings. 4. Incidental note of diffuse hepatic steatosis. 5. Focal vascular calcifications, bilateral renal arterial branches. No charly nephrolithiasis. at 1215 Reported and signed by: Steffany Schulte M.D. CC: Nohelia Holt MD;Sofía Forman MD Technologist: DEBBIE MACIAS Trnscrd Dt/Tm: 08/04/2018 (8505) [email or web address] Orig Print D/T: S: 08/04/2018 (2448 PAGE 2 Signed Report DRUGS OF ABUSE SCREEN [id number] 11:50:00 Test Item Value Reference Range Interpretation Comments URN COCAINE (test code NEGATIVE NEGATIVE Cocai ne cut-off = COCAURN) concentration: 300 ng/mL URN CANNABINOIDS (test NEGATIVE NEGATIVE Canna binoids cut-off code = CANNABURN) concentrat ion: 50 ng/mL URN AMPHETAMINE (test NEGATIVE NEGATIVE Amphet amine cut-off code = AMPHETURN) concentrat ion: 1000 ng/mL URN BARBITURATE (test NEGATIVE NEGATIVE Barbit urate cut-off code = BARBITURN) concentrat ion: 200 ng/mL URN BENZODIAZEPINE NEGATIVE NEGATIVE Benzodiaz epine cut-off (test code = BENZOURN) yvan ntration: 200 ng/mL URN OPIATES (test code NEGATIVE NEGATIVE Opiat es cut-off = OPIATURN) concentration: 200 ng/mL URN PHENCYCLIDINE (PCP) NEGATIVE NEGATIVE Phen cyclidine(PCP) (test code = PHENCURN) cut-o ff concentration: 25 ng/ml URN METHADONE (test NEGATIVE NEGATIVE Methadon e cut-off code = METHAURN) concentrati on: 300 ng/mL Specimen comments: Clean CatchUA CULT [id number] 11:48:00 Test Item Value Reference Range Interpretation Comments UA WBC (test code = 0-2 WBC/HPF NONE WBCU) UA SQUAMOUS CELLS (test 0-2 #/hpf code = SQU) UA CULTURE NEEDED? Criteria not met (test code = UACULT) Criteria Specimen comments: Clean CatchURINALYSIS [id number] 11:47:00 Test Item Value Reference Range Interpretation Comments UA COLOR (test code = COLU) YELLOW UA APPEARANCE (test code = CLEAR APPU) UA GLUCOSE DIPSTICK (test NORMAL mg/dl NORMAL code = DGLUU) UA BILIRUBIN DIPSTICK (test NEGATIVE mg/dL NEGATIVE code = BILU) UA KETONE DIPSTICK (test NEGATIVE mg/dl NEGATIVE code = KETU) UA SPECIFIC GRAVITY (test 1.010 1.000-1.030 code = SGU) UA BLOOD DIPSTICK (test NEGATIVE Luis/micL NEGATIVE code = STEPHANIE) UA PH DIPSTICK (test code = 7.0 5.0-9.0 MITZI) UA PROTEIN DIPSTICK (test NEGATIVE mg/dl NEGATIVE code = PROU) UA UROBILINIOGEN DIPSTICK NORMAL mg/dl NORMAL (test code = URO) UA NITRITE DIPSTICK (test NEGATIVE NEGATIVE code = PRACHI) UA LEUKOCYTE ESTERASE NEGATIVE Joe/micL NEGATIVE DIPSTICK (test code = LEUU) UA WBC (test code = WBCU) 0-2 WBC/HPF NONE UA RBC (test code = RBCU) 0-2 RBC/HPF 0-3 UA EPITHELIAL CELLS (test 0-3 EPI/HPF 0-3 code = EPIU) UA BACTERIA (test code = FEW NONE BACU) Specimen comments: Clean CatchURINALYSIS [id number] 11:42:00 Test Item Value Reference Range Interpretation Comments UA COLOR (test code = COLU) YELLOW UA APPEARANCE (test code = CLEAR APPU) UA GLUCOSE DIPSTICK (test NORMAL mg/dl NORMAL code = DGLUU) UA BILIRUBIN DIPSTICK (test NEGATIVE mg/dL NEGATIVE code = BILU) UA KETONE DIPSTICK (test NEGATIVE mg/dl NEGATIVE code = KETU) UA SPECIFIC GRAVITY (test 1.010 1.000-1.030 code = SGU) UA BLOOD DIPSTICK (test NEGATIVE Luis/micL NEGATIVE code = STEPHANIE) UA PH DIPSTICK (test code = 7.0 5.0-9.0 MITZI) UA PROTEIN DIPSTICK (test NEGATIVE mg/dl NEGATIVE code = PROU) UA UROBILINIOGEN DIPSTICK NORMAL mg/dl NORMAL (test code = URO) UA NITRITE DIPSTICK (test NEGATIVE NEGATIVE code = PRACHI) UA LEUKOCYTE ESTERASE NEGATIVE Joe/micL NEGATIVE DIPSTICK (test code = LEUU) UA WBC (test code = WBCU) WBC/HPF NONE UA RBC (test code = RBCU) RBC/HPF 0-3 UA EPITHELIAL CELLS (test EPI/HPF 0-3 code = EPIU) UA BACTERIA (test code = NONE BACU) Specimen comments: Clean CatchBASIC METABOLIC [id number] 10:36:00 Test Item Value Reference Range Interpretation Comments SODIUM (test code = NA) 128 mmol/l 134.0-147.0 L POTASSIUM (test code = K) 3.3 mmol/L 3.6-5.2 L CHLORIDE (test code = CL) 88 mmol/l 98.0-107.0 L CARBON DIOXIDE (test code = CO2) 23.9 mmol/l 21.0-33.0 N ANION GAP (test code = GAP) 19.4 0-20 N GLUCOSE (test code = GLU) 119 mg/dl 70.0-110.0 H BLOOD UREA NITROGEN (test code = 10 mg/dl 7.0-18.0 N BUN) CREATININE (test code = CREAT) 1.26 mg/dL 0.60-1.30 N GFR NON BLACK (test code = 60 mL/min 70-80 L GFRNONBLACK) GFR BLACK (test code = GFRBLACK) 72 mL/min 85-97 L CALCIUM (test code = CA) 9.2 mg/dl 8.0-10.5 N Specimen comments: Clean CatchHEPATIC FUNCTION PANEL [id number] 10:36:00 Test Item Value Reference Range Interpretation Comments TOTAL PROTEIN (test code = PROT) 7.2 GM/DL 6.0-8.1 N ALBUMIN (test code = ALB) 2.2 gm/dL 3.2-4.7 L BILIRUBIN TOTAL (test code = 0.8 mg/dl 0.0-1.0 N BILT) BILIRUBIN DIRECT (test code = 0.3 mg/dl 0.0-0.3 N BILD) SGOT/AST (test code = AST) 114 Units/L 15.0-37.0 H SGPT/ALT (test code = ALT) 83 Units/L 12.0-78.0 H ALKALINE PHOSPHATASE TOTAL (test 203 Units/L 50.0-136.0 H code = ALKP) Specimen comments: Clean [id number] 10:36:00 Test Item Value Reference Range Interpretation Comments LIPASE (test code = LIP) 157 Units/L 65.0-230.0 N Specimen comments: Clean CatchB-TYPE NATRIURETIC [id number] 10:36:00 Test Item Value Reference Range Interpretation Comments B-TYPE NATRIURETIC PEPTIDE (test 220 PG/ML 5-100 H code = BNP) Specimen comments: Clean [id number] 10:36:00 Test Item Value Reference Range Interpretation Comments TROPONIN-I (test 0.04 NG/ML 0.00-0.06 N REFERENCE R JACQUELINE TROPONIN code = TROPI) I HEALTHY ROMY VIDUALS: <0.06 ng/mL R/O ISCHEMIA: 0.07 - 0.60 ng/mL CUT-OFF R JACQUELINE FOR AMI: 0.60 - 1. 5 ng/mL Specimen comments: Clean [id number] 10:36:00 Test Item Value Reference Range Interpretation Comments ALCOHOL (test code 0.03 gm/dL 0.00-0.00 H ETHYL ALC OHOL VALUES - = ALC) INTERPRETATION: 0.050 GM/DL - NOT INT OXICATED 0.100 GM/DL - INTOXICATED 0.3 50-0.450 GM/DL - SEVEREL Y INTOXICATED 0.5 50 GM/DL- FATAL INTOXICAT ION Specimen comments: Clean CatchCBC W/AUTO [id number] 10:27:00 Test Item Value Reference Range Interpretation Comments WHITE BLOOD CELL (test code = WBC) 16.5 K/mm3 4.5-11.0 H RED BLOOD CELL (test code = RBC) 2.70 M/mm3 4.40-5.90 L HEMOGLOBIN (test code = HGB) 6.4 gm/dL 13.0-17.0 LL HEMATOCRIT (test code = HCT) 22.9 % 36.0-48.0 LL MEAN CELL VOLUME (test code = MCV) 84.8 UM3 80.0-94.0 N MEAN CELL HGB (test code = MCH) 23.7 UUG 25.5-32.5 L MEAN CELL HGB CONCETRATION (test 27.9 gm/dL 29.0-35.5 L code = MCHC) RED CELL DISTRIBUTION WIDTH (test 27.5 % 11.5-15.0 H code = RDW) PLATELET COUNT (test code = PLT) 280 K/mm3 150-400 N MEAN PLATELET VOLUME (test code = 10.7 fl 7.4-10.4 H MPV) NEUTROPHIL % (test code = NT%) 87.9 % 49.0-76.0 H LYMPHOCYTE % (test code = LY%) 4.1 % 23.0-38.0 L MONOCYTE % (test code = MO%) 6.5 % 1.0-10.0 N EOSINOPHIL % (test code = EO%) 0.1 % 1.0-5.0 L BASOPHIL % (test code = BA%) 0.1 % 0.0-1.0 N NEUTROPHIL # (test code = NT#) 14.5 K/mm3 2.4-6.3 H LYMPHOCYTE # (test code = LY#) 0.7 K/mm3 1.2-4.0 L MONOCYTE # (test code = MO#) 1.1 K/mm3 0.0-0.6 H EOSINOPHIL # (test code = EO#) 0.0 K/MM3 0.0-0.7 N BASOPHIL # (test code = BA#) 0.0 K/mm3 0.0-0.2 N HYPOCHROMIA (test code = HYPO) 2+ ANISOCYTOSIS (test code = ANISO) 1+ MICROCYTOSIS (test code = MICR) 1+ TARGET CELLS (test code = TGT) 1+ BASIC METABOLIC [id number] 10:24:00 Test Item Value Reference Range Interpretation Comments SODIUM (test code = NA) 128 mmol/l 134.0-147.0 L POTASSIUM (test code = K) 3.3 mmol/L 3.6-5.2 L CHLORIDE (test code = CL) 88 mmol/l 98.0-107.0 L CARBON DIOXIDE (test code = CO2) 23.9 mmol/l 21.0-33.0 N ANION GAP (test code = GAP) 19.4 0-20 N GLUCOSE (test code = GLU) mg/dl 70.0-110.0 BLOOD UREA NITROGEN (test code = mg/dl 7.0-18.0 BUN) CREATININE (test code = CREAT) mg/dL 0.60-1.30 GFR NON BLACK (test code = mL/min 70-80 GFRNONBLACK) GFR BLACK (test code = GFRBLACK) mL/min 85-97 CALCIUM (test code = CA) mg/dl 8.0-10.5 Specimen comments: Cognitive CodeHEPATIC FUNCTION PANEL [id number] 10:24:00 Test Item Value Reference Range Interpretation Comments TOTAL PROTEIN (test code = PROT) gm/dL 6.4-8.2 ALBUMIN (test code = ALB) gm/dl 3.2-4.7 BILIRUBIN TOTAL (test code = BILT) mg/dl 0.0-1.0 BILIRUBIN DIRECT (test code = BILD) mg/dl 0.0-0.3 SGOT/AST (test code = AST) Units/L 15.0-37.0 SGPT/ALT (test code = ALT) Units/L 12.0-78.0 ALKALINE PHOSPHATASE TOTAL (test Units/L 50.0-136.0 code = ALKP) Specimen comments: Clean [id number] 10:24:00 Test Item Value Reference Range Interpretation Comments LIPASE (test code = LIP) Units/L 65.0-230.0 Specimen comments: Clean Calithera BiosciencesB-TYPE NATRIURETIC [id number] 10:24:00 Test Item Value Reference Range Interpretation Comments B-TYPE NATRIURETIC PEPTIDE (test 220 PG/ML 5-100 H code = BNP) Specimen comments: Clean [id number] 10:24:00 Test Item Value Reference Range Interpretation Comments TROPONIN-I (test code = TROPI) NG/ML 0.00-0.06 Specimen comments: Clean [id number] 10:24:00 Test Item Value Reference Range Interpretation Comments ALCOHOL (test code = ALC) gm/dL 0.00-0.00 Specimen comments: Clean Calithera BiosciencesBASIC METABOLIC [id number] 10:18:00 Test Item Value Reference Range Interpretation Comments SODIUM (test code = NA) mmol/l 134.0-147.0 POTASSIUM (test code = K) mmol/L 3.6-5.2 CHLORIDE (test code = CL) mmol/l 98.0-107.0 CARBON DIOXIDE (test code = CO2) mmol/l 21.0-33.0 ANION GAP (test code = GAP) 0-20 GLUCOSE (test code = GLU) mg/dl 70.0-110.0 BLOOD UREA NITROGEN (test code = BUN) mg/dl 7.0-18.0 CREATININE (test code = CREAT) mg/dL 0.60-1.30 GFR NON BLACK (test code = mL/min 70-80 GFRNONBLACK) GFR BLACK (test code = GFRBLACK) mL/min 85-97 CALCIUM (test code = CA) mg/dl 8.0-10.5 Specimen comments: Clean Calithera BiosciencesHEPATIC FUNCTION PANEL [id number] 10:18:00 Test Item Value Reference Range Interpretation Comments TOTAL PROTEIN (test code = PROT) gm/dL 6.4-8.2 ALBUMIN (test code = ALB) gm/dl 3.2-4.7 BILIRUBIN TOTAL (test code = BILT) mg/dl 0.0-1.0 BILIRUBIN DIRECT (test code = BILD) mg/dl 0.0-0.3 SGOT/AST (test code = AST) Units/L 15.0-37.0 SGPT/ALT (test code = ALT) Units/L 12.0-78.0 ALKALINE PHOSPHATASE TOTAL (test Units/L 50.0-136.0 code = ALKP) Specimen comments: Clean [id number] 10:18:00 Test Item Value Reference Range Interpretation Comments LIPASE (test code = LIP) Units/L 65.0-230.0 Specimen comments: Clean CatchB-TYPE NATRIURETIC [id number] 10:18:00 Test Item Value Reference Range Interpretation Comments B-TYPE NATRIURETIC PEPTIDE (test 220 PG/ML 5-100 H code = BNP) Specimen comments: Clean [id number] 10:18:00 Test Item Value Reference Range Interpretation Comments TROPONIN-I (test code = TROPI) NG/ML 0.00-0.06 Specimen comments: Clean [id number] 10:18:00 Test Item Value Reference Range Interpretation Comments ALCOHOL (test code = ALC) gm/dL 0.00-0.00 Specimen comments: Clean CatchLACTIC [id number] 10:11:00 Test Item Value Reference Range Interpretation Comments LACTIC ACID (test code = LACT) 9.6 MMOL/L 0.4-2.0 HH Specimen comments: Clean CatchPROTHROMBIN [id number] 10:07:00 Test Item Value Reference Range Interpretation Comments PROTHROMBIN TIME 12.6 SECONDS 9.9-12.8 N PATIENT (test code = PTP) INTERNATIONAL NORMAL 1.1 0.89-1.14 N THE INR IS TO BE USED RATIO (test code = ONLY FOR MONITORING INR) ORAL ANTICOAGULANTTH ERAPY. THE FOLLOWING A RE SUGGESTED RANGE S FROM [facility] LE[facility] OF CHEST PHYSICIANS:ROMY CATION INR VALUEPROPHYLAXI S OF VENOUS THROMBOS IS (ORTHOPEDIC JANETH ROZINA) 2.0 - 3.0PROP HYLAXIS OF VENOUS THROM BOSIS (OTHER THAN HIG H-RISK SURGERY) 2.0 - 3.0TRE ATMENT OF DEEP VEIN THROMBOSIS OR PULMONARY EMBOL ISM 2.0 - 3.0PREV ENTION OF SYSTEMIC EMB OLISM TISSUE HEART VA LVES 2.0 - 3.0 AC DIANNE MYOCARDIAL INFA RCTION (TO PREVENT SYSTEMIC EMBOLI SM) 2.0 - 3.0 ACUTE MYOCARDIA L INFARCTION (TO PREVENT RECURRE NT INFARCT) 2.5 - 3.0 VALV ULAR HEART DISEASE 2.0 - 3.0 ATRIAL FIBRILATION 2.0 - 3.0BILEAFLET MECHANICAL VALV E IN AORTIC POSITION 2.0 - 3.0MECHAN ICAL PROSTHETIC VALV ES (HIGH RISK) 2.5 - 3.5PRESEN CE OF LUPUS ANTICOAGU LANT OR ANTIPHOSPHOLIP ID ANTIBODIES 2.5 - 3 .5 Specimen comments: Clean CatchTHROMBOPLASTIN TIME [id number] 10:07:00 Test Item Value Reference Range Interpretation Comments THROMBOPLASTIN TIME 25.30 SECONDS 25.86-36.07 L [facility] PARTIAL (test code = Therape utic Range - PTT) APTT of 55.8-85 .4 secondscorrelat es with plasma heparin concentration o f 0.2-0.4 u/mL Ne w range effective - Specimen comments: Clean CatchCBC W/AUTO [id number] 09:56:00 Test Item Value Reference Range Interpretation Comments WHITE BLOOD CELL (test code = WBC) 16.5 K/mm3 4.5-11.0 H RED BLOOD CELL (test code = RBC) 2.70 M/mm3 4.40-5.90 L HEMOGLOBIN (test code = HGB) 6.4 gm/dL 13.0-17.0 LL HEMATOCRIT (test code = HCT) 22.9 % 36.0-48.0 LL MEAN CELL VOLUME (test code = MCV) 84.8 UM3 80.0-94.0 N MEAN CELL HGB (test code = MCH) 23.7 UUG 25.5-32.5 L MEAN CELL HGB CONCETRATION (test 27.9 gm/dL 29.0-35.5 L code = MCHC) RED CELL DISTRIBUTION WIDTH (test 27.5 % 11.5-15.0 H code = RDW) PLATELET COUNT (test code = PLT) 280 K/mm3 150-400 N MEAN PLATELET VOLUME (test code = 10.7 fl 7.4-10.4 H MPV) NEUTROPHIL % (test code = NT%) 87.9 % 49.0-76.0 H LYMPHOCYTE % (test code = LY%) 4.1 % 23.0-38.0 L MONOCYTE % (test code = MO%) 6.5 % 1.0-10.0 N EOSINOPHIL % (test code = EO%) 0.1 % 1.0-5.0 L BASOPHIL % (test code = BA%) 0.1 % 0.0-1.0 N NEUTROPHIL # (test code = NT#) 14.5 K/mm3 2.4-6.3 H LYMPHOCYTE # (test code = LY#) 0.7 K/mm3 1.2-4.0 L MONOCYTE # (test code = MO#) 1.1 K/mm3 0.0-0.6 H EOSINOPHIL # (test code = EO#) 0.0 K/MM3 0.0-0.7 N BASOPHIL # (test code = BA#) 0.0 K/mm3 0.0-0.2 N MR, ABDOMEN, [id number] 15:24:00Referring: Dr. Duran Lala use liver cancer protocolFINAL REPORT MRI of the abdomen dated July 25, 2018 COMPARISON: May 31, 2022 Comment: Multiplanar T1 and T2-weighted images of the abdomen, postcontrast axial and coronal T1-weighted images of the abdomen were obtained. Liver and spleen are normal in size. The margin of the liver is not irregular. Again noted a complex cystic lesion in the segment 7 of the liver measuring 7 x 7.3 cm. The lesion has heterogeneous high signal intensity on T1 and T2-weighted images without postcontrast enhancement. This is thought to represent hemorrhagic cyst. Several simple cysts are seen in the liver measuring up to 1.5 cm. Gallbladder is contracted. No gallstone or biliary dilatation is seen. Pancreas and adrenals are unremarkable. Both kidneys are normal in size and functioning. Several cysts are seen in the right kidney with the largest measuring 3.1 cm. A few cysts are seen in the left kidney with the largest measuring up to 1 cm in size. No mass or adenopathy is seen abdomen. No ascites is present. The visualized small and large bowel are unremarkable. IMPRESSION:1. Stable interval examination of the abdomen with a hemorrhagic cyst in the segment 7 and a few simple cysts throughout the liver.2. Bilateral renal cysts. Signed: Carolyn Donohue MDReport Verified Date/Time: 07/25/2018 15:24:51 Reading Location: [address] Radiology Reading Room [id number] 09:27:00 Test Item Value Reference Range Interpretation Comments POC-CREATININE 2.4 mg/dL 0.6-1.[address] [facility] ([facility]) (test [place] code = 1859) [address] POC-EGFR ([facility]) 33 mL/min/1.73M2 (test code = 1860) HEPATITIS B PCR, [id number] 11:05:00 Test Item Value Reference Range Interpretation Comments HBV NUMERIC RESULT ([facility]) (test 108 IU/mL <20 H code = 2702) This test uses a Real-Time Polymerase Chain Reaction (RT-PCR) methodology and was performed using [employer] AmpliPrep/[employer] TaqMan HBV Test, v2.0 ([employer]Reportable range for this assay is 20 - 170,000,000 IU per mL (1.30 - 8.23 Log IU/mL).HEPATITIS C PCR, [id number] 13:49:00 Test Item Value Reference Range Interpretation Comments HCV RESULT COMPONENT HCV RNA not detected HCV RNA not detected ([facility]) (test code = 2699) This test uses a Real-Time Polymerase Chain Reaction (RT-PCR) methodology and was performed using [employer] Ampliprep/[employer] TaqMan HCV test kit version 2.0 ([employer]Reportable range for this assay is 15 - 100,000,000 IU per mL (1.18 - 8.00 Log IU/mL).MR, ABDOMEN, [id number] 17:13:00Referring: Dr. Duran Escudero 2. NEEDS CONTRAST STUDY. Discussed with Radiology. Recommended contrast studyFINAL REPORT TECHNIQUE: MRI of the abdomen WITHOUT and WITH intravenous contrast. INDICATION: Liver lesion, hepatitis B virus infection. COMPARISON: None. FINDINGS: LOWER THORAX: Unremarkable. LIVER: No hepatic signal abnormality. Several (greater than 15 cm cysts are scatteredthroughout the liver. The largest simple cyst is located in segment VIII and measures 1.7 cm. A lesion in segment VII measures 7.3 cm and is hypointense on T2-weighted imaging and hyperintense on T1-weighted imaging. This does not definitely enhance and is most likely a hemorrhagic cyst. BILIARY: Gallbladder is unremarkable. No biliary ductal dilatation or filling defect.SPLEEN: No splenomegaly.PANCREAS: No focal masses or ductal dilatation. ADRENALS: No adrenal nodules.KIDNEYS/URETERS: No hydronephrosis or solid mass lesions. Bilateral simple renal cysts PERITONEUM/RETROPERITONEUM: No free fluid.LYMPH NODES: No lymphadenopathy.VESSELS: Unremarkable. GI TRACT: No distention or wall thickening. BONES AND SOFT TISSUES: Unremarkable. IMPRESSION: 1.The lesion in segment VII is most consistent with ahemorrhagic cyst which measures up to 7.3 cm. Given the intrinsic T1 hyperintensity and internal complexity, consider a follow-up MRI in three months. 2.There are several other smaller cysts scattered throughout the liver. Signed: Jose Miguel Barajas Verified Date/Time: 05/31/2018 17:13:08 Reading Location: [address] Body Reading Room HBSAG [id number] 15:24:00 Test Item Value Reference Range Interpretation Comments HBSAG CONFIRMATION Confirmed Positive Unconfirmed, HBSAG A (BEAKER) (test code = Negative 1602) HEPATITIS B SURFACE [id number] 14:14:00 Test Item Value Reference Range Interpretation Comments HEPATITIS B SURFACE ANTIGEN (2) Reactive Nonreactive A (BEAKER) (test code = 2585) ALPHA FETOPROTEIN (AFP), TUMOR [id number] 12:52:00 Test Item Value Reference Range Interpretation Comments ALPHA-FETOPROTEIN (BEAKER) (test code < ng/mL <10.0 = 1094) [id number] 12:47:00 Test Item Value Reference Range Interpretation Comments PROSTATE SPECIFIC ANTIGEN (BEAKER) 3.3 ng/mL 0.0-4.0 (test code = 844) CARCINOEMBRYONIC ANTIGEN (CEA)2018-05-31 12:47:00 Test Item Value Reference Range Interpretation Comments CARCINOEMBRYONIC ANTIGEN (BEAKER) 2.2 ng/mL 0.0-5.0 (test code = 685) HEPATITIS A ANTIBODY, [id number] 12:47:00 Test Item Value Reference Range Interpretation Comments HEPATITIS A IGG ANTIBODY (BEAKER) Nonreactive Nonreactive (test code = 2797) HEPATIC FUNCTION [id number] 12:20:00 Test Item Value Reference Range Interpretation Comments TOTAL PROTEIN (BEAKER) (test code = 8.4 gm/dL 6.0-8.3 H 770) ALBUMIN (BEAKER) (test code = 1145) 4.0 g/dL 3.5-5.0 BILIRUBIN TOTAL (BEAKER) (test code 0.4 mg/dL 0.2-1.2 = 377) BILIRUBIN DIRECT (BEAKER) (test 0.1 mg/dL 0.1-0.5 code = 706) ALKALINE PHOSPHATASE (BEAKER) (test 52 U/L 40-150 code = 346) AST (SGOT) (BEAKER) (test code = 21 U/L 5-34 353) ALT (SGPT) (BEAKER) (test code = 20 U/L 6-55 347) BASIC METABOLIC [id number] 12:20:00 Test Item Value Reference Range Interpretation Comments SODIUM (BEAKER) 137 meq/L 136-145 (test code = 381) POTASSIUM (BEAKER) 4.7 meq/L 3.5-5.1 (test code = 379) CHLORIDE (BEAKER) 102 meq/L 98-107 (test code = 382) CO2 (BEAKER) (test 28 meq/L 22-29 code = 355) BLOOD UREA NITROGEN 30 mg/dL 7-21 H (BEAKER) (test code = 354) CREATININE (BEAKER) 2.13 mg/dL 0.57-1.25 H (test code = 358) GLUCOSE RANDOM 73 mg/dL 70-105 (BEAKER) (test code = 652) CALCIUM (BEAKER) 10.2 mg/dL 8.4-10.2 (test code = 697) EGFR (BEAKER) (test 37 mL/min/1.73 [place] GFR IS code = 1092) sq m NOT ACCURATE CREATININE CLEARANCE IN PREDICTING GLOMERULAR FILTRATION RATE . ESTIMATED GFR I S NOT APPLICABLE FOR DIALYSIS PATIEN TS. PROTHROMBIN [id number] 12:06:00 Test Item Value Reference Range Interpretation Comments PROTIME (BEAKER) (test code = 13.5 seconds 11.7-14.7 759) INR (BEAKER) (test code = 370) 1.0 <=5.9 RECOMMENDED COUMADIN/WARFARIN INR THERAPY RANGESSTANDARD DOSE: 2.0 - 3.0 Includes: PROPHYLAXIS forvenous thrombosis, systemic embolization; TREATMENT for venous thrombosis and/or pulmonary embolus.HIGH RISK: Target INR is 2.5-3.5 for patients with mechanical heart valves.CBC W/PLT COUNT & AUTO DIFFERENTIAL 2018-05-31 12:05:00 Test Item Value Reference Range Interpretation Comments WHITE BLOOD CELL COUNT (BEAKER) 5.0 K/ L 3.5-10.5 (test code = 775) RED BLOOD CELL COUNT (BEAKER) 3.69 M/ L 4.63-6.08 L (test code = 761) HEMOGLOBIN (BEAKER) (test code = 11.6 GM/DL 13.7-17.5 L 410) HEMATOCRIT (BEAKER) (test code = 35.3 % 40.1-51.0 L 411) MEAN CORPUSCULAR VOLUME (BEAKER) 95.7 fL 79.0-92.2 H (test code = 753) MEAN CORPUSCULAR HEMOGLOBIN 31.4 pg 25.7-32.2 (BEAKER) (test code = 751) MEAN CORPUSCULAR HEMOGLOBIN CONC 32.9 GM/DL 32.3-36.5 (BEAKER) (test code = 752) RED CELL DISTRIBUTION WIDTH 15.1 % 11.6-14.4 H (BEAKER) (test code = 412) PLATELET COUNT (BEAKER) (test 160 K/CU MM 150-450 code = 756) MEAN PLATELET VOLUME (BEAKER) 12.0 fL 9.4-12.4 (test code = 754) NUCLEATED RED BLOOD CELLS 0 /100 WBC 0-0 (BEAKER) (test code = 413) NEUTROPHILS RELATIVE PERCENT 49 % (BEAKER) (test code = 429) LYMPHOCYTES RELATIVE PERCENT 33 % (BEAKER) (test code = 430) MONOCYTES RELATIVE PERCENT 13 % (BEAKER) (test code = 431) EOSINOPHILS RELATIVE PERCENT 4 % (BEAKER) (test code = 432) BASOPHILS RELATIVE PERCENT 1 % (BEAKER) (test code = 437) NEUTROPHILS ABSOLUTE COUNT 2.43 K/ L 1.78-5.38 (BEAKER) (test code = 670) LYMPHOCYTES ABSOLUTE COUNT 1.64 K/ L 1.32-3.57 (BEAKER) (test code = 414) MONOCYTES ABSOLUTE COUNT (BEAKER) 0.63 K/ L 0.30-0.82 (test code = 415) EOSINOPHILS ABSOLUTE COUNT 0.21 K/ L 0.04-0.54 (BEAKER) (test code = 416) BASOPHILS ABSOLUTE COUNT (BEAKER) 0.04 K/ L 0.01-0.08 (test code = 417) IMMATURE GRANULOCYTES-RELATIVE 0 % 0-1 PERCENT (BEAKER) (test code = 9271)
== END 2020-03-29 17:05 | disposition home or self-care (01) ==
LOC: ER 12:45
DX: R42 Dizziness and giddiness (principal); W19.XXXA Unspecified fall, initial encounter; Y93.89 Activity, other specified; Y92.009 Unspecified place in unspecified non-institutional (private) residence as the place of occurrence of the external cause; I10 Essential (primary) hypertension; I48.91 Unspecified atrial fibrillation; Z79.82 Long term (current) use of aspirin
CPT/HCPCS: 93005; 85025; 80048; 36415; 83735; 85610; 80076; 81003; 84484; 83880; 70450; 71045; 93880; 96360; 99284; J7040

== ENCOUNTER 2024-02-02 16:06 | Inpatient (IN) | payer OTHER ==
[2024-02-02 18:38] LABS: Absolute Basophils 0.1 K/uL (0-0.5); Absolute Eosinophils 0.2 K/uL (0-0.5); Absolute Lymphocytes (CBC) 1.7 K/uL (0.7-4.9); Absolute Monocytes 0.5 K/uL (0.1-1.3); Absolute Neutrophil 2.6 K/uL (1.8-8.0); Hematocrit 32.7 % (39.6-49.0); Hemoglobin 10.7 g/dL (13.6-17.9); Lymphocytes % 33.4 % (15.3-44.8); MCH 30.5 pg (27.0-35.0); MCHC 32.7 g/dL (32.0-36.0); MCV 93.1 fL (80-100); MPV 8.8 fL (7.6-11.3); Monocytes % 10.5 % (3.3-12.3); Neutrophils % 51.1 % (41.7-73.7); Nucleated Red Blood Cells % 0.3 % (0-0); Platelets 184 thou/uL (152-406); RBC Red Blood Cell Count 3.51 M/uL (4.33-5.43); Red Cell Distribution Width 15.8 % (12.1-15.2)
--- NOTE | 2024-02-02 18:44 | RAD REPORT ---
EXAM DESCRIPTION: RAD - Chest Single View - 02/02/2024 6:31 pm CLINICAL HISTORY: SWELLING Chest pain. COMPARISON: <Comparisons> FINDINGS: Portable technique limits examination quality. Calcified granuloma seen in the right lung base. Also noted calcified right lymph nodes. This pattern likely indicates prior granulomatous infection. The lungs are otherwise clear. The heart is normal i n size. Tortuous thoracic aorta No displaced fractures. IMPRESSION: No acute intrathoracic process suspected.
[2024-02-02 18:46] LABS: PT Prothrombin Time 11.1 SECONDS (9.4-12.5); Protime INR 0.99
[2024-02-02 18:56] LABS: Anion Gap 9.3 mEq/L (5.0-15.0); Magnesium 2.2 mg/dL (1.6-2.4); Potassium 4.3 mEq/L (3.5-5.1); Troponin High Sensitivity 19.2 pg/mL (<58.9)
[2024-02-02] MEDS ORDERED: HYDRALAZINE HCL 20 MG/ML VIAL ONE (18:58)
--- NOTE | 2024-02-02 20:15 | EDPHYS ---
Physician Documentation [facility] Name: Cam Kaplan Age: 78 yrs Sex: Male : 1945 Arrival Date: 02/02/2024 Time: 16:06 Bed 6 Private MD: ED Physician Ilia Pereyra HPI: 02/01 17:55 This 78 yrs old Black Male presents to ER via Wheelchair with complaints of Abnormal cp Lab Results - sent by pcp. 17:55 Patient presents to ED after being referred by dupligraph operator, DR Napier for elevated cp creatinine. No other complaints expressed. Historical: - Allergies: 16:24 No Known Allergies; hb - PMHx: 16:24 Atrial Fib; hb 16:30 GERD; Hypertension; Gout; hb - Immunization history:: Adult Immunizations up to date. - Infectious Disease History:: Denies. - Social history:: Smoking status: Patient denies any tobacco usage or history of. ROS: 18:00 Constitutional: Negative for body aches, chills, fever, poor PO intake, cp 18:00 Eyes: Negative for injury, pain, redness, and discharge, cp 18:00 ENT: Negative for drainage from ear(s), ear pain, sore throat, difficulty swallowing, difficulty handling secretions, 18:00 Cardiovascular: Positive for edema, Negative for chest pain, palpitations, 18:00 Respiratory: Negative for cough, shortness of breath, wheezing, 18:00 Abdomen/GI: Negative for abdominal pain, vomiting, diarrhea, constipation, 18:00 : Negative for urinary symptoms, 18:00 Skin: Negative for rash, 18:00 Neuro: Negative for altered mental status, dizziness, headache, weakness, 18:00 All other systems are negative, Exam: 18:05 Constitutional: The patient appears in no acute distress, alert, awake, cp non-diaphoretic, non-toxic, well developed, well nourished, 18:05 Head/Face: Normocephalic, atraumatic. cp 18:05 Eyes: Periorbital structures: appear normal, Conjunctiva: normal, no exudate, no injection, Sclera: no appreciated abnormality, Lids and lashes: appear normal, bilaterally, 18:05 ENT: External ear(s): are unremarkable, Nose: is normal, Mouth: Lips: moist, Oral mucosa: pink and intact, moist, Posterior pharynx: Airway: no evidence of obstruction, patent, 18:05 Chest/axilla: Inspection: normal, 18:05 Cardiovascular: Rate: normal, Rhythm: regular, Edema: moderate lower leg edema with right worse than left, JVD: is not appreciated, 18:05 Respiratory: the patient does not display signs of respiratory distress, Respirations: normal, no use of accessory muscles, no retractions, labored breathing, is not present, Breath sounds: are clear throughout, no decreased breath sounds, no stridor, no wheezing, 18:05 Abdomen/GI: Exam negative for discomfort, distension, guarding, 18:05 Back: pain, is absent, 18:05 Neuro: Orientation: to person, place \T\ time. Mentation: is normal, Motor: moves all fours, Vital Signs: 16:21 BP 153 / 88; Pulse 72; Resp 18; Temp 98.1; Pulse Ox 99% on R/A; Weight 107.05 kg; hb Height 6 ft. 0 in. ; Pain 4/10; 18:30 BP 191 / 109; Pulse 57; Resp 18; Pulse Ox 100% on R/A; tl4 19:17 BP 178 / 96; Pulse 58; Resp 17; Temp 97.8; Pulse Ox 100% ; Pain 0/10; bm8 20:38 BP 167 / 103; Pulse 70; Resp 18; Pulse Ox 100% ; kd4 16:21 Body Mass Index 32.01 (107.05 kg, 182.88 cm) hb 16:21 Pain Scale: Adult hb 19:17 Pain Scale: Adult bm8 Sundar Coma Score: 19:17 Eye Response: spontaneous(4). Motor Response: obeys commands(6). Verbal Response: bm8 oriented(5). Total: 15. MDM: 16:33 Patient medically screened. cp 20:15 Data reviewed: vital signs, nurses notes, lab test result(s), EKG, radiologic studies, cp plain films, and as a result, I will admit patient. Care significantly affected by the following chronic conditions: Hypertension, Chronic Kidney Disease. Counseling: I had a detailed discussion with the patient and/or guardian regarding the historical points, exam findings, and any diagnostic results supporting the discharge/admit diagnosis, lab results. 20:15 Management of patient was discussed with the following: [employer] Erp Architect: DR Napier who request cp patient be admitted for elevated creatinine. 02/01 17:49 Order name: Basic Metabolic Panel; Complete Time: 19:22 cp / 19:22 Interpretation: Normal except: CL 110; BUN 50; CRE 3.10; GFR 20. cp 02/01 17:49 Order name: CBC with Diff; Complete Time: 18:43 cp 02/01 18:43 Interpretation: Normal except: RBC 3.51; HGB 10.7; HCT 32.7; RDW 15.8. cp 02/01 17:49 Order name: Magnesium; Complete Time: 19:22 cp 02/01 17:49 Order name: NT PRO-BNP; Complete Time: 19:22 cp 02/01 19:41 Interpretation: Reviewed. cp 02/01 17:49 Order name: PT-INR; Complete Time: 19:22 cp 02/01 17:49 Order name: Troponin HS; Complete Time: 19:22 cp 02/01 20:38 Order name: Urinalysis w/ reflexes EDMS 02/01 20:38 Order name: CBC with Automated Diff EDMS 02/01 20:38 Order name: CBC with Automated Diff EDMS 02/01 20:38 Order name: Comprehensive Metabolic Panel EDMS 02/01 20:38 Order name: Comprehensive Metabolic Panel EDMS 02/01 17:49 Order name: XRAY Chest (1 view); Complete Time: 19:22 cp 02/01 17:49 Order name: EKG; Complete Time: 17:50 cp 02/01 20:38 Order name: CONS Physician Consult EDVT 02/01 17:49 Order name: Cardiac monitoring; Complete Time: 18:12 cp 02/01 17:49 Order name: EKG - Nurse/Tech; Complete Time: 19:02 cp 02/01 17:49 Order name: IV Saline Lock; Complete Time: 18:27 cp 02/01 17:49 Order name: Labs collected and sent; Complete Time: 18:27 cp 02/01 17:49 Order name: O2 Per Protocol; Complete Time: 18:12 cp 02/01 17:49 Order name: O2 Sat Monitoring; Complete Time: 18:12 cp Administered Medications: 19:02 Drug: hydrALAZINE IVP 10 mg IVP once Route: IVP; Site: right antecubital; tl4 20:57 Follow up: Response: No adverse reaction bm8 Disposition Summary: 02/02/24 20:15 Hospitalization Ordered Notes: Hospitalization Status: Inpatient Admission cp Provider: Len Martínez cp Location: Telemetry/MedSurg (Inpatient) cp Condition: Stable cp Problem: an ongoing problem cp Symptoms: have worsened cp Bed/Room Type: Standard cp Room Assignment: 202(02/02/24 20:45) jb4 Diagnosis - Hypertensive heart and chronic kidney disease without heart failure, with stage 1 cp through stage 4 chronic kidney disease, or unspecified chronic kidney disease Forms: - Medication Reconciliation Form cp - SBAR form cp - Leadership Thank You Letter cp Signatures: Dispatcher [employer] EDMS Ilia Henry PA PA cp Baxter, Heather, RN RN Den Hernandez RN RN jb4 Ramon Martin RN RN tl4 Jimbo Castro RN bm8 Corrections: (The following items were deleted from the chart) 17:50 17:50 BASIC METABOLIC PANEL+C.LAB.BRZ ordered. EDMS EDMS 17:50 17:50 CBC+H.LAB.BRZ ordered. EDMS EDMS 17:50 17:50 MAGNESIUM+C.LAB.BRZ ordered. EDMS EDMS 17:50 17:50 PROBNP+C.LAB.BRZ ordered. EDMS EDMS 17:50 17:50 PROTIME (+INR)+COAG.LAB.BRZ ordered. EDMS EDMS 17:50 17:50 Troponin High Sensitivity+C.LAB.BRZ ordered. EDMS EDMS 20:45 20:15 cp jb4 02/02 14:19 02/01 21:20 Management of patient was discussed with the following: Oracle Erp Architect: DR Karthikeyan espinoza who request patient be admitted for elevated creatinine. cp 02/02 14:20 02/01 20:15 Management of patient was discussed with the following: Oracle Erp Architect: DR Karthikeyan espinoza who request patient be admitted for elevated creatinine. cp
--- NOTE | 2024-02-02 20:15 | ER ---
Nurse's Notes [facility] [place] Name: Cam Kaplan Age: 78 yrs Sex: Male : 1945 Arrival Date: 02/02/2024 Time: 16:06 Bed 6 Private MD: Diagnosis: Hypertensive heart and chronic kidney disease without heart failure, with stage 1 through stage 4 chronic kidney disease, or unspecified chronic kidney disease Presentation: 02/01 16:21 Chief complaint: Sent by Dr. Penny's office for creat 3.69. hb 16:21 Method Of Arrival: Wheelchair hb 16:21 Acuity: ISA 3 hb 16:22 Coronavirus screen: At this time, the client does not indicate any symptoms associated hb with coronavirus-19. Ebola Screen: No symptoms or risks identified at this time. Initial Sepsis Screen: Does the patient meet any 2 criteria? No. Patient's initial sepsis screen is negative. Does the patient have a suspected source of infection? No. Patient's initial sepsis screen is negative. Risk Assessment: Do you want to hurt yourself or someone else? Patient reports no desire to harm self or others. Onset of symptoms was February 02, 2024. Historical: - Allergies: 16:24 No Known Allergies; hb - PMHx: 16:24 Atrial Fib; hb 16:30 GERD; Hypertension; Gout; hb - Immunization history:: Adult Immunizations up to date. - Infectious Disease History:: Denies. - Social history:: Smoking status: Patient denies any tobacco usage or history of. Screenin:31 [facility] ED Fall Risk Assessment (Adult) History of falling in the last 3 months, tl4 including since admission Yes- single mechanical fall (1 pt) Confusion or Disorientation No (0 pts) Intoxicated or Sedated No (0 pts) Impaired Gait No (0 pts) Mobility Assist Device Used Yes (1 pt) Altered Elimination No (0 pt) Score/Fall Risk Level 3 or more points = High Risk Oriented to surroundings, Maintained a safe environment, Educated pt \T\ family on fall prevention, incl call for assistance when getting out of bed, Assessed \T\ reinforced patient's understanding of fall precautions, Hourly rounding (assess needs \T\ fall precautionary measures) done, Used ambulatory aids as needed (educated on \T\ assisted with), Used gait belt as appropriate. Abuse screen: Denies threats or abuse. Denies injuries from another. Nutritional screening: No deficits noted. Nutritional screening: No deficits noted. Tuberculosis screening: No symptoms or risk factors identified. Assessment: 18:29 General: Appears in no apparent distress. Behavior is calm, cooperative. Pain: Denies tl4 pain. Neuro: Level of Consciousness is awake, alert, obeys commands, Oriented to person, place, time, situation, Moves all extremities. Full function Speech is normal, Facial symmetry appears normal, Pupils are PERRLA. Cardiovascular: Denies chest pain, palpitations, shortness of breath, Capillary refill < 3 seconds Patient's skin is warm and dry. Rhythm is sinus bradycardia. Respiratory: Airway is patent Respiratory effort is even, unlabored, Respiratory pattern is regular, symmetrical, Breath sounds are clear bilaterally. GI: No signs and/or symptoms were reported involving the gastrointestinal system. : No signs and/or symptoms were reported regarding the genitourinary system. EENT: No signs and/or symptoms were reported regarding the EENT system. Derm: No signs and/or symptoms reported regarding the dermatologic system. Musculoskeletal: No signs and/or symptoms reported regarding the musculoskeletal system. 19:17 Reassessment: Patient appears in no apparent distress at this time. Patient and/or bm8 family updated on plan of care and expected duration. Pain level reassessed. Patient is alert, oriented x 3, equal unlabored respirations, skin warm/dry/pink. General: Appears in no apparent distress. comfortable, Behavior is calm, cooperative, appropriate for age. Pain: Denies pain. Neuro: Level of Consciousness is awake, alert, obeys commands, Oriented to person, place, time, situation. Cardiovascular: Denies chest pain, palpitations, shortness of breath, Capillary refill < 3 seconds Patient's skin is warm and dry. Respiratory: Airway is patent Respiratory effort is even, unlabored, Respiratory pattern is regular, symmetrical, Breath sounds are clear bilaterally. GI: No signs and/or symptoms were reported involving the gastrointestinal system. : No signs and/or symptoms were reported regarding the genitourinary system. EENT: No signs and/or symptoms were reported regarding the EENT system. Derm: No signs and/or symptoms reported regarding the dermatologic system. Musculoskeletal: No signs and/or symptoms reported regarding the musculoskeletal system. Vital Signs: 16:21 BP 153 / 88; Pulse 72; Resp 18; Temp 98.1; Pulse Ox 99% on R/A; Weight 107.05 kg; hb Height 6 ft. 0 in. ; Pain 4/10; 18:30 BP 191 / 109; Pulse 57; Resp 18; Pulse Ox 100% on R/A; tl4 19:17 BP 178 / 96; Pulse 58; Resp 17; Temp 97.8; Pulse Ox 100% ; Pain 0/10; bm8 20:38 BP 167 / 103; Pulse 70; Resp 18; Pulse Ox 100% ; kd4 16:21 Body Mass Index 32.01 (107.05 kg, 182.88 cm) hb 16:21 Pain Scale: Adult hb 19:17 Pain Scale: Adult bm8 Vitals: 18:30 Cardiac Rhythm Assessment Sinus aiyana. tl4 19:17 Cardiac Rhythm Assessment Sinus aiyana. bm8 Sundar Coma Score: 19:17 Eye Response: spontaneous(4). Motor Response: obeys commands(6). Verbal Response: bm8 oriented(5). Total: 15. ED Course: 16:15 Patient arrived in ED. ra3 16:22 Ilia Henry PA is PHCP. cp 16:22 Ilia Pereyra MD is Attending Physician. cp 16:24 Triage completed. hb 16:30 Arm band placed on. hb 17:27 Patient placed in an exam room, on a stretcher. db 18:27 Basic Metabolic Panel Sent. tl4 18:27 CBC with Diff Sent. tl4 18:27 Magnesium Sent. tl4 18:27 NT PRO-BNP Sent. tl4 18:28 Patient has correct armband on for positive identification. Placed in gown. Bed in low tl4 position. Call light in reach. Side rails up X2. Adult w/ patient. Provided Education on: ed process, call garza. Client placed on continuous cardiac and pulse oximetry monitoring. NIBP monitoring applied. pvc monitor on. Door closed. Noise minimized. Moved to private room. Warm blanket given. Pillow given. 18:28 PT-INR Sent. tl4 18:28 Troponin HS Sent. tl4 18:28 No provider procedures requiring assistance completed. Initial lab(s) drawn, by me, tl4 sent to lab. Inserted saline lock: 22 gauge in right antecubital area, using aseptic technique. Blood collected. Flushed with 10 mL NS. 18:33 XRAY Chest (1 view) In Process Unspecified. EDMS 19:12 Jimbo Castro, RN is Primary Nurse. bm8 19:15 EKG done, by ED staff, reviewed by Ilia SULLIVAN. tl4 19:17 IV was discontinued by the patient. with fluids infusing freely, with good blood return.bm8 20:14 Len Martínez MD is Hospitalizing Provider. cp 21:14 Patient admitted, IV remains in place. bm8 Administered Medications: 19:02 Drug: hydrALAZINE IVP 10 mg IVP once Route: IVP; Site: right antecubital; tl4 20:57 Follow up: Response: No adverse reaction bm8 Medication: 18:30 VIS not applicable for this client. tl4 Outcome: 20:15 Decision to Hospitalize by Provider. cp 21:13 Admitted to Med/surg accompanied by tech, via wheelchair, room 202, bm8 21:13 Condition: stable 21:13 Instructed on the need for admit, 21:13 Demonstrated understanding of instructions, follow-up care, 21:47 Patient left the ED. bm8 Signatures: Dispatcher [employer] EDMS Ilia Henry PA PA cp Jaky Pastrana RN RN Bernarda Emanuel, RN RN Ramon Martin RN RN tl4 Alee Kaufman ra3 Jimbo Castro, RN RN bm8 Citlali Foreman, RN RN kd4 Corrections: (The following items were deleted from the chart) 16:24 16:22 Chief complaint: Bit on right elbow by stay dog 2 hours ago, [place] [employer] Case # [id number]. hb 16:24 16:22 Method Of Arrival: Ambulatory hb hb 16:24 16:22 BP 132 / 85; Pulse 83bpm; Resp 16bpm; Pulse Ox 98% RA; Temp 97.8F Temporal; 81.65 hb kg; Height 4 ft. 11 in.; BMI: 36.3; Pain 2/10, Adult; hb 16:24 16:22 Acuity: ISA 4 hb hb
[2024-02-02] MEDS ORDERED: ACETAMINOPHEN 325 MG TABLET PO PRN (20:32)
[2024-02-02] MEDS ORDERED: ONDANSETRON 4 MG/2 ML VIAL IV PRN (20:32)
--- NOTE | 2024-02-02 20:40 | P.HP ---
Certification for Inpatient Patient admitted to: Inpatient With expected LOS: >2 Midnights Practitioner: I am a practitioner with admitting privileges, knowledge of patient current condition, hospital course, and medical plan of care. Services: Services provided to patient in accordance with Admission requirements found in Title 42 Section 412.3 of the Code of Federal Regulations Patient History Date of Service: 02/03/24 Reason for admission: PERRY History of Present Illness: 78-year-old male with past medical history of hypertension, hyperlipidemia, history of atrial fibrillation, CKD stage II,, GERD, gout who was sent to ER by his primary biology lecturer Dr. Napier for further monitoring and IV hydration. Patient denies any chest pain or shortness of breath. No fever or chills. No nausea vomiting or diarrhea. His biology lecturer noted that his creatinine is creeping up and wanted to start on IV hydration and to get a renal ultrasound and was sent over here for further management. Denies any pain . Patient was assessed in the ER and was found to have acute kidney injury on CKD stage II and accelerated hypertension and was admitted for further management. Nephrology was consulted. Allergies No Known Allergies Allergy (Verified 02/02/24 23:29) Home medications list reviewed: Yes Home Medications: Ascorbic Acid [Vitamin C] 1,000 mg PO BID 07/20/23 Aspirin [José Antonio Chewable] 81 mg PO BEDTIME 07/20/23 Atorvastatin Calcium [Lipitor*] 10 mg PO DAILY 07/20/23 Flecainide Acetate 50 mg PO BEDTIME 07/20/23 Nebivolol HCl [Bystolic] 10 mg PO DAILY 07/20/23 Tamsulosin [Flomax] 0.4 mg PO BID 07/20/23 allopurinoL [Zyloprim] 50 mg PO DAILY 07/20/23 cloNIDine [Clonidine] 1 patch TD SEECOM 07/20/23 Amlodipine [Norvasc] 5 mg PO BID 02/02/24 Losartan Potassium [Cozaar] 25 mg PO DAILY 02/02/24 - Past Medical/Surgical History Past Medical History: Reviewed- Non-Contributory -: Hypertension, hyperlipidemia, history of atrial fibrillation, Past Surgical History: Reviewed- Non-Contributory -: Carpal tunnel repair - Family History Family History: Reviewed- Non-Contributory - Social History Smoking Status: Never smoker Review of Systems 10-point ROS is otherwise unremarkable Physical Examination - Vital Signs Temperature: 98.1 F Blood Pressure: 152/88 Pulse: 76 Respirations: 18 Pulse Ox (%): 94 - Physical Exam General: Alert, In no apparent distress, Oriented x3 HEENT: Atraumatic, Normocephalic Neck: Supple, No Thyromegaly Respiratory: Clear to auscultation bilaterally, Normal air movement Cardiovascular: Regular rate/rhythm, Normal S1 S2 Capillary refill: <2 Seconds Gastrointestinal: Soft and benign, W/out hepatosplenomegaly Musculoskeletal: No clubbing, No swelling Integumentary: No rashes, No breakdown Neurological: Normal gait, Normal speech, Normal strength at 5/5 x4 extr, Cranial nerves 3-12 intact, Normal reflexes 2+ Lymphatics: No axilla or inguinal lymphadenopathy - Studies Laboratory Data (last 24 hrs) 02/02/24 02/02/24 02/02/24 18:25 18:25 18:25 WBC 5.00 Hgb 10.7 L Hct 32.7 L Plt Count 184 PT 11.1 INR 0.99 Sodium 140 Potassium 4.3 BUN 50 H Creatinine 3.10 H Glucose 99 Magnesium 2.2 Assessment and Plan - Plan Acute kidney injury on CKD stage II Monitor closely under application engineer renal parameters Electrolytes monitor and replace accordingly Nephrology consulted Will start fluid challenge with normal saline Will also get a renal ultrasound Accelerated Hypertension Antihypertensives titrated Continue home medications and titrate as needed Hydralazine as needed Hyperlipidemia Continue home medications CKD stage II Monitor renal parameters Electrolytes monitor and replace accordingly Anemia of chronic disease Monitor H&H closely No overt bleeding at this time GI/DVT prophylaxis Advanced directive full code Discharge Plan: Home Plan to discharge in: 48 Hours - Advance Directives Does patient have a Living Will: Yes Does patient have a Durable POA for Healthcare: Yes - Code Status/Comfort Care Code Status: Full Code Time Spent Managing Pts Care (In Minutes): 48
[2024-02-02] MEDS: NA CHLORIDE 0.9% 1,000 ML IV SCH (22:15)
[2024-02-02] MEDS ORDERED: CLONIDINE 0.2 MG/PATCH TD SCH (23:00)
[2024-02-03] MEDS: TAMSULOSIN 0.4 MG SR CAP PO ONE
[2024-02-03] MEDS: FLECAINIDE 100 MG TAB PO ONE
[2024-02-03] MEDS: ASPIRIN EC 81 MG TAB PO ONE (00:01)
[2024-02-03 00:31] VITALS: BMI 31.8
[2024-02-03 01:54] LABS: Specific Gravity 1.008 (1.005-1.030); Sqamous Epithelial None Seen /HPF (None Seen); Urine Bacteria <20 /HPF (<20); Urine Bilirubin NEGATIVE (Negative); Urine Blood Trace (Negative); Urine Clarity Clear (Clear); Urine Color Colorless (Yellow); Urine Culture Reflex Order NOT NEEDED; Urine Glucose NEGATIVE (Negative); Urine Ketones NEGATIVE (Negative); Urine Microscopic Reflex YN ORDER UMIC; Urine Nitrite NEGATIVE (Negative); Urine Protein 1+ (Negative); Urine RBC <5 /HPF (None Seen); Urine Urobilinogen Normal (Normal); Urine WBC <5 /HPF (<5); Urine pH 6.5 (5.0-7.0)
[2024-02-03] MEDS: HYDRALAZINE HCL 20 MG/ML VIAL IV PRN (05:19)
[2024-02-03 06:14] LABS: Absolute Basophils 0.1 K/uL (0-0.5); Absolute Eosinophils 0.2 K/uL (0-0.5); Absolute Lymphocytes (CBC) 1.4 K/uL (0.7-4.9); Absolute Monocytes 0.5 K/uL (0.1-1.3); Absolute Neutrophil 2.4 K/uL (1.8-8.0); Basophils % 1.1 % (0-1.3); Eosinophils % 3.6 % (0-4.4); Hematocrit 30.5 % (39.6-49.0); Hemoglobin 10.3 g/dL (13.6-17.9); Lymphocytes % 31.2 % (15.3-44.8); MCH 31.4 pg (27.0-35.0); MCHC 33.6 g/dL (32.0-36.0); MCV 93.5 fL (80-100); MPV 9.5 fL (7.6-11.3); Monocytes % 11.4 % (3.3-12.3); Neutrophils % 52.7 % (41.7-73.7); Nucleated Red Blood Cells % 0.1 % (0-0); Platelets 152 thou/uL (152-406); RBC Red Blood Cell Count 3.27 M/uL (4.33-5.43); Red Cell Distribution Width 15.6 % (12.1-15.2)
[2024-02-03 06:32] LABS: Albumin 3.2 g/dL (3.4-5.0); Albumin/Globulin Ratio 0.9 (1.1-1.8); Anion Gap 10.4 mEq/L (5.0-15.0); Bilirubin Total 0.4 mg/dL (0.2-1.0); Globulin 3.6 g/dL (2.3-3.5); Potassium 4.4 mEq/L (3.5-5.1); Protein, Total 6.8 g/dL (6.4-8.2)
[2024-02-03] MEDS ORDERED: NEBIVOLOL HCL 5 MG TAB PO SCH (09:00)
[2024-02-03] MEDS ORDERED: FLECAINIDE 100 MG TAB PO SCH (09:00)
[2024-02-03] MEDS ORDERED: ATORVASTATIN 10 MG TAB PO SCH (09:00)
[2024-02-03] MEDS: NEBIVOLOL HCL 5 MG TAB PO SCH (09:37)
[2024-02-03] MEDS: TAMSULOSIN 0.4 MG SR CAP PO SCH (09:38)
[2024-02-03] MEDS: ASPIRIN 81 MG CHEWABLE TABLET PO SCH (09:39)
[2024-02-03] MEDS: ENOXAPARIN 30 MG/0.3 ML SQ SCH (09:39)
[2024-02-03] MEDS: ATORVASTATIN 10 MG TAB PO SCH (09:39)
[2024-02-03] MEDS: AMLODIPINE 5 MG TAB PO ONE ×2 (11:13)
--- NOTE | 2024-02-03 12:01 | P.PN ---
Subjective Date of Service: 02/03/24 Chief Complaint: PERRY Patient denies any new complaint. His blood pressure readings have improved. Physical Examination - Vital Signs Temperature: 97.9 F Blood Pressure: 159/95 Pulse: 65 Respirations: 12 Pulse Ox (%): 95 - Studies Laboratory Data (last 24 hrs) 02/02/24 02/02/24 02/02/24 18:25 18:25 18:25 WBC 5.00 Hgb 10.7 L Hct 32.7 L Plt Count 184 PT 11.1 INR 0.99 Sodium 140 Potassium 4.3 BUN 50 H Creatinine 3.10 H Glucose 99 Magnesium 2.2 Assessment And Plan - Plan Physical examination General: Alert and oriented x3, NAD, HEENT: Conjunctiva not pale, anicteric sclera Neck: Supple, no elevated JVD Heart: Heart sounds 1 and 2 normal, regular rhythm, normal rate, no pedal edema Lungs: Clear to auscultation bilaterally, adequate breath sounds bilaterally, no rhonchi or crackles. Abdomen: Soft, nondistended, nontender, normal bowel sounds. Extremities: No tenderness, no deformity Skin: Normal skin turgor, no rash, no nodules or ulcers. Neuro: No focal motor deficit. Normal speech. Psychiatry: Normal mood, no agitation. Assessment and plan Acute kidney injury on CKD stage II Renal function is improving slowly with IV hydration. Nephrology consulted to manage PERRY Continue IV normal saline renal US. Accelerated Hypertension Patient is on cocktail of antihypertensives at home. All home antihypertensive resumed except losartan given PERRY Hydralazine as needed for BP spikes Hyperlipidemia Continue home medications Anemia of chronic disease Stable GI/DVT prophylaxis: Heparin SQ Advanced directive full code
[2024-02-03] MEDS: NA CHLORIDE 0.9% 1,000 ML IV SCH (16:35)
--- NOTE | 2024-02-03 16:40 | RAD REPORT ---
EXAM DESCRIPTION: US - Renal Ultrasound-Complete - 02/03/2024 3:19 pm CLINICAL HISTORY: Acute renal failure COMPARISON: June 2023 FINDINGS: The right kidney measures 10 cm with an increased echotexture. 5.3 centimeters cyst. Addit ional smaller cysts The left kidney measures 9 cm with an increased echotexture. Hydronephrosis is not seen. Marked prostatic enlargement. Prostatic tissue abuts base of the bladder. IMPRESSION: Increased renal echotexture consistent with parenchymal disease Marked prostatic enlargement
[2024-02-03] MEDS: HEPARIN 5000 UNIT/ML 1 ML VIAL SQ SCH (18:12)
--- NOTE | 2024-02-03 19:21 | CON ---
Date of Consultation: 02/03/2024 Reason For Consultation: Acute kidney injury. History Of Present Illness: This is a 78-year-old male with past medical history of hypertension wit h hypertensive glomerulosclerosis, baseline creatinine about 2.5, history of GERD and BPH. The patie nt was sent by electronic tester, Dr. Maddox for PERRY. The patient is scheduled for followup with his primar care physician. Labs from this week showed elevated creatinine of 3.5 and his baseline creatinine 2.5. The patient denied taking diuretic, NSAIDs, or recent antibiotic. Past Medical History: Hypertension and chronic kidney disease. Past Surgical History: Carpal tunnel surgery. Family History: Noncontributory. Allergies: NO KNOWN DRUG ALLERGIES. Review of Systems: General: Denied fever or chills. HEENT: Denied headache or blurred vision. Respiratory: Denies cough or shortness of breath. Cardiovascular: Denied chest pain or palpitation. GI: Denies nausea, vomiting, diarrhea, or constipation. : Denies dysuria, hematuria, increase in frequency or urgency. Physical Examination: Vital Signs: Temperature 97.9, pulse rate 65, blood pressure 159/95. General: Awake and alert, not in distress. Neck: Supple. No elevated JVD. Heart: Regular rate and rhythm. Normal S1, S2. Chest: Clear to auscultation bilaterally. No rales or wheezes. Abdomen: Soft, nontender. Extremities: No edema. Medications: Include Tylenol, vitamin C, amlodipine, clonidine, flecainide, and Flomax. Assessment And Plan: 1.Acute on chronic kidney disease. Creatinine improving, possibly due to hydration, need to rule ou t obstructive uropathy. The patient's previous ultrasound from June showed 6.7 cm mass projecting along the bladder neck. Avoid NSAID and contrast. Renally dose medication. 2.Hypertension. 3.Hypertensive chronic kidney disease, baseline creatinine 2.5, GFR 25. 4.Hypertension. Blood pressure is better controlled. We will reduce IV fluid rate to 50 mL/h. 5.Anemia of chronic disease. Hemoglobin is stable. Thanks for allowing me to participate in patient's care. Total time spent 75 minutes including documentation, reviewing labs, placing orders, and discussing with the medical team. SEAN/RICCARDO Voice ID: [id number] Report ID: [id number]
[2024-02-03] MEDS: FLECAINIDE 100 MG TAB PO SCH (20:34)
[2024-02-03] MEDS: ASCORBIC ACID 500 MG TABLET PO SCH (20:34)
[2024-02-03] MEDS: AMLODIPINE 5 MG TAB PO SCH (20:35)
[2024-02-03 21:34] VITALS: O2SAT 98
[2024-02-04 05:49] LABS: Absolute Eosinophils 0.2 K/uL (0-0.5); Absolute Lymphocytes (CBC) 1.4 K/uL (0.7-4.9); Absolute Monocytes 0.5 K/uL (0.1-1.3); Absolute Neutrophil 2.6 K/uL (1.8-8.0); Eosinophils % 3.3 % (0-4.4); Hemoglobin 9.5 g/dL (13.6-17.9); MCH 30.4 pg (27.0-35.0); MCHC 32.9 g/dL (32.0-36.0); MCV 92.3 fL (80-100); MPV 9.2 fL (7.6-11.3); Monocytes % 9.9 % (3.3-12.3); Neutrophils % 56.8 % (41.7-73.7); Nucleated Red Blood Cells % 0.2 % (0-0); Platelets 156 thou/uL (152-406); RBC Red Blood Cell Count 3.14 M/uL (4.33-5.43); Red Cell Distribution Width 15.7 % (12.1-15.2)
[2024-02-04 06:07] LABS: Albumin 2.9 g/dL (3.4-5.0); Anion Gap 11.5 mEq/L (5.0-15.0); Phosphorus 2.9 mg/dL (2.5-4.9); Potassium 4.5 mEq/L (3.5-5.1)
[2024-02-04] MEDS: allopurinoL 100 MG TAB PO SCH (08:29)
[2024-02-04 12:15] VITALS: BP 158/87; TEMP 97.3
--- NOTE | 2024-02-04 13:02 | P.DS ---
Admission Date: 02/02/24 Discharge Date: 02/04/24 Disposition: ROUTINE DISCHARGE Discharge Condition: FAIR Reason for Admission: PERRY Brief History of Present Illness: 78-year-old male with past medical history of hypertension, hyperlipidemia, history of atrial fibrillation, CKD stage III,, GERD, gout who was sent to ER by his primary cissp Dr. Napier due to PERRY for IV hydration. Patient any symptoms, including vomiting or diarrhea. His cissp noted that his creatinine is creeping up and wanted to start on IV hydration and to get a renal ultrasound and was sent over here for further management. Patient was assessed in the ER and was found to have acute kidney injury on CKD stage III and elevated BP. Patient was admitted for further management. Hospital Course: Patient admitted to the medical floor and the following medical problems addressed: Acute kidney injury on CKD stage II Renal function improved with IV hydration. Nephrology consulted to manage PERRY, patient was seen by Dr. Holland. Patient's serum creatinine has improved to baseline per Dr. Holland. Renal US showed no obstructive uropathy but demonstrated markedly enlarged prostate Accelerated Hypertension Patient is on cocktail of antihypertensives at home. All home antihypertensive resumed except losartan given PERRY. Patient was made aware the losartan was held due to the PERRY but he declined to take it again. Losartan is replaced with hydralazine. Hyperlipidemia Continued home medications Anemia of chronic disease Stable BPH Renal ultrasound shows markedly enlarged prostate. Patient states he follows up with Dr. Patel for his prostate and saw Dr. Patel about 1 month ago. Follow-up with Dr. Patel as outpatient. Vital Signs/Physical Exam: Temp Pulse Resp BP Pulse Ox 97.3 F 60 12 158/87 H 99 02/04/24 12:00 02/04/24 12:00 02/04/24 12:00 02/04/24 12:00 02/04/24 12:00 General: Alert, In no apparent distress, Oriented x3 HEENT: Mucous membr. moist/pink, Sclerae nonicteric Neck: Supple, JVD not distended Respiratory: Clear to auscultation bilaterally, Normal air movement Cardiovascular: No edema, Regular rate/rhythm, Normal S1 S2 Gastrointestinal: Normal bowel sounds, Soft and benign, Non-distended, No tenderness Musculoskeletal: No swelling Integumentary: No rashes, No cyanosis Neurological: Normal strength at 5/5 x4 extr Laboratory Data at Discharge: WBC 4.70 thou/uL (4.3-10.9) 02/04/24 05:19 Hgb 9.5 g/dL (13.6-17.9) L 02/04/24 05:19 Hct 29.0 % (39.6-49.0) L 02/04/24 05:19 Plt Count 156 thou/uL (152-406) 02/04/24 05:19 PT 11.1 SECONDS (9.4-12.5) 02/02/24 18:25 INR 0.99 02/02/24 18:25 Sodium 140 mEq/L (136-145) 02/04/24 05:19 Potassium 4.5 mEq/L (3.5-5.1) 02/04/24 05:19 BUN 42 mg/dL (7-18) H 02/04/24 05:19 Creatinine 2.73 mg/dL (0.70-1.30) H 02/04/24 05:19 Glucose 91 mg/dL (74-106) 02/04/24 05:19 Phosphorus 2.9 mg/dL (2.5-4.9) 02/04/24 05:19 Magnesium 2.1 mg/dL (1.6-2.4) 02/03/24 12:36 Total Bilirubin 0.4 mg/dL (0.2-1.0) 02/03/24 05:33 AST 19 U/L (15-37) 02/03/24 05:33 ALT 21 U/L (16-61) 02/03/24 05:33 Alkaline Phosphatase 63 U/L (45-117) 02/03/24 05:33 Home Medications: Ascorbic Acid [Vitamin C*] 1,000 mg PO BID 07/20/23 Aspirin [José Antonio Chewable Aspirin] 81 mg PO BEDTIME 07/20/23 Atorvastatin Calcium [Lipitor*] 10 mg PO DAILY 07/20/23 Flecainide Acetate 50 mg PO BEDTIME 07/20/23 Nebivolol HCl [Bystolic] 10 mg PO DAILY 07/20/23 Tamsulosin [Flomax*] 0.4 mg PO BID 07/20/23 allopurinoL [Zyloprim*] 50 mg PO DAILY 07/20/23 cloNIDine [Clonidine] 1 patch TD SEECOM 07/20/23 Amlodipine [Norvasc*] 5 mg PO BID 02/02/24 Hydralazine HCl 10 mg PO TID #90 tab 02/04/24 New Medications: Hydralazine HCl 10 mg PO TID #90 tab Diet: Renal Activity: Ad terence Followup: Maranda Gerard MD [ACTIVE - CAN ADMIT] - 1 Week Jean Penny MD [Primary Care Provider] - 1-2 Weeks Time spent managing pt's care (in minutes): 36
--- NOTE | 2024-02-05 13:53 | EKG ---
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
== END 2024-02-04 14:11 | disposition home or self-care (01) | DRG 684 ==
LOC: ER 16:06 → 2ND 20:32
PROVIDERS: ADMIT Family Medicine; ATTEND Internal Medicine
DX: N17.9 Acute kidney failure, unspecified (principal); I48.91 Unspecified atrial fibrillation; M10.9 Gout, unspecified; E78.5 Hyperlipidemia, unspecified; I12.9 Hypertensive chronic kidney disease with stage 1 through stage 4 chronic kidney disease, or unspecified chronic kidney disease; N18.2 Chronic kidney disease, stage 2 (mild); D63.1 Anemia in chronic kidney disease; N40.0 Benign prostatic hyperplasia without lower urinary tract symptoms; K21.9 Gastro-esophageal reflux disease without esophagitis; Z79.82 Long term (current) use of aspirin; Z79.899 Other long term (current) drug therapy
CPT/HCPCS: 36415; 71045; 76770; 80048; 80053; 80069; 81001; 83735; 83880; 84484; 85025; 85610; 93005; 93971; 96374; 99285; J0360; J1644; J1650; J7030